=== PATIENT | female | born 1955 | race Caucasian/White ===

== ENCOUNTER 2016-09-26 12:03 | Inpatient (IN) | payer BC ==
[2016-09-26] MEDS ORDERED: NORMAL SALINE 1000 ML 1,000 ML IV PRN (12:21)
[2016-09-26] MEDS ORDERED: VANCOMYCIN HCL 1,000 MG in DEXTROSE 5%-WATER 250 ML IV PRN (12:45)
[2016-09-26 12:55] LABS: ABSOLUTE MONOCYTES (AUTO) 0.7 10^3/uL (0.1-1.4); ABSOLUTE NEUT (AUTO) 7.1 10^3/uL (1.7-8.2); BASOPHILS % (AUTO) 0.3 % (0-2); HEMATOCRIT 29.5 % (36.0-47.0); HEMOGLOBIN 9.7 g/dL (12.0-15.5); HGB HCT DIFFERENCE -0.4; LYMPHOCYTES % (AUTO) 11.7 % (13-45); MEAN CORPUSCULAR HEMOGLOBIN 27.6 pg (27.0-33.4); MEAN CORPUSCULAR HGB CONC 32.9 g/dL (32.0-36.0); MEAN CORPUSCULAR VOLUME 84 fl (80-97); MONOCYTES % (AUTO) 7.8 % (3-13); RED BLOOD COUNT 3.52 10^6/uL (3.72-5.28); RED CELL DISTRIBUTION WIDTH 14.8 % (11.5-14.0); SEGMENTED NEUTROPHILS % (AUTO) 80.2 % (42-78); WHITE BLOOD COUNT 8.9 10^3/uL (4.0-10.5)
[2016-09-26] MEDS ORDERED: BUPIVACAINE HCL 0.25 % INJ/PF (2.5 MG/1 ML) 30 ML VIAL ONE (12:57)
[2016-09-26] MEDS ORDERED: LIDOCAINE 0.5% INJ-PF (5 MG/ML) 50 ML SDV ONE (12:57)
[2016-09-26 13:11] LABS: ANION GAP 12 (5-19); BLOOD UREA NITROGEN 26 mg/dL (7-20); CALCIUM 8.7 mg/dL (8.4-10.2); CARBON DIOXIDE 24 mmol/L (22-30); CHLORIDE 109 mmol/L (98-107); CREATININE RESULT 1.55 mg/dL (0.52-1.25); GLUCOSE 118 mg/dL (75-110); POTASSIUM 4.5 mmol/L (3.6-5.0); SODIUM 145.2 mmol/L (137-145)
[2016-09-26] MEDS ORDERED: PROPOFOL INJ 200 MG/20 ML VIAL IV ONE (13:25)
[2016-09-26] MEDS ORDERED: FENTANYL CITRATE INJ/PF 100 MCG/2 ML AMPUL ONE (13:25)
[2016-09-26] MEDS ORDERED: MIDAZOLAM 2 MG/2 ML INJ ONE (13:25)
[2016-09-26] MEDS ORDERED: METOCLOPRAMIDE HCL INJ/PF 10 MG/2 ML SDV ONE (13:32)
[2016-09-26] MEDS ORDERED: FAMOTIDINE INJ/PF 20 MG/2 ML SDV IV ONE (13:33)
[2016-09-26] MEDS ORDERED: DEXTROSE 50%-WATER 25 GM/50 ML DISP.SYRIN IV PRN ×2 (14:13)
[2016-09-26] MEDS ORDERED: GLUCAGON,HUMAN RECOMB 1 MG INJ IM PRN (14:13)
[2016-09-26] MEDS ORDERED: DEXTROSE 40% GEL 15 GM TUBE PO PRN ×2 (14:13)
[2016-09-26] MEDS ORDERED: VANCOMYCIN HCL 0 MG in DEXTROSE 5%-WATER 250 ML IV NR (14:15)
[2016-09-26] MEDS ORDERED: ONDANSETRON HCL INJ/PF 4 MG/2 ML SDV IV PRN (14:18)
[2016-09-26] MEDS ORDERED: MORPHINE SULFATE 10 MG/ML INJ IV PRN (14:18)
--- NOTE | 2016-09-26 14:25 | Operative Report ---
Operative Report DATE OF SURGERY: 09/26/16 PREOPERATIVE DIAGNOSIS: Abdominal wall abscess with dense panniculitis and infection of subcutaneous space POSTOPERATIVE DIAGNOSIS: Same OPERATION: Excisional debridement of large left lower quadrant abdominal wall abscess, debridement of subcutaneous space over a large area, counter incisions left lower quadrant and right lower quadrant, placement of Miguel Ángel drains SURGEON: RAFAEL SIMON ANESTHESIA: LMAC TISSUE REMOVED OR ALTERED: Necrotic skin and subcutaneous tissue. COMPLICATIONS: None ESTIMATED BLOOD LOSS: minimal INTRAOPERATIVE FINDINGS: See below PROCEDURE: The patient was seen in the preop holding area, then taken to the operating room where LMAC anesthesia was induced. Surgical plan on surgical time out conducted. The abdominal wall was prepped in sterile fashion. The large left lower quadrant abdominal wall necrotic abscess was excised full-thickness using 10 blade. A hole was left in the skin approximately 6 cm diameter. I then debrided the underlying abdominal wall extending approximately 25 cm inferiorly left lower lateral region and right lower lateral region. It was no penetration of the fascia. The overlying skin remained reasonably viable. 2 counterincisions were made one the left lower quadrant and one in the right mid quadrant 2 large [place] drains were placed creating a loop and tied, each approximately 15 cm from the original debridement hole. Significant amount of subcutaneous fat was mechanically debrided ; all of this tissue was very loose and broken up readily with hands. The large subcutaneous cavity was then irrigated with saline, 2 L, then packed with 2 full Curlex rolls. She did well. She was taken to The recovery room in stable condition. The total volume of fat removed was approximately 1 pound.
--- NOTE | 2016-09-26 15:03 | HISTORY AND PHYSICAL E ---
History and Physical NAME: DALIA QUEVEDO : 1955 AGE: 60Y ADMITTED: 09/26/2016 ROOM: OR CHIEF COMPLAINT: Abdominal wall cellulitis, abscess. HISTORY OF PRESENT ILLNESS: This is a 60-year-old female with significant medical problems, including a history of type 2 diabetes mellitus, uncontrolled hypertension, hyperlipidemia, pretty much blindness from the proliferative diabetic retinopathy, peripheral vascular disease, chronic kidney disease, congestive heart failure, basically came to the office complaining of abdominal wall redness. Initially, the patient was started on Bactrim, which is not working. The patient came back again in a couple of days and the patient redness is getting bigger and referred to Dr. Schaeffer and decided to admit in the hospital for further surgical intervention and IV antibiotics. The patient otherwise denied any fever, chills. No abdominal pain. PAST MEDICAL HISTORY: 1. Diabetic macular degeneration. 2. Proliferative diabetic retinopathy and led to the blindness. 3. Hypertension. 4. Hyperlipidemia. 5. Type 2 diabetes mellitus. 6. Peripheral vascular disease. 7. Depression. 8. Chronic kidney disease. 9. Congestive heart failure. ALLERGIES: No known drug allergies. PAST SURGICAL HISTORY: 1. Tonsillectomy. 2. *------*. HOSPITALIZATIONS: For the diabetes, hypertension, and cellulitis in the past. FAMILY HISTORY: Noncontributory. SOCIAL HISTORY: The patient's social history: No smoking. No alcohol. The patient's son is taking care of the things. MEDICATIONS: 1. Hydralazine 50 mg p.o. twice daily. 2. Isosorbide 30 mg 1 tablet daily. 3. Humalog 8 units in the afternoon, 8 units in the morning, and 10 units in the p.m. 4. Effexor XR 75 mg daily. 5. Metoprolol 100 mg twice daily. 6. Clonidine 0.3 mg t.i.d. 7. Gabapentin 100 mg b.i.d. 8. Lisinopril 20 mg daily. 9. Lasix 20 mg daily. 10. Trazodone 50 mg daily. 11. Amlodipine 10 mg daily. 12. Lantus 68 units subcutaneously daily. REVIEW OF SYSTEMS: As above. All other pertinents negative. PHYSICAL EXAMINATION: VITAL SIGNS: Temperature is 99.3, pulse is 83, blood pressure is 130/74, respirations are 18, O2 sat is 93% on room air. GENERAL: The patient is *------*, alert, awake, oriented. No acute distress. HEENT AND NECK: Normocephalic. PERRLA. LUNGS: There is no wheezing, no rales, no rhonchi. HEART: S1, S2 are present. ABDOMEN: Soft. Bowel sounds present. There was a left lower abdominal area that had induration about 4 inches, tender to palpation, and significant redness is present. NEUROLOGIC: The patient moves all 4 extremities. No focal weakness is seen. ASSESSMENT: 1. Continuous abscess of the abdominal wall and cellulitis. 2. Type 2 diabetes mellitus. 3. Chronic kidney disease. 4. Hypertension. 5. Hyperlipidemia. 6. Diabetic-related complications, including retinopathy and nephropathy. 7. Peripheral vascular disease. 8. Depression. 9. Noncompliance. PLAN: 1. Admit the patient to the medical floor. 2. Start the patient on clindamycin 300 mg IV q. 8. 3. Get the blood culture, urine culture. 4. Follow with Dr. Schaeffer. As per a discussion with Dr. Schaeffer and the patient, Dr. Lomeli is covering for the next [address] Duvall, and we hope the patient continues to improve. 5. The patient is seen by Dr. Clark as an outpatient and the patient also sees Dr. Marcus as an outpatient too, and the patient also sees [facility] for depression too. TIME SPENT: More than 35 minutes were spent examining the patient and reviewing the records. DICTATING PHYSICIAN: ROXANA YANES M.D. [id number] PHY#: [id number] ID: [id number] JOB#: [id number] ACCT: [id number] cc:ROXANA YANES M.D. >
[2016-09-26] MEDS ORDERED: LIDOCAINE 2% INJ-PF (20 MG/ML) 10 ML AMPUL ONE (15:55)
[2016-09-26] MEDS: CEFEPIME 1 GM/D5W RTU 1 GM/50 ML RTUPB IV SCH (17:28)
[2016-09-26] MEDS ORDERED: ENOXAPARIN SODIUM INJ 30 MG/0.3 ML DISP.SYRIN SUBCUT ONE (18:00)
[2016-09-26] MEDS: ACETAMINOPHEN 325 MG TABLET PO PRN (20:25)
--- NOTE | 2016-09-26 22:30 | EKG REPORT ---
SEVERITY:- ABNORMAL ECG - SINUS RHYTHM RIGHT BUNDLE BRANCH BLOCK LEFT VENTRICULAR HYPERTROPHY : Confirmed by: Mellissa Marcus MD 26-Sep-2016 22:29:07
[2016-09-26] MEDS: VANCOMYCIN HCL 1,000 MG in DEXTROSE 5%-WATER 250 ML IV SCH (22:35)
[2016-09-26] MEDS: INSULIN LISPRO 100 UNIT/ML 3 ML VIAL SUBCUT PRN (22:35)
[2016-09-27] MEDS: ACETAMINOPHEN 325 MG TABLET PO PRN ×4 (01:19→23:37)
[2016-09-27] MEDS: CEFEPIME 1 GM/D5W RTU 1 GM/50 ML RTUPB IV SCH ×2 (05:53→17:17)
--- NOTE | 2016-09-27 06:15 | EKG REPORT ---
SEVERITY:- ABNORMAL ECG - SINUS RHYTHM RIGHT BUNDLE BRANCH BLOCK : Confirmed by: Aissatou Hess 27-Sep-2016 06:15:28
[2016-09-27 07:52] LABS: ABSOLUTE LYMPHOCYTES (AUTO) 1.1 10^3/uL (0.5-4.7); ABSOLUTE MONOCYTES (AUTO) 0.8 10^3/uL (0.1-1.4); ABSOLUTE NEUT (AUTO) 7.5 10^3/uL (1.7-8.2); BASOPHILS % (AUTO) 0.2 % (0-2); HEMATOCRIT 24.7 % (36.0-47.0); HEMOGLOBIN 8.2 g/dL (12.0-15.5); HGB HCT DIFFERENCE -0.1; LYMPHOCYTES % (AUTO) 11.9 % (13-45); MEAN CORPUSCULAR HEMOGLOBIN 27.3 pg (27.0-33.4); MEAN CORPUSCULAR VOLUME 83 fl (80-97); MONOCYTES % (AUTO) 8.2 % (3-13); RED CELL DISTRIBUTION WIDTH 14.9 % (11.5-14.0); SEGMENTED NEUTROPHILS % (AUTO) 79.7 % (42-78); WHITE BLOOD COUNT 9.4 10^3/uL (4.0-10.5)
[2016-09-27] MEDS: ENOXAPARIN SODIUM INJ 30 MG/0.3 ML DISP.SYRIN SUBCUT SCH (08:02)
[2016-09-27 08:13] LABS: ANION GAP 7 (5-19); BLOOD UREA NITROGEN 20 mg/dL (7-20); CALCIUM 7.8 mg/dL (8.4-10.2); CARBON DIOXIDE 24 mmol/L (22-30); CHLORIDE 111 mmol/L (98-107); CREATININE RESULT 1.38 mg/dL (0.52-1.25); GLUCOSE 98 mg/dL (75-110); SODIUM 141.7 mmol/L (137-145)
--- NOTE | 2016-09-27 09:04 | PDOC PROGRESS REPORT ---
Subjective Progress Note for:: 09/27/16 Physical Exam Vital Signs: Temp Pulse Resp BP Pulse Ox 98.3 F 88 18 156/57 H 98 09/27/16 07:51 09/27/16 07:51 09/27/16 07:51 09/27/16 07:51 09/27/16 07:51 Intake & Output 09/26/16 09/27/16 09/28/16 06:59 06:59 06:59 Intake Total 2565 Output Total 1720 Balance 845 Weight 128.2 kg GI/Abdominal exam: PRESENT: other - lARGE ABDOMINAL WOUND WITH NECROTIC TISSUE PLAN FURTHER DEBRIDEMENT TOMORROW Results Laboratory Results: 09/27/16 06:35 09/27/16 06:35 09/26/16 09/26/16 09/27/16 12:44 12:44 06:35 WBC 8.9 9.4 RBC 3.52 L 3.00 L Hgb 9.7 L 8.2 L Hct 29.5 L 24.7 L MCV 84 83 MCH 27.6 27.3 MCHC 32.9 33.0 RDW 14.8 H 14.9 H Plt Count 226 192 Seg Neutrophils % 80.2 H 79.7 H Lymphocytes % 11.7 L 11.9 L Monocytes % 7.8 8.2 Eosinophils % 0.0 0.0 Basophils % 0.3 0.2 Absolute Neutrophils 7.1 7.5 Absolute Lymphocytes 1.0 1.1 Absolute Monocytes 0.7 0.8 Absolute Eosinophils 0.0 0.0 Absolute Basophils 0.0 0.0 Sodium 145.2 H Potassium 4.5 Chloride 109 H Carbon Dioxide 24 Anion Gap 12 BUN 26 H Creatinine 1.55 H Est GFR ( Amer) 41 L Est GFR (Non-Af Amer) 34 L Glucose 118 H Calcium 8.7 09/27/16 06:35 WBC RBC Hgb Hct MCV MCH MCHC RDW Plt Count Seg Neutrophils % Lymphocytes % Monocytes % Eosinophils % Basophils % Absolute Neutrophils Absolute Lymphocytes Absolute Monocytes Absolute Eosinophils Absolute Basophils Sodium 141.7 Potassium 4.0 Chloride 111 H Carbon Dioxide 24 Anion Gap 7 BUN 20 Creatinine 1.38 H Est GFR ( Amer) 47 L Est GFR (Non-Af Amer) 39 L Glucose 98 Calcium 7.8 L
--- NOTE | 2016-09-27 10:34 | PDOC PROGRESS REPORT ---
Subjective Progress Note for:: 09/27/16 Subjective:: Patient reported fairly controlled pain on her curent pain management medication. She denied any fever or chills. No chest pain or difficulty with her breathing. Surgical input and plan for further debridement schedule for tomorrow noted and discussed with patient. Physical Exam Vital Signs: Temp Pulse Resp BP Pulse Ox 98.3 F 88 18 156/57 H 98 09/27/16 07:51 09/27/16 07:51 09/27/16 07:51 09/27/16 07:51 09/27/16 07:51 Intake & Output 09/26/16 09/27/16 09/28/16 06:59 06:59 06:59 Intake Total 2565 Output Total 1720 Balance 845 Weight 128.2 kg General appearance: PRESENT: no acute distress, cooperative, morbidly obese Head exam: PRESENT: atraumatic, normocephalic Eye exam: PRESENT: conjunctiva pink, EOMI, PERRLA. ABSENT: scleral icterus Respiratory exam: PRESENT: clear to auscultation ita Cardiovascular exam: PRESENT: RRR. ABSENT: diastolic murmur, rubs, systolic murmur GI/Abdominal exam: PRESENT: normal bowel sounds, soft. ABSENT: distended, guarding, mass, organolmegaly, rebound, tenderness Extremities exam: PRESENT: full ROM Musculoskeletal exam: PRESENT: deformity - related to joint arthritis Neurological exam: PRESENT: alert, awake, oriented to person, oriented to place , oriented to time, oriented to situation, CN II-XII grossly intact. ABSENT: motor sensory deficit Psychiatric exam: PRESENT: appropriate affect, normal mood. ABSENT: homicidal ideation, suicidal ideation Skin exam: PRESENT: dry, warm, other - large anterior abdomial wall cellulitis abscess s/p incision and drainage with persistent necrotic tissue and need for furtehr debridement Results Laboratory Results: 09/27/16 06:35 09/27/16 06:35 09/26/16 09/26/16 09/27/16 12:44 12:44 06:35 WBC 8.9 9.4 RBC 3.52 L 3.00 L Hgb 9.7 L 8.2 L Hct 29.5 L 24.7 L MCV 84 83 MCH 27.6 27.3 MCHC 32.9 33.0 RDW 14.8 H 14.9 H Plt Count 226 192 Seg Neutrophils % 80.2 H 79.7 H Lymphocytes % 11.7 L 11.9 L Monocytes % 7.8 8.2 Eosinophils % 0.0 0.0 Basophils % 0.3 0.2 Absolute Neutrophils 7.1 7.5 Absolute Lymphocytes 1.0 1.1 Absolute Monocytes 0.7 0.8 Absolute Eosinophils 0.0 0.0 Absolute Basophils 0.0 0.0 Sodium 145.2 H Potassium 4.5 Chloride 109 H Carbon Dioxide 24 Anion Gap 12 BUN 26 H Creatinine 1.55 H Est GFR ( Amer) 41 L Est GFR (Non-Af Amer) 34 L Glucose 118 H Calcium 8.7 09/27/16 06:35 WBC RBC Hgb Hct MCV MCH MCHC RDW Plt Count Seg Neutrophils % Lymphocytes % Monocytes % Eosinophils % Basophils % Absolute Neutrophils Absolute Lymphocytes Absolute Monocytes Absolute Eosinophils Absolute Basophils Sodium 141.7 Potassium 4.0 Chloride 111 H Carbon Dioxide 24 Anion Gap 7 BUN 20 Creatinine 1.38 H Est GFR ( Amer) 47 L Est GFR (Non-Af Amer) 39 L Glucose 98 Calcium 7.8 L Assessment & Plan - Diagnosis (1) Cellulitis Qualifiers: Site of cellulitis: trunk Site of cellulitis of trunk: abdominal wall Qualified Code(s): L03.311 - Cellulitis of abdominal wall Is this a current diagnosis for this admission?: YesPlan: See covering attending physician orders (2) Diabetes mellitus type 2 with retinopathy Is this a current diagnosis for this admission?: YesPlan: See covering attending physician orders (3) HLD (hyperlipidemia) Qualifiers: Hyperlipidemia type: pure hypercholesterolemia Qualified Code(s): E78.00 - Pure hypercholesterolemia, unspecified; E78.0 - Pure hypercholesterolemia Is this a current diagnosis for this admission?: YesPlan: See covering attending physician orders (4) HTN (hypertension) Qualifiers: Hypertension type: essential hypertension Qualified Code(s): I10 - Essential (primary) hypertension Is this a current diagnosis for this admission?: YesPlan: See covering attending physician orders - Time Time Spent with patient: 25-34 minutes Medications reviewed and adjusted accordingly: Yes Anticipated discharge: SNF Within: Other - Inpatient Certification Medical Necessity: Need Close Monitoring Due to Risk of Patient Decompensation, Need For IV Fluids, Need For Continuous Telemetry Monitoring, Need for IV Antibiotics, Need for Surgery, Risk of Complication if Not Cared For in Hospital Post Hospital Care: D/C or Transfer Summary - Plan Summary Plan Summary: See covering attending physician orders
[2016-09-27] MEDS: VANCOMYCIN HCL 1,000 MG in DEXTROSE 5%-WATER 250 ML IV SCH ×2 (11:16→22:32)
[2016-09-27] MEDS: INSULIN LISPRO 100 UNIT/ML 3 ML VIAL SUBCUT PRN ×2 (17:15→23:37)
[2016-09-28] MEDS: CEFEPIME 1 GM/D5W RTU 1 GM/50 ML RTUPB IV SCH ×2 (05:17→20:29)
[2016-09-28 07:30] LABS: ABSOLUTE MONOCYTES (AUTO) 0.6 10^3/uL (0.1-1.4); ABSOLUTE NEUT (AUTO) 6.1 10^3/uL (1.7-8.2); BASOPHILS % (AUTO) 0.3 % (0-2); HEMATOCRIT 24.2 % (36.0-47.0); HGB HCT DIFFERENCE -0.2; LYMPHOCYTES % (AUTO) 13.3 % (13-45); MEAN CORPUSCULAR HEMOGLOBIN 27.4 pg (27.0-33.4); MEAN CORPUSCULAR HGB CONC 33.1 g/dL (32.0-36.0); MEAN CORPUSCULAR VOLUME 83 fl (80-97); MONOCYTES % (AUTO) 7.6 % (3-13); RED BLOOD COUNT 2.92 10^6/uL (3.72-5.28); SEGMENTED NEUTROPHILS % (AUTO) 78.8 % (42-78); WHITE BLOOD COUNT 7.7 10^3/uL (4.0-10.5)
[2016-09-28 07:52] LABS: ANION GAP 9 (5-19); BLOOD UREA NITROGEN 18 mg/dL (7-20); CALCIUM 8.1 mg/dL (8.4-10.2); CARBON DIOXIDE 22 mmol/L (22-30); CHLORIDE 113 mmol/L (98-107); CREATININE RESULT 1.19 mg/dL (0.52-1.25); GLUCOSE 161 mg/dL (75-110); POTASSIUM 3.5 mmol/L (3.6-5.0); SODIUM 143.5 mmol/L (137-145)
[2016-09-28] MEDS: ENOXAPARIN SODIUM INJ 30 MG/0.3 ML DISP.SYRIN SUBCUT SCH (08:15)
--- NOTE | 2016-09-28 09:29 | PDOC PROGRESS REPORT ---
Subjective Progress Note for:: 09/28/16 Subjective:: Patient reported fairly controlled pain on her current pain management medication. She denied any fever or chills. No chest pain or difficulty with her breathing. Patient remain NPO for planned anterior abdominal wall wound debridement schedule for today. Physical Exam Vital Signs: Temp Pulse Resp BP Pulse Ox 97.8 F 101 H 20 169/75 H 98 09/28/16 08:00 09/28/16 08:00 09/28/16 08:00 09/28/16 08:00 09/28/16 08:00 Intake & Output 09/27/16 09/28/16 09/29/16 06:59 06:59 06:59 Intake Total 2565 800 Output Total 1720 Balance 845 800 Weight 128.2 kg 121.1 kg Physical Exam: General appearance: PRESENT: no acute distress, cooperative, morbidly obese Head exam: PRESENT: atraumatic, normocephalic Eye exam: PRESENT: conjunctiva pink, EOMI, PERRLA. ABSENT: scleral icterus Respiratory exam: PRESENT: clear to auscultation ita Cardiovascular exam: PRESENT: RRR. ABSENT: diastolic murmur, rubs, systolic murmur GI/Abdominal exam: PRESENT: normal bowel sounds, soft. ABSENT: distended, guarding, mass, organomegaly, rebound, tenderness Extremities exam: PRESENT: full ROM Musculoskeletal exam: PRESENT: deformity - related to joint arthritis Neurological exam: PRESENT: alert, awake, oriented to person, oriented to place , oriented to time, oriented to situation, CN II-XII grossly intact. ABSENT: motor sensory deficit Psychiatric exam: PRESENT: appropriate affect, normal mood. ABSENT: homicidal ideation, suicidal ideation Skin exam: PRESENT: dry, warm, other - large anterior abdominal wall cellulitis abscess s/p incision and drainage with persistent necrotic tissue and need for further debridement Results Laboratory Results: 09/28/16 07:02 09/28/16 07:02 09/28/16 09/28/16 07:02 07:02 WBC 7.7 RBC 2.92 L Hgb 8.0 L Hct 24.2 L MCV 83 MCH 27.4 MCHC 33.1 RDW 15.0 H Plt Count 175 Seg Neutrophils % 78.8 H Lymphocytes % 13.3 Monocytes % 7.6 Eosinophils % 0.0 Basophils % 0.3 Absolute Neutrophils 6.1 Absolute Lymphocytes 1.0 Absolute Monocytes 0.6 Absolute Eosinophils 0.0 Absolute Basophils 0.0 Sodium 143.5 Potassium 3.5 L Chloride 113 H Carbon Dioxide 22 Anion Gap 9 BUN 18 Creatinine 1.19 Est GFR ( Amer) 56 L Est GFR (Non-Af Amer) 46 L Glucose 161 H Calcium 8.1 L Assessment & Plan - Diagnosis (1) Cellulitis Qualifiers: Site of cellulitis: trunk Site of cellulitis of trunk: abdominal wall Qualified Code(s): L03.311 - Cellulitis of abdominal wall Is this a current diagnosis for this admission?: YesPlan: See covering attending physician orders (2) Diabetes mellitus type 2 with retinopathy Is this a current diagnosis for this admission?: YesPlan: See covering attending physician orders (3) HLD (hyperlipidemia) Qualifiers: Hyperlipidemia type: pure hypercholesterolemia Qualified Code(s): E78.00 - Pure hypercholesterolemia, unspecified; E78.0 - Pure hypercholesterolemia Is this a current diagnosis for this admission?: YesPlan: See covering attending physician orders (4) HTN (hypertension) Qualifiers: Hypertension type: essential hypertension Qualified Code(s): I10 - Essential (primary) hypertension Is this a current diagnosis for this admission?: YesPlan: See covering attending physician orders (5) Hypopotassemia Is this a current diagnosis for this admission?: NoPlan: Patient will receive IV potassium supplementation since she is currently NPO awaiting operating room time for anterior abdominal wall wound debridement. I will request for serum Magnesium level for possible need for replacement. - Time Time Spent with patient: 25-34 minutes Medications reviewed and adjusted accordingly: Yes Anticipated discharge: Home with Homehealth Within: Other - Inpatient Certification Based on my medical assessment, after consideration of the patient's comorbidities, presenting symptoms, or acuity I expect that the services needed warrant INPATIENT care.: Yes I certify that my determination is in accordance with my understanding of Medicare's requirements for reasonable and necessary INPATIENT services [42 CFR 412.3e].: Yes Medical Necessity: Need Close Monitoring Due to Risk of Patient Decompensation, Need For IV Fluids, Need For Continuous Telemetry Monitoring, Need for IV Antibiotics, Need for Surgery, Risk of Complication if Not Cared For in Hospital Post Hospital Care: D/C Household Appliance Repairer Documentation - Plan Summary Plan Summary: See covering attending physician orders.
[2016-09-28] MEDS: VANCOMYCIN HCL 1,000 MG in DEXTROSE 5%-WATER 250 ML IV SCH ×2 (10:09→22:57)
[2016-09-28] MEDS ORDERED: BUPIVACAINE HCL 0.25 % INJ/PF (2.5 MG/1 ML) 30 ML VIAL ONE (10:24)
[2016-09-28] MEDS ORDERED: POTASSI CL 20 MEQ/50 ML RIDER 20 MEQ/50 ML RTUPB IV SCH (10:30)
[2016-09-28] MEDS: NORMAL SALINE 1000 ML 1,000 ML IV PRN ×2 (10:37→15:54)
[2016-09-28] MEDS ORDERED: FENTANYL CITRATE INJ/PF 100 MCG/2 ML AMPUL ONE (11:19)
[2016-09-28] MEDS ORDERED: MIDAZOLAM 2 MG/2 ML INJ ONE (11:19)
[2016-09-28] MEDS ORDERED: PROPOFOL INJ 200 MG/20 ML VIAL IV ONE (11:20)
[2016-09-28] MEDS ORDERED: ONDANSETRON HCL INJ/PF 4 MG/2 ML SDV ONE (11:20)
[2016-09-28] MEDS ORDERED: DIPHENHYDRAMINE HCL 50 MG/ML VIAL IV PRN (11:52)
[2016-09-28] MEDS ORDERED: FENTANYL CITRATE INJ/PF 100 MCG/2 ML AMPUL IV PRN ×3 (11:52)
[2016-09-28] MEDS ORDERED: PROMETHAZINE HCL INJ 25 MG/1 ML VIAL IV PRN ×2 (11:52)
[2016-09-28] MEDS ORDERED: MORPHINE SULFATE 10 MG/ML INJ IV PRN (11:52)
[2016-09-28] MEDS ORDERED: MEPERIDINE HCL/PF INJ 25 MG/1 ML DISP.SYRIN IV PRN (11:52)
[2016-09-28] MEDS: FENTANYL CITRATE INJ/PF 100 MCG/2 ML AMPUL ONE ×2 (12:40→12:45)
[2016-09-28] MEDS ORDERED: HYDROMORPHONE HCL INJ/PF 2 MG/ML AMPULE IV PRN (13:10)
[2016-09-28] MEDS ORDERED: HYDROCODONE/ACETAMINOPHEN 5-325 MG TABLET PO PRN (13:11)
--- NOTE | 2016-09-28 13:28 | OPERATIVE REPORT E ---
Operative Report NAME: DALIA QUEVEDO : 1955 AGE: 60Y DATE OF SURGERY: ROOM: 533 PREOPERATIVE DIAGNOSIS: A 60-year-old female patient with preoperative diagnosis of abdominal wall necrotic soft tissue infection with recurrent abdominal wall soft tissue necrosis most likely a spider bite. OPERATION: Occasional sharp debridement of abdominal wall recurrent necrotic tissue up to the fascial level. SURGEON: DURAN SIMPSON M.D. ANESTHESIA: Monitored anesthesia care. BLOOD LOSS: Less than 10 mL. SPECIMEN: Necrotic tissue sent for tissue cultures. HISTORY AND INDICATION: The patient presented with abdominal wall cellulitis, a lot of necrotic abdominal wall tissue, and then it was debrided by Dr. Schaeffer to recurrence of a lot of necrotic tissue which was now re-resected. It needs to be re-resected all the way to the fascial defect because of a lot necrotic component in it. Patient consented and taken to the operating room. PROCEDURE: general anesthesia and monitored. The abdomen was cleaned and draped as a sterile field. Abdominal wall examined. There is a left-sided abdominal wound area, a lot of necrotic tissue component going on to the level of the fascial area. The necrotic component was about 2 to 3 mm in width all the way to the fascial level and was debrided completely with sharp excision, and then complete hemostasis secured. The wound was irrigated. The wounds were packed, and dressings were applied. The patient encountered no problems. He was taken to the recovery room in stable condition. DICTATING PHYSICIAN: DURAN SIMPSON M.D. [id number] [facility]#: [id number] ID: [id number] JOB#: [id number] ACCT: [id number] cc:DURAN SIMPSON M.D. > MTDD
[2016-09-28] MEDS ORDERED: DIPHENHYDRAMINE HCL 25 MG CAPSULE ONE (14:03)
[2016-09-28] MEDS ORDERED: (PENDING PHARMACY ID) (Lisinopril [Zestril] 20 MG) PO SCH (14:15)
[2016-09-28] MEDS: INSULIN LISPRO 100 UNIT/ML 3 ML VIAL SUBCUT PRN ×3 (14:18→22:57)
[2016-09-28] MEDS ORDERED: AMLODIPINE BESYLATE 10 MG TABLET PO ONE (15:00)
[2016-09-28] MEDS ORDERED: LISINOPRIL 10 MG TABLET PO ONE (15:00)
[2016-09-28] MEDS ORDERED: ISOSORBIDE MONONITRATE 30 MG TAB.ER.24H PO ONE ×2 (15:00→18:45)
[2016-09-28] MEDS ORDERED: DIPHENHYDRAMINE HCL 25 MG CAPSULE PO ONE (15:00)
[2016-09-28] MEDS ORDERED: HYDRALAZINE HCL 50 MG TABLET PO ONE (15:00)
[2016-09-28] MEDS: GABAPENTIN 100 MG CAPSULE PO SCH (22:55)
[2016-09-28] MEDS: METOPROLOL TARTRATE 50 MG TABLET PO SCH (22:56)
[2016-09-28] MEDS: HYDRALAZINE HCL 50 MG TABLET PO SCH (22:56)
[2016-09-28] MEDS: INSULIN GLARGINE,HUM.REC.ANLOG 300 UNIT/3 ML INSULN.PEN SUBCUT SCH (22:56)
[2016-09-28] MEDS: ACETAMINOPHEN 325 MG TABLET PO PRN (22:56)
[2016-09-28] MEDS: TRAZODONE HCL 50 MG TABLET PO SCH (22:56)
[2016-09-28] MEDS: VENLAFAXINE HCL 75 MG CAP.SR.24H PO SCH (23:03)
[2016-09-29] MEDS: CEFEPIME 1 GM/D5W RTU 1 GM/50 ML RTUPB IV SCH ×2 (05:42→20:36)
[2016-09-29] MEDS: HYDRALAZINE HCL 50 MG TABLET PO SCH ×3 (05:42→23:34)
[2016-09-29] MEDS: NORMAL SALINE 1000 ML 1,000 ML IV PRN (05:42)
[2016-09-29 07:41] LABS: ABSOLUTE MONOCYTES (AUTO) 0.7 10^3/uL (0.1-1.4); ABSOLUTE NEUT (AUTO) 6.3 10^3/uL (1.7-8.2); BASOPHILS % (AUTO) 0.3 % (0-2); HEMATOCRIT 22.1 % (36.0-47.0); HGB HCT DIFFERENCE -0.5; LYMPHOCYTES % (AUTO) 12.6 % (13-45); MEAN CORPUSCULAR HEMOGLOBIN 27.3 pg (27.0-33.4); MEAN CORPUSCULAR HGB CONC 32.6 g/dL (32.0-36.0); MEAN CORPUSCULAR VOLUME 84 fl (80-97); MONOCYTES % (AUTO) 8.2 % (3-13); RED BLOOD COUNT 2.64 10^6/uL (3.72-5.28); RED CELL DISTRIBUTION WIDTH 14.6 % (11.5-14.0); SEGMENTED NEUTROPHILS % (AUTO) 78.9 % (42-78)
[2016-09-29 07:45] LABS: HEMOGLOBIN 7.2 g/dL (12.0-15.5)
[2016-09-29 08:00] LABS: ANION GAP 6 (5-19); BLOOD UREA NITROGEN 20 mg/dL (7-20); CALCIUM 7.8 mg/dL (8.4-10.2); CARBON DIOXIDE 24 mmol/L (22-30); CHLORIDE 115 mmol/L (98-107); GLUCOSE 145 mg/dL (75-110); POTASSIUM 3.9 mmol/L (3.6-5.0); SODIUM 144.6 mmol/L (137-145)
--- NOTE | 2016-09-29 09:02 | PDOC PROGRESS REPORT ---
Subjective Progress Note for:: 09/29/16 Subjective:: No complaints Physical Exam Vital Signs: Temp Pulse Resp BP Pulse Ox 97.5 F 67 20 130/53 H 98 09/29/16 08:10 09/29/16 08:10 09/29/16 08:10 09/29/16 08:10 09/29/16 08:10 Intake & Output 09/28/16 09/29/16 09/30/16 06:59 06:59 06:59 Intake Total 800 1140 Output Total 15 Balance 800 1125 Weight 121.1 kg 121.9 kg General appearance: PRESENT: no acute distress GI/Abdominal exam: PRESENT: other - Abdominal wall inspected; packing removed; base of wound beginning granulate. Abdominal wall skin appears viable. Loop Miguel Ángel drains in position Results Laboratory Results: 09/29/16 06:48 09/29/16 06:48 09/28/16 09/29/16 09/29/16 09:56 06:48 06:48 WBC 8.0 RBC 2.64 L Hgb 7.2 L Hct 22.1 L MCV 84 MCH 27.3 MCHC 32.6 RDW 14.6 H Plt Count 183 Seg Neutrophils % 78.9 H Lymphocytes % 12.6 L Monocytes % 8.2 Eosinophils % 0.0 Basophils % 0.3 Absolute Neutrophils 6.3 Absolute Lymphocytes 1.0 Absolute Monocytes 0.7 Absolute Eosinophils 0.0 Absolute Basophils 0.0 Sodium 144.6 Potassium 3.9 Chloride 115 H Carbon Dioxide 24 Anion Gap 6 BUN 20 Creatinine 1.40 H Est GFR ( Amer) 46 L Est GFR (Non-Af Amer) 38 L Glucose 145 H Calcium 7.8 L Magnesium 1.9 Assessment & Plan - Diagnosis (1) Sepsis Qualifiers: Sepsis type: sepsis due to unspecified organism Qualified Code(s): A41.9 - Sepsis, unspecified organism Is this a current diagnosis for this admission?: YesPlan: 1. Patient is postoperative day 3, 1 status post debridement of abdominal wall. Sepsis appears controlled; no indication for further operative debridement today. 2. We'll get patient up and to shower, washing wound. Tomorrow anticipate removal of Loop Miguel Ángel drains and VAC therapy initiated. 3. As the abdominal wall septic focus appears under control, I think patient can be managed on an outpatient basis with oral antibiotics once the wound has stabilized from a surgical standpoint
[2016-09-29] MEDS: VENLAFAXINE HCL 75 MG CAP.SR.24H PO SCH ×2 (10:38→23:33)
[2016-09-29] MEDS: ISOSORBIDE MONONITRATE 30 MG TAB.ER.24H PO SCH (10:38)
[2016-09-29] MEDS: METOPROLOL TARTRATE 50 MG TABLET PO SCH ×2 (10:38→23:33)
[2016-09-29] MEDS: FUROSEMIDE 20 MG TABLET PO SCH (10:38)
[2016-09-29] MEDS: GABAPENTIN 100 MG CAPSULE PO SCH ×2 (10:38→23:34)
[2016-09-29] MEDS: LISINOPRIL 10 MG TABLET PO SCH (10:39)
[2016-09-29] MEDS: ENOXAPARIN SODIUM INJ 30 MG/0.3 ML DISP.SYRIN SUBCUT SCH (10:39)
[2016-09-29] MEDS: AMLODIPINE BESYLATE 10 MG TABLET PO SCH (10:39)
[2016-09-29] MEDS: VANCOMYCIN HCL 1,000 MG in DEXTROSE 5%-WATER 250 ML IV SCH ×2 (10:40→23:34)
--- NOTE | 2016-09-29 11:11 | PDOC PROGRESS REPORT ---
Subjective Progress Note for:: 09/29/16 Subjective:: Patient s/p anterior abdominal wall wound debridement. No reported fever or chills. Pain is fairly controlled on current medication management. No chest pain or difficulty with her breathing. Physical Exam Vital Signs: Temp Pulse Resp BP Pulse Ox 97.5 F 67 20 130/53 H 98 09/29/16 08:10 09/29/16 08:10 09/29/16 08:10 09/29/16 08:10 09/29/16 08:10 Intake & Output 09/28/16 09/29/16 09/30/16 06:59 06:59 06:59 Intake Total 800 1140 Output Total 15 Balance 800 1125 Weight 121.1 kg 121.9 kg Physical Exam: General appearance: PRESENT: no acute distress, cooperative, morbidly obese Head exam: PRESENT: atraumatic, normocephalic Eye exam: PRESENT: conjunctiva pink, EOMI, PERRLA. ABSENT: scleral icterus Respiratory exam: PRESENT: clear to auscultation ita Cardiovascular exam: PRESENT: RRR. ABSENT: diastolic murmur, rubs, systolic murmur GI/Abdominal exam: PRESENT: normal bowel sounds, soft. ABSENT: distended, guarding, mass, organomegaly, rebound, tenderness Extremities exam: PRESENT: full ROM Musculoskeletal exam: PRESENT: deformity - related to joint arthritis Neurological exam: PRESENT: alert, awake, oriented to person, oriented to place , oriented to time, oriented to situation, CN II-XII grossly intact. ABSENT: motor sensory deficit Psychiatric exam: PRESENT: appropriate affect, normal mood. ABSENT: homicidal ideation, suicidal ideation Skin exam: PRESENT: dry, warm, other - large anterior abdominal wall debrided wound open with katelynn drainage loops. No active bleeding. Results Laboratory Results: 09/29/16 06:48 09/29/16 06:48 09/29/16 09/29/16 06:48 06:48 WBC 8.0 RBC 2.64 L Hgb 7.2 L Hct 22.1 L MCV 84 MCH 27.3 MCHC 32.6 RDW 14.6 H Plt Count 183 Seg Neutrophils % 78.9 H Lymphocytes % 12.6 L Monocytes % 8.2 Eosinophils % 0.0 Basophils % 0.3 Absolute Neutrophils 6.3 Absolute Lymphocytes 1.0 Absolute Monocytes 0.7 Absolute Eosinophils 0.0 Absolute Basophils 0.0 Sodium 144.6 Potassium 3.9 Chloride 115 H Carbon Dioxide 24 Anion Gap 6 BUN 20 Creatinine 1.40 H Est GFR ( Amer) 46 L Est GFR (Non-Af Amer) 38 L Glucose 145 H Calcium 7.8 L Assessment & Plan - Diagnosis (1) Cellulitis Qualifiers: Site of cellulitis: trunk Site of cellulitis of trunk: abdominal wall Qualified Code(s): L03.311 - Cellulitis of abdominal wall Is this a current diagnosis for this admission?: YesPlan: Continue IV Cefepime and Vancomycin antibiotic coverage. Follow up on culture organism identification and sensitivity reports. See covering attending physician orders (2) Diabetes mellitus type 2 with retinopathy Is this a current diagnosis for this admission?: YesPlan: See covering attending physician orders (3) HLD (hyperlipidemia) Qualifiers: Hyperlipidemia type: pure hypercholesterolemia Qualified Code(s): E78.00 - Pure hypercholesterolemia, unspecified; E78.0 - Pure hypercholesterolemia Is this a current diagnosis for this admission?: YesPlan: See covering attending physician orders (4) HTN (hypertension) Qualifiers: Hypertension type: essential hypertension Qualified Code(s): I10 - Essential (primary) hypertension Is this a current diagnosis for this admission?: YesPlan: See covering attending physician orders (5) Hypopotassemia Is this a current diagnosis for this admission?: NoPlan: Resolved post replacement therapy. (6) Anemia due to blood loss, acute Is this a current diagnosis for this admission?: YesPlan: Patient will receive 2 units of PRBC transfusion today. - Time Time Spent with patient: 25-34 minutes Medications reviewed and adjusted accordingly: Yes Anticipated discharge: Home with Homehealth - Inpatient Certification Medical Necessity: Need Close Monitoring Due to Risk of Patient Decompensation, Need For IV Fluids, Need For Continuous Telemetry Monitoring, Need for Pain Control, Need for IV Antibiotics, Need for Surgery, Risk of Complication if Not Cared For in Hospital Post Hospital Care: D/C Automotive Sales Specialist Documentation - Plan Summary Plan Summary: See covering attending physician orders.
[2016-09-29] MEDS: INSULIN LISPRO 100 UNIT/ML 3 ML VIAL SUBCUT PRN (11:57)
[2016-09-29] MEDS: ACETAMINOPHEN 325 MG TABLET PO PRN (23:33)
[2016-09-29] MEDS: TRAZODONE HCL 50 MG TABLET PO SCH (23:34)
[2016-09-30] MEDS: INSULIN GLARGINE,HUM.REC.ANLOG 300 UNIT/3 ML INSULN.PEN SUBCUT SCH ×2 (00:22→22:40)
[2016-09-30] MEDS: INSULIN LISPRO 100 UNIT/ML 3 ML VIAL SUBCUT PRN (00:23)
[2016-09-30] MEDS: HYDRALAZINE HCL 50 MG TABLET PO SCH ×3 (06:24→22:40)
[2016-09-30] MEDS: CEFEPIME 1 GM/D5W RTU 1 GM/50 ML RTUPB IV SCH ×2 (06:24→17:27)
[2016-09-30 06:34] LABS: ABSOLUTE LYMPHOCYTES (AUTO) 1.3 10^3/uL (0.5-4.7); ABSOLUTE MONOCYTES (AUTO) 0.7 10^3/uL (0.1-1.4); ABSOLUTE NEUT (AUTO) 5.1 10^3/uL (1.7-8.2); BASOPHILS % (AUTO) 0.3 % (0-2); HEMATOCRIT 25.6 % (36.0-47.0); HEMOGLOBIN 8.6 g/dL (12.0-15.5); HGB HCT DIFFERENCE 0.2; LYMPHOCYTES % (AUTO) 18.5 % (13-45); MEAN CORPUSCULAR HEMOGLOBIN 27.6 pg (27.0-33.4); MEAN CORPUSCULAR HGB CONC 33.4 g/dL (32.0-36.0); MEAN CORPUSCULAR VOLUME 82 fl (80-97); MONOCYTES % (AUTO) 9.2 % (3-13); RED CELL DISTRIBUTION WIDTH 14.2 % (11.5-14.0); WHITE BLOOD COUNT 7.1 10^3/uL (4.0-10.5)
[2016-09-30 06:51] LABS: ALANINE AMINOTRANSFERASE 19 U/L (9-52); ALBUMIN 2.1 g/dL (3.5-5.0); ALKALINE PHOSPHATASE 73 U/L (38-126); ANION GAP 8 (5-19); ASPARTATE AMINO TRANSFERASE 12 U/L (14-36); BILIRUBIN,DIRECT 0.2 mg/dL (0.0-0.4); BILIRUBIN,TOTAL 0.4 mg/dL (0.2-1.3); BLOOD UREA NITROGEN 19 mg/dL (7-20); CARBON DIOXIDE 23 mmol/L (22-30); CHLORIDE 114 mmol/L (98-107); CREATININE RESULT 1.35 mg/dL (0.52-1.25); GLUCOSE 115 mg/dL (75-110); POTASSIUM 3.7 mmol/L (3.6-5.0); SODIUM 144.9 mmol/L (137-145)
[2016-09-30] MEDS: AMLODIPINE BESYLATE 10 MG TABLET PO SCH (09:48)
[2016-09-30] MEDS: LISINOPRIL 10 MG TABLET PO SCH (09:48)
[2016-09-30] MEDS: VANCOMYCIN HCL 1,000 MG in DEXTROSE 5%-WATER 250 ML IV SCH (09:48)
[2016-09-30] MEDS: ISOSORBIDE MONONITRATE 30 MG TAB.ER.24H PO SCH (09:48)
[2016-09-30] MEDS: FUROSEMIDE 20 MG TABLET PO SCH (09:48)
[2016-09-30] MEDS: VENLAFAXINE HCL 75 MG CAP.SR.24H PO SCH ×2 (09:48→22:39)
[2016-09-30] MEDS: GABAPENTIN 100 MG CAPSULE PO SCH ×2 (09:48→22:39)
[2016-09-30] MEDS: ENOXAPARIN SODIUM INJ 30 MG/0.3 ML DISP.SYRIN SUBCUT SCH (09:49)
[2016-09-30] MEDS: METOPROLOL TARTRATE 50 MG TABLET PO SCH ×2 (09:49→22:40)
--- NOTE | 2016-09-30 14:33 | PROGRESS NOTE E ---
Progress Note NAME: DALIA QUEVEDO : 1955 AGE: 60Y DATE: 09/30/2016 ROOM: 533 SUBJECTIVE: Patient is postop day 4 post debridement and excision of necrotic tissue of the abdominal wall. The exposed area underneath the skin on the abdominal wall appears to be pink. The drains were then removed. She has some mild tenderness on the lower part of what appears to be cellulitic area. Her white count though is normal at 7.1 and a blood sugar of 111. A wound VAC is ordered and we will reevaluate her blood work in the morning and also examine her abdomen again to make sure there is no development of further new abscess. DICTATING PHYSICIAN: AILYN MACARIO M.D. [id number] PHY#: [id number] ID: [id number] JOB#: [id number] ACCT: [id number] cc: >
--- NOTE | 2016-09-30 18:53 | PDOC PROGRESS REPORT ---
Subjective Progress Note for:: 09/30/16 Subjective:: Patient s/p anterior abdominal wall wound debridement with wound vac device in place. No fever or chills. Remain on IV Vancomycin and Cefepime coverage. No chest pain or difficulty with her breathing. Her accu-chek is fairly satisfactory. Physical Exam Vital Signs: Temp Pulse Resp BP Pulse Ox 97.8 F 69 20 165/59 H 100 09/30/16 16:40 09/30/16 16:40 09/30/16 16:40 09/30/16 16:40 09/30/16 16:40 Intake & Output 09/29/16 09/30/16 10/01/16 06:59 06:59 06:59 Intake Total 1140 1891 490 Output Total 15 Balance 1125 1891 490 Weight 121.9 kg 120.3 kg Physical Exam: General appearance: PRESENT: no acute distress, cooperative, morbidly obese Head exam: PRESENT: atraumatic, normocephalic Eye exam: PRESENT: conjunctiva pink, EOMI, PERRLA. ABSENT: scleral icterus Respiratory exam: PRESENT: clear to auscultation ita Cardiovascular exam: PRESENT: RRR. ABSENT: diastolic murmur, rubs, systolic murmur GI/Abdominal exam: PRESENT: normal bowel sounds, soft. ABSENT: distended, guarding, mass, organomegaly, rebound, tenderness Extremities exam: PRESENT: full ROM Musculoskeletal exam: PRESENT: deformity - related to joint arthritis Neurological exam: PRESENT: alert, awake, oriented to person, oriented to place , oriented to time, oriented to situation, CN II-XII grossly intact. ABSENT: motor sensory deficit Psychiatric exam: PRESENT: appropriate affect, normal mood. ABSENT: homicidal ideation, suicidal ideation Skin exam: PRESENT: dry, warm, other - large anterior abdominal wall debrided wound with wound vac device in use. Results Laboratory Results: 09/30/16 06:14 09/30/16 06:14 09/29/16 09/30/16 09/30/16 10:13 06:14 06:14 WBC 7.1 RBC 3.10 L Hgb 8.6 L Hct 25.6 L MCV 82 MCH 27.6 MCHC 33.4 RDW 14.2 H Plt Count 190 Seg Neutrophils % 72.0 Lymphocytes % 18.5 Monocytes % 9.2 Eosinophils % 0.0 Basophils % 0.3 Absolute Neutrophils 5.1 Absolute Lymphocytes 1.3 Absolute Monocytes 0.7 Absolute Eosinophils 0.0 Absolute Basophils 0.0 Sodium 144.9 Potassium 3.7 Chloride 114 H Carbon Dioxide 23 Anion Gap 8 BUN 19 Creatinine 1.35 H Est GFR ( Amer) 48 L Est GFR (Non-Af Amer) 40 L Glucose 115 H Calcium 8.0 L Total Bilirubin 0.4 AST 12 L ALT 19 Alkaline Phosphatase 73 Total Protein 5.0 L Albumin 2.1 L Blood Type O POSITIVE Antibody Screen NEGATIVE Assessment & Plan - Diagnosis (1) Cellulitis Qualifiers: Site of cellulitis: trunk Site of cellulitis of trunk: abdominal wall Qualified Code(s): L03.311 - Cellulitis of abdominal wall Is this a current diagnosis for this admission?: YesPlan: I will D/C IV Cefepime and Vancomycin coverage. Start on oral Augmentin 500/125 mg po tid based on wound culture findings. See covering attending physician orders (2) Diabetes mellitus type 2 with retinopathy Is this a current diagnosis for this admission?: YesPlan: See covering attending physician orders (3) HLD (hyperlipidemia) Qualifiers: Hyperlipidemia type: pure hypercholesterolemia Qualified Code(s): E78.00 - Pure hypercholesterolemia, unspecified; E78.0 - Pure hypercholesterolemia Is this a current diagnosis for this admission?: YesPlan: See covering attending physician orders (4) HTN (hypertension) Qualifiers: Hypertension type: essential hypertension Qualified Code(s): I10 - Essential (primary) hypertension Is this a current diagnosis for this admission?: YesPlan: See covering attending physician orders (5) Hypopotassemia Is this a current diagnosis for this admission?: NoPlan: Resolved post replacement therapy. (6) Anemia due to blood loss, acute Is this a current diagnosis for this admission?: YesPlan: Patient is s/p 2 units of PRBC transfusion. There is marginal improvement in her hgb level. 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
[2016-09-30] MEDS: TRAZODONE HCL 50 MG TABLET PO SCH (22:39)
[2016-09-30] MEDS: AMOXICILLIN TR/POT CLAVULANATE 500-125 MG TAB PO SCH (22:40)
[2016-10-01] MEDS: HYDRALAZINE HCL 50 MG TABLET PO SCH ×3 (05:37→21:20)
[2016-10-01] MEDS: AMOXICILLIN TR/POT CLAVULANATE 500-125 MG TAB PO SCH ×3 (05:37→21:20)
[2016-10-01 06:58] LABS: ABSOLUTE LYMPHOCYTES (AUTO) 1.1 10^3/uL (0.5-4.7); ABSOLUTE MONOCYTES (AUTO) 0.6 10^3/uL (0.1-1.4); ABSOLUTE NEUT (AUTO) 4.8 10^3/uL (1.7-8.2); BASOPHILS % (AUTO) 0.4 % (0-2); HEMATOCRIT 28.3 % (36.0-47.0); HEMOGLOBIN 9.4 g/dL (12.0-15.5); HGB HCT DIFFERENCE -0.1; LYMPHOCYTES % (AUTO) 17.2 % (13-45); MEAN CORPUSCULAR HEMOGLOBIN 27.3 pg (27.0-33.4); MEAN CORPUSCULAR HGB CONC 33.3 g/dL (32.0-36.0); MEAN CORPUSCULAR VOLUME 82 fl (80-97); MONOCYTES % (AUTO) 8.7 % (3-13); RED BLOOD COUNT 3.45 10^6/uL (3.72-5.28); RED CELL DISTRIBUTION WIDTH 14.6 % (11.5-14.0); SEGMENTED NEUTROPHILS % (AUTO) 73.7 % (42-78); WHITE BLOOD COUNT 6.5 10^3/uL (4.0-10.5)
[2016-10-01 07:03] LABS: ANION GAP 10 (5-19); BLOOD UREA NITROGEN 18 mg/dL (7-20); CALCIUM 8.8 mg/dL (8.4-10.2); CARBON DIOXIDE 22 mmol/L (22-30); CHLORIDE 113 mmol/L (98-107); CREATININE RESULT 1.27 mg/dL (0.52-1.25); GLUCOSE 84 mg/dL (75-110); POTASSIUM 3.6 mmol/L (3.6-5.0)
--- NOTE | 2016-10-01 09:38 | PROGRESS NOTE E ---
Progress Note NAME: DALIA QUEVEDO : 1955 AGE: 60Y DATE: 10/01/2016 ROOM: 533 SUBJECTIVE: A wound VAC was placed yesterday and appears to be functioning very well. She remains afebrile and her white count remains low at 6.5. Her hemoglobin is up to 9.4 this morning. OBJECTIVE: On examination, the wound VAC is in place. There is still erythema from the path of the left drain site, though patient denies any tenderness. PLAN: She will need likely IV antibiotics for the next 24-48 hours. We can plan on home care for her as far as management of the wound VAC. DICTATING PHYSICIAN: AILYN MACARIO M.D. [id number] PHY#: [id number] ID: [id number] JOB#: [id number] ACCT: [id number] cc: > MTDD
[2016-10-01] MEDS: LISINOPRIL 10 MG TABLET PO SCH (10:40)
[2016-10-01] MEDS: GABAPENTIN 100 MG CAPSULE PO SCH ×2 (10:40→21:20)
[2016-10-01] MEDS: METOPROLOL TARTRATE 50 MG TABLET PO SCH ×2 (10:40→21:20)
[2016-10-01] MEDS: ENOXAPARIN SODIUM INJ 30 MG/0.3 ML DISP.SYRIN SUBCUT SCH (10:41)
[2016-10-01] MEDS: FUROSEMIDE 20 MG TABLET PO SCH (10:41)
[2016-10-01] MEDS: AMLODIPINE BESYLATE 10 MG TABLET PO SCH (10:41)
[2016-10-01] MEDS: ISOSORBIDE MONONITRATE 30 MG TAB.ER.24H PO SCH (10:41)
[2016-10-01] MEDS: VENLAFAXINE HCL 75 MG CAP.SR.24H PO SCH ×2 (10:47→21:20)
--- NOTE | 2016-10-01 18:09 | PDOC PROGRESS REPORT ---
Subjective Progress Note for:: 10/01/16 Subjective:: Patient denied any fever or chills. Currently on oral Augmentin coverage. No nausea,, vomiting, or abdominal pain. No chest pain or difficulty with her breathing. Wound vac device functioning satisfactorily. Physical Exam Vital Signs: Temp Pulse Resp BP Pulse Ox 97.9 F 67 18 154/57 H 96 10/01/16 15:52 10/01/16 15:52 10/01/16 15:52 10/01/16 15:52 10/01/16 15:52 Intake & Output 09/30/16 10/01/16 10/02/16 06:59 06:59 06:59 Intake Total 9249 962 8580 Balance 8516 972 7987 Weight 120.3 kg 120.3 kg Physical Exam: General appearance: PRESENT: no acute distress, cooperative, morbidly obese Head exam: PRESENT: atraumatic, normocephalic Eye exam: PRESENT: conjunctiva pink, EOMI, PERRLA. ABSENT: scleral icterus Respiratory exam: PRESENT: clear to auscultation ita Cardiovascular exam: PRESENT: RRR. ABSENT: diastolic murmur, rubs, systolic murmur GI/Abdominal exam: PRESENT: normal bowel sounds, soft. ABSENT: distended, guarding, mass, organomegaly, rebound, tenderness Extremities exam: PRESENT: full ROM Musculoskeletal exam: PRESENT: deformity - related to joint arthritis Neurological exam: PRESENT: alert, awake, oriented to person, oriented to place , oriented to time, oriented to situation, CN II-XII grossly intact. ABSENT: motor sensory deficit Psychiatric exam: PRESENT: appropriate affect, normal mood. ABSENT: homicidal ideation, suicidal ideation Skin exam: PRESENT: dry, warm, other - large anterior abdominal wall debrided wound with wound vac device in use. Results Laboratory Results: 10/01/16 06:20 10/01/16 06:20 10/01/16 10/01/16 06:20 06:20 WBC 6.5 RBC 3.45 L Hgb 9.4 L Hct 28.3 L MCV 82 MCH 27.3 MCHC 33.3 RDW 14.6 H Plt Count 224 Seg Neutrophils % 73.7 Lymphocytes % 17.2 Monocytes % 8.7 Eosinophils % 0.0 Basophils % 0.4 Absolute Neutrophils 4.8 Absolute Lymphocytes 1.1 Absolute Monocytes 0.6 Absolute Eosinophils 0.0 Absolute Basophils 0.0 Sodium 145.0 Potassium 3.6 Chloride 113 H Carbon Dioxide 22 Anion Gap 10 BUN 18 Creatinine 1.27 H Est GFR ( Amer) 52 L Est GFR (Non-Af Amer) 43 L Glucose 84 Calcium 8.8 09/26/16 16:36 Blood Blood Culture - Final NO GROWTH IN 5 DAYS Assessment & Plan - Diagnosis (1) Cellulitis Qualifiers: Site of cellulitis: trunk Site of cellulitis of trunk: abdominal wall Qualified Code(s): L03.311 - Cellulitis of abdominal wall Is this a current diagnosis for this admission?: YesPlan: Continue oral Augmentin coverage. See covering attending physician orders (2) Diabetes mellitus type 2 with retinopathy Is this a current diagnosis for this admission?: YesPlan: See covering attending physician orders (3) HLD (hyperlipidemia) Qualifiers: Hyperlipidemia type: pure hypercholesterolemia Qualified Code(s): E78.00 - Pure hypercholesterolemia, unspecified; E78.0 - Pure hypercholesterolemia Is this a current diagnosis for this admission?: YesPlan: See covering attending physician orders (4) HTN (hypertension) Qualifiers: Hypertension type: essential hypertension Qualified Code(s): I10 - Essential (primary) hypertension Is this a current diagnosis for this admission?: YesPlan: See covering attending physician orders (5) Hypopotassemia Is this a current diagnosis for this admission?: NoPlan: Resolved post replacement therapy. (6) Anemia due to blood loss, acute Is this a current diagnosis for this admission?: YesPlan: Improved hemoglobin level. Continue other current medication management. Patient may chidi further outpatient workup for her recurrent anemia. - Time Time Spent with patient: 25-34 minutes Medications reviewed and adjusted accordingly: Yes Anticipated discharge: Home with Homehealth Within: within 24 hours - Inpatient Certification Medical Necessity: Need Close Monitoring Due to Risk of Patient Decompensation, Need For Continuous Telemetry Monitoring, Risk of Complication if Not Cared For in Hospital Post Hospital Care: D/C Coordinator Hotels Documentation - Plan Summary Plan Summary: See covering attending physician orders.
[2016-10-01] MEDS: TRAZODONE HCL 50 MG TABLET PO SCH (21:20)
[2016-10-01] MEDS: INSULIN GLARGINE,HUM.REC.ANLOG 300 UNIT/3 ML INSULN.PEN SUBCUT SCH (21:21)
[2016-10-02] MEDS: HYDRALAZINE HCL 50 MG TABLET PO SCH ×2 (06:47→14:50)
[2016-10-02] MEDS: AMOXICILLIN TR/POT CLAVULANATE 500-125 MG TAB PO SCH ×2 (06:47→14:50)
--- NOTE | 2016-10-02 07:50 | PDOC DISCHARGE SUMMARY ---
General - Admit/Disc Date/PCP Admission Date/Primary Care Provider: 09/26/16 12:03 MIKA CRAWFORD MD Discharge Date: 10/02/16 - Discharge Diagnosis (1) Cellulitis Is this a current diagnosis for this admission?: Yes (2) Diabetes mellitus type 2 with retinopathy Is this a current diagnosis for this admission?: Yes (3) HLD (hyperlipidemia) Is this a current diagnosis for this admission?: Yes (4) HTN (hypertension) Is this a current diagnosis for this admission?: Yes (5) Hypopotassemia Is this a current diagnosis for this admission?: No (6) Anemia due to blood loss, acute Is this a current diagnosis for this admission?: Yes - Additional Information Resuscitation Status: Full Code Discharge Diet: Cardiac, Diabetic Discharge Activity: Activity As Tolerated, Slowly Increase Activity, No tub bath Home Medications: Amlodipine Besylate [Norvasc 10 mg Tablet] 10 mg PO DAILY 09/27/16 Furosemide [Lasix] 20 mg PO DAILY 09/27/16 Gabapentin [Neurontin 100 mg Capsule] 100 mg PO Q12 09/27/16 Hydralazine HCl [Apresoline 50 mg Tablet] 50 mg PO Q8 09/27/16 Insulin Glargine,Hum.rec.anlog [Lantus Solostar] 68 units SQ QHS 09/27/16 Isosorbide Mononitrate [Imdur 30 mg Tablet.er] 30 mg PO DAILY 09/27/16 Lisinopril [Zestril] 20 mg PO DAILY 09/27/16 Metoprolol Tartrate [Lopressor 50 mg Tablet] 100 mg PO BID 09/27/16 Trazodone HCl [Desyrel 50 mg Tablet] 50 mg PO QHS 09/27/16 Venlafaxine HCl ER [Effexor Xr 75 mg Cap.sr] 75 mg PO BID 09/27/16 Amox Tr/Potassium Clavulanate [Augmentin "500" Tablet] 1 tab PO Q8 #21 tablet 10/02/16 History of Present Illness History of Present Illness: DALIA QUEVEDO is a 60 year old female admitted to Dr Mika Crawford service on 09/26/2016 following failure of oral antibiotic therapy for anterior abdominal wall cellulitis abscess. She was seen in consultation by Dr Schaeffer, general surgeon. Patient was treated with oral Bactrim without improvement in her cellulitis site. No associated fever or chills. Hospital Course Hospital Course: Patient was treated with IV Cefepime and Vancomycin and seen in consultation by Dr. Schaeffer, and eventually taken to surgery for I&D with subsequent need for wound debridement due to development of devitalized tissue. Her wound was left open and eventually started on wound vac therapy. Her stay was further complicated with development of anemia, probably of acute blood loss but patient reported similar event couple of months ago. She received 2 units of PRBC with improvement in her hemoglobin level. She was eventually changed to oral Augmentin based on wound culture organism sensitivity. She will remain on same antibiotic for 7 more days. She will be discharged home today with [facility] visiting nurse service for wound care. She will follow up with Dr Crawford and Maksim as instructed upon discharge. Physical Exam Vital Signs: Temp Pulse Resp BP Pulse Ox 97.8 F 60 18 139/50 H 94 10/01/16 23:35 10/02/16 02:00 10/01/16 23:35 10/01/16 23:35 10/01/16 23:35 Intake & Output 10/01/16 10/02/16 10/03/16 06:59 06:59 06:59 Intake Total 930 1330 Balance 930 1330 Weight 120.3 kg 121.3 kg Physical Exam: General appearance: PRESENT: no acute distress, cooperative, morbidly obese Head exam: PRESENT: atraumatic, normocephalic Eye exam: PRESENT: conjunctiva pink, EOMI, PERRLA. ABSENT: scleral icterus Respiratory exam: PRESENT: clear to auscultation ita Cardiovascular exam: PRESENT: RRR. ABSENT: diastolic murmur, rubs, systolic murmur GI/Abdominal exam: PRESENT: normal bowel sounds, soft. ABSENT: distended, guarding, mass, organomegaly, rebound, tenderness Extremities exam: PRESENT: full ROM Musculoskeletal exam: PRESENT: deformity - related to joint arthritis Neurological exam: PRESENT: alert, awake, oriented to person, oriented to place , oriented to time, oriented to situation, CN II-XII grossly intact. ABSENT: motor sensory deficit Psychiatric exam: PRESENT: appropriate affect, normal mood. ABSENT: homicidal ideation, suicidal ideation Skin exam: PRESENT: dry, warm, other - large anterior abdominal wall debrided wound with wound vac device in use. Results Laboratory Results: 10/01/16 06:20 10/01/16 06:20 09/26/16 18:06 Blood Blood Culture - Final NO GROWTH IN 5 DAYS 09/26/16 16:36 Blood Blood Culture - Final NO GROWTH IN 5 DAYS Qualifiers PATEINT BEING DISCHARGED WITH ANY OF THE FOLLOWING DIAGNOSIS?: No Plan Discharge Plan: D/C home today with [facility] visiting nurse service for wound vac and care management. Follow up with Dr Zelaya as instructed upon discharge. Time Spent: Less than 30 Minutes
[2016-10-02] MEDS: ISOSORBIDE MONONITRATE 30 MG TAB.ER.24H PO SCH (09:37)
[2016-10-02] MEDS: FUROSEMIDE 20 MG TABLET PO SCH (09:37)
[2016-10-02] MEDS: LISINOPRIL 10 MG TABLET PO SCH (09:37)
[2016-10-02] MEDS: VENLAFAXINE HCL 75 MG CAP.SR.24H PO SCH (09:37)
[2016-10-02] MEDS: GABAPENTIN 100 MG CAPSULE PO SCH (09:37)
[2016-10-02] MEDS: AMLODIPINE BESYLATE 10 MG TABLET PO SCH (09:37)
[2016-10-02] MEDS: METOPROLOL TARTRATE 50 MG TABLET PO SCH (09:38)
[2016-10-02] MEDS: ENOXAPARIN SODIUM INJ 30 MG/0.3 ML DISP.SYRIN SUBCUT SCH (09:38)
--- NOTE | 2016-10-02 11:54 | PROGRESS NOTE E ---
Progress Note NAME: DALIA QUEVEDO : 1955 AGE: 60Y DATE: 10/02/2016 ROOM: 533 SUBJECTIVE: The wound VAC on the abdominal wall appears to be functioning well. The cellulitis at the lower aspect of the wound VAC appears to have just slightly improved and no tenderness noted. PLAN: The plan is for her to be discharged home today to continue on the wound VAC. [facility] DICTATING PHYSICIAN: AILYN MACARIO M.D. [id number] PHY#: [id number] ID: [id number] JOB#: [id number] ACCT: [id number] cc: >
[2016-10-02] MEDS ORDERED: ACETAMINOPHEN 325 MG TABLET PO PRN (13:26)
[2016-10-02 13:32] VITALS: BP 155/67
[2016-10-02] MEDS ORDERED: METOPROLOL TARTRATE 100 MG TABLET PO SCH (22:00)
== END 2016-10-02 21:16 | disposition home health service (06) | DRG 571 ==
LOC: INOR 12:03 → 2S 16:12 → 5 20:55
PROVIDERS: ADMIT Family Medicine; ATTEND Family Medicine
PROC: 0W9F30Z Drainage of Abdominal Wall with Drainage Device, Percutaneous Approach (ICD-10-PCS; 2016-09-26)
PROC: 0JB80ZZ Excision of Abdomen Subcutaneous Tissue and Fascia, Open Approach (ICD-10-PCS; principal; 2016-09-26 13:30)
PROC: 0JB80ZZ Excision of Abdomen Subcutaneous Tissue and Fascia, Open Approach (ICD-10-PCS; 2016-09-28)
PROC: 30233N1 Transfusion of Nonautologous Red Blood Cells into Peripheral Vein, Percutaneous Approach (ICD-10-PCS; 2016-09-29)
DX: L02.211 Cutaneous abscess of abdominal wall (principal); I13.0 Hypertensive heart and chronic kidney disease with heart failure and stage 1 through stage 4 chronic kidney disease, or unspecified chronic kidney disease; D62 Acute posthemorrhagic anemia; L03.311 Cellulitis of abdominal wall; E11.51 Type 2 diabetes mellitus with diabetic peripheral angiopathy without gangrene; E11.3599 Type 2 diabetes mellitus with proliferative diabetic retinopathy without macular edema, unspecified eye; E11.22 Type 2 diabetes mellitus with diabetic chronic kidney disease; N18.9 Chronic kidney disease, unspecified; I50.9 Heart failure, unspecified; E78.5 Hyperlipidemia, unspecified; E87.6 Hypokalemia; F32.9 Major depressive disorder, single episode, unspecified; M79.3 Panniculitis, unspecified; Z79.899 Other long term (current) drug therapy; Z91.19 Patient's noncompliance with other medical treatment and regimen
CPT/HCPCS: 36415; 36430; 800; 80048; 80053; 80202; 82962; 83735; 85025; 86850; 86900; 86901; 86920; 87040; 87070; 87075; 87077; 87186; 87205; 93005; 93010; J0692; J1650; J1815; J2250; J2405; J2704; J2765; J3010; J3370; J3480; J3490; J7030; J7060; P9016; S0028

== ENCOUNTER 2016-10-10 17:19 | Emergency (ER) | payer BC ==
--- NOTE | 2016-10-10 17:58 | ER Document Report ---
ED Medical Screen (RME) - General Chief Complaint: High Blood Pressure Stated Complaint: BLOOD PRESSURE ISSUES Notes: This 60-year-old female patient comes emergency room for elevated blood pressure. 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 She was admitted to the hospital here this month from 09/26/2016 through 10/01/2016. Her blood pressure did remain in the 140-150 range most of that visit. She recalls that she did miss some of her evening medications last night. She is on quite a lot of blood pressure medicine. She does not have any symptoms with this. She arrived in the emergency room her blood pressure was 190/91. We will auditing control clerk her mid day dose of hydralazine and her evening dose of metoprolol at this time and observe. I have greeted and performed a rapid initial assessment of this patient. A comprehensive ED assessment and evaluation of the patient, analysis of test results and completion of the medical decision making process will be conducted by additional ED providers. TRAVEL OUTSIDE OF THE [place] IN LAST 30 DAYS: No - Related Data Allergies/Adverse Reactions: No Known Allergies Allergy (Verified 10/10/16 17:42) Past Medical History - Past Medical History Cardiac Medical History: Reports: Hx Hypertension Denies: Hx Congestive Heart Failure, Hx Coronary Artery Disease, Hx Heart Attack, Hx Hypercholesterolemia, Hx Heart Murmur Pulmonary Medical History: Denies: Hx Asthma, Hx Bronchitis, Hx COPD, Hx Pneumonia Neurological Medical History: Denies: Hx Cerebrovascular Accident, Hx Seizures Endocrine Medical History: Reports: Hx Diabetes Mellitus Type 2 Renal/ Medical History: Denies: Hx Peritoneal Dialysis GI Medical History: Denies: Hx Hepatitis, Hx Hiatal Hernia, Hx Ulcer Musculoskeltal Medical History: Denies Hx Arthritis, Denies Hx Multiple Sclerosis Psychiatric Medical History: Reports: Hx Depression Denies: Hx Dementia Infectious Medical History: Denies: Hx Hepatitis Past Surgical History: Reports: Hx Tonsillectomy. Denies: Hx Hysterectomy, Hx Mastectomy, Hx Open Heart Surgery, Hx Pacemaker - Immunizations Hx Diphtheria, Pertussis, Tetanus Vaccination: Yes Physical Exam - Vital signs Vitals: Temp Pulse Resp BP Pulse Ox 97.7 F 109 H 18 190/91 H 97 10/10/16 17:23 10/10/16 17:23 10/10/16 17:23 10/10/16 17:23 10/10/16 17:23 Course - Vital Signs Vital signs: Temp Pulse Resp BP Pulse Ox 97.7 F 109 H 18 190/91 H 97 10/10/16 17:23 10/10/16 17:23 10/10/16 17:23 10/10/16 17:23 10/10/16 17:23
[2016-10-10] MEDS ORDERED: METOPROLOL TARTRATE 100 MG TABLET PO ONE (18:00)
[2016-10-10] MEDS ORDERED: HYDRALAZINE HCL 50 MG TABLET PO ONE (18:01)
--- NOTE | 2016-10-10 20:40 | ER Document Report ---
ED Blood Pressure Problem - General Chief Complaint: High Blood Pressure Stated Complaint: BLOOD PRESSURE PROBLEMS Mode of Arrival: Wheelchair Information source: Patient Notes: This is a 60-year-old female with multiple medical problems who presents for evaluation of elevated blood pressure. She states that her home health provider was concerned about her elevated blood pressure today. She tried to contact her primary care physician but the office was closing on a Thursday afternoon and so she presented to the local pharmacy for blood pressure check. Her systolic was noted to be over 200 on both arms and so she decided to take a taxi to the emergency department. She's been asymptomatic with this high blood pressure. She specifically denies headache, chest pain or shortness of breath. She denies any vision changes as she is legally blind. She does admit to missing her nighttime antihypertensives last night. TRAVEL OUTSIDE OF THE [place] IN LAST 30 DAYS: No - Related Data Allergies/Adverse Reactions: No Known Allergies Allergy (Verified 10/10/16 17:42) Past Medical History - Social History Smoking Status: Unknown if Ever Smoked Family History: Reviewed & Not Pertinent Patient has suicidal ideation: No Patient has homicidal ideation: No - Past Medical History Cardiac Medical History: Reports: Hx Hypertension Denies: Hx Congestive Heart Failure, Hx Coronary Artery Disease, Hx Heart Attack, Hx Hypercholesterolemia, Hx Heart Murmur Pulmonary Medical History: Denies: Hx Asthma, Hx Bronchitis, Hx COPD, Hx Pneumonia Neurological Medical History: Denies: Hx Cerebrovascular Accident, Hx Seizures Endocrine Medical History: Reports: Hx Diabetes Mellitus Type 2 Renal/ Medical History: Denies: Hx Peritoneal Dialysis GI Medical History: Denies: Hx Hepatitis, Hx Hiatal Hernia, Hx Ulcer Musculoskeltal Medical History: Denies Hx Arthritis, Denies Hx Multiple Sclerosis Psychiatric Medical History: Reports: Hx Depression Denies: Hx Dementia Infectious Medical History: Denies: Hx Hepatitis Past Surgical History: Reports: Hx Tonsillectomy. Denies: Hx Hysterectomy, Hx Mastectomy, Hx Open Heart Surgery, Hx Pacemaker - Immunizations Hx Diphtheria, Pertussis, Tetanus Vaccination: Yes Hx Pneumococcal Vaccination: 04/21/14 Review of Systems - Review of Systems Constitutional: No symptoms reported. denies: Chills, Fever EENT: No symptoms reported Cardiovascular: No symptoms reported. denies: Chest pain, Palpitations, Orthopnea, Dyspnea Respiratory: No symptoms reported. denies: Cough, Hurts to breathe, Short of breath Gastrointestinal: No symptoms reported. denies: Abdominal pain, Diarrhea, Vomiting Genitourinary: No symptoms reported Musculoskeletal: No symptoms reported Skin: No symptoms reported Neurological/Psychological: No symptoms reported Physical Exam - Vital signs Vitals: Temp Pulse Resp BP Pulse Ox 97.7 F 109 H 18 190/91 H 97 10/10/16 17:23 10/10/16 17:23 10/10/16 17:23 10/10/16 17:23 10/10/16 17:23 - Notes Notes: PHYSICAL EXAMINATION: GENERAL: Alert well appearing obese adult female who is very pleasant and conversant in no acute distress. HEAD: Atraumatic, normocephalic. EYES: Pupils equal round and reactive to light, extraocular movements intact, sclera anicteric, conjunctiva are normal. ENT: nares patent, oropharynx clear without exudates. Moist mucous membranes. NECK: Normal range of motion, supple without lymphadenopathy LUNGS: Breath sounds clear to auscultation bilaterally and equal. No wheezes rales or rhonchi. HEART: Regular rate and rhythm without murmurs ABDOMEN: Soft, morbidly obese, nontender, normoactive bowel sounds. No guarding , no rebound. EXTREMITIES: Wheelchair bound, chronic bilateral LE swelling and venous stasis NEUROLOGICAL: No gross focal motor or sensory deficits appreciated PSYCH: Normal mood, normal affect. SKIN: Warm, Dry, no rashes noted. Course - Re-evaluation Re-evalutation: 10/10/16 21:28 Patient was given her evening doses of metoprolol and hydralazine. She has had a good response in her blood pressure now is 156/87. She remains completely asymptomatic. She is appropriate for discharge home. She will follow-up with her primary care physician Dr. Yanes on Thursday. She is instructed to return to the ER for chest pain, shortness of breath, severe headache, or further difficulty controlling her blood pressure home. She is very comfortable with this plan. - Vital Signs Vital signs: Temp Pulse Resp BP Pulse Ox 97.7 F 73 16 156/87 H 97 10/10/16 17:23 10/10/16 21:26 10/10/16 21:26 10/10/16 21:26 10/10/16 21:26 Discharge - Discharge Clinical Impression: Hypertension Qualifiers: Hypertension type: unspecified secondary hypertension Qualified Code(s): I15.9 - Secondary hypertension, unspecified; I15 - Secondary hypertension Condition: Stable Disposition: HOME, SELF-CARE Additional Instructions: HIGH BLOOD PRESSURE REQUIRING TREATMENT: Your blood pressure is high. This is called "hypertension." Your history and exam suggest that this is not a temporary problem. If left untreated, high blood pressure greatly increases your risk of heart attack and stroke. Please don't ignore this problem. If you have blood pressure medicine but aren't using it regularly, start taking it again. Some simple things you can do to help are: Eat a low-fat diet. Lose excess weight. Avoid salty foods and avoid adding salt to any of the foods you eat. Avoid diet pills, decongestants, "energizing" herbs, and other medicines that elevate blood pressure. There are many different medicines that treat blood pressure. If your medication causes unpleasant side effects, call your doctor. There are others you can try. Treating hypertension is a life-long investment in your health. FOLLOW-UP CARE: If you have been referred to a physician for follow-up care, call the physician s office for an appointment as you were instructed or within the next two days. If you experience worsening or a significant change in your symptoms, notify the physician immediately or return to the Emergency Department at any time for re-evaluation. Take all your medications as prescribed. Follow up with Dr. Yanes on Thursday as instructed. Return to the ER for chest pain, shortness of breath, severe headache, or any worsening symptoms or concerns. Referrals: ROXANA YANES MD [Primary Care Provider] - Follow up in 3-5 days
[2016-10-10] MEDS ORDERED: CLONIDINE HCL 0.1 MG TABLET PO ONE (20:42)
[2016-10-10 21:27] VITALS: BP 156/87
== END 2016-10-10 21:47 | disposition home or self-care (01) ==
LOC: ER 17:19
DX: I10 Essential (primary) hypertension (principal); E11.9 Type 2 diabetes mellitus without complications
CPT/HCPCS: 99283

== ENCOUNTER → 2016-10-29 | Outpatient (CLI) | payer BC | LOC: RAD 07:31 | PROVIDERS: ATTEND Surgery | DX: L02.211 Cutaneous abscess of abdominal wall (principal) | CPT/HCPCS: 74176 ==

== ENCOUNTER 2016-11-18 05:41 | Day surgery (SDC) | payer BC ==
--- NOTE | 2016-11-11 13:35 | EKG REPORT ---
SEVERITY:- ABNORMAL ECG - SINUS RHYTHM FIRST DEGREE AV BLOCK RIGHT BUNDLE BRANCH BLOCK PROBABLE LEFT VENTRICULAR HYPERTROPHY : Confirmed by: Sriram Amato MD 11-Nov-2016 13:33:53
[~2016-11-18 05:41] MED LIST: CEFAZOLIN 1 GM/D5W RTU 1 GM/50 ML RTUPB IV PRN; RINGERS SOLUTION,LACTATED 1,000 ML IV PRN
[2016-11-18 06:35] LABS: HEMATOCRIT 28.3 % (36.0-47.0); HEMOGLOBIN 9.4 g/dL (12.0-15.5); HGB HCT DIFFERENCE -0.1; MEAN CORPUSCULAR HEMOGLOBIN 27.3 pg (27.0-33.4); MEAN CORPUSCULAR HGB CONC 33.2 g/dL (32.0-36.0); MEAN CORPUSCULAR VOLUME 82 fl (80-97); RED BLOOD COUNT 3.43 10^6/uL (3.72-5.28); RED CELL DISTRIBUTION WIDTH 16.6 % (11.5-14.0); WHITE BLOOD COUNT 5.4 10^3/uL (4.0-10.5)
[2016-11-18] MEDS ORDERED: FENTANYL CITRATE INJ/PF 100 MCG/2 ML AMPUL ONE (06:37)
[2016-11-18] MEDS ORDERED: ACETAMINOPHEN 100 ML IV ONE (06:37)
[2016-11-18] MEDS ORDERED: PROPOFOL INJ 200 MG/20 ML VIAL IV ONE (06:37)
[2016-11-18] MEDS ORDERED: DEXMEDETOMIDINE INJ 80 MCG/20 ML VIAL IV ONE (06:37)
[2016-11-18] MEDS ORDERED: MIDAZOLAM 2 MG/2 ML INJ ONE (06:37)
[2016-11-18] MEDS ORDERED: LIDOCAINE 0.5% INJ-PF (5 MG/ML) 50 ML SDV ONE (06:41)
[2016-11-18] MEDS ORDERED: BACITRACIN INJ 50,000 UNIT VIAL ONE (06:41)
[2016-11-18] MEDS ORDERED: BUPIVACAINE HCL 0.25 % INJ/PF (2.5 MG/1 ML) 30 ML VIAL ONE (06:41)
[2016-11-18 06:44] LABS: ANION GAP 6 (5-19); BLOOD UREA NITROGEN 21 mg/dL (7-20); CALCIUM 8.2 mg/dL (8.4-10.2); CARBON DIOXIDE 25 mmol/L (22-30); CHLORIDE 111 mmol/L (98-107); CREATININE RESULT 1.31 mg/dL (0.52-1.25); GLUCOSE 208 mg/dL (75-110); POTASSIUM 3.3 mmol/L (3.6-5.0); SODIUM 142.3 mmol/L (137-145)
[2016-11-18] MEDS ORDERED: MEPERIDINE HCL/PF INJ 25 MG/1 ML DISP.SYRIN IV PRN (07:43)
[2016-11-18] MEDS ORDERED: DIPHENHYDRAMINE HCL 50 MG/ML VIAL IV PRN (07:43)
[2016-11-18] MEDS ORDERED: PROMETHAZINE HCL INJ 25 MG/1 ML VIAL IV PRN ×2 (07:43)
[2016-11-18] MEDS ORDERED: MORPHINE SULFATE 10 MG/ML INJ IV PRN (07:43)
[2016-11-18] MEDS ORDERED: ONDANSETRON HCL INJ/PF 4 MG/2 ML SDV IV PRN (07:43)
[2016-11-18] MEDS ORDERED: OXYCODONE-ACETAMINOPHEN 5-325 MG TABLET PO PRN ×2 (07:43)
[2016-11-18] MEDS ORDERED: FENTANYL CITRATE INJ/PF 100 MCG/2 ML AMPUL IV PRN ×3 (07:43)
[2016-11-18] MEDS ORDERED: COLLAGENASE CLOSTRIDIUM HIST. OINT 30 GM ONE (07:51)
[2016-11-18] MEDS ORDERED: SILVER SULFADIAZINE 1% CREAM 25 GM ONE (07:51)
--- NOTE | 2016-11-18 08:22 | PDOC DISCHARGE SUMMARY ---
Discharge Summary (SDC) - Discharge Final Diagnosis: 1 chronic, nonhealing abdominal wall wounds. 2. Legally blind. 3. Diabetes mellitus type 2. 4. Hypertension. Date of Surgery: 11/18/16 Discharge Date: 11/18/16 Condition: Fair Treatment or Instructions: 1. Discharge patient per ambulatory criteria. 2. Continue medications per medication reconciliation form. 3. Follow-up in clinic by appointment on or Thursday of this week. 4. Dressings left and placed in wound clinic. 5. Activities, diet, may remain as usual. Prescriptions: Oxycodone HCl/Acetaminophen [Percocet 5-325 mg Tablet] 1 tab PO ASDIR PRN #15 tab PRN Reason: Discharge Diet: Diabetic Respiratory Treatments at Home: Deep Breathing/Coughing Discharge Activity: Activity As Tolerated Report the Following to Your Physician Immediately: Fever over 101 Degrees, Unusual Bleeding
--- NOTE | 2016-11-18 08:26 | Operative Report ---
Operative Report DATE OF SURGERY: 11/18/16 PREOPERATIVE DIAGNOSIS: 1 chronic, nonhealing abdominal wall wounds. 2. Legally blind. 3. Diabetes mellitus type 2. 4. Hypertension. POSTOPERATIVE DIAGNOSIS: 1 chronic, nonhealing abdominal wall wounds. Post debridement. 2. Legally blind. 3. Diabetes mellitus type 2. 4. Hypertension. OPERATION: Surgical, sharp, excisional debridement of abdominal wall wound. SURGEON: LAZ MIRELES ANNEALING FURNACE TENDER: None ANESTHESIA: LMAC TISSUE REMOVED OR ALTERED: Necrotic wall of the subcutaneous wound with overlying skin and subcutaneous tissue. COMPLICATIONS: None ESTIMATED BLOOD LOSS: 10 mL INTRAOPERATIVE FINDINGS: Small opening connecting to a large subcutaneous opening in the left lower abdomen. Measuring approximately 10 by by 3 cm and disposed horizontally. Wall containing necrotic subcutaneous tissue. After debridement remaining tissues looked healthy. Final opening measuring approximately 10 x 3 x 3 cm. There is an additional superficial granulating wound superior to this, they do not appear to be connected. PROCEDURE: PROCEDURE: The abdominal was prepared with [Betadine] and draped out with sterile linen. After the"universal time-out", in which it was confirmed that the patient [did receive antibiotic], the procedure commenced. The patient was appropriately anesthetized. The wound was probed. The wound was debrided of non viable tissue using cautery and force with removal of loose debris, as well. The wound was irrigated with [Peroxide] .The wound was now irrigated with saline and [Surgicel ] placed within it, dressed with [Kerlix] and the procedure concluded.
[2016-11-18] MEDS ORDERED: INSULIN LISPRO 100 UNIT/ML 3 ML VIAL ONE (08:48)
[2016-11-18] MEDS ORDERED: LIDOCAINE 2% INJ-PF (20 MG/ML) 10 ML AMPUL ONE (10:28)
[2016-11-18] MEDS ORDERED: ONDANSETRON HCL INJ/PF 4 MG/2 ML SDV ONE (10:28)
[2016-11-18 10:47] VITALS: BP 146/67
== END 2016-11-18 10:30 | disposition home or self-care (01) ==
LOC: OROUT 05:41
PROVIDERS: ATTEND Surgery
PROC: 0JB80ZZ Excision of Abdomen Subcutaneous Tissue and Fascia, Open Approach (ICD-10-PCS; principal; 2016-11-18 07:30)
DX: T81.89XA Other complications of procedures, not elsewhere classified, initial encounter (principal); Y83.8 Other surgical procedures as the cause of abnormal reaction of the patient, or of later complication, without mention of misadventure at the time of the procedure; K65.4 Sclerosing mesenteritis; E11.9 Type 2 diabetes mellitus without complications; I10 Essential (primary) hypertension; E66.9 Obesity, unspecified; H54.8 Legal blindness, as defined in USA; Z68.41 Body mass index [BMI] 40.0-44.9, adult
CPT/HCPCS: 93005; 36415; 82962; 85027; 80048; 88304 ×2; 93010; 11042; 11045; J2250; J3490 ×3; J0690; J3010; J1815; J2405; J2704; J0131; 300

== ENCOUNTER 2016-11-24 19:41 | Emergency (ER) | payer SELFPAY ==
[2016-11-24] MEDS ORDERED: HYDRALAZINE HCL 50 MG TABLET PO ONE (21:49)
--- NOTE | 2016-11-24 21:56 | ER Document Report ---
ED General - General Chief Complaint: High Blood Pressure Stated Complaint: BLOOD PRESSURE ISSUES Time Seen by Provider: 11/24/16 21:21 Mode of Arrival: Ambulatory Information source: Patient Notes: 60-year-old female who is currently on 6 blood pressure medications resents with complaints of high blood pressure. Patient notes that it was elevated at home 210/ 90, denies any symptoms with it. TRAVEL OUTSIDE OF THE [place] IN LAST 30 DAYS: No - HPI Onset: Just prior to arrival Onset/Duration: Sudden Quality of pain: No pain Severity: Mild Pain Level: Denies Associated symptoms: Other Exacerbated by: Denies Relieved by: Denies Similar symptoms previously: Yes Recently seen / treated by doctor: Yes - Related Data Allergies/Adverse Reactions: No Known Allergies Allergy (Verified 11/11/16 09:06) Past Medical History - Social History Smoking Status: Unknown if Ever Smoked Cigarette use (# per day): No Chew tobacco use (# tins/day): No Smoking Education Provided: No Family History: Reviewed & Not Pertinent Patient has suicidal ideation: No Patient has homicidal ideation: No - Past Medical History Cardiac Medical History: Reports: Hx Hypertension Denies: Hx Congestive Heart Failure, Hx Coronary Artery Disease, Hx Heart Attack, Hx Hypercholesterolemia, Hx Heart Murmur Pulmonary Medical History: Denies: Hx Asthma, Hx Bronchitis, Hx COPD, Hx Pneumonia Neurological Medical History: Denies: Hx Cerebrovascular Accident, Hx Seizures Endocrine Medical History: Reports: Hx Diabetes Mellitus Type 2 Renal/ Medical History: Denies: Hx Peritoneal Dialysis GI Medical History: Denies: Hx Hepatitis, Hx Hiatal Hernia, Hx Ulcer Musculoskeltal Medical History: Denies Hx Arthritis, Denies Hx Multiple Sclerosis Psychiatric Medical History: Reports: Hx Depression Denies: Hx Dementia Infectious Medical History: Denies: Hx Hepatitis Past Surgical History: Reports: Hx Tonsillectomy. Denies: Hx Hysterectomy, Hx Mastectomy, Hx Open Heart Surgery, Hx Pacemaker - Immunizations Hx Diphtheria, Pertussis, Tetanus Vaccination: Yes Hx Pneumococcal Vaccination: 04/21/14 Review of Systems - Review of Systems Notes: REVIEW OF SYSTEMS: CONSTITUTIONAL : Denies fever, chills, or sweats. Denies recent illness. EENT: Denies eye, ear, throat, or mouth pain or symptoms. Denies nasal or sinus congestion or discharge. Denies throat, tongue, or mouth swelling or difficulty swallowing. CARDIOVASCULAR: Denies chest pain. Denies palpitations or racing or irregular heart beat. Denies ankle edema. RESPIRATORY: Denies cough, cold, or chest congestion. Denies shortness of breath, difficulty breathing, or wheezing. GASTROINTESTINAL: Denies abdominal pain or distention. Denies nausea, vomiting , or diarrhea. Denies blood in vomitus, stools, or per rectum. Denies black, tarry stools. Denies constipation. GENITOURINARY: Denies difficulty urinating, painful urination, burning, frequency, blood in urine, or discharge. FEMALE GENITOURINARY: Denies vaginal bleeding, heavy or abnormal periods, irregular periods. Denies vaginal discharge or odor. MUSCULOSKELETAL: Denies back or neck pain or stiffness. Denies joint pain or swelling. SKIN: Denies rash, lesions or sores. HEMATOLOGIC : Denies easy bruising or bleeding. LYMPHATIC: Denies swollen, enlarged glands. NEUROLOGICAL: Denies confusion or altered mental status. Denies passing out or loss of consciousness. Denies dizziness or lightheadedness. Denies headache. Denies weakness or paralysis or loss of use of either side. Denies problems with gait or speech. Denies sensory loss, numbness, or tingling. Denies seizures. PSYCHIATRIC: Denies anxiety or stress. Denies depression, suicidal ideation, or homicidal ideation. ALL OTHER SYSTEMS REVIEWED AND NEGATIVE. Dictation was performed using [employer] voice recognition software PHYSICAL EXAMINATION: GENERAL: Well-appearing, well-nourished and in no acute distress. HEAD: Atraumatic, normocephalic. EYES: Pupils equal round and reactive to light, extraocular movements intact, conjunctiva are normal. ENT: Nares patent, oropharynx clear without exudates. Moist mucous membranes. NECK: Normal range of motion, supple without lymphadenopathy LUNGS: Breath sounds clear to auscultation bilaterally and equal. No wheezes rales or rhonchi. HEART: Regular rate and rhythm without murmurs ABDOMEN: Soft, nontender, nondistended abdomen. No guarding, no rebound. No masses appreciated. Female : deferred Musculoskeletal: Normal range of motion, no pitting or edema. No cyanosis. NEUROLOGICAL: Cranial nerves grossly intact. Normal speech, normal gait. Normal sensory, motor exams PSYCH: Normal mood, normal affect. SKIN: Wound VAC in place Physical Exam - Vital signs Vitals: Temp Pulse Resp BP Pulse Ox 98.1 F 62 18 155/76 H 96 11/24/16 19:48 11/24/16 19:48 11/24/16 19:48 11/24/16 19:48 11/24/16 19:48 Course - Re-evaluation Re-evalutation: 11/24/16 21:55 Initial blood pressure was well within normal limits however repeat does note it is in the 180s, I will give the patient some hydralazine but given that she is asymptomatic I have no significant concern 11/24/16 22:56 pt recheck was still in the 180s, but given that patient is asymptomatic, and has no symptoms i beleive discharge is appropriate 11/24/16 23:14 After performing a Medical Screening Examination, I estimate there is LOW risk for INTRACRANIAL HEMORRHAGE, ISCHEMIC CVA, MALIGNANT DYSRHYTHMIA, ACUTE CORONARY SYNDROME, MENINGITIS, PULMONARY EMBOLISM, or SEPSIS thus I consider the discharge disposition reasonable. I have reevaluated this patient multiple times and no significant life threatening changes are noted. The patient and I have discussed the diagnosis and risks, and we agree with discharging home with close follow-up with the understanding that symptoms and presentations can change. We also discussed returning to the Emergency Department immediately if new or worsening symptoms occur. We have discussed the symptoms which are most concerning (e.g., changing or worsening pain, weakness, vomiting, fever) that necessitate immediate return. - Vital Signs Vital signs: Temp Pulse Resp BP Pulse Ox 98.4 F 60 16 182/68 H 96 11/24/16 21:40 11/24/16 22:47 11/24/16 22:47 11/24/16 22:47 11/24/16 22:47 Discharge - Discharge Clinical Impression: HTN (hypertension) Qualifiers: Hypertension type: essential hypertension Qualified Code(s): I10 - Essential ( primary) hypertension Condition: Stable Disposition: HOME, SELF-CARE Instructions: High Blood Pressure, Requiring Treatment ([facility]) Additional Instructions: please follow up with [facility] per your previous appt tomorrow Referrals: ROXANA YANES MD [Primary Care Provider] - Follow up as needed
[2016-11-24 22:48] VITALS: BP 182/68
== END 2016-11-24 23:03 | disposition home or self-care (01) ==
LOC: ER 19:41
DX: I10 Essential (primary) hypertension (principal); E11.9 Type 2 diabetes mellitus without complications; Z79.899 Other long term (current) drug therapy
CPT/HCPCS: 99283

== ENCOUNTER 2017-02-12 12:56 | Emergency (ER) | payer MEDICARE ==
[2017-02-12 13:43] LABS: ABSOLUTE LYMPHOCYTES (AUTO) 1.4 10^3/uL (0.5-4.7); ABSOLUTE MONOCYTES (AUTO) 0.5 10^3/uL (0.1-1.4); ABSOLUTE NEUT (AUTO) 4.2 10^3/uL (1.7-8.2); BASOPHILS % (AUTO) 0.5 % (0-2); EOSINOPHILS % (AUTO) 0.1 % (0-6); HEMATOCRIT 31.3 % (36.0-47.0); HEMOGLOBIN 10.5 g/dL (12.0-15.5); HGB HCT DIFFERENCE 0.2; LYMPHOCYTES % (AUTO) 22.9 % (13-45); MEAN CORPUSCULAR HEMOGLOBIN 29.1 pg (27.0-33.4); MEAN CORPUSCULAR HGB CONC 33.6 g/dL (32.0-36.0); MEAN CORPUSCULAR VOLUME 87 fl (80-97); MONOCYTES % (AUTO) 7.7 % (3-13); RED CELL DISTRIBUTION WIDTH 15.8 % (11.5-14.0); SEGMENTED NEUTROPHILS % (AUTO) 68.8 % (42-78); WHITE BLOOD COUNT 6.1 10^3/uL (4.0-10.5)
[2017-02-12 14:01] LABS: ALANINE AMINOTRANSFERASE 21 U/L (9-52); ALBUMIN 2.7 g/dL (3.5-5.0); ALKALINE PHOSPHATASE 73 U/L (38-126); ANION GAP 7 (5-19); ASPARTATE AMINO TRANSFERASE 25 U/L (14-36); BILIRUBIN,DIRECT 0.4 mg/dL (0.0-0.4); BILIRUBIN,TOTAL 0.4 mg/dL (0.2-1.3); BLOOD UREA NITROGEN 23 mg/dL (7-20); CALCIUM 8.5 mg/dL (8.4-10.2); CARBON DIOXIDE 27 mmol/L (22-30); CHLORIDE 106 mmol/L (98-107); CREATININE RESULT 1.84 mg/dL (0.52-1.25); GLUCOSE 98 mg/dL (75-110); POTASSIUM 3.1 mmol/L (3.6-5.0); SODIUM 139.5 mmol/L (137-145); TOTAL PROTEIN 5.5 g/dL (6.3-8.2)
[2017-02-12] MEDS ORDERED: POTASSIUM CHLORIDE 20 MEQ/15 ML UDCUP PO ONE ×2 (14:26→15:26)
--- NOTE | 2017-02-12 14:36 | ER Document Report ---
ED General - General Chief Complaint: Low Blood Pressure Stated Complaint: LOW BLOOD PRESSURE Time Seen by Provider: 02/12/17 13:19 Mode of Arrival: Medic Information source: Patient Notes: 61-year-old female with a history of hypertension, dyslipidemia, CHF, diabetes, chronic kidney disease, peripheral vascular disease. The patient lives at home with her son and she does outpatient physical therapy. The patient was brought into the emergency room by EMS for an altered mental status and low blood pressure at the outpatient physical therapy. The outpatient physical therapy reported that the patient's blood pressure was 80/60 and that she was "out of it ". EMS reports that on their arrival, the blood pressure was 120/80. Patient is alert and oriented in the emergency room and she denies any pain at this time. Of significance, the patient has peanut butter on the roof of her mouth and is unsure how it got there. Whether this was placed by someone at outpatient physical therapy because of the altered mental status (given that she has diabetes) is unclear at this time. TRAVEL OUTSIDE OF THE [place] IN LAST 30 DAYS: No - HPI Onset: Just prior to arrival Onset/Duration: Gradual Quality of pain: No pain Severity: None Pain Level: Denies Associated symptoms: denies: Chest pain, Fever, Shortness of breath Exacerbated by: Denies Relieved by: Denies Similar symptoms previously: Yes Recently seen / treated by doctor: No - Related Data Allergies/Adverse Reactions: No Known Allergies Allergy (Verified 11/11/16 09:06) Past Medical History - General Information source: Patient - Social History Smoking Status: Never Smoker Cigarette use (# per day): No Chew tobacco use (# tins/day): No Frequency of alcohol use: None Drug Abuse: None Lives with: Family Family History: Reviewed & Not Pertinent Patient has suicidal ideation: No Patient has homicidal ideation: No - Past Medical History Cardiac Medical History: Reports: Hx Congestive Heart Failure, Hx Hypertension Denies: Hx Coronary Artery Disease, Hx Heart Attack, Hx Hypercholesterolemia , Hx Heart Murmur Pulmonary Medical History: Denies: Hx Asthma, Hx Bronchitis, Hx COPD, Hx Pneumonia Neurological Medical History: Denies: Hx Cerebrovascular Accident, Hx Seizures Endocrine Medical History: Reports: Hx Diabetes Mellitus Type 2 Renal/ Medical History: Denies: Hx Peritoneal Dialysis GI Medical History: Denies: Hx Hepatitis, Hx Hiatal Hernia, Hx Ulcer Musculoskeltal Medical History: Denies Hx Arthritis, Denies Hx Multiple Sclerosis Psychiatric Medical History: Reports: Hx Depression Denies: Hx Dementia Infectious Medical History: Denies: Hx Hepatitis Past Surgical History: Reports: Hx Tonsillectomy. Denies: Hx Hysterectomy, Hx Mastectomy, Hx Open Heart Surgery, Hx Pacemaker - Immunizations Hx Diphtheria, Pertussis, Tetanus Vaccination: Yes Hx Pneumococcal Vaccination: 04/21/14 Review of Systems - Review of Systems Constitutional: denies: Chills, Fever EENT: No symptoms reported Cardiovascular: No symptoms reported. denies: Chest pain, Palpitations, Orthopnea, Dizziness Respiratory: No symptoms reported Gastrointestinal: No symptoms reported Genitourinary: No symptoms reported Female Genitourinary: No symptoms reported Musculoskeletal: No symptoms reported Skin: No symptoms reported Hematologic/Lymphatic: No symptoms reported Neurological/Psychological: See HPI Physical Exam - Vital signs Vitals: BP 126/70 H 02/12/17 13:02 Notes: Physical exam: GENERAL: Pleasant 61-year-old female, alert and oriented 3, no acute distress HEAD: Atraumatic, normocephalic. EYES: Pupils equal round and reactive to light, extraocular movements intact, sclera anicteric, conjunctiva are normal. ENT: TMs normal, nares patent, oropharynx clear without exudates. Moist mucous membranes. NECK: Normal range of motion, supple without lymphadenopathy or JVD. LUNGS: Breath sounds clear to auscultation bilaterally and equal. No wheezes rales or rhonchi. HEART: Regular rate and rhythm without murmurs, rubs or gallops. ABDOMEN: Soft, normoactive bowel sounds. No tenderness to palpation. No guarding, no rebound. No masses appreciated. the patient does have healing cellulitic wounds to the left lower quadrant of the abdomen: there is no drainage. EXTREMITIES: Patient has chronic lower extremity edema with chronic venous stasis changes. NEUROLOGICAL: Cranial nerves II through XII grossly intact. Normal speech, moving all extremities PSYCH: Normal mood, normal affect. SKIN: As noted above Course - Re-evaluation Re-evalutation: 02/12/17 16:17 The patient's potassium was 3.1 and she was given supplementation while in the emergency room. She was given IV fluids and observed in the ER and is remained stable. She is without complaints at this time. The patient's creatinine is noted to be 1.8. I discussed the case with Dr. Yanes who is her physician and he states that patient's potassium was 1.57 in the office a few weeks ago. He felt the patient was stable for discharge and he would like to see the patient tomorrow morning in the office and he also requested that the patient stop her lisinopril. I discussed the plan with the patient and her son was at the bedside and they are agreeable to the plan. Patient is without complaints at this time. - Vital Signs Vital signs: Temp Pulse Resp BP Pulse Ox 97.2 F 56 L 20 126/71 H 97 02/12/17 13:11 02/12/17 13:11 02/12/17 16:01 02/12/17 16:01 02/12/17 16:01 - Laboratory Result Diagrams: 02/12/17 13:25 02/12/17 13:25 Laboratory results interpreted by me: 02/12/17 02/12/17 13:25 13:25 RBC 3.60 L Hgb 10.5 L Hct 31.3 L RDW 15.8 H Potassium 3.1 L BUN 23 H Creatinine 1.84 H Est GFR ( Amer) 34 L Est GFR (Non-Af Amer) 28 L Total Protein 5.5 L Albumin 2.7 L Discharge - Discharge Clinical Impression: Generalized weakness, Vasovagal Condition: Stable Disposition: HOME, SELF-CARE Additional Instructions: As we discussed, your hemoglobin and hematocrit were good. You were given some potassium because your potassium was slightly low. Dr. Yanes would like you to stop taking the lisinopril. He would also like to see you in the office tomorrow morning. Return to the ER for any chest pain, shortness of breath, worsening weakness. Forms: Parent Work Note Referrals: ROAXNA YANES MD [Primary Care Provider] - Follow up as needed
[2017-02-12 16:10] VITALS: BP 126/71
== END 2017-02-12 16:55 | disposition home or self-care (01) ==
LOC: ER 12:56
DX: R55 Syncope and collapse (principal); R53.1 Weakness; I95.9 Hypotension, unspecified; E78.5 Hyperlipidemia, unspecified; I50.9 Heart failure, unspecified; E11.9 Type 2 diabetes mellitus without complications; N18.9 Chronic kidney disease, unspecified; I73.9 Peripheral vascular disease, unspecified
CPT/HCPCS: 99285; 36415; 85025; 80053; A9270

== ENCOUNTER 2017-04-14 15:25 | Emergency (ER) | payer MEDICARE ==
[2017-04-14] MEDS ORDERED: NORMAL SALINE 1000 ML 1,000 ML IV ONE (16:15)
--- NOTE | 2017-04-14 16:16 | ER Document Report ---
ED Medical Screen (RME) - General Chief Complaint: High Blood Sugar Stated Complaint: ABNORMAL LABS Time Seen by Provider: 04/14/17 16:14 Notes: Patient is brought in by son for high blood sugars and confusion. Patient's blood sugar has ranged from 100-600 to the last several days. There has been some nausea but no vomiting or diarrhea. Patient is also been more confused and asking repetitive questions. Patient went to see Dr. Crawford today who referred the patient to the emergency department. TRAVEL OUTSIDE OF THE [place] IN LAST 30 DAYS: No - Related Data Allergies/Adverse Reactions: morphine Allergy (Verified 04/14/17 15:34) Past Medical History - Past Medical History Cardiac Medical History: Reports: Hx Congestive Heart Failure, Hx Hypertension Denies: Hx Coronary Artery Disease, Hx Heart Attack, Hx Hypercholesterolemia , Hx Heart Murmur Pulmonary Medical History: Denies: Hx Asthma, Hx Bronchitis, Hx COPD, Hx Pneumonia Neurological Medical History: Denies: Hx Cerebrovascular Accident, Hx Seizures Endocrine Medical History: Reports: Hx Diabetes Mellitus Type 2 Renal/ Medical History: Denies: Hx Peritoneal Dialysis GI Medical History: Denies: Hx Hepatitis, Hx Hiatal Hernia, Hx Ulcer Musculoskeltal Medical History: Denies Hx Arthritis, Denies Hx Multiple Sclerosis Psychiatric Medical History: Reports: Hx Depression Denies: Hx Dementia Infectious Medical History: Denies: Hx Hepatitis Past Surgical History: Reports: Hx Tonsillectomy. Denies: Hx Hysterectomy, Hx Mastectomy, Hx Open Heart Surgery, Hx Pacemaker - Immunizations Hx Diphtheria, Pertussis, Tetanus Vaccination: Yes Physical Exam - Vital signs Vitals: Temp Pulse BP Pulse Ox 97.5 F 63 129/64 H 96 04/14/17 15:32 04/14/17 15:32 04/14/17 15:32 04/14/17 15:32 Course - Vital Signs Vital signs: Temp Pulse Resp BP Pulse Ox 97.5 F 63 129/64 H 96 04/14/17 15:32 04/14/17 15:32 04/14/17 15:32 04/14/17 15:32
[2017-04-14 17:34] LABS: ABSOLUTE BASOPHILS # (AUTO) 0.1 10^3/uL (0.0-0.2); ABSOLUTE LYMPHOCYTES (AUTO) 1.3 10^3/uL (0.5-4.7); ABSOLUTE MONOCYTES (AUTO) 0.5 10^3/uL (0.1-1.4); ABSOLUTE NEUT (AUTO) 6.7 10^3/uL (1.7-8.2); BASOPHILS % (AUTO) 0.6 % (0-2); HEMATOCRIT 27.2 % (36.0-47.0); HEMOGLOBIN 9.1 g/dL (12.0-15.5); HGB HCT DIFFERENCE 0.1; LYMPHOCYTES % (AUTO) 14.7 % (13-45); MEAN CORPUSCULAR HGB CONC 33.6 g/dL (32.0-36.0); MEAN CORPUSCULAR VOLUME 86 fl (80-97); MONOCYTES % (AUTO) 5.8 % (3-13); RED BLOOD COUNT 3.15 10^6/uL (3.72-5.28); RED CELL DISTRIBUTION WIDTH 15.1 % (11.5-14.0); SEGMENTED NEUTROPHILS % (AUTO) 78.9 % (42-78); WHITE BLOOD COUNT 8.5 10^3/uL (4.0-10.5)
[2017-04-14 17:48] LABS: ALANINE AMINOTRANSFERASE 24 U/L (9-52); ALBUMIN 2.8 g/dL (3.5-5.0); ALKALINE PHOSPHATASE 94 U/L (38-126); ANION GAP 10 (5-19); ASPARTATE AMINO TRANSFERASE 18 U/L (14-36); BILIRUBIN,DIRECT 0.2 mg/dL (0.0-0.4); BILIRUBIN,TOTAL 0.3 mg/dL (0.2-1.3); BLOOD UREA NITROGEN 18 mg/dL (7-20); CARBON DIOXIDE 23 mmol/L (22-30); CHLORIDE 107 mmol/L (98-107); CREATININE RESULT 1.92 mg/dL (0.52-1.25); GLUCOSE 126 mg/dL (75-110); POTASSIUM 3.5 mmol/L (3.6-5.0); SODIUM 139.5 mmol/L (137-145); TOTAL PROTEIN 5.8 g/dL (6.3-8.2)
--- NOTE | 2017-04-14 17:57 | ER Document Report ---
ED General - General Chief Complaint: High Blood Sugar Stated Complaint: ABNORMAL LABS Time Seen by Provider: 04/14/17 16:14 Mode of Arrival: Ambulatory Information source: Patient Notes: 61-year-old diabetic female presents with concerns of high blood sugar. Family notes that she may also be confused but at this time is alert and oriented. Patient was seen by Dr. Yanes who noted no concerns and states that she is very noncompliant with medications. Patient denies any fevers or chills denies any nausea vomiting or diarrhea. TRAVEL OUTSIDE OF THE [place] IN LAST 30 DAYS: No - HPI Onset: Just prior to arrival Onset/Duration: Sudden Quality of pain: No pain Severity: Mild Pain Level: Denies Associated symptoms: Weakness Exacerbated by: Denies Relieved by: Denies Similar symptoms previously: Yes Recently seen / treated by doctor: Yes - Related Data Allergies/Adverse Reactions: morphine Allergy (Verified 04/14/17 15:34) Past Medical History - Social History Smoking Status: Never Smoker Cigarette use (# per day): No Chew tobacco use (# tins/day): No Smoking Education Provided: No Family History: Reviewed & Not Pertinent - Past Medical History Cardiac Medical History: Reports: Hx Congestive Heart Failure, Hx Hypertension Denies: Hx Coronary Artery Disease, Hx Heart Attack, Hx Hypercholesterolemia , Hx Heart Murmur Pulmonary Medical History: Denies: Hx Asthma, Hx Bronchitis, Hx COPD, Hx Pneumonia Neurological Medical History: Denies: Hx Cerebrovascular Accident, Hx Seizures Endocrine Medical History: Reports: Hx Diabetes Mellitus Type 2 Renal/ Medical History: Denies: Hx Peritoneal Dialysis GI Medical History: Denies: Hx Hepatitis, Hx Hiatal Hernia, Hx Ulcer Musculoskeltal Medical History: Denies Hx Arthritis, Denies Hx Multiple Sclerosis Psychiatric Medical History: Reports: Hx Depression Denies: Hx Dementia Infectious Medical History: Denies: Hx Hepatitis Past Surgical History: Reports: Hx Tonsillectomy. Denies: Hx Hysterectomy, Hx Mastectomy, Hx Open Heart Surgery, Hx Pacemaker - Immunizations Hx Diphtheria, Pertussis, Tetanus Vaccination: Yes Hx Pneumococcal Vaccination: 04/21/14 Review of Systems - Review of Systems Notes: REVIEW OF SYSTEMS: CONSTITUTIONAL : Denies fever, chills, or sweats. Denies recent illness. EENT: Denies eye, ear, throat, or mouth pain or symptoms. Denies nasal or sinus congestion or discharge. Denies throat, tongue, or mouth swelling or difficulty swallowing. CARDIOVASCULAR: Denies chest pain. Denies palpitations or racing or irregular heart beat. Denies ankle edema. RESPIRATORY: Denies cough, cold, or chest congestion. Denies shortness of breath, difficulty breathing, or wheezing. GASTROINTESTINAL: Denies abdominal pain or distention. Denies nausea, vomiting , or diarrhea. Denies blood in vomitus, stools, or per rectum. Denies black, tarry stools. Denies constipation. GENITOURINARY: Denies difficulty urinating, painful urination, burning, frequency, blood in urine, or discharge. FEMALE GENITOURINARY: Denies vaginal bleeding, heavy or abnormal periods, irregular periods. Denies vaginal discharge or odor. MUSCULOSKELETAL: Denies back or neck pain or stiffness. Denies joint pain or swelling. SKIN: Denies rash, lesions or sores. HEMATOLOGIC : Denies easy bruising or bleeding. LYMPHATIC: Denies swollen, enlarged glands. NEUROLOGICAL: Admits confusion PSYCHIATRIC: Denies anxiety or stress. Denies depression, suicidal ideation, or homicidal ideation. ALL OTHER SYSTEMS REVIEWED AND NEGATIVE. PHYSICAL EXAMINATION: GENERAL: Well-appearing, well-nourished and in no acute distress. HEAD: Atraumatic, normocephalic. EYES: Pupils equal round and reactive to light, extraocular movements intact, conjunctiva are normal. ENT: Nares patent, oropharynx clear without exudates. Moist mucous membranes. NECK: Normal range of motion, supple without lymphadenopathy LUNGS: Breath sounds clear to auscultation bilaterally and equal. No wheezes rales or rhonchi. HEART: Regular rate and rhythm without murmurs ABDOMEN: Soft, nontender, nondistended abdomen. No guarding, no rebound. No masses appreciated. Female : deferred Musculoskeletal: Normal range of motion, no pitting or edema. No cyanosis. NEUROLOGICAL: Cranial nerves grossly intact. Normal speech, normal gait. Normal sensory, motor exams PSYCH: Normal mood, normal affect. SKIN: Warm, Dry, normal turgor, no rashes or lesions noted. Dictation was performed using [employer] recognition software Physical Exam - Vital signs Vitals: Temp Pulse BP Pulse Ox 97.5 F 63 129/64 H 96 04/14/17 15:32 04/14/17 15:32 04/14/17 15:32 04/14/17 15:32 Course - Re-evaluation Re-evalutation: 04/14/17 23:21 Lab work notes consistent renal insufficiency, her blood sugar is not elevated today, I have no signs of infectious process, she overall looks quite well is in no distress. She does have chronic anemia which I do not believe is causing her symptoms, I did speak with the patient's primary care physician we agreed that there are no life-threatening issues noted I will have her follow-up as needed After performing a Medical Screening Examination, I estimate there is LOW risk for INTRACRANIAL HEMORRHAGE, ISCHEMIC CVA, MALIGNANT DYSRHYTHMIA, ACUTE CORONARY SYNDROME, MENINGITIS, PULMONARY EMBOLISM, or SEPSIS thus I consider the discharge disposition reasonable. I have reevaluated this patient multiple times and no significant life threatening changes are noted. The patient and I have discussed the diagnosis and risks, and we agree with discharging home with close follow-up with the understanding that symptoms and presentations can change. We also discussed returning to the Emergency Department immediately if new or worsening symptoms occur. We have discussed the symptoms which are most concerning (e.g., changing or worsening pain, weakness, vomiting, fever) that necessitate immediate return. - Vital Signs Vital signs: Temp Pulse Resp BP Pulse Ox 97.3 F 59 L 18 161/68 H 97 04/14/17 18:16 04/14/17 18:16 04/14/17 18:16 04/14/17 18:16 04/14/17 18:16 - Laboratory Result Diagrams: 04/14/17 17:03 04/14/17 17:03 Laboratory results interpreted by me: 04/14/17 04/14/17 04/14/17 17:03 17:03 17:41 RBC 3.15 L Hgb 9.1 L Hct 27.2 L RDW 15.1 H Seg Neutrophils % 78.9 H Potassium 3.5 L Creatinine 1.92 H Est GFR ( Amer) 32 L Est GFR (Non-Af Amer) 26 L Glucose 126 H POC Glucose 115 H Calcium 8.0 L Total Protein 5.8 L Albumin 2.8 L - Diagnostic Test Radiology reviewed: Image reviewed, Reports reviewed Discharge - Discharge Clinical Impression: Hyperglycemia Chronic renal insufficiency Qualifiers: Chronic kidney disease stage: stage 1 Qualified Code(s): N18.1 - Chronic kidney disease, stage 1 Condition: Stable Disposition: HOME, SELF-CARE Instructions: Hyperglycemia ([facility]) Referrals: ROXANA YANES MD [ACTIVE STAFF] - Follow up tomorrow
[2017-04-14 18:27] VITALS: BP 161/68
== END 2017-04-14 18:27 | disposition home or self-care (01) ==
LOC: ER 15:25
DX: E11.65 Type 2 diabetes mellitus with hyperglycemia (principal); E11.22 Type 2 diabetes mellitus with diabetic chronic kidney disease; I12.9 Hypertensive chronic kidney disease with stage 1 through stage 4 chronic kidney disease, or unspecified chronic kidney disease; N18.1 Chronic kidney disease, stage 1; D64.9 Anemia, unspecified; R53.1 Weakness; R41.0 Disorientation, unspecified; Z88.5 Allergy status to narcotic agent
CPT/HCPCS: 99283; 96360; 36415; 82962; 85025; 80053; J7030

== ENCOUNTER 2017-04-22 19:39 | Inpatient (IN) | payer MEDICARE ==
[2017-04-22 20:11] LABS: ABSOLUTE MONOCYTES (AUTO) 0.5 10^3/uL (0.1-1.4); ABSOLUTE NEUT (AUTO) 5.1 10^3/uL (1.7-8.2); BASOPHILS % (AUTO) 0.6 % (0-2); HEMATOCRIT 27.9 % (36.0-47.0); HEMOGLOBIN 9.4 g/dL (12.0-15.5); HGB HCT DIFFERENCE 0.3; LYMPHOCYTES % (AUTO) 15.7 % (13-45); MEAN CORPUSCULAR HEMOGLOBIN 28.8 pg (27.0-33.4); MEAN CORPUSCULAR HGB CONC 33.6 g/dL (32.0-36.0); MEAN CORPUSCULAR VOLUME 86 fl (80-97); MONOCYTES % (AUTO) 7.2 % (3-13); RED BLOOD COUNT 3.25 10^6/uL (3.72-5.28); RED CELL DISTRIBUTION WIDTH 14.6 % (11.5-14.0); SEGMENTED NEUTROPHILS % (AUTO) 76.5 % (42-78); WHITE BLOOD COUNT 6.6 10^3/uL (4.0-10.5)
[2017-04-22 20:14] LABS: PROTHROMBIN TIME 13.2 SEC (11.4-15.4)
[2017-04-22 20:15] LABS: PARTIAL THROMBOPLASTIN TIME 28.1 SEC (23.5-35.8)
--- NOTE | 2017-04-22 20:17 | RADIOLOGY REPORT (SQ) ---
EXAM DESCRIPTION: CT HEAD WITHOUT COMPLETED DATE/TIME: 04/22/2017 7:51 pm REASON FOR STUDY: stroke alert COMPARISON: None. TECHNIQUE: Axial images acquired through the brain without intravenous contrast. Images reviewed wi th bone, brain and subdural windows. Images stored on PACS. All CT scanners at this facility use dose modulation, iterative reconstruction, and/or weight based d osing when appropriate to reduce radiation dose to as low as reasonably achievable (ALARA). [facility]: Dose Right [facility]: CareDose [facility]: Dose Right [facility]: Teradose 4D [facility]: [place] RADIATION DOSE: Up-to-date CT equipment and radiation dose reduction techniques were employed. CTDIv ol: 64.6 - 67.0 mGy. DLP: 2216 mGy-cm. mGy. LIMITATIONS: Mild patient motion. FINDINGS: VENTRICLES: Age-appropriate. CEREBRUM: No masses. No hemorrhage. No midline shift. Areas of low density in the white matter mos t likely due to chronic micro-vascular ischemic change. No evidence for acute infarction. CEREBELLUM: No masses. No hemorrhage. No alteration of density. No evidence for acute infarction. EXTRAAXIAL SPACES: Mild age-related involutional change. No fluid collections. No masses. ORBITS AND GLOBE: No intra- or extraconal masses. Normal contour of globe without masses. CALVARIUM: No fracture. PARANASAL SINUSES: No fluid or mucosal thickening. SOFT TISSUES: No mass or hematoma. OTHER: No other significant finding. IMPRESSION: MILD CHRONIC CHANGES OF ATROPHY AND MICROVASCULAR ISCHEMIA. NO ACUTE PROCESS. EVIDENCE OF ACUTE STROKE: NO. COMMENT: Results were called to Dr. Brush at 2010 hours. TECHNICAL DOCUMENTATION: JOB ID: [id number] Quality ID # [id number]: Final reports with documentation of one or more dose reduction techniques (e.g., Au tomated exposure control, adjustment of the mA and/or kV according to patient size, use of iterative reconstruction technique) 2010 [employer]- All Rights Reserved
--- NOTE | 2017-04-22 20:18 | RADIOLOGY REPORT (SQ) ---
EXAM DESCRIPTION: CHEST SINGLE VIEW COMPLETED DATE/TIME: 04/22/2017 7:54 pm REASON FOR STUDY: stroke alert COMPARISON: 04/24/2016 EXAM PARAMETERS: NUMBER OF VIEWS: One view. TECHNIQUE: Single frontal radiographic view of the chest acquired. RADIATION DOSE: NA LIMITATIONS: None. FINDINGS: LUNGS AND PLEURA: No acute opacities, masses or pneumothorax. Linear markings in the left lung base. No pleural effusion. MEDIASTINUM AND HILAR STRUCTURES: Stable. HEART AND VASCULAR STRUCTURES: Stable. BONES: No acute findings. HARDWARE: None in the chest. OTHER: No other significant finding. IMPRESSION: NO ACUTE RADIOGRAPHIC FINDING IN THE CHEST. TECHNICAL DOCUMENTATION: JOB ID: [id number]
[2017-04-22] MEDS ORDERED: ASPIRIN 81 MG TABLET, CHEWABLE PO ONE (20:27)
[2017-04-22] MEDS ORDERED: CLOPIDOGREL BISULFATE 300 MG TABLET PO ONE (20:27)
[2017-04-22 20:29] LABS: ALANINE AMINOTRANSFERASE 22 U/L (9-52); ALBUMIN 2.5 g/dL (3.5-5.0); ALKALINE PHOSPHATASE 79 U/L (38-126); ANION GAP 7 (5-19); ASPARTATE AMINO TRANSFERASE 16 U/L (14-36); BILIRUBIN,DIRECT 0.4 mg/dL (0.0-0.4); BILIRUBIN,TOTAL 0.4 mg/dL (0.2-1.3); BLOOD UREA NITROGEN 11 mg/dL (7-20); CALCIUM 8.1 mg/dL (8.4-10.2); CARBON DIOXIDE 29 mmol/L (22-30); CHLORIDE 105 mmol/L (98-107); CREATINE KINASE 63 U/L (30-135); CREATININE RESULT 1.64 mg/dL (0.52-1.25); GLUCOSE 284 mg/dL (75-110); SODIUM 141.4 mmol/L (137-145); TOTAL PROTEIN 5.4 g/dL (6.3-8.2)
--- NOTE | 2017-04-22 20:30 | ER Document Report ---
ED General - General Chief Complaint: S/S of Possible Stroke Stated Complaint: FACIAL DROPPING Time Seen by Provider: 04/22/17 20:23 Notes: Patient is a 61-year-old female with a past medical history of diabetes, hypertension, hyperlipidemia, who presents with an acute onset of right-sided facial droop and dysarthria that started approximately 30 minutes prior to arrival. The patient herself denies the symptoms stating that she is uncertain of what everybody else is talking about including her son who is at the bedside. The son however provides a much more clear history. He states that he went inside to pay for something at a store when he came back out he knows that his mother space appeared to have a right-sided facial droop. He face time his sister who is a nurse and she likewise agreed that the patient had a facial droop and told him to take her to the emergency department. On arrival, staff in triage note a right-sided facial droop that the patient appeared dysarthric. A code stroke was called and patient was taken immediately to CT scan. When I enter the room to assess the patient after she returns from CT, she denies any complaints and it appears that her facial droop has resolved. Patient denies any history of similar symptoms in the past. Nothing improves or worsens her symptoms. She denies any difficulty speaking, headache, chest pain or shortness of breath. She states she has been taking all medications as directed. TRAVEL OUTSIDE OF THE [place] IN LAST 30 DAYS: No - Related Data Allergies/Adverse Reactions: morphine Allergy (Verified 04/22/17 22:09) Home Medications: Current Home Medications Insulin Lispro [Humalog Insulin 100 Unit/1 ml 3 ml Vial] 0 unit SUBCUT .SLD SCALE 04/23/17 [History] Past Medical History - General Information source: Patient, Relative - Social History Smoking Status: Former Smoker Frequency of alcohol use: None Drug Abuse: None Lives with: Family Family History: Reviewed & Not Pertinent - Past Medical History Cardiac Medical History: Reports: Hx Congestive Heart Failure, Hx Hypertension Denies: Hx Coronary Artery Disease, Hx Heart Attack, Hx Hypercholesterolemia , Hx Heart Murmur Pulmonary Medical History: Denies: Hx Asthma, Hx Bronchitis, Hx COPD, Hx Pneumonia Neurological Medical History: Denies: Hx Cerebrovascular Accident, Hx Seizures Endocrine Medical History: Reports: Hx Diabetes Mellitus Type 2 Renal/ Medical History: Denies: Hx Peritoneal Dialysis GI Medical History: Denies: Hx Hepatitis, Hx Hiatal Hernia, Hx Ulcer Musculoskeltal Medical History: Denies Hx Arthritis, Denies Hx Multiple Sclerosis Psychiatric Medical History: Reports: Hx Depression Denies: Hx Dementia Infectious Medical History: Denies: Hx Hepatitis Past Surgical History: Reports: Hx Tonsillectomy. Denies: Hx Hysterectomy, Hx Mastectomy, Hx Open Heart Surgery, Hx Pacemaker - Immunizations Hx Diphtheria, Pertussis, Tetanus Vaccination: Yes Hx Pneumococcal Vaccination: 04/21/14 Review of Systems - Review of Systems Notes: Constitutional: Negative for fever. HENT: Negative for sore throat. Eyes: Negative for visual changes. Cardiovascular: Negative for chest pain. Respiratory: Negative for shortness of breath. Gastrointestinal: Negative for abdominal pain, vomiting or diarrhea. Genitourinary: Negative for dysuria. Musculoskeletal: Negative for back pain. Skin: Negative for rash. Neurological: Positive for facial droop and dysarthria now resolved 10 point ROS negative except as marked above and in HPI. Physical Exam - Vital signs Vitals: Resp Pulse Ox 21 H 97 04/22/17 19:56 04/22/17 19:56 Interpretation: Normal Notes: PHYSICAL EXAMINATION: GENERAL: Well-appearing, well-nourished and in no acute distress. HEAD: Atraumatic, normocephalic. EYES: Pupils equal round and reactive to light, extraocular movements intact, sclera anicteric, conjunctiva are normal. ENT: nares patent, oropharynx clear without exudates. Moist mucous membranes. NECK: Normal range of motion, supple without lymphadenopathy LUNGS: Breath sounds clear to auscultation bilaterally and equal. No wheezes rales or rhonchi. HEART: Regular rate and rhythm without murmurs ABDOMEN: Soft, nontender, normoactive bowel sounds. No guarding, no rebound. No masses appreciated. EXTREMITIES: Normal range of motion, trace edema in the right lower extremity, 1 + pitting edema in the left lower extremity. NEUROLOGICAL: Face symmetric. Tongue protrudes midline. Extraocular motions intact. Pupils are 2 mm and equally reactive. Normal speech, normal gait. 5 out of 5 strength in both the distal and proximal upper and lower extremities bilaterally. Sensation is grossly intact throughout. Finger to nose testing normal. Pronator drift normal. PSYCH: Normal mood, normal affect. SKIN: Warm, Dry, normal turgor, multiple sores the bilateral lower extremities worse on the left Course - Re-evaluation Re-evalutation: 04/22/17 20:29 Patient presents with symptoms most consistent with a transient ischemic attack. Patient had acute onset of right-sided facial droop with slurring of her speech as well as apparently right lower extremity weakness. Patient was called as a code stroke immediately taken to head CT which did not show any evidence of acute intracranial bleed. By the time she came back from head CT her symptoms had already normalized. At time of my assessment, patient has an NIH stroke scale of 0, has no focal neurologic deficits, speaking clearly. Patient does have multiple risk factors for stroke and TIA including diabetes, morbid obesity, hyperlipidemia. Given her normal neurologic exam at this time, I believe her exam is consistent with a TIA and not an acute ischemic stroke. A code stroke has been canceled. Patient has been loaded with clopidogrel 300 mg as well as aspirin 81 mg. I will also obtain a carotid Doppler study to evaluate for significant carotid stenosis. 04/22/17 21:02 Troponin is mildly elevated at 0.063 the patient denies any chest pain or shortness of breath. She denies any symptoms at this time. EKG without ischemic changes. There are however T-wave inversions in V4 5 that are new from a prior exam. Will speak to Dr. Crawford for admission given both this moderately elevated troponin as well as the TIA. Patient has received Plavix and aspirin. 04/22/17 21:08 I discussed this case with Dr. Crawford who agrees to admit the patient. He has requested the MRI will be ordered now which I will order but I am uncertain if it will be completed tonight. - Vital Signs Vital signs: Temp Pulse Resp BP Pulse Ox 98.3 F 58 L 16 122/39 L 94 04/23/17 00:28 04/23/17 02:00 04/23/17 00:28 04/23/17 00:28 04/23/17 00:28 - Laboratory Result Diagrams: 04/22/17 19:58 04/22/17 19:58 Laboratory results interpreted by me: 04/22/17 04/22/17 04/22/17 19:58 19:58 19:58 RBC 3.25 L Hgb 9.4 L Hct 27.9 L RDW 14.6 H Potassium 3.0 L* Creatinine 1.64 H Est GFR ( Amer) 38 L Est GFR (Non-Af Amer) 32 L Glucose 284 H POC Glucose Hemoglobin A1c % Calcium 8.1 L Total Protein 5.4 L Albumin 2.5 L Triglycerides 206 H Cholesterol 283.28 H LDL Cholesterol Direct 222 H VLDL Cholesterol 41.2 H 04/22/17 04/22/17 19:58 20:08 RBC Hgb Hct RDW Potassium Creatinine Est GFR ( Amer) Est GFR (Non-Af Amer) Glucose POC Glucose 297 H Hemoglobin A1c % 9.1 H Calcium Total Protein Albumin Triglycerides Cholesterol LDL Cholesterol Direct VLDL Cholesterol - Diagnostic Test Radiology reviewed: Image reviewed, Reports reviewed Radiology results interpreted by me: 04/22/17 20:28 CT head: No acute intracranial bleed Chest x-ray: No acute infiltrate or pneumothorax - EKG Interpretation by Me Additional EKG results interpreted by me: 04/23/17 04:00 Normal sinus rhythm. Rate 65. No ST elevations or depressions. There is a right bundle branch block. LVH. Discharge - Discharge Clinical Impression: Hypokalemia, Elevated troponin TIA (transient ischemic attack) Qualifiers: Transient cerebral ischemia type: unspecified Qualified Code(s): G45.9 - Transient cerebral ischemic attack, unspecified Condition: Fair Disposition: ADMITTED OBSERVATION Admitting Provider: Crawford Unit Admitted: [facility]
[2017-04-22 20:40] LABS: CREATINE KINASE MB 2.09 ng/mL (<4.55)
[2017-04-22 20:42] LABS: TROPONIN I 0.062 ng/mL
[2017-04-22 21:07] LABS: ADD ON TESTING BLD IN LAB ACKNOWLEDGE
[2017-04-22] MEDS ORDERED: MAGNESIUM OXIDE 400 MG TABLET PO ONE (21:08)
[2017-04-22] MEDS ORDERED: POTASSIUM CHLORIDE 20 MEQ/15 ML UDCUP PO ONE (21:08)
[2017-04-22 21:19] LABS: CHOLESTEROL 283.28 mg/dL (0-200); Direct HDL 47 mg/dL (>40); TRIGLYCERIDES 206 mg/dL (<150)
[2017-04-22 21:30] LABS: DIRECT LDL 222 mg/dL (<100)
[2017-04-22 21:32] LABS: VLDL CHOLESTEROL 41.2 mg/dL (10-31)
[2017-04-22] MEDS ORDERED: DEXTROSE 50%-WATER 25 GM/50 ML DISP.SYRIN IV PRN ×2 (21:41)
[2017-04-22] MEDS ORDERED: DEXTROSE 40% GEL 15 GM TUBE PO PRN ×2 (21:41)
[2017-04-22] MEDS ORDERED: GLUCAGON,HUMAN RECOMB 1 MG INJ IM PRN (21:41)
[2017-04-22] MEDS ORDERED: OXYCODONE-ACETAMINOPHEN 5-325 MG TABLET PO PRN ×2 (21:41→21:44)
[2017-04-22] MEDS: HYDRALAZINE HCL 50 MG TABLET PO SCH (22:25)
[2017-04-22] MEDS: GABAPENTIN 100 MG CAPSULE PO SCH (22:26)
[2017-04-22] MEDS: TRAZODONE HCL 50 MG TABLET PO SCH (22:26)
[2017-04-22] MEDS: HEPARIN SOD (PORCINE) 5,000 UNIT/ML 1 ML SYRINGE SUBCUT SCH (22:27)
[2017-04-22] MEDS: ATORVASTATIN CALCIUM 40 MG TABLET PO SCH (22:27)
[2017-04-22 22:36] LABS: CREATINE KINASE MB 1.95 ng/mL (<4.55); TROPONIN I 0.058 ng/mL
--- NOTE | 2017-04-22 22:43 | RADIOLOGY REPORT (SQ) ---
EXAM DESCRIPTION: CAROTID DOPPLER COMPLETED DATE/TIME: 04/22/2017 10:33 pm REASON FOR STUDY: tia COMPARISON: None. TECHNIQUE: Grayscale ultrasound, Doppler velocity and spectra, and color Doppler images acquired of the extra-cranial carotid and vertebral arteries. Images stored on PACS. LIMITATIONS: None. FINDINGS: RIGHT CAROTID CCA Velocities: Within normal limits. ICA Velocities Peak systolic 149 m/s. End diastolic 58 m/s. Proximal ICA/CCA peak systolic ratio 2.1. Spectra normal. Mild plaque. LEFT CAROTID CCA Velocities: Within normal limits. ICA Velocities Peak systolic 101 m/s. End diastolic 31 m/s. Proximal ICA/CCA peak systolic ratio 1.6. Spectra normal. Mild plaque. VERTEBRAL ARTERIES: Antegrade flow. Normal waveforms. SUBCLAVIAN ARTERIES: No finding. OTHER: No other significant finding. IMPRESSION: NO HEMODYNAMICALLY SIGNIFICANT STENOSIS. COMMENT: Quality ID #[id number]: Velocity criteria are extrapolated from the diameter data as defined by t he Society of Radiologists in Ultrasound Consensus Conference. Radiology 2003: 229; 340-346. TECHNICAL DOCUMENTATION: JOB ID: [id number]- All Rights Reserved
[2017-04-23] MEDS ORDERED: INFLUENZA ADLT QUAD (36MOS+) 2017-18 VAC 0.5 ML SYR IM PRN ×2 (00:37→08:30)
[2017-04-23] MEDS: INSULIN LISPRO 100 UNIT/ML 3 ML VIAL SUBCUT PRN ×2 (01:23→17:31)
[2017-04-23 04:37] LABS: ABSOLUTE LYMPHOCYTES (AUTO) 1.2 10^3/uL (0.5-4.7); ABSOLUTE MONOCYTES (AUTO) 0.4 10^3/uL (0.1-1.4); ABSOLUTE NEUT (AUTO) 3.6 10^3/uL (1.7-8.2); BASOPHILS % (AUTO) 0.8 % (0-2); EOSINOPHILS % (AUTO) 0.1 % (0-6); HEMATOCRIT 24.5 % (36.0-47.0); HEMOGLOBIN 8.3 g/dL (12.0-15.5); HGB HCT DIFFERENCE 0.4; LYMPHOCYTES % (AUTO) 22.4 % (13-45); MEAN CORPUSCULAR HEMOGLOBIN 28.6 pg (27.0-33.4); MEAN CORPUSCULAR HGB CONC 33.7 g/dL (32.0-36.0); MEAN CORPUSCULAR VOLUME 85 fl (80-97); MONOCYTES % (AUTO) 7.2 % (3-13); RED BLOOD COUNT 2.89 10^6/uL (3.72-5.28); RED CELL DISTRIBUTION WIDTH 14.7 % (11.5-14.0); SEGMENTED NEUTROPHILS % (AUTO) 69.5 % (42-78); WHITE BLOOD COUNT 5.2 10^3/uL (4.0-10.5)
[2017-04-23 05:02] LABS: ALANINE AMINOTRANSFERASE 22 U/L (9-52); ALBUMIN 2.2 g/dL (3.5-5.0); ALKALINE PHOSPHATASE 69 U/L (38-126); ANION GAP 6 (5-19); ASPARTATE AMINO TRANSFERASE 13 U/L (14-36); BILIRUBIN,DIRECT 0.3 mg/dL (0.0-0.4); BILIRUBIN,TOTAL 0.3 mg/dL (0.2-1.3); BLOOD UREA NITROGEN 14 mg/dL (7-20); CARBON DIOXIDE 27 mmol/L (22-30); CHLORIDE 109 mmol/L (98-107); CREATININE RESULT 1.94 mg/dL (0.52-1.25); GLUCOSE 183 mg/dL (75-110); POTASSIUM 3.1 mmol/L (3.6-5.0); SODIUM 141.9 mmol/L (137-145); TOTAL PROTEIN 4.9 g/dL (6.3-8.2)
[2017-04-23 05:10] LABS: CREATINE KINASE MB 1.77 ng/mL (<4.55); TROPONIN I 0.053 ng/mL
[2017-04-23] MEDS: HEPARIN SOD (PORCINE) 5,000 UNIT/ML 1 ML SYRINGE SUBCUT SCH ×3 (06:24→21:39)
[2017-04-23] MEDS: HYDRALAZINE HCL 50 MG TABLET PO SCH ×3 (06:24→21:38)
[2017-04-23] MEDS ORDERED: POTASSIUM CHLORIDE 10 MEQ TABLET.SA PO ONE ×2 (08:15→13:59)
[2017-04-23] MEDS ORDERED: OXYCODONE-ACETAMINOPHEN 5-325 MG TABLET PO PRN (08:30)
[2017-04-23] MEDS ORDERED: INSULIN GLARGINE,HUM.REC.ANLOG 1,000 UNIT/10 ML UNIT SUBCUT ONE ×2 (09:20→09:30)
[2017-04-23 09:36] LABS: FOLATE 6.41 ng/mL (>2.76)
[2017-04-23] MEDS ORDERED: AMLODIPINE BESYLATE 10 MG TABLET PO SCH (10:00)
[2017-04-23] MEDS ORDERED: VENLAFAXINE HCL 75 MG CAP.SR.24H PO SCH (10:00)
--- NOTE | 2017-04-23 10:55 | RADIOLOGY REPORT (SQ) ---
EXAM DESCRIPTION: MRI HEAD WITHOUT COMPLETED DATE/TIME: 04/23/2017 10:43 am REASON FOR STUDY: tia D50.8 OTHER IRON DEFICIENCY ANEMIAS COMPARISON: CT dated 04/22/2017. TECHNIQUE: Multiplanar imaging includes non-contrasted T1, T2, FLAIR, and diffusion with ADC map seq uences. Images stored on PACS. LIMITATIONS: None. FINDINGS: ANATOMY: No anomalies. Normal vascular flow voids. Pituitary fossa normal. CSF SPACES: Atrophy induced prominence of ventricles and CSF spaces. CEREBRUM: High signal intensity lesions scattered throughout the white matter on FLAIR imaging with d istribution suggesting micro-vascular ischemic changes. No evidence of hemorrhage, mass, or extraaxi al fluid collection. POSTERIOR FOSSA: No signal alteration. No hemorrhage. No edema, masses or mass effect. Internal jose tory canals, cerebello-pontine angles, mastoids normal. DIFFUSION IMAGING: Negative for acute or sub-acute infarction. ORBITS: No masses. Globes normal. PARANASAL SINUSES: No fluid levels. Mucosa normal. OTHER: No other significant finding. IMPRESSION: ATROPHY AND CHRONIC MICRO-VASCULAR ISCHEMIC CHANGES. OTHERWISE NORMAL MRI OF THE BRAIN W ITHOUT INTRAVENOUS GADOLINIUM CONTRAST. EVIDENCE OF ACUTE STROKE: NO. TECHNICAL DOCUMENTATION: JOB ID: [id number] [employer]- All Rights Reserved
--- NOTE | 2017-04-23 10:56 | RADIOLOGY REPORT (SQ) ---
EXAM DESCRIPTION: MRA HEAD WITHOUT COMPLETED DATE/TIME: 04/23/2017 10:43 am REASON FOR STUDY: tia D50.8 OTHER IRON DEFICIENCY ANEMIAS COMPARISON: None. TECHNIQUE: Axial 3-D [id number] acquisition imaging performed through the brain in the area of t he [place]. Images reformatted using 3-D MIPS. LIMITATIONS: None. FINDINGS: SOURCE IMAGES: No unexpected findings on source images. No large masses. 3-D MIP: No aneurysm. No occlusions. No significant stenosis. OTHER: No other significant finding. IMPRESSION: NORMAL MRA OF THE [place]. TECHNICAL DOCUMENTATION: JOB ID: [id number] [employer]- All Rights Reserved
[2017-04-23 11:27] LABS: CREATINE KINASE MB 2.99 ng/mL (<4.55); TROPONIN I 0.05 ng/mL
[2017-04-23] MEDS: GABAPENTIN 100 MG CAPSULE PO SCH ×2 (11:33→21:39)
[2017-04-23] MEDS: ASPIRIN 81 MG TABLET, ENT COATED PO SCH (11:33)
[2017-04-23] MEDS: CLOPIDOGREL BISULFATE 75 MG TABLET PO SCH (11:33)
[2017-04-23] MEDS: INSULIN GLARGINE,HUM.REC.ANLOG 300 UNIT/3 ML INSULN.PEN SUBCUT SCH (11:34)
[2017-04-23] MEDS: ISOSORBIDE MONONITRATE 30 MG TAB.ER.24H PO SCH (11:36)
--- NOTE | 2017-04-23 12:24 | PDOC CONSULTATION ---
Consultation Consult Date: 04/23/17 Attending physician:: NATALIYA AGARWAL Consult reason:: Anemia. history of colon polyps History of Present Illness Admission Date/PCP: 04/22/17 21:09 History of Present Illness: I have asked to see this patient when she was admitted have seen patient in the past had colonoscopy last year, multiple polyps EGD done as well, no ulcers patient present with stroke/ TIA no acute bleeding is noted patient states no recollection of events denies any bleeding patient has had multiple issues in the past and has visited the ED multiple times denies any dysphagia all of her polyps did not show any malignancy she is no due for a surveillance Past Medical History Cardiac Medical History: Reports: Congestive Heart Failure, Hypertension Denies: Coronary Artery Disease, Myocardial Infarction, Hyperlipidema, Heart Murmur Pulmonary Medical History: Denies: Asthma, Bronchitis, Chronic Obstructive Pulmonary Disease (COPD), Pneumonia Neurological Medical History: Denies: Seizures Endocrine Medical History: Reports: Diabetes Mellitus Type 2 GI Medical History: Denies: Hepatitis, Hiatal Hernia Musculoskeltal Medical History: Denies: Arthritis Psychiatric Medical History: Reports: Depression Denies: Dementia Hematology: Reports: Anemia Denies: Sickle Cell Disease Past Surgical History Past Surgical History: Reports: Tonsillectomy Denies: Amputation, Hysterectomy, Mastectomy, Pacemaker Social History Lives with: Family Smoking Status: Former Smoker Frequency of Alcohol Use: None Hx Recreational Drug Use: No Drugs: None Hx Prescription Drug Abuse: No - Advance Directive Resuscitation Status: Full Code Family History Family History: Reviewed & Not Pertinent Parental Family History Reviewed: Yes Children Family History Reviewed: Unknown Sibling(s) Family History Reviewed.: Unknown Medication/Allergy Home Medications: Amlodipine Besylate [Norvasc 10 mg Tablet] 10 mg PO DAILY 09/27/16 Furosemide [Lasix] 20 mg PO DAILY 09/27/16 Gabapentin [Neurontin 100 mg Capsule] 100 mg PO Q12 09/27/16 Hydralazine HCl [Apresoline 50 mg Tablet] 50 mg PO Q8 09/27/16 Isosorbide Mononitrate [Imdur 30 mg Tablet.er] 30 mg PO DAILY 09/27/16 Metoprolol Tartrate [Lopressor 50 mg Tablet] 100 mg PO BID 09/27/16 Trazodone HCl [Desyrel 50 mg Tablet] 50 mg PO QHS 04/08/17 Venlafaxine HCl ER [Effexor Xr 75 mg Cap.sr] 75 mg PO BID 09/27/16 Allergies/Adverse Reactions: morphine Allergy (Verified 04/22/17 22:09) Review of Systems Constitutional: ABSENT: fever(s), headache(s), night sweats Eyes: ABSENT: visual disturbances Ears: ABSENT: hearing changes Nose, Mouth, and Throat: ABSENT: mouth pain Cardiovascular: ABSENT: chest pain, edema, palpitations Respiratory: ABSENT: dyspnea, hemoptysis Gastrointestinal: ABSENT: diarrhea, dysphagia, melena, nausea, vomiting Musculoskeletal: ABSENT: deformity Integumentary: ABSENT: lesions Neurological: ABSENT: syncope, tingling, tremor(s), vertigo Psychiatric: ABSENT: hallucinations Endocrine: ABSENT: polydipsia, polyphagia, polyuria Hematologic/Lymphatic: ABSENT: easy bruising Physical Exam Vital Signs: Temp Pulse Resp BP Pulse Ox 97.6 F 66 18 108/45 L 96 04/23/17 07:29 04/23/17 08:00 04/23/17 08:00 04/23/17 08:00 04/23/17 08:00 Intake & Output 04/22/17 04/23/17 04/24/17 06:59 06:59 06:59 Intake Total 240 Balance 240 Weight 102.8 kg General appearance: PRESENT: no acute distress, well-developed, well-nourished Head exam: PRESENT: atraumatic, normocephalic Eye exam: PRESENT: EOMI, PERRLA. ABSENT: periorbital swelling, scleral icterus Mouth exam: PRESENT: moist Throat exam: ABSENT: tonsillar exudate, tonsillogmegaly Neck exam: ABSENT: meningismus, tenderness, thyromegaly Respiratory exam: ABSENT: symmetrical, tachypnea, unlabored Cardiovascular exam: PRESENT: RRR, +S1, +S2 GI/Abdominal exam: PRESENT: soft. ABSENT: ascites, Bingham's sign, rebound, rigid Gentrourinary exam: ABSENT: lesions Extremities exam: ABSENT: joint swelling Neurological exam: PRESENT: oriented to time, oriented to situation, CN II-XII grossly intact Psychiatric exam: PRESENT: appropriate affect Skin exam: PRESENT: normal color. ABSENT: mottled, urticaria, vesicles Results Laboratory Results: 04/23/17 04:15 04/23/17 04:15 11/08/0804/23/17 04/23/17 04:15 04:15 07:49 WBC 5.2 RBC 2.89 L Hgb 8.3 L Hct 24.5 L MCV 85 MCH 28.6 MCHC 33.7 RDW 14.7 H Plt Count 149 L Seg Neutrophils % 69.5 Lymphocytes % 22.4 Monocytes % 7.2 Eosinophils % 0.1 Basophils % 0.8 Absolute Neutrophils 3.6 Absolute Lymphocytes 1.2 Absolute Monocytes 0.4 Absolute Eosinophils 0.0 Absolute Basophils 0.0 Retic Count (auto) 1.96 Absolute Retic 0.064 Sodium 141.9 Potassium 3.1 L Chloride 109 H Carbon Dioxide 27 Anion Gap 6 BUN 14 Creatinine 1.94 H Est GFR ( Amer) 32 L Est GFR (Non-Af Amer) 26 L Glucose 183 H Calcium 8.0 L Iron TIBC % Saturation Ferritin Total Bilirubin 0.3 AST 13 L ALT 22 Alkaline Phosphatase 69 Total Protein 4.9 L Albumin 2.2 L Vitamin B12 Folate 04/23/17 07:49 WBC RBC Hgb Hct MCV MCH MCHC RDW Plt Count Seg Neutrophils % Lymphocytes % Monocytes % Eosinophils % Basophils % Absolute Neutrophils Absolute Lymphocytes Absolute Monocytes Absolute Eosinophils Absolute Basophils Retic Count (auto) Absolute Retic Sodium Potassium Chloride Carbon Dioxide Anion Gap BUN Creatinine Est GFR ( Amer) Est GFR (Non-Af Amer) Glucose Calcium Iron 24.6 L TIBC 209 L % Saturation 12 Ferritin 65.10 Total Bilirubin AST ALT Alkaline Phosphatase Total Protein Albumin Vitamin B12 653.0 Folate 6.41 04/22/17 04/22/17 04/23/17 21:58 21:58 04:15 Creatine Kinase 60 46 CK-MB (CK-2) 1.95 Troponin I 0.058 04/23/17 04/23/17 04/23/17 04:15 10:41 10:41 Creatine Kinase 136 H CK-MB (CK-2) 1.77 2.99 Troponin I 0.053 0.050 Impressions: Chest X-Ray 04/22/17 19:41 IMPRESSION: NO ACUTE RADIOGRAPHIC FINDING IN THE CHEST. Head CT 04/22/17 19:41 IMPRESSION: MILD CHRONIC CHANGES OF ATROPHY AND MICROVASCULAR ISCHEMIA. NO ACUTE PROCESS. EVIDENCE OF ACUTE STROKE: NO. Carotid Doppler Study 04/22/17 20:26 IMPRESSION: NO HEMODYNAMICALLY SIGNIFICANT STENOSIS. Brain MRI with MRA 04/22/17 21:07 IMPRESSION: NORMAL MRA OF THE [place]. Head MRI 04/22/17 21:07 IMPRESSION: ATROPHY AND CHRONIC MICRO-VASCULAR ISCHEMIC CHANGES. OTHERWISE NORMAL MRI OF THE BRAIN WITHOUT INTRAVENOUS GADOLINIUM CONTRAST. EVIDENCE OF ACUTE STROKE: NO. Assessment & Plan - Diagnosis (1) Anemia due to blood loss, acute Plan: I do not believe that she is having a gross GI bleed however she has been loaded up with Plavix and anticoagulation, so if she has anything that will bleed , it will manifest follow H/H, transfuse if necessary previous EGD and colonoscopy done last year multiple polyps removed, she would have needed a surveillance but given the current circumstances, is not a candidate for repeat evaluation just yet (2) Colon polyps Plan: combination of hyperplastic and adenomatous polyps if acute bleeding , then consider for repeat evaluation continue to follow stroke work up in progress - Time Time Spent: 50 to 70 Minutes
--- NOTE | 2017-04-23 12:58 | PDOC H&P ---
History of Present Illness Admission Date/PCP: 04/22/17 21:09 Patient complains of: Right-sided weakness History of Present Illness: Is a 61-year-old female with a history of the type 2 diabetes mellitus with diabetic retinopathy and nephropathy and the multiple other complications and top of that patient is super noncomplianceAnd a chronic peripheral vascular disease and chronic venous insufficiencyCame to the emergency department with the right-sided facial droops and a weaknessAnd patient underwent for the CT head in the ER was all negative and patient was put on stroke protocol Patient's symptoms pretty much resolved in the ER physicians call for admissions and patient was given aspirin and Plavix When I saw the patient's patient's denied any weakness denied any chest pain denied any shortness of the breath Patient's denied any blood in the stools no black stools Patient's hemoglobin was low and patient was seen by Dr. Grey hat cone inspector as outpatient and patient seen by Dr. Prieto last year and endoscopy and colonoscopy done within the last year and was all stable Patient also followed the wound care clinic for chronic wound on the legs Patient also see a vascular surgery in [place] and patient also see Dr. Clark for chronic kidney disease but patient usually not keep any appointment at schedule Patient's currently denied any chest pain denied any shortness of the breath Past Medical History Cardiac Medical History: Reports: Congestive Heart Failure, Hypertension Denies: Coronary Artery Disease, Myocardial Infarction, Hyperlipidema, Heart Murmur Pulmonary Medical History: Denies: Asthma, Bronchitis, Chronic Obstructive Pulmonary Disease (COPD), Pneumonia Neurological Medical History: Denies: Seizures Endocrine Medical History: Reports: Diabetes Mellitus Type 2 GI Medical History: Reports: Gastroesophageal Reflux Disease Denies: Hepatitis, Hiatal Hernia Musculoskeltal Medical History: Reports: Arthritis Psychiatric Medical History: Reports: Depression Denies: Dementia Hematology: Reports: Anemia Denies: Sickle Cell Disease Past Surgical History Past Surgical History: Reports: Tonsillectomy Denies: Amputation, Hysterectomy, Mastectomy, Pacemaker Social History Lives with: Family Smoking Status: Former Smoker Frequency of Alcohol Use: None Hx Recreational Drug Use: No Drugs: None Hx Prescription Drug Abuse: No - Advance Directive Resuscitation Status: Full Code Family History Family History: Reviewed & Not Pertinent Parental Family History Reviewed: Yes Children Family History Reviewed: Yes Sibling(s) Family History Reviewed.: Yes Medication/Allergy Home Medications: Amlodipine Besylate [Norvasc 10 mg Tablet] 10 mg PO DAILY 09/27/16 Furosemide [Lasix] 20 mg PO DAILY 09/27/16 Gabapentin [Neurontin 100 mg Capsule] 100 mg PO Q12 09/27/16 Hydralazine HCl [Apresoline 50 mg Tablet] 50 mg PO Q8 09/27/16 Isosorbide Mononitrate [Imdur 30 mg Tablet.er] 30 mg PO DAILY 09/27/16 Metoprolol Tartrate [Lopressor 50 mg Tablet] 100 mg PO BID 09/27/16 Trazodone HCl [Desyrel 50 mg Tablet] 50 mg PO QHS 09/27/16 Venlafaxine HCl ER [Effexor Xr 75 mg Cap.sr] 75 mg PO BID 09/27/16 Allergies/Adverse Reactions: morphine Allergy (Verified 04/22/17 22:09) Review of Systems Constitutional: PRESENT: fatigue, weakness. ABSENT: chills, fever(s), headache( s), weight gain, weight loss Eyes: ABSENT: visual disturbances Ears: ABSENT: hearing changes Cardiovascular: ABSENT: chest pain, dyspnea on exertion, edema, orthropnea, palpitations Respiratory: ABSENT: cough, hemoptysis Gastrointestinal: ABSENT: abdominal pain, constipation, diarrhea, hematemesis, hematochezia, nausea, vomiting Genitourinary: ABSENT: dysuria, hematuria Musculoskeletal: ABSENT: joint swelling Integumentary: ABSENT: rash, wounds Neurological: ABSENT: abnormal gait, abnormal speech, confusion, dizziness, focal weakness, syncope Psychiatric: ABSENT: anxiety, depression, homidical ideation, suicidal ideation Endocrine: ABSENT: cold intolerance, heat intolerance, menstrual abnormalities, polydipsia, polyuria Hematologic/Lymphatic: ABSENT: easy bleeding, easy bruising, lymphadenopathy Physical Exam Vital Signs: Temp Pulse Resp BP Pulse Ox 97.6 F 66 18 108/45 L 96 04/23/17 07:29 04/23/17 08:00 04/23/17 08:00 04/23/17 08:00 04/23/17 08:00 Intake & Output 04/22/17 04/23/17 04/24/17 06:59 06:59 06:59 Intake Total 240 Balance 240 Weight 102.8 kg General appearance: PRESENT: no acute distress, well-developed, well-nourished Head exam: PRESENT: atraumatic, normocephalic Eye exam: PRESENT: conjunctiva pink, EOMI, PERRLA. ABSENT: scleral icterus Ear exam: PRESENT: normal external ear exam Mouth exam: PRESENT: moist, tongue midline Neck exam: PRESENT: full ROM. ABSENT: carotid bruit, JVD, lymphadenopathy, thyromegaly Respiratory exam: PRESENT: clear to auscultation ita Cardiovascular exam: PRESENT: RRR. ABSENT: diastolic murmur, rubs, systolic murmur Pulses: PRESENT: normal dorsalis pedis pul, +2 pedal pulses bilateral Vascular exam: PRESENT: normal capillary refill GI/Abdominal exam: PRESENT: normal bowel sounds, soft. ABSENT: distended, guarding, mass, organolmegaly, rebound, tenderness Rectal exam: PRESENT: deferred Extremities exam: PRESENT: pedal edema Additional comments: Bilateral lower extremities chronic venous dermatitis and the chronic redness Neurological exam: PRESENT: alert, awake, oriented to person, oriented to place , oriented to time, oriented to situation, CN II-XII grossly intact. ABSENT: motor sensory deficit Psychiatric exam: PRESENT: appropriate affect, depressed, normal mood. ABSENT: homicidal ideation, suicidal ideation Skin exam: PRESENT: dry, intact, warm. ABSENT: cyanosis, rash Results Laboratory Results: 04/23/17 04:15 04/23/17 04:15 04/23/17 04/23/17 04/23/17 04:15 04:15 07:49 WBC 5.2 RBC 2.89 L Hgb 8.3 L Hct 24.5 L MCV 85 MCH 28.6 MCHC 33.7 RDW 14.7 H Plt Count 149 L Seg Neutrophils % 69.5 Lymphocytes % 22.4 Monocytes % 7.2 Eosinophils % 0.1 Basophils % 0.8 Absolute Neutrophils 3.6 Absolute Lymphocytes 1.2 Absolute Monocytes 0.4 Absolute Eosinophils 0.0 Absolute Basophils 0.0 Retic Count (auto) 1.96 Absolute Retic 0.064 Sodium 141.9 Potassium 3.1 L Chloride 109 H Carbon Dioxide 27 Anion Gap 6 BUN 14 Creatinine 1.94 H Est GFR ( Amer) 32 L Est GFR (Non-Af Amer) 26 L Glucose 183 H Calcium 8.0 L Iron TIBC % Saturation Ferritin Total Bilirubin 0.3 AST 13 L ALT 22 Alkaline Phosphatase 69 Total Protein 4.9 L Albumin 2.2 L Vitamin B12 Folate 04/23/17 07:49 WBC RBC Hgb Hct MCV MCH MCHC RDW Plt Count Seg Neutrophils % Lymphocytes % Monocytes % Eosinophils % Basophils % Absolute Neutrophils Absolute Lymphocytes Absolute Monocytes Absolute Eosinophils Absolute Basophils Retic Count (auto) Absolute Retic Sodium Potassium Chloride Carbon Dioxide Anion Gap BUN Creatinine Est GFR ( Amer) Est GFR (Non-Af Amer) Glucose Calcium Iron 24.6 L TIBC 209 L % Saturation 12 Ferritin 65.10 Total Bilirubin AST ALT Alkaline Phosphatase Total Protein Albumin Vitamin B12 653.0 Folate 6.41 04/22/17 04/22/17 04/23/17 21:58 21:58 04:15 Creatine Kinase 60 46 CK-MB (CK-2) 1.95 Troponin I 0.058 04/23/17 04/23/17 04/23/17 04:15 10:41 10:41 Creatine Kinase 136 H CK-MB (CK-2) 1.77 2.99 Troponin I 0.053 0.050 Impressions: Chest X-Ray 04/22/17 19:41 IMPRESSION: NO ACUTE RADIOGRAPHIC FINDING IN THE CHEST. Head CT 04/22/17 19:41 IMPRESSION: MILD CHRONIC CHANGES OF ATROPHY AND MICROVASCULAR ISCHEMIA. NO ACUTE PROCESS. EVIDENCE OF ACUTE STROKE: NO. Carotid Doppler Study 04/22/17 20:26 IMPRESSION: NO HEMODYNAMICALLY SIGNIFICANT STENOSIS. Brain MRI with MRA 04/22/17 21:07 IMPRESSION: NORMAL MRA OF THE [place]. Head MRI 04/22/17 21:07 IMPRESSION: ATROPHY AND CHRONIC MICRO-VASCULAR ISCHEMIC CHANGES. OTHERWISE NORMAL MRI OF THE BRAIN WITHOUT INTRAVENOUS GADOLINIUM CONTRAST. EVIDENCE OF ACUTE STROKE: NO. Assessment & Plan - Diagnosis (1) TIA (transient ischemic attack) Qualifiers: Transient cerebral ischemia type: unspecified Qualified Code(s): G45.9 - Transient cerebral ischemic attack, unspecified Is this a current diagnosis for this admission?: Yes Plan: Report the patient on aspirin Plavix and statin 40 mgPatient on MRI MRA is all negative carotid Doppler is also negative (2) Chronic kidney disease Qualifiers: Chronic kidney disease stage: stage 3 (moderate) Qualified Code(s): N18.3 - Chronic kidney disease, stage 3 (moderate) Is this a current diagnosis for this admission?: Yes Plan: Currently hold the LasixPatient's also follow-up outpatients Dr. Clark (3) Anemia in chronic kidney disease Qualifiers: Chronic kidney disease stage: stage 3 (moderate) Qualified Code(s): N18.3 - Chronic kidney disease, stage 3 (moderate); D63.1 - Anemia in chronic kidney disease; D63.1 - Anemia in chronic kidney disease Is this a current diagnosis for this admission?: Yes Plan: We consult the GI and consult the hat cone inspector for further evaluations while patient is very noncompliance to follow as outpatient (4) Elevated troponin Is this a current diagnosis for this admission?: Yes Plan: Most likely a troponin leak due to the chronic kidney disease patient's currently denied any symptoms will get the echocardiogram (5) Hypopotassemia Is this a current diagnosis for this admission?: Yes Plan: Replace the potassiums (6) Edema of lower extremity Is this a current diagnosis for this admission?: Yes Plan: Chronic lower extremity from the peripheral vascular disease and venous insufficiency patients currently see the wound care clinic (7) Diabetes mellitus type 2 with retinopathy Is this a current diagnosis for this admission?: Yes Plan: Patient is currently insulin and sliding scale (8) HLD (hyperlipidemia) Qualifiers: Hyperlipidemia type: pure hypercholesterolemia Qualified Code(s): E78.00 - Pure hypercholesterolemia, unspecified Is this a current diagnosis for this admission?: Yes Plan: Continues to current medications - Time Time Spent: 30 to 50 Minutes Medications reviewed and adjusted accordingly: Yes Anticipated discharge: Home Within: Other - Inpatient Certification Medical Necessity: Need Close Monitoring Due to Risk of Patient Decompensation Post Hospital Care: D/C Business Management Consultant Documentation - Plan Summary Plan Summary: Patient is currently doing much better will do the some further workup and discussed with the patient's and the son patients might be get a benefit for the rehab while very noncompliance unable to keep that appointment and unable to keep to take the medications as prescribed
--- NOTE | 2017-04-23 13:53 | PDOC CONSULTATION ---
Consultation Consult Date: 04/23/17 Attending physician:: ROXANA YANES Consult reason:: Anemia History of Present Illness Admission Date/PCP: 04/22/17 21:09 History of Present Illness: DALIA QUEVEDO is a 61 year old female who presented to the ED last evening with facial drooping and suspicion of stroke. She has a longstanding history of anemia of chronic renal failure and has been seen by our practice in the past. Although patient remembers having been given an injection of some type in the past, she is a poor historian and does not remember full details. She also does not remember why she came to the hospital yesterday. Today, however, she states that she is feeling fine. She denies any neurological abnormalities. Past Medical History Cardiac Medical History: Reports: Congestive Heart Failure, Hypertension Denies: Coronary Artery Disease, Myocardial Infarction, Hyperlipidema, Heart Murmur Pulmonary Medical History: Denies: Asthma, Bronchitis, Chronic Obstructive Pulmonary Disease (COPD), Pneumonia Neurological Medical History: Denies: Seizures Endocrine Medical History: Reports: Diabetes Mellitus Type 2 GI Medical History: Denies: Hepatitis, Hiatal Hernia Musculoskeltal Medical History: Denies: Arthritis Psychiatric Medical History: Reports: Depression Denies: Dementia Hematology: Reports: Anemia Denies: Sickle Cell Disease Hematology History Note: Anemia of chronic renal insufficiency Past Surgical History Past Surgical History: Reports: Tonsillectomy Denies: Amputation, Hysterectomy, Mastectomy, Pacemaker Social History Lives with: Family Smoking Status: Former Smoker Frequency of Alcohol Use: None Hx Recreational Drug Use: No Drugs: None Hx Prescription Drug Abuse: No - Advance Directive Resuscitation Status: Full Code Family History Family History: Reviewed & Not Pertinent Parental Family History Reviewed: No - Unknown Children Family History Reviewed: No Sibling(s) Family History Reviewed.: No Medication/Allergy Home Medications: Amlodipine Besylate [Norvasc 10 mg Tablet] 10 mg PO DAILY 09/27/16 Furosemide [Lasix] 20 mg PO DAILY 09/27/16 Gabapentin [Neurontin 100 mg Capsule] 100 mg PO Q12 09/27/16 Hydralazine HCl [Apresoline 50 mg Tablet] 50 mg PO Q8 09/27/16 Isosorbide Mononitrate [Imdur 30 mg Tablet.er] 30 mg PO DAILY 09/27/16 Metoprolol Tartrate [Lopressor 50 mg Tablet] 100 mg PO BID 09/27/16 Trazodone HCl [Desyrel 50 mg Tablet] 50 mg PO QHS 09/27/16 Venlafaxine HCl ER [Effexor Xr 75 mg Cap.sr] 75 mg PO BID 09/27/16 Allergies/Adverse Reactions: morphine Allergy (Verified 04/22/17 22:09) Review of Systems Eyes: PRESENT: visual disturbances - Patient states she is legally blind. Nose, Mouth, and Throat: ABSENT: sore throat Cardiovascular: ABSENT: chest pain, dyspnea on exertion Respiratory: ABSENT: cough, dyspnea Gastrointestinal: PRESENT: dysphagia. ABSENT: diarrhea, nausea, vomiting Genitourinary: ABSENT: difficulty urinating Integumentary: PRESENT: lesions Neurological: PRESENT: other - She sometimes walks with a cane.. ABSENT: focal weakness Hematologic/Lymphatic: PRESENT: other - No recent bleeding Physical Exam Vital Signs: Temp Pulse Resp BP Pulse Ox 98.0 F 66 18 108/45 L 96 04/23/17 04:28 04/23/17 08:00 04/23/17 08:00 04/23/17 08:00 04/23/17 08:00 Intake & Output 04/22/17 04/23/17 04/24/17 06:59 06:59 06:59 Intake Total 240 Balance 240 Weight 102.8 kg General appearance: PRESENT: no acute distress, obese Head exam: PRESENT: atraumatic Eye exam: PRESENT: conjunctiva pink Mouth exam: PRESENT: moist, tongue midline Neck exam: ABSENT: JVD, lymphadenopathy, tenderness Respiratory exam: PRESENT: clear to auscultation ita Cardiovascular exam: PRESENT: RRR. ABSENT: gallop, rubs GI/Abdominal exam: PRESENT: soft. ABSENT: tenderness Rectal exam: PRESENT: deferred Extremities exam: PRESENT: +1 edema Neurological exam: PRESENT: alert, other - Not fully oriented. Poor historian. Pleasantly conversive. Able to move all 4 extremities without difficulties. She was not visualized ambulating. Psychiatric exam: PRESENT: normal mood Skin exam: PRESENT: other - Erythema and ulcerative lesions over ankles. L>R. Results Laboratory Results: 04/23/17 04:15 04/23/17 04:15 04/23/17 04/23/17 04/23/17 04:15 04:15 07:49 WBC 5.2 RBC 2.89 L Hgb 8.3 L Hct 24.5 L MCV 85 MCH 28.6 MCHC 33.7 RDW 14.7 H Plt Count 149 L Seg Neutrophils % 69.5 Lymphocytes % 22.4 Monocytes % 7.2 Eosinophils % 0.1 Basophils % 0.8 Absolute Neutrophils 3.6 Absolute Lymphocytes 1.2 Absolute Monocytes 0.4 Absolute Eosinophils 0.0 Absolute Basophils 0.0 Retic Count (auto) 1.96 Absolute Retic 0.064 Sodium 141.9 Potassium 3.1 L Chloride 109 H Carbon Dioxide 27 Anion Gap 6 BUN 14 Creatinine 1.94 H Est GFR ( Amer) 32 L Est GFR (Non-Af Amer) 26 L Glucose 183 H Calcium 8.0 L Total Bilirubin 0.3 AST 13 L ALT 22 Alkaline Phosphatase 69 Total Protein 4.9 L Albumin 2.2 L 04/22/17 04/22/17 04/23/17 21:58 21:58 04:15 Creatine Kinase 60 46 CK-MB (CK-2) 1.95 Troponin I 0.058 04/23/17 04:15 Creatine Kinase CK-MB (CK-2) 1.77 Troponin I 0.053 Impressions: Chest X-Ray 04/22/17 19:41 IMPRESSION: NO ACUTE RADIOGRAPHIC FINDING IN THE CHEST. Head CT 04/22/17 19:41 IMPRESSION: MILD CHRONIC CHANGES OF ATROPHY AND MICROVASCULAR ISCHEMIA. NO ACUTE PROCESS. EVIDENCE OF ACUTE STROKE: NO. Carotid Doppler Study 04/22/17 20:26 IMPRESSION: NO HEMODYNAMICALLY SIGNIFICANT STENOSIS. Assessment & Plan - Diagnosis (1) Anemia in chronic kidney disease Is this a current diagnosis for this admission?: Yes Plan: Await B12, Ferritin, Folate levels. She has received B12 injections in the past. She is a good candidate for erythropoetin injections, since her HGB is < 10, if all above is normal. I will continue to follow. - Time Time Spent: 30 to 50 Minutes Medications reviewed and adjusted accordingly: Yes
[2017-04-23] MEDS ORDERED: METOPROLOL TARTRATE 50 MG TABLET PO SCH (18:00)
[2017-04-23] MEDS: ATORVASTATIN CALCIUM 40 MG TABLET PO SCH (21:38)
[2017-04-23] MEDS: TRAZODONE HCL 50 MG TABLET PO SCH (21:39)
--- NOTE | 2017-04-23 21:47 | EKG REPORT ---
SEVERITY:- ABNORMAL ECG - SINUS RHYTHM RIGHT BUNDLE BRANCH BLOCK LVH WITH IVCD AND SECONDARY REPOL ABNRM : Confirmed by: Aissatou Hess 23-Apr-2017 21:47:02
[2017-04-24] MEDS: HYDRALAZINE HCL 50 MG TABLET PO SCH ×3 (05:16→21:28)
[2017-04-24] MEDS: HEPARIN SOD (PORCINE) 5,000 UNIT/ML 1 ML SYRINGE SUBCUT SCH ×3 (05:17→21:28)
[2017-04-24 05:31] LABS: ABSOLUTE LYMPHOCYTES (AUTO) 1.5 10^3/uL (0.5-4.7); ABSOLUTE MONOCYTES (AUTO) 0.3 10^3/uL (0.1-1.4); ABSOLUTE NEUT (AUTO) 3.2 10^3/uL (1.7-8.2); BASOPHILS % (AUTO) 0.6 % (0-2); HEMATOCRIT 25.9 % (36.0-47.0); HEMOGLOBIN 8.7 g/dL (12.0-15.5); HGB HCT DIFFERENCE 0.2; LYMPHOCYTES % (AUTO) 29.3 % (13-45); MEAN CORPUSCULAR HEMOGLOBIN 28.7 pg (27.0-33.4); MEAN CORPUSCULAR HGB CONC 33.7 g/dL (32.0-36.0); MEAN CORPUSCULAR VOLUME 85 fl (80-97); MONOCYTES % (AUTO) 6.8 % (3-13); RED BLOOD COUNT 3.04 10^6/uL (3.72-5.28); RED CELL DISTRIBUTION WIDTH 15.1 % (11.5-14.0); SEGMENTED NEUTROPHILS % (AUTO) 63.3 % (42-78); WHITE BLOOD COUNT 5.1 10^3/uL (4.0-10.5)
[2017-04-24 05:56] LABS: ALANINE AMINOTRANSFERASE 19 U/L (9-52); ALBUMIN 2.5 g/dL (3.5-5.0); ALKALINE PHOSPHATASE 78 U/L (38-126); ANION GAP 8 (5-19); ASPARTATE AMINO TRANSFERASE 20 U/L (14-36); BILIRUBIN,DIRECT 0.2 mg/dL (0.0-0.4); BILIRUBIN,TOTAL 0.2 mg/dL (0.2-1.3); BLOOD UREA NITROGEN 21 mg/dL (7-20); CALCIUM 8.3 mg/dL (8.4-10.2); CARBON DIOXIDE 27 mmol/L (22-30); CHLORIDE 107 mmol/L (98-107); CREATININE RESULT 2.95 mg/dL (0.52-1.25); GLUCOSE 112 mg/dL (75-110); POTASSIUM 3.4 mmol/L (3.6-5.0); SODIUM 141.7 mmol/L (137-145); TOTAL PROTEIN 5.6 g/dL (6.3-8.2)
[2017-04-24] MEDS ORDERED: POTASSIUM CHLORIDE 10 MEQ TABLET.SA PO ONE (06:51)
[2017-04-24] MEDS: 1/2 NORMAL SALINE 1,000 ML IV PRN (08:01)
--- NOTE | 2017-04-24 08:17 | PDOC PROGRESS REPORT ---
Subjective Progress Note for:: 04/24/17 Subjective:: Patient is currently doing wellIs an MRI and MRA of the head is negativePatient seen by Dr. Prieto and suggest no sign of any acute GI blood loss Patient's creatinine is 2.95 Physical Exam Vital Signs: Temp Pulse Resp BP Pulse Ox 97.7 F 74 16 135/52 H 98 04/24/17 04:11 04/24/17 07:00 04/24/17 04:11 04/24/17 04:11 04/24/17 04:11 Intake & Output 04/23/17 04/24/17 04/25/17 06:59 06:59 06:59 Intake Total 240 1075 Balance 240 1075 Weight 102.8 kg General appearance: PRESENT: no acute distress, well-developed, well-nourished Head exam: PRESENT: atraumatic, normocephalic Eye exam: PRESENT: conjunctiva pink, EOMI, PERRLA. ABSENT: scleral icterus Ear exam: PRESENT: normal external ear exam Mouth exam: PRESENT: moist, tongue midline Neck exam: PRESENT: full ROM. ABSENT: carotid bruit, JVD, lymphadenopathy, thyromegaly Respiratory exam: PRESENT: clear to auscultation ita Cardiovascular exam: PRESENT: RRR. ABSENT: diastolic murmur, rubs, systolic murmur Pulses: PRESENT: normal dorsalis pedis pul, +2 pedal pulses bilateral Vascular exam: PRESENT: normal capillary refill GI/Abdominal exam: PRESENT: normal bowel sounds, soft. ABSENT: distended, guarding, mass, organolmegaly, rebound, tenderness Rectal exam: PRESENT: deferred Extremities exam: PRESENT: pedal edema Neurological exam: PRESENT: alert, awake, oriented to person, oriented to place , oriented to time, oriented to situation, CN II-XII grossly intact. ABSENT: motor sensory deficit Psychiatric exam: PRESENT: appropriate affect, normal mood. ABSENT: homicidal ideation, suicidal ideation Skin exam: PRESENT: dry, intact, warm. ABSENT: cyanosis, rash Results Laboratory Results: 04/24/17 04:41 04/24/17 04:41 04/23/17 04/23/17 04/23/17 07:49 07:49 07:49 WBC RBC Hgb Hct MCV MCH MCHC RDW Plt Count Seg Neutrophils % Lymphocytes % Monocytes % Eosinophils % Basophils % Absolute Neutrophils Absolute Lymphocytes Absolute Monocytes Absolute Eosinophils Absolute Basophils Retic Count (auto) 1.96 Absolute Retic 0.064 Sodium Potassium Chloride Carbon Dioxide Anion Gap BUN Creatinine Est GFR ( Amer) Est GFR (Non-Af Amer) Glucose Calcium Iron 24.6 L TIBC 209 L % Saturation 12 Transferrin 145 L Ferritin 65.10 Total Bilirubin AST ALT Alkaline Phosphatase Total Protein Albumin Vitamin B12 653.0 Folate 6.41 04/23/17 04/24/17 04/24/17 10:41 04:41 04:41 WBC 5.1 RBC 3.04 L Hgb 8.7 L Hct 25.9 L MCV 85 MCH 28.7 MCHC 33.7 RDW 15.1 H Plt Count 167 Seg Neutrophils % 63.3 Lymphocytes % 29.3 Monocytes % 6.8 Eosinophils % 0.0 Basophils % 0.6 Absolute Neutrophils 3.2 Absolute Lymphocytes 1.5 Absolute Monocytes 0.3 Absolute Eosinophils 0.0 Absolute Basophils 0.0 Retic Count (auto) Absolute Retic Sodium 141.7 Potassium 3.4 L 3.4 L Chloride 107 Carbon Dioxide 27 Anion Gap 8 BUN 21 H Creatinine 2.95 H Est GFR ( Amer) 19 L Est GFR (Non-Af Amer) 16 L Glucose 112 H Calcium 8.3 L Iron TIBC % Saturation Transferrin Ferritin Total Bilirubin 0.2 AST 20 ALT 19 Alkaline Phosphatase 78 Total Protein 5.6 L Albumin 2.5 L Vitamin B12 Folate 04/22/17 04/22/17 04/23/17 21:58 21:58 04:15 Creatine Kinase 60 46 CK-MB (CK-2) 1.95 Troponin I 0.058 04/23/17 04/23/17 04/23/17 04:15 10:41 10:41 Creatine Kinase 136 H CK-MB (CK-2) 1.77 2.99 Troponin I 0.053 0.050 Impressions: Chest X-Ray 04/22/17 19:41 IMPRESSION: NO ACUTE RADIOGRAPHIC FINDING IN THE CHEST. Head CT 04/22/17 19:41 IMPRESSION: MILD CHRONIC CHANGES OF ATROPHY AND MICROVASCULAR ISCHEMIA. NO ACUTE PROCESS. EVIDENCE OF ACUTE STROKE: NO. Carotid Doppler Study 04/22/17 20:26 IMPRESSION: NO HEMODYNAMICALLY SIGNIFICANT STENOSIS. Brain MRI with MRA 04/22/17 21:07 IMPRESSION: NORMAL MRA OF THE [place]. Head MRI 04/22/17 21:07 IMPRESSION: ATROPHY AND CHRONIC MICRO-VASCULAR ISCHEMIC CHANGES. OTHERWISE NORMAL MRI OF THE BRAIN WITHOUT INTRAVENOUS GADOLINIUM CONTRAST. EVIDENCE OF ACUTE STROKE: NO. Assessment & Plan - Diagnosis (1) TIA (transient ischemic attack) Qualifiers: Transient cerebral ischemia type: unspecified Qualified Code(s): G45.9 - Transient cerebral ischemic attack, unspecified Is this a current diagnosis for this admission?: Yes Plan: continue aspirin Plavix and a statin (2) Chronic kidney disease Qualifiers: Chronic kidney disease stage: stage 3 (moderate) Qualified Code(s): N18.3 - Chronic kidney disease, stage 3 (moderate) Is this a current diagnosis for this admission?: Yes Plan: Acute renal failure and chronic kidney disease will continues to hold the Lasix start some IV fluid for next 24 hours and get the culture urine and consult Dr. Clark (3) Anemia in chronic kidney disease Is this a current diagnosis for this admission?: Yes Plan: We consult the GI and consult the bight maker for further evaluations while patient is very noncompliance to follow as outpatient (4) Elevated troponin Is this a current diagnosis for this admission?: Yes Plan: Most likely a troponin leak due to the chronic kidney disease patient's currently denied any symptoms will get the echocardiogram (5) Hypopotassemia Is this a current diagnosis for this admission?: Yes Plan: Replace the potassiums (6) Edema of lower extremity Is this a current diagnosis for this admission?: Yes Plan: Chronic lower extremity from the peripheral vascular disease and venous insufficiency patients currently see the wound care clinic (7) Diabetes mellitus type 2 with retinopathy Is this a current diagnosis for this admission?: Yes Plan: Patient is currently insulin and sliding scale (8) HLD (hyperlipidemia) Qualifiers: Hyperlipidemia type: pure hypercholesterolemia Qualified Code(s): E78.00 - Pure hypercholesterolemia, unspecified Is this a current diagnosis for this admission?: Yes Plan: Continues to current medications - Time Time Spent with patient: 15-24 minutes Medications reviewed and adjusted accordingly: Yes Anticipated discharge: SNF Within: Other - Inpatient Certification Medical Necessity: Need Close Monitoring Due to Risk of Patient Decompensation 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
[2017-04-24] MEDS: AMLODIPINE BESYLATE 5 MG TABLET PO SCH (09:00)
[2017-04-24] MEDS: GABAPENTIN 100 MG CAPSULE PO SCH ×2 (09:00→21:29)
[2017-04-24] MEDS: CLOPIDOGREL BISULFATE 75 MG TABLET PO SCH (09:00)
[2017-04-24] MEDS: ASPIRIN 81 MG TABLET, ENT COATED PO SCH (09:00)
[2017-04-24] MEDS: ISOSORBIDE MONONITRATE 30 MG TAB.ER.24H PO SCH (09:00)
--- NOTE | 2017-04-24 09:50 | PDOC PROGRESS REPORT ---
Subjective Progress Note for:: 04/24/17 Subjective:: Saw patient this am, she seems to have forgotten my name and why I am there when prompted, she then recalls the events these have been fairly recent events, I am wondering if she could have early Alzheimer's no bleeding does have chronic anemia had colonoscopy and EGD done she did have multiple polyps and is not due for colonoscopy for now would hold off on inpatient evaluation if there is no active bleeding denies any abdominal pain there is no nausa or vomiting Physical Exam Vital Signs: Temp Pulse Resp BP Pulse Ox 97.6 F 78 18 166/66 H 99 04/24/17 08:02 04/24/17 08:02 04/24/17 08:02 04/24/17 08:02 04/24/17 08:02 Intake & Output 04/23/17 04/24/17 04/25/17 06:59 06:59 06:59 Intake Total 240 1075 Balance 240 1075 Weight 102.8 kg General appearance: PRESENT: no acute distress, well-developed, well-nourished Head exam: PRESENT: atraumatic, normocephalic Eye exam: PRESENT: EOMI, PERRLA. ABSENT: nystagmus, periorbital swelling, scleral icterus Mouth exam: PRESENT: moist, neck supple Throat exam: ABSENT: tonsillar exudate, tonsillogmegaly Neck exam: PRESENT: full ROM. ABSENT: meningismus, tenderness, thyromegaly Respiratory exam: PRESENT: symmetrical, unlabored. ABSENT: tachypnea, wheezes Cardiovascular exam: PRESENT: RRR, +S1, +S2 Pulses: PRESENT: normal carotid pulses Vascular exam: PRESENT: normal capillary refill GI/Abdominal exam: PRESENT: soft. ABSENT: rebound, rigid, tenderness Neurological exam: PRESENT: oriented to time, oriented to situation, CN II-XII grossly intact Psychiatric exam: PRESENT: flat affect Skin exam: PRESENT: normal color. ABSENT: mottled, urticaria, vesicles Results Laboratory Results: 04/24/17 04:41 04/24/17 04:41 04/23/17 04/23/17 04/23/17 07:49 07:49 10:41 WBC RBC Hgb Hct MCV MCH MCHC RDW Plt Count Seg Neutrophils % Lymphocytes % Monocytes % Eosinophils % Basophils % Absolute Neutrophils Absolute Lymphocytes Absolute Monocytes Absolute Eosinophils Absolute Basophils Sodium Potassium 3.4 L Chloride Carbon Dioxide Anion Gap BUN Creatinine Est GFR ( Amer) Est GFR (Non-Af Amer) Glucose Calcium Iron 24.6 L TIBC 209 L % Saturation 12 Transferrin 145 L Ferritin 65.10 Total Bilirubin AST ALT Alkaline Phosphatase Total Protein Albumin Vitamin B12 653.0 Folate 6.41 04/24/17 04/24/17 04:41 04:41 WBC 5.1 RBC 3.04 L Hgb 8.7 L Hct 25.9 L MCV 85 MCH 28.7 MCHC 33.7 RDW 15.1 H Plt Count 167 Seg Neutrophils % 63.3 Lymphocytes % 29.3 Monocytes % 6.8 Eosinophils % 0.0 Basophils % 0.6 Absolute Neutrophils 3.2 Absolute Lymphocytes 1.5 Absolute Monocytes 0.3 Absolute Eosinophils 0.0 Absolute Basophils 0.0 Sodium 141.7 Potassium 3.4 L Chloride 107 Carbon Dioxide 27 Anion Gap 8 BUN 21 H Creatinine 2.95 H Est GFR ( Amer) 19 L Est GFR (Non-Af Amer) 16 L Glucose 112 H Calcium 8.3 L Iron TIBC % Saturation Transferrin Ferritin Total Bilirubin 0.2 AST 20 ALT 19 Alkaline Phosphatase 78 Total Protein 5.6 L Albumin 2.5 L Vitamin B12 Folate 04/22/17 04/22/17 04/23/17 21:58 21:58 04:15 Creatine Kinase 60 46 CK-MB (CK-2) 1.95 Troponin I 0.058 04/23/17 04/23/17 04/23/17 04:15 10:41 10:41 Creatine Kinase 136 H CK-MB (CK-2) 1.77 2.99 Troponin I 0.053 0.050 Impressions: Chest X-Ray 04/22/17 19:41 IMPRESSION: NO ACUTE RADIOGRAPHIC FINDING IN THE CHEST. Head CT 04/22/17 19:41 IMPRESSION: MILD CHRONIC CHANGES OF ATROPHY AND MICROVASCULAR ISCHEMIA. NO ACUTE PROCESS. EVIDENCE OF ACUTE STROKE: NO. Carotid Doppler Study 04/22/17 20:26 IMPRESSION: NO HEMODYNAMICALLY SIGNIFICANT STENOSIS. Brain MRI with MRA 04/22/17 21:07 IMPRESSION: NORMAL MRA OF THE [place]. Head MRI 04/22/17 21:07 IMPRESSION: ATROPHY AND CHRONIC MICRO-VASCULAR ISCHEMIC CHANGES. OTHERWISE NORMAL MRI OF THE BRAIN WITHOUT INTRAVENOUS GADOLINIUM CONTRAST. EVIDENCE OF ACUTE STROKE: NO. Assessment & Plan - Diagnosis (2) Colon polyps Plan: all of her polyps 12, did not show any malignancy My concern is that of her mental status and that may explain her apparent non compliance as documented by Dr Crawford patient likely had TIA symptoms this could also be a factor in her declining mental status continue to follow her H/H there does not appear to be any acute blood loss contributing to her anemia multifactorial at this point will continue to follow - Time Time Spent with patient: 15-24 minutes
--- NOTE | 2017-04-24 10:18 | PDOC PROGRESS REPORT ---
Subjective Progress Note for:: 04/24/17 Subjective:: Ms. Fisher does not remember me from yesterday. She states that Dr. Crawford saw her today and told her that her kidneys are not working well. She denies any new complaints and is eating well. She states that she slept well last night. Physical Exam Vital Signs: Temp Pulse Resp BP Pulse Ox 97.6 F 78 18 166/66 H 99 04/24/17 08:02 04/24/17 08:02 04/24/17 08:02 04/24/17 08:02 04/24/17 08:02 Intake & Output 04/23/17 04/24/17 04/25/17 06:59 06:59 06:59 Intake Total 240 1075 Balance 240 1075 Weight 102.8 kg General appearance: PRESENT: no acute distress, obese, other - 61 year old female. Head exam: PRESENT: atraumatic Eye exam: PRESENT: conjunctiva pink Neurological exam: PRESENT: alert, oriented to situation - Still with very poor memory.. ABSENT: oriented to person, oriented to time Results Laboratory Results: 04/24/17 04:41 04/24/17 04:41 04/23/17 04/23/17 04/24/17 07:49 10:41 04:41 WBC 5.1 RBC 3.04 L Hgb 8.7 L Hct 25.9 L MCV 85 MCH 28.7 MCHC 33.7 RDW 15.1 H Plt Count 167 Seg Neutrophils % 63.3 Lymphocytes % 29.3 Monocytes % 6.8 Eosinophils % 0.0 Basophils % 0.6 Absolute Neutrophils 3.2 Absolute Lymphocytes 1.5 Absolute Monocytes 0.3 Absolute Eosinophils 0.0 Absolute Basophils 0.0 Sodium Potassium 3.4 L Chloride Carbon Dioxide Anion Gap BUN Creatinine Est GFR ( Amer) Est GFR (Non-Af Amer) Glucose Calcium Transferrin 145 L Total Bilirubin AST ALT Alkaline Phosphatase Total Protein Albumin 04/24/17 04:41 WBC RBC Hgb Hct MCV MCH MCHC RDW Plt Count Seg Neutrophils % Lymphocytes % Monocytes % Eosinophils % Basophils % Absolute Neutrophils Absolute Lymphocytes Absolute Monocytes Absolute Eosinophils Absolute Basophils Sodium 141.7 Potassium 3.4 L Chloride 107 Carbon Dioxide 27 Anion Gap 8 BUN 21 H Creatinine 2.95 H Est GFR ( Amer) 19 L Est GFR (Non-Af Amer) 16 L Glucose 112 H Calcium 8.3 L Transferrin Total Bilirubin 0.2 AST 20 ALT 19 Alkaline Phosphatase 78 Total Protein 5.6 L Albumin 2.5 L 04/22/17 04/22/17 04/23/17 21:58 21:58 04:15 Creatine Kinase 60 46 CK-MB (CK-2) 1.95 Troponin I 0.058 04/23/17 04/23/17 04/23/17 04:15 10:41 10:41 Creatine Kinase 136 H CK-MB (CK-2) 1.77 2.99 Troponin I 0.053 0.050 Impressions: Chest X-Ray 04/22/17 19:41 IMPRESSION: NO ACUTE RADIOGRAPHIC FINDING IN THE CHEST. Head CT 04/22/17 19:41 IMPRESSION: MILD CHRONIC CHANGES OF ATROPHY AND MICROVASCULAR ISCHEMIA. NO ACUTE PROCESS. EVIDENCE OF ACUTE STROKE: NO. Carotid Doppler Study 04/22/17 20:26 IMPRESSION: NO HEMODYNAMICALLY SIGNIFICANT STENOSIS. Brain MRI with MRA 04/22/17 21:07 IMPRESSION: NORMAL MRA OF THE [place] OF [place]. Head MRI 04/22/17 21:07 IMPRESSION: ATROPHY AND CHRONIC MICRO-VASCULAR ISCHEMIC CHANGES. OTHERWISE NORMAL MRI OF THE BRAIN WITHOUT INTRAVENOUS GADOLINIUM CONTRAST. EVIDENCE OF ACUTE STROKE: NO. Assessment & Plan - Diagnosis (1) Anemia in chronic kidney disease Is this a current diagnosis for this admission?: Yes Plan: Her B12 and Folic Acid levels are normal. Her iron studies are all depressed, which is consistent with anemia of chronic disease. Her Ferritin is normal. She is an excellent candidate to begin procrit. I have discussed with Dr. Crawford. He agrees. Although I have explained to the patient that she will need to continue these injections once discharged, I am not sure she fully understands this. I will continue to follow.
[2017-04-24] MEDS: INSULIN GLARGINE,HUM.REC.ANLOG 300 UNIT/3 ML INSULN.PEN SUBCUT SCH (10:40)
[2017-04-24] MEDS: INSULIN LISPRO 100 UNIT/ML 3 ML VIAL SUBCUT PRN (12:05)
--- NOTE | 2017-04-24 13:22 | XCELERA REPORT ---
[address] [address] Transthoracic Echocardiogram Report Name: DALIA QUEVEDO Age: 61 yrs Gender: Female : 1955 Patient Status: Inpatient Patient Location: [address] [place] [address] Study Date: 04/23/2017 08:46 AM Height: 67 in Weight: 232 lb BSA: 2.2 m2 Procedure: A complete two-dimensional transthoracic echocardiogram was performed (2D, M-mode, spectral and color flow Doppler). The study was technically adequate with some images being suboptimal in quality. Reason For Study: nishi Ordering Physician: ROXANA YANES Performed By: Atiya Bullock Interpretation Summary The left ventricular ejection fraction is normal. There is mild concentric left ventricular hypertrophy. The left ventricle is grossly normal size. Doppler measurements suggest pseudonormalized left ventricular relaxation, which is associated with grade II/IV or mild to moderate diastolic dysfunction Wall motion cannot be accurately commented on, but no definite regional wall motion abnormalities noted. The right ventricular systolic function is normal. The right atrium is normal. The left atrial size is normal. There is a trace to mild amount of mitral regurgitation There is no mitral valve stenosis. No aortic regurgitation is present. There is no aortic valve stenosis No tricuspid regurgitation. There is no tricuspid stenosis. The pulmonic valve is not well visualized. The aortic root is not well visualized. The inferior vena cava was not well visualized There is no pericardial effusion. MMode/2D Measurements & Calculations RVDd: 2.5 cm LVIDd: 3.9 cm FS: 50.9 % Ao root diam: 2.8 cm IVSd: 1.8 cm LVIDs: 1.9 cm EDV(Teich): 65.0 ml LVPWd: 1.5 cm ESV(Teich): 11.2 ml Ao root area: 6.0 cm2 EF(Teich): 82.7 % LA dimension: 2.4 cm Doppler Measurements & Calculations MV E max eulogio: MV P1/2t max eulogio: Ao V2 max: LV V1 max P.8 cm/sec 88.8 cm/sec 179.0 cm/sec 5.0 mmHg MV A max eulogio: MV P1/2t: 103.5 msec Ao max PG: LV V1 max: 111.7 cm/sec 12.8 mmHg 112.3 cm/sec MV E/A: 0.80 MVA(P1/2t): 2.1 cm2 MV dec slope: 251.3 cm/sec2 PA V2 max: 136.4 cm/sec PA max P.4 mmHg Left Ventricle The left ventricle is grossly normal size. There is mild concentric left ventricular hypertrophy. The left ventricular ejection fraction is normal. Doppler measurements suggest pseudonormalized left ventricular relaxation, which is associated with grade II/IV or mild to moderate diastolic dysfunction. Wall motion cannot be accurately commented on, but no definite regional wall motion abnormalities noted. Right Ventricle The right ventricle is grossly normal size. There is normal right ventricular wall thickness. The right ventricular systolic function is normal. Atria The right atrium is normal. The left atrial size is normal. Interarterial septum not well visualized and not well dopplered. Cannot comment on ASD/PFO presence. Mitral Valve The mitral valve leaflets are sclerotic, but show no functional abnormalities. There is no mitral valve stenosis. There is a trace to mild amount of mitral regurgitation. Aortic Valve The aortic valve is grossly normal. There is no aortic valve stenosis. No aortic regurgitation is present. Tricuspid Valve The tricuspid valve is not well visualized secondary to technical limitations. There is no tricuspid stenosis. No tricuspid regurgitation. Pulmonic Valve The pulmonic valve is not well visualized. Great Vessels The aortic root is not well visualized. The inferior vena cava was not well visualized. Effusions There is no pericardial effusion. Incidental Findings No definite cardiac source of CVA/TIA noted on this particular trans- thoracic study. Consider KELLEY if clinically indicated. May consider mobile cardiac telemetry monitoring (MCT) for ruling out transient AFIB. : ROAXNA YANES > Aissatou Hess
[2017-04-24] MEDS ORDERED: EPOETIN ALFA INJ 20000 UNIT/1 ML VIAL (RENAL) SUBCUT ONE (13:30)
--- NOTE | 2017-04-24 14:48 | PDOC CONSULTATION ---
Consultation Consult Date: 04/24/17 Consult reason:: Acute kidney injury on top of CKD stage III/IV. History of Present Illness Admission Date/PCP: 04/22/17 21:09 History of Present Illness: DALIA QUEVEDO is a 61 year old female With a past medical history significant for long-standing poorly controlled diabetes mellitus with CKD stage III with a base creatinine of around 1.5, hypertension, hyperlipidemia, degenerative arthritis who presented to the ER with facial drooping suggestive of TIA. She has got very poor memory deficits and is unable to recall the temporal profile of events. She does not remember why she came to the ER. Currently she feels good and has no specific complaints.She does not recall the events preceding her admission. I have seen her in the office early of 2015 and then she was lost to follow- up.At that time her creatinine was 0.9. However I note that she has been admitted here since then with a creatinine hovering between 1.5 and 1.8. I have been asked to see her because of worsening renal functions with a creatinine over 2.She denies any history of abdominal pains no history of dysuria hematuria. She does not get any symptoms of urinary obstruction. Does not remember whether she has suffered any deficit in intake both solids and liquids. Does not recall any history of diarrhea. Does not recall any history of being on any NSAIDs even though she has had a remote history of being on those medications. Past Medical History Cardiac Medical History: Reports: Hypertension-primary Denies: Coronary Artery Disease, Heart Murmur, Hyperlipidemia, Myocardial Infarction Pulmonary Medical History: Denies: Asthma, Bronchitis, Chronic Obstructive Pulmonary Disease (COPD), Pneumonia Neurological Medical History: Denies: Seizures Endocrine Medical History: Reports: Diabetes Mellitus Type 2 Renal/ Medical History: Reports: Chronic Kidney Disease Stage III, Proteinuria GI Medical History: Reports: Gastroesophageal Reflux Disease Denies: Hepatitis, Hiatal Hernia Musculoskeltal Medical History: Reports: Arthritis Psychiatric Medical History: Reports: Depression Denies: Dementia Hematology Medical History: Reports Anemia Past Surgical History Past Surgical History: Reports: Tonsillectomy Denies: Hysterectomy, Mastectomy, Pacemaker Social History Lives with: Family Smoking Status: Former Smoker Frequency of Alcohol Use: None Hx Recreational Drug Use: No Drugs: None Hx Prescription Drug Abuse: No - Advance Directive Resuscitation Status: Full Code Family History Parental Family History Reviewed: No Children Family History Reviewed: No Sibling(s) Family History Reviewed.: No Medication/Allergy Home Medications: Amlodipine Besylate [Norvasc 10 mg Tablet] 10 mg PO DAILY 09/27/16 Furosemide [Lasix] 20 mg PO DAILY 09/27/16 Gabapentin [Neurontin 100 mg Capsule] 100 mg PO Q12 09/27/16 Hydralazine HCl [Apresoline 50 mg Tablet] 50 mg PO Q8 09/27/16 Isosorbide Mononitrate [Imdur 30 mg Tablet.er] 30 mg PO DAILY 09/27/16 Metoprolol Tartrate [Lopressor 50 mg Tablet] 100 mg PO BID 09/27/16 Trazodone HCl [Desyrel 50 mg Tablet] 50 mg PO QHS 09/27/16 Venlafaxine HCl ER [Effexor Xr 75 mg Cap.sr] 75 mg PO BID 09/27/16 Allergies/Adverse Reactions: morphine Allergy (Verified 04/22/17 22:09) Review of Systems Constitutional: PRESENT: weakness. ABSENT: fever(s), headache(s), night sweats Nose, Mouth, and Throat: ABSENT: mouth pain, sore throat Cardiovascular: PRESENT: dyspnea on exertion. ABSENT: chest pain, edema, orthropnea, palpitations Gastrointestinal: ABSENT: abdominal pain, bloating, coffee ground emesis, constipation, diarrhea, nausea, vomiting Genitourinary: ABSENT: dysuria, hematuria Neurological: PRESENT: memory loss, weakness. ABSENT: convulsions, focal weakness, vertigo Endocrine: ABSENT: cold intolerance Hematologic/Lymphatic: ABSENT: easy bruising, lymphadenopathy Physical Exam Vital Signs: Temp Pulse Resp BP Pulse Ox 97.7 F 81 18 132/41 H 99 04/24/17 11:36 04/24/17 12:00 04/24/17 12:00 04/24/17 12:00 04/24/17 12:00 Intake & Output 04/23/17 04/24/17 04/25/17 06:59 06:59 06:59 Intake Total 240 1075 300 Balance 240 1075 300 Weight 102.8 kg General appearance: PRESENT: no acute distress Eye exam: PRESENT: conjunctiva pink, EOMI, nystagmus, PERRLA. ABSENT: scleral icterus Mouth exam: PRESENT: dry mucosa, neck supple. ABSENT: moist Neck exam: ABSENT: lymphadenopathy, meningismus, tenderness, thyromegaly, tracheal deviation Respiratory exam: PRESENT: clear to auscultation ita. ABSENT: crackles, rhonchi Cardiovascular exam: PRESENT: +S1, +S2 GI/Abdominal exam: PRESENT: normal bowel sounds, soft. ABSENT: organomegaly, tenderness Extremities exam: ABSENT: pedal edema Neurological exam: PRESENT: awake, oriented to person, oriented to place. ABSENT: oriented to time Psychiatric exam: PRESENT: anxious Skin exam: PRESENT: dry, erythema - Over left lower extremity.Is not warm or tender.. ABSENT: mottled Results Laboratory Results: 04/24/17 04:41 04/24/17 04:41 04/23/17 04/24/17 04/24/17 07:49 04:41 04:41 WBC 5.1 RBC 3.04 L Hgb 8.7 L Hct 25.9 L MCV 85 MCH 28.7 MCHC 33.7 RDW 15.1 H Plt Count 167 Seg Neutrophils % 63.3 Lymphocytes % 29.3 Monocytes % 6.8 Eosinophils % 0.0 Basophils % 0.6 Absolute Neutrophils 3.2 Absolute Lymphocytes 1.5 Absolute Monocytes 0.3 Absolute Eosinophils 0.0 Absolute Basophils 0.0 Sodium 141.7 Potassium 3.4 L Chloride 107 Carbon Dioxide 27 Anion Gap 8 BUN 21 H Creatinine 2.95 H Est GFR ( Amer) 19 L Est GFR (Non-Af Amer) 16 L Glucose 112 H Calcium 8.3 L Transferrin 145 L Total Bilirubin 0.2 AST 20 ALT 19 Alkaline Phosphatase 78 Total Protein 5.6 L Albumin 2.5 L 04/22/17 04/22/17 04/23/17 21:58 21:58 04:15 Creatine Kinase 60 46 CK-MB (CK-2) 1.95 Troponin I 0.058 04/23/17 04/23/17 04/23/17 04:15 10:41 10:41 Creatine Kinase 136 H CK-MB (CK-2) 1.77 2.99 Troponin I 0.053 0.050 Impressions: Chest X-Ray 04/22/17 19:41 IMPRESSION: NO ACUTE RADIOGRAPHIC FINDING IN THE CHEST. Head CT 04/22/17 19:41 IMPRESSION: MILD CHRONIC CHANGES OF ATROPHY AND MICROVASCULAR ISCHEMIA. NO ACUTE PROCESS. EVIDENCE OF ACUTE STROKE: NO. Carotid Doppler Study 04/22/17 20:26 IMPRESSION: NO HEMODYNAMICALLY SIGNIFICANT STENOSIS. Brain MRI with MRA 04/22/17 21:07 IMPRESSION: NORMAL MRA OF THE [place] OF [place]. Head MRI 04/22/17 21:07 IMPRESSION: ATROPHY AND CHRONIC MICRO-VASCULAR ISCHEMIC CHANGES. OTHERWISE NORMAL MRI OF THE BRAIN WITHOUT INTRAVENOUS GADOLINIUM CONTRAST. EVIDENCE OF ACUTE STROKE: NO. Assessment & Plan - Diagnosis (1) CKD (chronic kidney disease) stage 3, GFR 30-59 ml/min Plan: Patient has got underlying CKD stage III/IV. She is a very poorly controlled diabetic with poor psychosocial situations. She is proteinuric. Discussions about tight diabetic control is obviously falling on deaf years given her worsening memory. (2) AVIVA (acute kidney injury) Plan: Acute kidney injury likely from dehydration. She says she lives with her son. She is not able to elaborate more about her eating and other activities. Clinically she is dehydrated. Will adjust fluids and see how she responds.Meanwhile I am ordering a renal ultrasound to exclude the possibility of any urinary tract obstruction given her age. (3) Anemia in chronic kidney disease Is this a current diagnosis for this admission?: Yes Plan: Iron indicis are suggestive of borderline iron deficiency. Does not give any symptoms to indicate GI bleed.She also had upper and lower GI endoscopy last year with no potential evidence as to indicate peptic ulcer disease or CA of the colon. I would recommend IV iron replacements given her psychosocial and poor compliance,followed later by erythropoietin. I note that she has been consulted with the coremaking machine operator and will therefore leave it to them. (4) Chronic kidney disease Qualifiers: Chronic kidney disease stage: stage 3 (moderate) Qualified Code(s): N18.3 - Chronic kidney disease, stage 3 (moderate) Is this a current diagnosis for this admission?: Yes Plan: She has got complicated diabetes mellitus and and on the same line she has got diabetic kidney disease. Unfortunately she is not a very compliant patient and present psychosocial situations in combination with memory issues which could be either related to maybe early Alzheimer's in the face of a negative vascular ischemic diagnostics could manifest in slowly worsening CKD. We spoke about seeing again in the office as an outpatient once she gets over this present crisis and she has agreed to that. However unsure whether she would remember all of these things when she is released. (5) Hypopotassemia Is this a current diagnosis for this admission?: Yes Plan: Continue with replacements. (6) TIA (transient ischemic attack) Qualifiers: Transient cerebral ischemia type: unspecified Qualified Code(s): G45.9 - Transient cerebral ischemic attack, unspecified Is this a current diagnosis for this admission?: Yes Plan: As is being managed by Dr. Crawford. (7) Diabetes mellitus type 2 with retinopathy Is this a current diagnosis for this admission?: Yes Plan: Poorly controlled.
[2017-04-24] MEDS: TRAZODONE HCL 50 MG TABLET PO SCH (21:28)
[2017-04-24] MEDS: ATORVASTATIN CALCIUM 40 MG TABLET PO SCH (21:29)
[2017-04-25] MEDS: 1/2 NORMAL SALINE 1,000 ML IV PRN (00:48)
[2017-04-25] MEDS: HYDRALAZINE HCL 50 MG TABLET PO SCH ×3 (05:13→21:41)
[2017-04-25] MEDS: HEPARIN SOD (PORCINE) 5,000 UNIT/ML 1 ML SYRINGE SUBCUT SCH ×3 (05:13→21:42)
[2017-04-25 06:10] LABS: ABSOLUTE LYMPHOCYTES (AUTO) 1.1 10^3/uL (0.5-4.7); ABSOLUTE MONOCYTES (AUTO) 0.3 10^3/uL (0.1-1.4); ABSOLUTE NEUT (AUTO) 2.7 10^3/uL (1.7-8.2); BASOPHILS % (AUTO) 0.6 % (0-2); HEMATOCRIT 23.5 % (36.0-47.0); HGB HCT DIFFERENCE 0.2; LYMPHOCYTES % (AUTO) 26.2 % (13-45); MEAN CORPUSCULAR HEMOGLOBIN 28.9 pg (27.0-33.4); MEAN CORPUSCULAR HGB CONC 33.9 g/dL (32.0-36.0); MEAN CORPUSCULAR VOLUME 85 fl (80-97); MONOCYTES % (AUTO) 6.9 % (3-13); RED BLOOD COUNT 2.75 10^6/uL (3.72-5.28); RED CELL DISTRIBUTION WIDTH 14.7 % (11.5-14.0); SEGMENTED NEUTROPHILS % (AUTO) 66.3 % (42-78); WHITE BLOOD COUNT 4.1 10^3/uL (4.0-10.5)
[2017-04-25 06:12] LABS: HEMOGLOBIN 7.9 g/dL (12.0-15.5)
[2017-04-25 06:25] LABS: ALANINE AMINOTRANSFERASE 22 U/L (9-52); ALBUMIN 2.2 g/dL (3.5-5.0); ALKALINE PHOSPHATASE 80 U/L (38-126); ANION GAP 5 (5-19); ASPARTATE AMINO TRANSFERASE 19 U/L (14-36); BILIRUBIN,DIRECT 0.2 mg/dL (0.0-0.4); BILIRUBIN,TOTAL 0.2 mg/dL (0.2-1.3); BLOOD UREA NITROGEN 18 mg/dL (7-20); CARBON DIOXIDE 27 mmol/L (22-30); CHLORIDE 112 mmol/L (98-107); GLUCOSE 102 mg/dL (75-110); MAGNESIUM 2.1 mg/dL (1.6-2.3); POTASSIUM 3.6 mmol/L (3.6-5.0); SODIUM 144.1 mmol/L (137-145); TOTAL PROTEIN 4.8 g/dL (6.3-8.2)
[2017-04-25 06:33] LABS: CALCIUM 8.1 mg/dL (8.4-10.2)
[2017-04-25] MEDS: ISOSORBIDE MONONITRATE 30 MG TAB.ER.24H PO SCH (09:25)
[2017-04-25] MEDS: AMLODIPINE BESYLATE 5 MG TABLET PO SCH (09:26)
[2017-04-25] MEDS: ASPIRIN 81 MG TABLET, ENT COATED PO SCH (09:26)
[2017-04-25] MEDS: GABAPENTIN 100 MG CAPSULE PO SCH ×2 (09:26→21:41)
[2017-04-25] MEDS: CLOPIDOGREL BISULFATE 75 MG TABLET PO SCH (09:26)
[2017-04-25] MEDS: INSULIN GLARGINE,HUM.REC.ANLOG 300 UNIT/3 ML INSULN.PEN SUBCUT SCH (09:27)
[2017-04-25] MEDS ORDERED: NORMAL SALINE 250 ML IV PRN ×2 (14:56)
--- NOTE | 2017-04-25 14:56 | PDOC PROGRESS REPORT ---
Subjective Progress Note for:: 04/25/17 Subjective:: Patient appeared confused with some degree of memory impairment. Her hemoglobin remain in downward trend. She denied any chest pain or difficulty with breathing. She reported prior PRBC transfusion and attempt at Procrit injection therapy on outpatient bases in the past. Physical Exam Vital Signs: Temp Pulse Resp BP Pulse Ox 98.4 F 90 18 154/64 H 95 04/25/17 11:42 04/25/17 12:00 04/25/17 12:00 04/25/17 12:00 04/25/17 12:00 Intake & Output 04/24/17 04/25/17 04/26/17 06:59 06:59 05:59 Intake Total 1075 2263 Output Total 250 Balance 1075 2012 Weight 106.2 kg General appearance: PRESENT: no acute distress, cooperative Head exam: PRESENT: atraumatic, normocephalic, other Eye exam: PRESENT: conjunctiva pink. ABSENT: scleral icterus Mouth exam: PRESENT: moist Respiratory exam: PRESENT: clear to auscultation ita Cardiovascular exam: PRESENT: RRR. ABSENT: diastolic murmur, rubs, systolic murmur GI/Abdominal exam: PRESENT: normal bowel sounds, soft. ABSENT: distended, guarding, mass, organolmegaly, rebound, tenderness Musculoskeletal exam: PRESENT: normal inspection Neurological exam: PRESENT: alert, awake, other - frequently asking same question and seek explanation about her condition. Psychiatric exam: PRESENT: appropriate affect, normal mood. ABSENT: homicidal ideation, suicidal ideation Skin exam: PRESENT: dry, warm, other - multiple excuriation and superficial lesions on extremities. Results Laboratory Results: 04/25/17 05:24 04/25/17 05:24 04/25/17 04/25/17 05:24 05:24 WBC 4.1 RBC 2.75 L Hgb 7.9 L Hct 23.5 L MCV 85 MCH 28.9 MCHC 33.9 RDW 14.7 H Plt Count 155 Seg Neutrophils % 66.3 Lymphocytes % 26.2 Monocytes % 6.9 Eosinophils % 0.0 Basophils % 0.6 Absolute Neutrophils 2.7 Absolute Lymphocytes 1.1 Absolute Monocytes 0.3 Absolute Eosinophils 0.0 Absolute Basophils 0.0 Sodium 144.1 Potassium 3.6 Chloride 112 H Carbon Dioxide 27 Anion Gap 5 BUN 18 Creatinine 2.30 H Est GFR ( Amer) 26 L Est GFR (Non-Af Amer) 21 L Glucose 102 Calcium 8.1 L Magnesium 2.1 Total Bilirubin 0.2 AST 19 ALT 22 Alkaline Phosphatase 80 Total Protein 4.8 L Albumin 2.2 L 04/24/17 12:15 Clean Catch Midstream Urine Culture - Final Mixed Urogenital Flory 04/22/17 04/22/17 04/23/17 21:58 21:58 04:15 Creatine Kinase 60 46 CK-MB (CK-2) 1.95 Troponin I 0.058 04/23/17 04/23/17 04/23/17 04:15 10:41 10:41 Creatine Kinase 136 H CK-MB (CK-2) 1.77 2.99 Troponin I 0.053 0.050 Impressions: Chest X-Ray 04/22/17 19:41 IMPRESSION: NO ACUTE RADIOGRAPHIC FINDING IN THE CHEST. Head CT 04/22/17 19:41 IMPRESSION: MILD CHRONIC CHANGES OF ATROPHY AND MICROVASCULAR ISCHEMIA. NO ACUTE PROCESS. EVIDENCE OF ACUTE STROKE: NO. Carotid Doppler Study 04/22/17 20:26 IMPRESSION: NO HEMODYNAMICALLY SIGNIFICANT STENOSIS. Brain MRI with MRA 04/22/17 21:07 IMPRESSION: NORMAL MRA OF THE [place]. Head MRI 04/22/17 21:07 IMPRESSION: ATROPHY AND CHRONIC MICRO-VASCULAR ISCHEMIC CHANGES. OTHERWISE NORMAL MRI OF THE BRAIN WITHOUT INTRAVENOUS GADOLINIUM CONTRAST. EVIDENCE OF ACUTE STROKE: NO. Assessment & Plan - Diagnosis (1) TIA (transient ischemic attack) Qualifiers: Transient cerebral ischemia type: unspecified Qualified Code(s): G45.9 - Transient cerebral ischemic attack, unspecified Is this a current diagnosis for this admission?: Yes (2) Anemia in chronic kidney disease Qualifiers: Chronic kidney disease stage: stage 3 (moderate) Qualified Code(s): N18.3 - Chronic kidney disease, stage 3 (moderate); D63.1 - Anemia in chronic kidney disease; D63.1 - Anemia in chronic kidney disease Is this a current diagnosis for this admission?: Yes Plan: Obtain serum erythropoietin level. Transfuse 2 units of PRBC today. (5) Diabetes mellitus type 2 with retinopathy Is this a current diagnosis for this admission?: Yes - Time Time Spent with patient: 25-34 minutes Medications reviewed and adjusted accordingly: Yes Anticipated discharge: Home with Homehealth Within: Other - Inpatient Certification Based on my medical assessment, after consideration of the patient's comorbidities, presenting symptoms, or acuity I expect that the services needed warrant INPATIENT care.: Yes I certify that my determination is in accordance with my understanding of Medicare's requirements for reasonable and necessary INPATIENT services [42 CFR 412.3e].: Yes Medical Necessity: Need Close Monitoring Due to Risk of Patient Decompensation, Need For IV Fluids, Need For Continuous Telemetry Monitoring, Risk of Complication if Not Cared For in Hospital Post Hospital Care: D/C Donkey Engine Firer/Fireman Documentation - Plan Summary Plan Summary: See covering physician orders.
[2017-04-25] MEDS: INSULIN LISPRO 100 UNIT/ML 3 ML VIAL SUBCUT PRN (18:25)
[2017-04-25] MEDS ORDERED: HYDRALAZINE HCL INJ/PF 20 MG/1 ML SDV ONE (19:29)
[2017-04-25] MEDS: ATORVASTATIN CALCIUM 40 MG TABLET PO SCH (21:41)
[2017-04-25] MEDS: TRAZODONE HCL 50 MG TABLET PO SCH (21:42)
[2017-04-26] MEDS: INSULIN LISPRO 100 UNIT/ML 3 ML VIAL SUBCUT PRN ×3 (00:17→18:48)
[2017-04-26] MEDS: HYDRALAZINE HCL INJ/PF 20 MG/1 ML SDV IV PRN ×2 (00:20→04:30)
[2017-04-26] MEDS: HEPARIN SOD (PORCINE) 5,000 UNIT/ML 1 ML SYRINGE SUBCUT SCH ×3 (06:27→21:20)
[2017-04-26] MEDS: HYDRALAZINE HCL 50 MG TABLET PO SCH ×3 (06:27→21:21)
[2017-04-26] MEDS: ISOSORBIDE MONONITRATE 30 MG TAB.ER.24H PO SCH (09:24)
[2017-04-26] MEDS: AMLODIPINE BESYLATE 5 MG TABLET PO SCH ×2 (09:24→21:20)
[2017-04-26] MEDS: CLOPIDOGREL BISULFATE 75 MG TABLET PO SCH (09:25)
[2017-04-26] MEDS: GABAPENTIN 100 MG CAPSULE PO SCH ×2 (09:25→21:21)
[2017-04-26] MEDS: ASPIRIN 81 MG TABLET, ENT COATED PO SCH (09:25)
[2017-04-26] MEDS: INSULIN GLARGINE,HUM.REC.ANLOG 300 UNIT/3 ML INSULN.PEN SUBCUT SCH (09:27)
[2017-04-26 09:40] LABS: ABSOLUTE LYMPHOCYTES (AUTO) 1.1 10^3/uL (0.5-4.7); ABSOLUTE MONOCYTES (AUTO) 0.3 10^3/uL (0.1-1.4); ABSOLUTE NEUT (AUTO) 4.2 10^3/uL (1.7-8.2); BASOPHILS % (AUTO) 0.5 % (0-2); HEMATOCRIT 33.4 % (36.0-47.0); HGB HCT DIFFERENCE 0.5; LYMPHOCYTES % (AUTO) 18.6 % (13-45); MEAN CORPUSCULAR HEMOGLOBIN 28.9 pg (27.0-33.4); MEAN CORPUSCULAR HGB CONC 33.9 g/dL (32.0-36.0); MEAN CORPUSCULAR VOLUME 85 fl (80-97); MONOCYTES % (AUTO) 6.1 % (3-13); RED BLOOD COUNT 3.92 10^6/uL (3.72-5.28); SEGMENTED NEUTROPHILS % (AUTO) 74.8 % (42-78); WHITE BLOOD COUNT 5.7 10^3/uL (4.0-10.5)
[2017-04-26 09:42] LABS: HEMOGLOBIN 11.3 g/dL (12.0-15.5)
--- NOTE | 2017-04-26 09:54 | PDOC PROGRESS REPORT ---
Subjective Progress Note for:: 04/26/17 Subjective:: Patient is tearful and states that her memory is not very good. She denies any new complaints. She states that she had a blood transfusion yesterday. Physical Exam Vital Signs: Temp Pulse Resp BP Pulse Ox 98.2 F 89 18 160/66 H 96 04/26/17 07:45 04/26/17 08:00 04/26/17 08:00 04/26/17 08:00 04/26/17 08:00 Intake & Output 04/25/17 04/26/17 04/27/17 07:59 06:59 06:59 Intake Total Output Total Balance Weight General appearance: PRESENT: no acute distress Neurological exam: PRESENT: awake. ABSENT: oriented to person, oriented to situation Psychiatric exam: PRESENT: depressed Results Laboratory Results: 04/26/17 09:13 04/25/17 05:24 04/25/17 04/26/17 15:45 09:13 WBC 5.7 RBC 3.92 Hgb 11.3 L D Hct 33.4 L MCV 85 MCH 28.9 MCHC 33.9 RDW 15.0 H Plt Count 188 Seg Neutrophils % 74.8 Lymphocytes % 18.6 Monocytes % 6.1 Eosinophils % 0.0 Basophils % 0.5 Absolute Neutrophils 4.2 Absolute Lymphocytes 1.1 Absolute Monocytes 0.3 Absolute Eosinophils 0.0 Absolute Basophils 0.0 Blood Type O POSITIVE Antibody Screen NEGATIVE 04/24/17 12:15 Clean Catch Midstream Urine Culture - Final Mixed Urogenital Flory 04/22/17 04/22/17 04/23/17 21:58 21:58 04:15 Creatine Kinase 60 46 CK-MB (CK-2) 1.95 Troponin I 0.058 04/23/17 04/23/17 04/23/17 04:15 10:41 10:41 Creatine Kinase 136 H CK-MB (CK-2) 1.77 2.99 Troponin I 0.053 0.050 Impressions: Chest X-Ray 04/22/17 19:41 IMPRESSION: NO ACUTE RADIOGRAPHIC FINDING IN THE CHEST. Head CT 04/22/17 19:41 IMPRESSION: MILD CHRONIC CHANGES OF ATROPHY AND MICROVASCULAR ISCHEMIA. NO ACUTE PROCESS. EVIDENCE OF ACUTE STROKE: NO. Carotid Doppler Study 04/22/17 20:26 IMPRESSION: NO HEMODYNAMICALLY SIGNIFICANT STENOSIS. Brain MRI with MRA 04/22/17 21:07 IMPRESSION: NORMAL MRA OF THE [place]. Head MRI 04/22/17 21:07 IMPRESSION: ATROPHY AND CHRONIC MICRO-VASCULAR ISCHEMIC CHANGES. OTHERWISE NORMAL MRI OF THE BRAIN WITHOUT INTRAVENOUS GADOLINIUM CONTRAST. EVIDENCE OF ACUTE STROKE: NO. Assessment & Plan - Diagnosis (1) Anemia in chronic kidney disease Qualifiers: Chronic kidney disease stage: stage 3 (moderate) Qualified Code(s): N18.3 - Chronic kidney disease, stage 3 (moderate); D63.1 - Anemia in chronic kidney disease; D63.1 - Anemia in chronic kidney disease Is this a current diagnosis for this admission?: Yes Plan: We had the same conversation that we had twice during this admission. She again asked what was wrong with her. I again explained that her anemia is due to her chronic renal failure. I also stated I was unsure if she would need dialysis. We again discussed erythropoetin injections and that she may need these regularly as an outpatient. All questions were answered to the best of my ability. I agree with plan for blood transfusion and erythropoetin. I do not believe she need IV iron at this time and with the recent blood transfusion, I would expect her Ferritin to be even higher.
--- NOTE | 2017-04-26 10:56 | PDOC PROGRESS REPORT ---
Subjective Progress Note for:: 04/26/17 Subjective:: Patient had 2 units of PRBC transfused since last clinical evaluation due to low hemoglobin related to her chronic kidney disease. She continue to demonstrate some degree of memory impairment with need for repeated explanation about her medical conditions. She denied any chest pain or difficulty with breathing. No nausea or vomiting. No reported fever of chills. her blood pressure remain an issue with concern for elevation. Physical Exam Vital Signs: Temp Pulse Resp BP Pulse Ox 98.2 F 89 18 160/66 H 96 04/26/17 07:45 04/26/17 08:00 04/26/17 08:00 04/26/17 08:00 04/26/17 08:00 Intake & Output 04/25/17 04/26/17 04/27/17 07:59 06:59 06:59 Intake Total Output Total Balance Weight Physical Exam: General appearance: PRESENT: no acute distress, cooperative Head exam: PRESENT: atraumatic, normocephalic, other Eye exam: PRESENT: conjunctiva pink. ABSENT: scleral icterus Mouth exam: PRESENT: moist Respiratory exam: PRESENT: clear to auscultation ita Cardiovascular exam: PRESENT: RRR. ABSENT: diastolic murmur, rubs, systolic murmur GI/Abdominal exam: PRESENT: normal bowel sounds, soft. ABSENT: distended, guarding, mass, organomegaly, rebound, tenderness Musculoskeletal exam: PRESENT: normal inspection Neurological exam: PRESENT: alert, awake, other - frequently asking same question and seek explanation about her condition. Psychiatric exam: PRESENT: appropriate affect, normal mood. ABSENT: homicidal ideation, suicidal ideation Skin exam: PRESENT: dry, warm, other - superficial lesion on right leg. Results Laboratory Results: 04/26/17 09:13 04/25/17 05:24 04/25/17 04/26/17 15:45 09:13 WBC 5.7 RBC 3.92 Hgb 11.3 L D Hct 33.4 L MCV 85 MCH 28.9 MCHC 33.9 RDW 15.0 H Plt Count 188 Seg Neutrophils % 74.8 Lymphocytes % 18.6 Monocytes % 6.1 Eosinophils % 0.0 Basophils % 0.5 Absolute Neutrophils 4.2 Absolute Lymphocytes 1.1 Absolute Monocytes 0.3 Absolute Eosinophils 0.0 Absolute Basophils 0.0 Blood Type O POSITIVE Antibody Screen NEGATIVE 04/24/17 12:15 Clean Catch Midstream Urine Culture - Final Mixed Urogenital Flory 04/22/17 04/22/17 04/23/17 21:58 21:58 04:15 Creatine Kinase 60 46 CK-MB (CK-2) 1.95 Troponin I 0.058 04/23/17 04/23/17 04/23/17 04:15 10:41 10:41 Creatine Kinase 136 H CK-MB (CK-2) 1.77 2.99 Troponin I 0.053 0.050 Impressions: Chest X-Ray 04/22/17 19:41 IMPRESSION: NO ACUTE RADIOGRAPHIC FINDING IN THE CHEST. Head CT 04/22/17 19:41 IMPRESSION: MILD CHRONIC CHANGES OF ATROPHY AND MICROVASCULAR ISCHEMIA. NO ACUTE PROCESS. EVIDENCE OF ACUTE STROKE: NO. Carotid Doppler Study 04/22/17 20:26 IMPRESSION: NO HEMODYNAMICALLY SIGNIFICANT STENOSIS. Brain MRI with MRA 04/22/17 21:07 IMPRESSION: NORMAL MRA OF THE [place]. Head MRI 04/22/17 21:07 IMPRESSION: ATROPHY AND CHRONIC MICRO-VASCULAR ISCHEMIC CHANGES. OTHERWISE NORMAL MRI OF THE BRAIN WITHOUT INTRAVENOUS GADOLINIUM CONTRAST. EVIDENCE OF ACUTE STROKE: NO. Assessment & Plan - Diagnosis (1) TIA (transient ischemic attack) Qualifiers: Transient cerebral ischemia type: unspecified Qualified Code(s): G45.9 - Transient cerebral ischemic attack, unspecified Is this a current diagnosis for this admission?: Yes (2) Anemia in chronic kidney disease Qualifiers: Chronic kidney disease stage: stage 3 (moderate) Qualified Code(s): N18.3 - Chronic kidney disease, stage 3 (moderate); D63.1 - Anemia in chronic kidney disease; D63.1 - Anemia in chronic kidney disease Is this a current diagnosis for this admission?: Yes Plan: Improved indices post transfusion. She will benefit from Procrit therapy on outpatient if her serum level is low. Awaiting result of requested erythropoietin serum level. (4) HTN (hypertension) Qualifiers: Hypertension type: essential hypertension Qualified Code(s): I10 - Essential (primary) hypertension Is this a current diagnosis for this admission?: Yes Plan: I will increase her Hydralazine dosage to 100 mg po [id number] and Amlodipine to 5 mg po [id number] for better blood pressure control. (5) Diabetes mellitus type 2 with retinopathy Is this a current diagnosis for this admission?: Yes - Time Time Spent with patient: 35 or more minutes Medications reviewed and adjusted accordingly: Yes Anticipated discharge: Home with Homehealth Within: Other - Inpatient Certification Based on my medical assessment, after consideration of the patient's comorbidities, presenting symptoms, or acuity I expect that the services needed warrant INPATIENT care.: Yes I certify that my determination is in accordance with my understanding of Medicare's requirements for reasonable and necessary INPATIENT services [42 CFR 412.3e].: Yes Medical Necessity: Need Close Monitoring Due to Risk of Patient Decompensation, Need For Continuous Telemetry Monitoring, Need for IV Antibiotics, Risk of Complication if Not Cared For in Hospital Post Hospital Care: D/C Ethylbenzene Oxidizer Documentation - Plan Summary Plan Summary: See covering attending physician orders.
[2017-04-26] MEDS: TRAZODONE HCL 50 MG TABLET PO SCH (21:20)
[2017-04-26] MEDS: ATORVASTATIN CALCIUM 40 MG TABLET PO SCH (21:20)
[2017-04-27] MEDS: HYDRALAZINE HCL 50 MG TABLET PO SCH ×3 (05:42→22:58)
[2017-04-27] MEDS: HEPARIN SOD (PORCINE) 5,000 UNIT/ML 1 ML SYRINGE SUBCUT SCH ×3 (05:42→22:58)
[2017-04-27 06:11] LABS: ABSOLUTE LYMPHOCYTES (AUTO) 1.3 10^3/uL (0.5-4.7); ABSOLUTE MONOCYTES (AUTO) 0.4 10^3/uL (0.1-1.4); ABSOLUTE NEUT (AUTO) 3.6 10^3/uL (1.7-8.2); BASOPHILS % (AUTO) 0.6 % (0-2); HEMATOCRIT 29.9 % (36.0-47.0); HGB HCT DIFFERENCE 0.1; LYMPHOCYTES % (AUTO) 23.7 % (13-45); MEAN CORPUSCULAR HEMOGLOBIN 28.9 pg (27.0-33.4); MEAN CORPUSCULAR HGB CONC 33.6 g/dL (32.0-36.0); MEAN CORPUSCULAR VOLUME 86 fl (80-97); MONOCYTES % (AUTO) 7.8 % (3-13); RED BLOOD COUNT 3.47 10^6/uL (3.72-5.28); RED CELL DISTRIBUTION WIDTH 15.1 % (11.5-14.0); SEGMENTED NEUTROPHILS % (AUTO) 67.9 % (42-78); WHITE BLOOD COUNT 5.4 10^3/uL (4.0-10.5)
[2017-04-27 06:28] LABS: ANION GAP 8 (5-19); BLOOD UREA NITROGEN 22 mg/dL (7-20); CARBON DIOXIDE 25 mmol/L (22-30); CHLORIDE 111 mmol/L (98-107); CREATININE RESULT 2.09 mg/dL (0.52-1.25); GLUCOSE 190 mg/dL (75-110); SODIUM 144.2 mmol/L (137-145)
[2017-04-27] MEDS: CLOPIDOGREL BISULFATE 75 MG TABLET PO SCH (10:01)
[2017-04-27] MEDS: AMLODIPINE BESYLATE 5 MG TABLET PO SCH ×2 (10:01→22:58)
[2017-04-27] MEDS: ISOSORBIDE MONONITRATE 30 MG TAB.ER.24H PO SCH (10:04)
[2017-04-27] MEDS: GABAPENTIN 100 MG CAPSULE PO SCH ×2 (10:04→22:58)
[2017-04-27] MEDS: ASPIRIN 81 MG TABLET, ENT COATED PO SCH (10:05)
[2017-04-27] MEDS: VENLAFAXINE HCL 75 MG CAP.SR.24H PO SCH ×2 (10:06→22:57)
[2017-04-27] MEDS: INSULIN GLARGINE,HUM.REC.ANLOG 300 UNIT/3 ML INSULN.PEN SUBCUT SCH (10:15)
--- NOTE | 2017-04-27 11:49 | PDOC PROGRESS REPORT ---
Subjective Progress Note for:: 04/27/17 Subjective:: Patient is currently doing fair The weekend patient received the 2 units of the blood Patient's otherwise no active bleeding is seen She has denied any chest pain denied any shortness of the breath Discussed with the patient and the patient's family including the son and the daughter regarding the patient's might get a very good benefit to go to the rehab but patients refused to go to the rehab Physical Exam Vital Signs: Temp Pulse Resp BP Pulse Ox 98.5 F 108 H 16 149/75 H 98 04/27/17 07:09 04/27/17 08:00 04/27/17 08:00 04/27/17 08:00 04/27/17 08:00 Intake & Output 04/26/17 04/27/17 04/28/17 06:59 06:59 06:59 Intake Total 1173 Output Total 700 Balance 473 Weight 109 kg General appearance: PRESENT: no acute distress, well-developed, well-nourished Head exam: PRESENT: atraumatic, normocephalic Eye exam: PRESENT: conjunctiva pink, EOMI, PERRLA. ABSENT: scleral icterus Ear exam: PRESENT: normal external ear exam Mouth exam: PRESENT: moist, tongue midline Neck exam: PRESENT: full ROM. ABSENT: carotid bruit, JVD, lymphadenopathy, thyromegaly Respiratory exam: PRESENT: clear to auscultation ita Cardiovascular exam: PRESENT: RRR. ABSENT: diastolic murmur, rubs, systolic murmur Pulses: PRESENT: normal dorsalis pedis pul, +2 pedal pulses bilateral Vascular exam: PRESENT: normal capillary refill GI/Abdominal exam: PRESENT: normal bowel sounds, soft. ABSENT: distended, guarding, mass, organolmegaly, rebound, tenderness Rectal exam: PRESENT: deferred Extremities exam: PRESENT: pedal edema Neurological exam: PRESENT: alert, awake, oriented to person, oriented to place , oriented to time, oriented to situation, CN II-XII grossly intact. ABSENT: motor sensory deficit Psychiatric exam: PRESENT: appropriate affect, normal mood. ABSENT: homicidal ideation, suicidal ideation Skin exam: PRESENT: dry, intact, warm. ABSENT: cyanosis, rash Results Laboratory Results: 04/27/17 05:12 04/27/17 05:12 04/25/17 04/26/17 04/27/17 15:45 16:05 05:12 WBC 5.4 RBC 3.47 L Hgb 10.0 L Hct 29.9 L MCV 86 MCH 28.9 MCHC 33.6 RDW 15.1 H Plt Count 184 Seg Neutrophils % 67.9 Lymphocytes % 23.7 Monocytes % 7.8 Eosinophils % 0.0 Basophils % 0.6 Absolute Neutrophils 3.6 Absolute Lymphocytes 1.3 Absolute Monocytes 0.4 Absolute Eosinophils 0.0 Absolute Basophils 0.0 Sodium Potassium Chloride Carbon Dioxide Anion Gap BUN Creatinine Est GFR ( Amer) Est GFR (Non-Af Amer) Glucose Calcium Stool Occult Blood NEGATIVE Blood Type O POSITIVE Antibody Screen NEGATIVE 04/27/17 05:12 WBC RBC Hgb Hct MCV MCH MCHC RDW Plt Count Seg Neutrophils % Lymphocytes % Monocytes % Eosinophils % Basophils % Absolute Neutrophils Absolute Lymphocytes Absolute Monocytes Absolute Eosinophils Absolute Basophils Sodium 144.2 Potassium 4.0 Chloride 111 H Carbon Dioxide 25 Anion Gap 8 BUN 22 H Creatinine 2.09 H Est GFR ( Amer) 29 L Est GFR (Non-Af Amer) 24 L Glucose 190 H Calcium 8.0 L Stool Occult Blood Blood Type Antibody Screen 04/22/17 04/22/17 04/23/17 21:58 21:58 04:15 Creatine Kinase 60 46 CK-MB (CK-2) 1.95 Troponin I 0.058 04/23/17 04/23/17 04/23/17 04:15 10:41 10:41 Creatine Kinase 136 H CK-MB (CK-2) 1.77 2.99 Troponin I 0.053 0.050 Impressions: Chest X-Ray 04/22/17 19:41 IMPRESSION: NO ACUTE RADIOGRAPHIC FINDING IN THE CHEST. Head CT 04/22/17 19:41 IMPRESSION: MILD CHRONIC CHANGES OF ATROPHY AND MICROVASCULAR ISCHEMIA. NO ACUTE PROCESS. EVIDENCE OF ACUTE STROKE: NO. Carotid Doppler Study 04/22/17 20:26 IMPRESSION: NO HEMODYNAMICALLY SIGNIFICANT STENOSIS. Brain MRI with MRA 04/22/17 21:07 IMPRESSION: NORMAL MRA OF THE [place]. Head MRI 04/22/17 21:07 IMPRESSION: ATROPHY AND CHRONIC MICRO-VASCULAR ISCHEMIC CHANGES. OTHERWISE NORMAL MRI OF THE BRAIN WITHOUT INTRAVENOUS GADOLINIUM CONTRAST. EVIDENCE OF ACUTE STROKE: NO. Assessment & Plan - Diagnosis (1) TIA (transient ischemic attack) Qualifiers: Transient cerebral ischemia type: unspecified Qualified Code(s): G45.9 - Transient cerebral ischemic attack, unspecified Is this a current diagnosis for this admission?: Yes Plan: continue aspirin Plavix and a statin (2) Chronic kidney disease Qualifiers: Chronic kidney disease stage: stage 3 (moderate) Qualified Code(s): N18.3 - Chronic kidney disease, stage 3 (moderate) Is this a current diagnosis for this admission?: Yes Plan: Acute renal failure and chronic kidney disease will continues to hold the Lasix start some IV fluid for next 24 hours and get the culture urine and consult Dr. Clark (3) Anemia in chronic kidney disease Qualifiers: Chronic kidney disease stage: stage 3 (moderate) Qualified Code(s): N18.3 - Chronic kidney disease, stage 3 (moderate); D63.1 - Anemia in chronic kidney disease; D63.1 - Anemia in chronic kidney disease Is this a current diagnosis for this admission?: Yes Plan: Status post 2 units of the blood and Procrit injections (4) Elevated troponin Is this a current diagnosis for this admission?: Yes Plan: Most likely a troponin leak due to the chronic kidney disease patient's currently denied any symptoms will get the echocardiogram (5) Hypopotassemia Is this a current diagnosis for this admission?: Yes Plan: Replace the potassiums (6) Edema of lower extremity Is this a current diagnosis for this admission?: Yes Plan: Chronic lower extremity from the peripheral vascular disease and venous insufficiency patients currently see the wound care clinic (7) Diabetes mellitus type 2 with retinopathy Is this a current diagnosis for this admission?: Yes Plan: Patient is currently insulin and sliding scale (8) HLD (hyperlipidemia) Qualifiers: Hyperlipidemia type: pure hypercholesterolemia Qualified Code(s): E78.00 - Pure hypercholesterolemia, unspecified Is this a current diagnosis for this admission?: Yes Plan: Continues to current medications - Time Time Spent with patient: 15-24 minutes Medications reviewed and adjusted accordingly: Yes Anticipated discharge: SNF Within: Other - Inpatient Certification Medical Necessity: Need Close Monitoring Due to Risk of Patient Decompensation Post Hospital Care: D/C [facility] Documentation - Plan Summary Plan Summary: Patient's son is going to talk to the patient to whether patients willing to go to the rehab are not willing to do this consult the planner scheduler
[2017-04-27] MEDS: INSULIN LISPRO 100 UNIT/ML 3 ML VIAL SUBCUT PRN ×2 (14:33→17:45)
[2017-04-27] MEDS: TRAZODONE HCL 50 MG TABLET PO SCH (22:58)
[2017-04-27] MEDS: ATORVASTATIN CALCIUM 40 MG TABLET PO SCH (22:58)
[2017-04-28] MEDS: HYDRALAZINE HCL 50 MG TABLET PO SCH ×2 (06:30→15:37)
[2017-04-28] MEDS: HEPARIN SOD (PORCINE) 5,000 UNIT/ML 1 ML SYRINGE SUBCUT SCH ×2 (06:31→15:37)
--- NOTE | 2017-04-28 08:56 | PDOC DISCHARGE SUMMARY ---
General - Admit/Disc Date/PCP Admission Date/Primary Care Provider: 04/22/17 21:09 Discharge Date: 04/28/17 - Discharge Diagnosis (1) TIA (transient ischemic attack) Is this a current diagnosis for this admission?: Yes Summary: Continues to aspirin and Plavix (2) Chronic kidney disease Is this a current diagnosis for this admission?: Yes Summary: Patient's creatinine is 2.[address] Clark (3) Anemia in chronic kidney disease Is this a current diagnosis for this admission?: Yes Summary: Patients require a Procrit injections and is to follow with the stem frazer (4) Elevated troponin Is this a current diagnosis for this admission?: Yes Summary: No sign of any acute coronary syndromes due to the underlying chronic kidney disease (5) Hypopotassemia Is this a current diagnosis for this admission?: Yes Summary: Currently all resolved (6) Edema of lower extremity Is this a current diagnosis for this admission?: Yes Summary: Patient have a chronic venous insufficiency and significant peripheral vascular disease and patients currently see as outpatient vascular surgery (7) Diabetes mellitus type 2 with retinopathy Is this a current diagnosis for this admission?: Yes Summary: Continues to current medications and a sliding scales (8) HLD (hyperlipidemia) Is this a current diagnosis for this admission?: Yes Summary: Continues to statin 40 mg p.o. daily (9) Peripheral vascular disease Is this a current diagnosis for this admission?: Yes Summary: Patient also seen by the vascular surgeon but due to the noncompliance of the follow-up patients probably need to see the wound care clinic which patient already seen in the past with ongoing problems (10) Dementia Is this a current diagnosis for this admission?: Yes Summary: Patient have some underlying vascular dementia with very noncompliance and poor control all medical problems - Additional Information Resuscitation Status: Full Code Home Medications: Amlodipine Besylate [Norvasc 10 mg Tablet] 10 mg PO DAILY 09/27/16 Furosemide [Lasix] 20 mg PO DAILY 09/27/16 Gabapentin [Neurontin 100 mg Capsule] 100 mg PO Q12 09/27/16 Hydralazine HCl [Apresoline 50 mg Tablet] 50 mg PO Q8 09/27/16 Isosorbide Mononitrate [Imdur 30 mg Tablet.er] 30 mg PO DAILY 09/27/16 Trazodone HCl [Desyrel 50 mg Tablet] 50 mg PO QHS 09/27/16 Venlafaxine HCl ER [Effexor Xr 75 mg Cap.sr] 75 mg PO BID 09/27/16 Atorvastatin Calcium [Lipitor 40 mg Tablet] 40 mg PO QHS #30 tablet 04/27/17 Clopidogrel Bisulfate [Plavix 75 mg Tablet] 75 mg PO DAILY #30 tablet 04/27/17 Metoprolol Tartrate [Lopressor 50 mg Tablet] 50 mg PO BID #60 04/27/17 History of Present Illness History of Present Illness: Is a 61-year-old female with a history of the type 2 diabetes mellitus with diabetic retinopathy and nephropathy and the multiple other complications and top of that patient is super noncomplianceAnd a chronic peripheral vascular disease and chronic venous insufficiencyCame to the emergency department with the right-sided facial droops and a weaknessAnd patient underwent for the CT head in the ER was all negative and patient was put on stroke protocol Patient's symptoms pretty much resolved in the ER physicians call for admissions and patient was given aspirin and Plavix When I saw the patient's patient's denied any weakness denied any chest pain denied any shortness of the breath Patient's denied any blood in the stools no black stools Patient's hemoglobin was low and patient was seen by Dr. Grey stem frazer as outpatient and patient seen by Dr. Prieto last year and endoscopy and colonoscopy done within the last year and was all stable Patient also followed the wound care clinic for chronic wound on the legs Patient also see a vascular surgery in [place] and patient also see Dr. Clark for chronic kidney disease but patient usually not keep any appointment at schedule Patient's currently denied any chest pain denied any shortness of the breath Hospital Course Hospital Course: This 61-year-old female with a significant medical problems as able came to the emergency department with a complaint of right-sided facial droop and weaknessAnd the patient initial CT head was all negative and patient's symptoms pretty much was resolved and patient underwent for the stroke protocol and the patient have an MRI of the head was done which is negative for any acute finding Patient's otherwise have a renal failure seen by nephrology and given IV fluid Patient also seen by the GI and stem frazer for the ongoing anemia which is no sign of any acute GI bleed and patient received the 2 units of the blood and related to the from chronic kidney disease and patient also received the Procrit injectionsAnd suggest a follow outpatient Patient also seen by data recovery planner because of the patient's have ongoing issue with the weakness and unable to get the full support at [facility] at least need to rehab for further evaluations Patient have ongoing problem with the lower extremity with significant peripheral vascular disease and venous insufficiency patient's already seen by the vascular surgeon and also seen by the wound care and foot clinic but patient is to go and follow againAs outpatient Patient's otherwise remained stable hemoglobin remained stable At this point very extensive discussion the patient's family including the daughter and the son regarding the patient's current conditions with underlying possible dementia and the patient's probable need of further evaluation as outpatients neurology At this point patient is best options to go to the rehab for at least couple of weeks and see how the patient's progress Patient is to follow with the wound care clinic and to follow with the vascular surgeon and follow outpatient stem frazer Physical Exam Vital Signs: Temp Pulse Resp BP Pulse Ox 97.8 F 88 18 176/72 H 100 04/28/17 08:03 04/28/17 08:03 04/28/17 08:03 04/28/17 08:03 04/28/17 08:03 Intake & Output 04/27/17 04/28/17 04/29/17 06:59 06:59 06:59 Intake Total 1173 1306 Output Total 700 1500 Balance 473 -194 Weight 109 kg General appearance: PRESENT: no acute distress, well-developed, well-nourished Head exam: PRESENT: atraumatic, normocephalic Eye exam: PRESENT: conjunctiva pink, EOMI, PERRLA. ABSENT: scleral icterus Ear exam: PRESENT: normal external ear exam Mouth exam: PRESENT: moist, tongue midline Neck exam: PRESENT: full ROM. ABSENT: carotid bruit, JVD, lymphadenopathy, thyromegaly Respiratory exam: PRESENT: clear to auscultation ita Cardiovascular exam: PRESENT: RRR. ABSENT: diastolic murmur, rubs, systolic murmur Pulses: PRESENT: normal dorsalis pedis pul, +2 pedal pulses bilateral Vascular exam: PRESENT: normal capillary refill GI/Abdominal exam: PRESENT: normal bowel sounds, soft. ABSENT: distended, guarding, mass, organolmegaly, rebound, tenderness Rectal exam: PRESENT: deferred Extremities exam: PRESENT: pedal edema Additional comments: Chronic swelling in the legs some mild redness but which is a chronic no sign of any infections Neurological exam: PRESENT: alert, awake, oriented to person, oriented to place , oriented to time, oriented to situation, CN II-XII grossly intact. ABSENT: motor sensory deficit Psychiatric exam: PRESENT: appropriate affect, normal mood. ABSENT: homicidal ideation, suicidal ideation Skin exam: PRESENT: dry, intact, warm. ABSENT: cyanosis, rash Results Laboratory Results: 04/27/17 05:12 04/27/17 05:12 04/22/17 04/22/17 04/23/17 21:58 21:58 04:15 Creatine Kinase 60 46 CK-MB (CK-2) 1.95 Troponin I 0.058 04/23/17 04/23/17 04/23/17 04:15 10:41 10:41 Creatine Kinase 136 H CK-MB (CK-2) 1.77 2.99 Troponin I 0.053 0.050 Impressions: Chest X-Ray 04/22/17 19:41 IMPRESSION: NO ACUTE RADIOGRAPHIC FINDING IN THE CHEST. Head CT 04/22/17 19:41 IMPRESSION: MILD CHRONIC CHANGES OF ATROPHY AND MICROVASCULAR ISCHEMIA. NO ACUTE PROCESS. EVIDENCE OF ACUTE STROKE: NO. Carotid Doppler Study 04/22/17 20:26 IMPRESSION: NO HEMODYNAMICALLY SIGNIFICANT STENOSIS. Brain MRI with MRA 04/22/17 21:07 IMPRESSION: NORMAL MRA OF THE [place]. Head MRI 04/22/17 21:07 IMPRESSION: ATROPHY AND CHRONIC MICRO-VASCULAR ISCHEMIC CHANGES. OTHERWISE NORMAL MRI OF THE BRAIN WITHOUT INTRAVENOUS GADOLINIUM CONTRAST. EVIDENCE OF ACUTE STROKE: NO. Plan Time Spent: Greater than 30 Minutes - Patient's discharge to the SNF if is bed available and the patient's needs to follow with the stem frazer in 2 weeks and follow with the wound care clinic Follow with the nephrology Patient need to check a CBC and Chem-7 in 1 week Patient is a physical therapy daily Fall precautions
[2017-04-28] MEDS: VENLAFAXINE HCL 75 MG CAP.SR.24H PO SCH (10:44)
[2017-04-28] MEDS: INSULIN GLARGINE,HUM.REC.ANLOG 300 UNIT/3 ML INSULN.PEN SUBCUT SCH (10:44)
[2017-04-28] MEDS: ISOSORBIDE MONONITRATE 30 MG TAB.ER.24H PO SCH (10:44)
[2017-04-28] MEDS: GABAPENTIN 100 MG CAPSULE PO SCH (10:44)
[2017-04-28] MEDS: ASPIRIN 81 MG TABLET, ENT COATED PO SCH (10:44)
[2017-04-28] MEDS: CLOPIDOGREL BISULFATE 75 MG TABLET PO SCH (10:45)
[2017-04-28] MEDS: AMLODIPINE BESYLATE 5 MG TABLET PO SCH (10:45)
[2017-04-28 16:11] VITALS: BP 162/75
[2017-04-29] MEDS ORDERED: INSULIN GLARGINE,HUM.REC.ANLOG 1,000 UNIT/10 ML UNIT SUBCUT SCH (10:00)
== END 2017-04-28 18:04 | DRG 69 ==
LOC: ER 19:39 → OBSVTOIN 21:09 → EH 21:09 → UNDOADMOB 21:13 → 3W 04-23 00:24
PROVIDERS: ADMIT Family Medicine; ATTEND Family Medicine
PROC: 30233N1 Transfusion of Nonautologous Red Blood Cells into Peripheral Vein, Percutaneous Approach (ICD-10-PCS; principal; 2017-04-26)
DX: G45.9 Transient cerebral ischemic attack, unspecified (principal); N17.9 Acute kidney failure, unspecified; L97.329 Non-pressure chronic ulcer of left ankle with unspecified severity; L97.319 Non-pressure chronic ulcer of right ankle with unspecified severity; D63.1 Anemia in chronic kidney disease; R74.8 Abnormal levels of other serum enzymes; I12.9 Hypertensive chronic kidney disease with stage 1 through stage 4 chronic kidney disease, or unspecified chronic kidney disease; E87.6 Hypokalemia; I87.2 Venous insufficiency (chronic) (peripheral); E11.21 Type 2 diabetes mellitus with diabetic nephropathy; E11.51 Type 2 diabetes mellitus with diabetic peripheral angiopathy without gangrene; I13.10 Hypertensive heart and chronic kidney disease without heart failure, with stage 1 through stage 4 chronic kidney disease, or unspecified chronic kidney disease; E11.319 Type 2 diabetes mellitus with unspecified diabetic retinopathy without macular edema; E78.5 Hyperlipidemia, unspecified; F01.50 Vascular dementia, unspecified severity, without behavioral disturbance, psychotic disturbance, mood disturbance, and anxiety; R29.810 Facial weakness; N18.3 Chronic kidney disease, stage 3 (moderate); K21.9 Gastro-esophageal reflux disease without esophagitis; M19.90 Unspecified osteoarthritis, unspecified site; F32.9 Major depressive disorder, single episode, unspecified; E86.0 Dehydration; E11.65 Type 2 diabetes mellitus with hyperglycemia; I50.9 Heart failure, unspecified; R47.81 Slurred speech; E11.622 Type 2 diabetes mellitus with other skin ulcer; Z91.19 Patient's noncompliance with other medical treatment and regimen; Z79.4 Long term (current) use of insulin; Z79.899 Other long term (current) drug therapy; Z87.891 Personal history of nicotine dependence; Z88.6 Allergy status to analgesic agent; Z86.010 Personal history of colon polyps
CPT/HCPCS: 36415; 36430; 70450; 70544; 70551; 71010; 80048; 80053; 80061; 82272; 82550; 82553; 82607; 82668; 82728; 82746; 82962; 83036; 83540; 83550; 83735; 84132; 84466; 84484; 85025; 85045; 85610; 85730; 86850; 86900; 86901; 86920; 87086; 93005; 93010; 93306; 93880; 99285; G8978-GP; G8979-GP; G8987-GO; G8988-GO; G9168-GN; G9169-GN; J0360; J1644; J1815; J3490; P9016; Q4081

== ENCOUNTER 2017-07-03 14:37 | Inpatient (IN) | payer MEDICARE ==
--- NOTE | 2017-07-03 15:41 | ER Document Report ---
ED Medical Screen (RME) - General Chief Complaint: Altered Mental Status Stated Complaint: ELEVATED BLOOD PRESSURE/CONFUSION Time Seen by Provider: 07/03/17 15:34 Notes: 61-year-old female here with son who states that she has had progressively worsening confusion over the past 1 month and over the past 1 week worsening lethargy to the point where they are having to have 2-3 people help her get to the bathroom. She can normally get to the bathroom herself with minimal assistance. She denies any chest pain shortness of breath abdominal pain fevers chills. EXAM No abdominal tenderness TRAVEL OUTSIDE OF THE [place] IN LAST 30 DAYS: No - Related Data Allergies/Adverse Reactions: morphine Allergy (Verified 07/03/17 14:39) Home Medications: Current Home Medications Clonidine HCl 0.3 mg PO TID 07/03/17 [History] Past Medical History - Social History Chew tobacco use (# tins/day): No Frequency of alcohol use: None Drug Abuse: None - Past Medical History Cardiac Medical History: Reports: Hx Congestive Heart Failure, Hx Hypertension Denies: Hx Coronary Artery Disease, Hx Heart Attack, Hx Hypercholesterolemia , Hx Heart Murmur Pulmonary Medical History: Denies: Hx Asthma, Hx Bronchitis, Hx COPD, Hx Pneumonia Neurological Medical History: Denies: Hx Cerebrovascular Accident, Hx Seizures Endocrine Medical History: Reports: Hx Diabetes Mellitus Type 2 Renal/ Medical History: Denies: Hx Peritoneal Dialysis GI Medical History: Reports: Hx Gastroesophageal Reflux Disease. Denies: Hx Hepatitis, Hx Hiatal Hernia, Hx Ulcer Musculoskeltal Medical History: Reports Hx Arthritis, Denies Hx Multiple Sclerosis Psychiatric Medical History: Reports: Hx Depression Denies: Hx Dementia Infectious Medical History: Denies: Hx Hepatitis Past Surgical History: Reports: Hx Tonsillectomy. Denies: Hx Hysterectomy, Hx Mastectomy, Hx Open Heart Surgery, Hx Pacemaker - Immunizations Hx Diphtheria, Pertussis, Tetanus Vaccination: Yes History of Influenza Vaccine for 03/2017 - 08/2017 Season: Yes Physical Exam - Vital signs Vitals: Temp Pulse Resp BP Pulse Ox 97.5 F 66 20 114/63 98 07/03/17 14:49 07/03/17 14:49 07/03/17 14:49 07/03/17 14:49 07/03/17 14:49 Course - Vital Signs Vital signs: Temp Pulse Resp BP Pulse Ox 97.5 F 66 20 114/63 98 07/03/17 14:49 07/03/17 14:49 07/03/17 14:49 07/03/17 14:49 07/03/17 14:49
[2017-07-03 16:12] LABS: APPEARANCE,URINE CLOUDY; BILIRUBIN,URINE NEGATIVE (NEGATIVE); COLOR,URINE YELLOW; GLUCOSE, URINE >=500 mg/dL (NEGATIVE); KETONES,URINE NEGATIVE (NEGATIVE); LEUKOCYTE ESTERASE,URINE NEGATIVE (NEGATIVE); NITRITE,URINE NEGATIVE (NEGATIVE); PROTEIN,URINE >=500 mg/dL (NEGATIVE); URINE SPECIFIC GRAVITY 1.017; UROBILINOGEN,URINE NEGATIVE mg/dL (<2.0)
[2017-07-03 16:15] LABS: ABSOLUTE BASOPHILS # (AUTO) 0.1 10^3/uL (0.0-0.2); ABSOLUTE LYMPHOCYTES (AUTO) 1.6 10^3/uL (0.5-4.7); ABSOLUTE MONOCYTES (AUTO) 0.4 10^3/uL (0.1-1.4); ABSOLUTE NEUT (AUTO) 7.9 10^3/uL (1.7-8.2); BASOPHILS % (AUTO) 0.6 % (0-2); HEMATOCRIT 33.9 % (36.0-47.0); HEMOGLOBIN 11.2 g/dL (12.0-15.5); LYMPHOCYTES % (AUTO) 15.6 % (13-45); MEAN CORPUSCULAR HEMOGLOBIN 27.7 pg (27.0-33.4); MEAN CORPUSCULAR HGB CONC 33.1 g/dL (32.0-36.0); MEAN CORPUSCULAR VOLUME 84 fl (80-97); MONOCYTES % (AUTO) 3.9 % (3-13); PLATELET COUNT 241 10^3/uL (150-450); RED BLOOD COUNT 4.04 10^6/uL (3.72-5.28); RED CELL DISTRIBUTION WIDTH 16.4 % (11.5-14.0); SEGMENTED NEUTROPHILS % (AUTO) 79.9 % (42-78); TOTAL CELLS COUNTED % (AUTO) 100 %; WHITE BLOOD COUNT 9.9 10^3/uL (4.0-10.5)
--- NOTE | 2017-07-03 16:25 | RADIOLOGY REPORT (SQ) ---
EXAM DESCRIPTION: CT HEAD WITHOUT COMPLETED DATE/TIME: 07/03/2017 4:04 pm REASON FOR STUDY: confusion COMPARISON: 04/22/2017 TECHNIQUE: Axial images acquired through the brain without intravenous contrast. Images reviewed wi th bone, brain and subdural windows. Images stored on PACS. All CT scanners at this facility use dose modulation, iterative reconstruction, and/or weight based d osing when appropriate to reduce radiation dose to as low as reasonably achievable (ALARA). [facility]: Dose Right [facility]: CareDose [facility]: Dose Right [facility]: Teradose 4D [facility]: Smart [employer] RADIATION DOSE: CT Rad equipment meets quality standard of care and radiation dose reduction techniq ues were employed. CTDIvol: 64.6 mGy. DLP: 1292 mGy-cm. mGy. LIMITATIONS: None. FINDINGS: VENTRICLES: Prominent. CEREBRUM: No masses. No hemorrhage. No midline shift. Areas of low density in the white matter mos t likely due to chronic micro-vascular ischemic change. No evidence for acute infarction. CEREBELLUM: No masses. No hemorrhage. No alteration of density. No evidence for acute infarction. EXTRAAXIAL SPACES: Mild age-related involutional change. No fluid collections. No masses. ORBITS AND GLOBE: No intra- or extraconal masses. Normal contour of globe without masses. CALVARIUM: No fracture. PARANASAL SINUSES: No fluid or mucosal thickening. SOFT TISSUES: No mass or hematoma. OTHER: No other significant finding. IMPRESSION: No acute findings. EVIDENCE OF ACUTE STROKE: NO. TECHNICAL DOCUMENTATION: JOB ID: [id number] Quality ID # [id number]: Final reports with documentation of one or more dose reduction techniques (e.g., Au tomated exposure control, adjustment of the mA and/or kV according to patient size, use of iterative reconstruction technique) 2010 [employer]- All Rights Reserved
--- NOTE | 2017-07-03 16:31 | RADIOLOGY REPORT (SQ) ---
EXAM DESCRIPTION: CHEST PA/LAT COMPLETED DATE/TIME: 07/03/2017 4:19 pm REASON FOR STUDY: eval pneumonia COMPARISON: 04/24/2016. EXAM PARAMETERS: NUMBER OF VIEWS: two views TECHNIQUE: Digital Frontal and Lateral radiographic views of the chest acquired. RADIATION DOSE: NA LIMITATIONS: none FINDINGS: LUNGS AND PLEURA: No opacities, masses or pneumothorax. No pleural effusion. MEDIASTINUM AND HILAR STRUCTURES: No masses or contour abnormalities. HEART AND VASCULAR STRUCTURES: Heart normal size. No evidence for failure. BONES: No acute findings. HARDWARE: None in the chest. OTHER: No other significant finding. IMPRESSION: NO SIGNIFICANT RADIOGRAPHIC FINDING IN THE CHEST. TECHNICAL DOCUMENTATION: JOB ID: [id number] [email or web address]- All Rights Reserved
[2017-07-03 16:35] LABS: ALANINE AMINOTRANSFERASE 21 U/L (9-52); ALBUMIN 3.4 g/dL (3.5-5.0); ALKALINE PHOSPHATASE 116 U/L (38-126); ANION GAP 11 (5-19); ASPARTATE AMINO TRANSFERASE 19 U/L (14-36); BILIRUBIN,DIRECT 0.2 mg/dL (0.0-0.4); BILIRUBIN,TOTAL 0.4 mg/dL (0.2-1.3); BLOOD UREA NITROGEN 42 mg/dL (7-20); CALCIUM 9.1 mg/dL (8.4-10.2); CARBON DIOXIDE 25 mmol/L (22-30); CHLORIDE 105 mmol/L (98-107); GLUCOSE 118 mg/dL (75-110); POTASSIUM 4.2 mmol/L (3.6-5.0); SODIUM 140.5 mmol/L (137-145); TOTAL PROTEIN 6.5 g/dL (6.3-8.2)
--- NOTE | 2017-07-03 17:34 | ER Document Report ---
ED General - General Chief Complaint: Altered Mental Status Stated Complaint: ELEVATED BLOOD PRESSURE/CONFUSION Time Seen by Provider: 07/03/17 15:34 Notes: Brings mother to emergency department for evaluation of increased confusion. Worsening confusion over the last several weeks. Cannot remember anything. Decreased appetite. Not eating or drinking. Picking at her feet. Has sores on her feet. TRAVEL OUTSIDE OF THE [place] IN LAST 30 DAYS: No - HPI Onset/Duration: Gradual, Worse Severity: Moderate Associated symptoms: Slow to respond, Weakness - Related Data Allergies/Adverse Reactions: morphine Allergy (Verified 07/03/17 14:39) Home Medications: Current Home Medications Clonidine HCl 0.3 mg PO TID 07/03/17 [History] Past Medical History - General Information source: Patient, Relative, [facility] [place] Records - Social History Smoking Status: Never Smoker Chew tobacco use (# tins/day): No Frequency of alcohol use: None Drug Abuse: None Lives with: Family Family History: Reviewed & Not Pertinent Patient has suicidal ideation: No Patient has homicidal ideation: No - Past Medical History Cardiac Medical History: Reports: Hx Congestive Heart Failure, Hx Hypertension Denies: Hx Coronary Artery Disease, Hx Heart Attack, Hx Hypercholesterolemia , Hx Heart Murmur Pulmonary Medical History: Denies: Hx Asthma, Hx Bronchitis, Hx COPD, Hx Pneumonia Neurological Medical History: Denies: Hx Cerebrovascular Accident, Hx Seizures Endocrine Medical History: Reports: Hx Diabetes Mellitus Type 2 Renal/ Medical History: Denies: Hx Peritoneal Dialysis GI Medical History: Reports: Hx Gastroesophageal Reflux Disease. Denies: Hx Hepatitis, Hx Hiatal Hernia, Hx Ulcer Musculoskeltal Medical History: Reports Hx Arthritis, Denies Hx Multiple Sclerosis Psychiatric Medical History: Reports: Hx Depression Denies: Hx Dementia Infectious Medical History: Denies: Hx Hepatitis Past Surgical History: Reports: Hx Tonsillectomy. Denies: Hx Hysterectomy, Hx Mastectomy, Hx Open Heart Surgery, Hx Pacemaker - Immunizations Hx Diphtheria, Pertussis, Tetanus Vaccination: Yes Hx Pneumococcal Vaccination: 04/21/14 Review of Systems - Review of Systems Constitutional: Malaise, Weakness EENT: No symptoms reported Cardiovascular: No symptoms reported Gastrointestinal: No symptoms reported Genitourinary: No symptoms reported Female Genitourinary: No symptoms reported Musculoskeletal: Other - Bilateral foot pain Skin: See HPI, Other - Lesions on bilateral feet Neurological/Psychological: Confusion, Dementia, Depression Physical Exam - Vital signs Vitals: Temp Pulse Resp BP Pulse Ox 97.5 F 66 20 114/63 98 07/03/17 14:49 07/03/17 14:49 07/03/17 14:49 07/03/17 14:49 07/03/17 14:49 Interpretation: Normal - General General appearance: Lethargic In distress: None - HEENT Head: Normocephalic Eyes: Normal Mucous membranes: Dry - Respiratory Respiratory status: No respiratory distress Chest status: Nontender Breath sounds: Normal Chest palpation: Normal - Cardiovascular Rhythm: Regular Heart sounds: Normal auscultation Murmur: No - Abdominal Inspection: Normal Distension: No distension Bowel sounds: Normal Tenderness: Nontender Organomegaly: No organomegaly - Back Back: Normal, Nontender - Extremities General upper extremity: Normal inspection, Nontender, Normal color, Normal ROM , Normal temperature General lower extremity: Normal inspection, Nontender, Edema, Normal color, Normal ROM, Normal temperature, Normal weight bearing, Other - Edema noted to the bilateral lower extremities. There are sores noted on the great toe on the right foot.. No: Ibis's sign - Neurological Neuro grossly intact: Yes Cognition: Short term memory loss Orientation: Disoriented to time, Disoriented to events. No: Disoriented to person, Disoriented to place [place] Coma Scale Eye Opening: Spontaneous [place] Coma Scale Verbal: Confused [place] Coma Scale Motor: Obeys Commands [place] Coma Scale Total: 14 Speech: Normal Motor strength normal: LUE, RUE, LLE, RLE Sensory: Normal - Psychological Associated symptoms: Normal affect, Normal mood - Skin Skin Temperature: Warm - There are breakdown skin noted to the great toe on the right foot Skin Moisture: Dry Skin Color: Normal Course - Re-evaluation Re-evalutation: 07/03/17 19:15 Patient with some dehydration seen on BUN and creatinine. Dry mucous membranes. Questionable osteomyelitis of the right fifth digit. Confused. Patient will need further workup done including possible MRI of the foot and brain. Will hydrate. Will admit to the hospitalist at this time. - Vital Signs Vital signs: Temp Pulse Resp BP Pulse Ox 97.5 F 66 21 H 149/69 H 94 07/03/17 14:49 07/03/17 16:30 07/03/17 18:02 07/03/17 18:02 07/03/17 18:02 - Laboratory Result Diagrams: 07/03/17 15:55 07/03/17 15:55 Laboratory results interpreted by me: 07/03/17 07/03/17 07/03/17 15:50 15:55 15:55 Hgb 11.2 L Hct 33.9 L RDW 16.4 H Seg Neutrophils % 79.9 H BUN 42 H Creatinine 2.75 H Est GFR ( Amer) 21 L Est GFR (Non-Af Amer) 17 L Glucose 118 H Ammonia Albumin 3.4 L Urine Protein >=500 H Urine Glucose (UA) >=500 H Urine Blood SMALL H 07/03/17 15:55 Hgb Hct RDW Seg Neutrophils % BUN Creatinine Est GFR ( Amer) Est GFR (Non-Af Amer) Glucose Ammonia < 8.7 L Albumin Urine Protein Urine Glucose (UA) Urine Blood Discharge - Discharge Clinical Impression: Confused, Dehydration Osteomyelitis Qualifiers: Osteomyelitis type: subacute Osteomyelitis location: foot Laterality: right Qualified Code(s): M86.271 - Subacute osteomyelitis, right ankle and foot Disposition: ADMITTED INPATIENT Admitting Provider: Hospitalist Unit Admitted: Telemetry - [place] Referrals: KEE SILVERMAN MD [Primary Care Provider] - Follow up as needed
--- NOTE | 2017-07-03 18:27 | RADIOLOGY REPORT (SQ) ---
EXAM DESCRIPTION: FOOT BILATERAL 2 VIEWS COMPLETED DATE/TIME: 07/03/2017 6:17 pm REASON FOR STUDY: Open sores concern for osteomyelitis COMPARISON: None. NUMBER OF VIEWS: Two views. TECHNIQUE: AP and lateral without weight bearing radiographic images acquired of the right and left foot. LIMITATIONS: None. FINDINGS: MINERALIZATION: Normal. BONES: No acute fracture or dislocation. Prominent heel spurs in both feet. There is focal radioluce ncy at the base of the proximal phalanx of the right 5th toe. Difficult to evaluate on one view only . JOINTS: No erosions. No em-articular osteopenia. No chondrocalcinosis. SOFT TISSUES: Diffuse soft tissue swelling. OTHER: No other significant finding. IMPRESSION: DIFFUSE SOFT TISSUE SWELLING. FOCAL RADIOLUCENCY AT THE BASE OF THE PROXIMAL PHALANX OF THE RIGHT 5TH TOE, DIFFICULT TO FULLY EVALUATE. THIS COULD REPRESENT AN AREA OF OSTEOMYELITIS. IF THERE IS CLINICAL CONCERN, MRI OF THE FEET MAY BE NECESSARY. TECHNICAL DOCUMENTATION: JOB ID: [id number]- All Rights Reserved
[2017-07-03] MEDS ORDERED: NORMAL SALINE 1000 ML 1,000 ML IV ONE (18:28)
[2017-07-03] MEDS ORDERED: ACETAMINOPHEN 325 MG TABLET PO PRN (19:39)
[2017-07-03] MEDS ORDERED: NORMAL SALINE 1000 ML 1,000 ML IV PRN (19:39)
--- NOTE | 2017-07-03 21:41 | RADIOLOGY REPORT (SQ) ---
EXAM DESCRIPTION: KUB/ABDOMEN (SINGLE VIEW) COMPLETED DATE/TIME: 07/03/2017 9:26 pm REASON FOR STUDY: constipation COMPARISON: None. NUMBER OF VIEWS: One view. TECHNIQUE: Supine radiographic image of the abdomen acquired. LIMITATIONS: None. FINDINGS: BOWEL GAS PATTERN: Normal bowel gas pattern. No dilated loops. CALCIFICATIONS: Possible right nephrolithiasis. SOFT TISSUES: No gross mass or suggestion of organomegaly. HARDWARE: None in the abdomen. BONES: No acute fracture. No worrisome bone lesions. OTHER: No other significant finding. IMPRESSION: Possible right nephrolithiasis. No evidence for constipation. TECHNICAL DOCUMENTATION: JOB ID: [id number] [employer]- All Rights Reserved
[2017-07-04] MEDS: GABAPENTIN 100 MG CAPSULE PO SCH ×3 (01:09→22:40)
[2017-07-04] MEDS: TRAZODONE HCL 50 MG TABLET PO SCH ×2 (01:09→22:39)
[2017-07-04] MEDS: CLONIDINE HCL 0.1 MG TABLET PO SCH ×4 (01:09→22:42)
[2017-07-04] MEDS: HYDRALAZINE HCL 50 MG TABLET PO SCH ×4 (01:10→22:39)
[2017-07-04] MEDS: HEPARIN SOD (PORCINE) 5,000 UNIT/ML 1 ML SYRINGE SUBCUT SCH ×4 (01:10→22:42)
--- NOTE | 2017-07-04 03:35 | PDOC H&P ---
History of Present Illness Admission Date/PCP: 07/03/17 19:46 KEE SILVERMAN MD History of Present Illness: DALIA FISHER is a 61 year old female with a past medical history of diabetes mellitus type 2 with retinopathy, GERD, neuropathy, PVD, CHF, hypertension, vascular dementia, hyperlipidemia, CVA who presents with increased confusion over the last several days. When I see patient in the emergency department, she is awake alert and oriented 3 and unaccompanied. She is unsure however why she is there. Apparently according to ER notes family brought patient in and reported that she had decreased appetite and was not eating or drinking. They report that she has been picking up the sores on her feet. She has apparently been fired by her normal primary care physician. Patient was found to be mildly dehydrated with acute on chronic renal failure and to have possible osteomyelitis of the right fifth phalanx. She is referred to hospital service for admission for these problems. Past Medical History Cardiac Medical History: Reports: Congestive Heart Failure, Hyperlipidema, Hypertension Denies: Coronary Artery Disease, Myocardial Infarction, Heart Murmur Pulmonary Medical History: Denies: Asthma, Bronchitis, Chronic Obstructive Pulmonary Disease (COPD), Pneumonia Neurological Medical History: Reports: Ischemic CVA Denies: Seizures Endocrine Medical History: Reports: Diabetes Mellitus Type 2 GI Medical History: Reports: Gastroesophageal Reflux Disease Denies: Hepatitis, Hiatal Hernia Musculoskeltal Medical History: Reports: Arthritis Psychiatric Medical History: Reports: Dementia, Depression Hematology: Reports: Anemia Denies: Sickle Cell Disease Past Surgical History Past Surgical History: Reports: Tonsillectomy, Other - Abdominal wall surgery for infection Denies: Amputation, Hysterectomy, Mastectomy, Pacemaker Social History Lives with: Family Smoking Status: Never Smoker Frequency of Alcohol Use: None Hx Recreational Drug Use: No Drugs: None Hx Prescription Drug Abuse: No - Advance Directive Resuscitation Status: Full Code Surrogate healthcare decision maker:: Doug Fisher, son Family History Family History: Other - Alzheimer's Parental Family History Reviewed: Yes Children Family History Reviewed: Yes Sibling(s) Family History Reviewed.: Yes Medication/Allergy Home Medications: Furosemide [Lasix] 20 mg PO DAILY 09/27/16 Gabapentin [Neurontin 100 mg Capsule] 100 mg PO Q12 09/27/16 Hydralazine HCl [Apresoline 50 mg Tablet] 50 mg PO Q8 09/27/16 Isosorbide Mononitrate [Imdur 30 mg Tablet.er] 30 mg PO DAILY 09/27/16 Trazodone HCl [Desyrel 50 mg Tablet] 50 mg PO QHS 09/27/16 Venlafaxine HCl ER [Effexor Xr 75 mg Cap.sr] 75 mg PO BID 09/27/16 Metoprolol Tartrate [Lopressor 50 mg Tablet] 50 mg PO BID #60 04/27/17 Clonidine HCl 0.3 mg PO TID 07/03/17 Allergies/Adverse Reactions: morphine Allergy (Verified 07/03/17 14:39) Review of Systems ROS unobtainable: Due to mental status Physical Exam Vital Signs: Temp Pulse Resp BP Pulse Ox 97.5 F 66 21 H 149/69 H 94 07/03/17 14:49 07/03/17 16:30 07/03/17 18:02 07/03/17 18:02 07/03/17 18:02 General appearance: PRESENT: no acute distress, obese, well-developed, well- nourished Head exam: PRESENT: atraumatic, normocephalic Eye exam: PRESENT: conjunctiva pink, EOMI, PERRLA. ABSENT: scleral icterus Ear exam: PRESENT: normal external ear exam Mouth exam: PRESENT: dry mucosa, tongue midline Neck exam: ABSENT: JVD, lymphadenopathy, thyromegaly, tracheal deviation Respiratory exam: PRESENT: clear to auscultation ita. ABSENT: rales, rhonchi, wheezes Cardiovascular exam: PRESENT: RRR, +S1, +S2, systolic murmur. ABSENT: diastolic murmur, rubs Pulses: PRESENT: normal radial pulses Vascular exam: PRESENT: normal capillary refill GI/Abdominal exam: PRESENT: normal bowel sounds, soft. ABSENT: distended, firm , guarding, mass, organolmegaly, rebound, rigid, tenderness Rectal exam: PRESENT: deferred Extremities exam: ABSENT: calf tenderness, clubbing Musculoskeletal exam: PRESENT: deformity - Charcot foot Neurological exam: PRESENT: alert, awake, oriented to person, oriented to place , oriented to time, CN II-XII grossly intact. ABSENT: oriented to situation, motor sensory deficit Psychiatric exam: PRESENT: flat affect, unusual affect. ABSENT: homicidal ideation, suicidal ideation Skin exam: PRESENT: dry, warm. ABSENT: cyanosis, intact - Large dry area of skin breakdown on the right first great toe and right second toe, initial ulcer forming on left great toe,, rash Results Laboratory Results: 07/03/17 07/03/17 07/03/17 15:50 15:55 15:55 WBC 9.9 Hgb 11.2 L Hct 33.9 L Plt Count 241 Sodium 140.5 Potassium 4.2 Chloride 105 Carbon Dioxide 25 Anion Gap 11 BUN 42 H Creatinine 2.75 H Glucose 118 H Calcium 9.1 Phosphorus 4.0 Magnesium 2.0 Total Bilirubin 0.4 Direct Bilirubin 0.2 AST 19 ALT 21 Alkaline Phosphatase 116 Ammonia Troponin I Total Protein 6.5 Albumin 3.4 L Vitamin B12 TSH Urine Protein >=500 H Urine Glucose (UA) >=500 H Urine Blood SMALL H RPR 07/03/17 07/03/17 07/03/17 15:55 20:00 20:00 WBC Hgb Hct Plt Count Sodium Potassium Chloride Carbon Dioxide Anion Gap BUN Creatinine Glucose Calcium Phosphorus Magnesium Total Bilirubin Direct Bilirubin AST ALT Alkaline Phosphatase Ammonia < 8.7 L Troponin I 0.048 Total Protein Albumin Vitamin B12 TSH 1.36 Urine Protein Urine Glucose (UA) Urine Blood RPR 07/03/17 07/03/17 20:00 20:00 WBC Hgb Hct Plt Count Sodium Potassium Chloride Carbon Dioxide Anion Gap BUN Creatinine Glucose Calcium Phosphorus Magnesium Total Bilirubin Direct Bilirubin AST ALT Alkaline Phosphatase Ammonia Troponin I Total Protein Albumin Vitamin B12 344.0 TSH Urine Protein Urine Glucose (UA) Urine Blood RPR Pending Impressions: Chest X-Ray 07/03/17 15:39 IMPRESSION: NO SIGNIFICANT RADIOGRAPHIC FINDING IN THE CHEST. Head CT 07/03/17 15:39 IMPRESSION: No acute findings. EVIDENCE OF ACUTE STROKE: NO. Foot X-Ray 07/03/17 17:33 IMPRESSION: DIFFUSE SOFT TISSUE SWELLING. FOCAL RADIOLUCENCY AT THE BASE OF THE PROXIMAL PHALANX OF THE RIGHT 5TH TOE, DIFFICULT TO FULLY EVALUATE. THIS COULD REPRESENT AN AREA OF OSTEOMYELITIS. IF THERE IS CLINICAL CONCERN, MRI OF THE FEET MAY BE NECESSARY. Assessment & Plan - Diagnosis (1) Confused Is this a current diagnosis for this admission?: Yes Plan: This is likely secondary to her underlying vascular dementia and infection complicated by her mild dehydration (2) Dehydration Is this a current diagnosis for this admission?: Yes Plan: Place patient on gentle rehydration (3) Osteomyelitis Qualifiers: Osteomyelitis type: subacute Osteomyelitis location: foot Laterality: right Qualified Code(s): M86.271 - Subacute osteomyelitis, right ankle and foot Is this a current diagnosis for this admission?: Yes Plan: Obtain MRI and surgical consult. At this time due to patient's stable nature will defer IV antibiotics until cultures are collected. (4) AVIVA (acute kidney injury) Is this a current diagnosis for this admission?: Yes Plan: Gentle rehydration 09/29/16 09/30/16 10/01/16 06:48 06:14 06:20 Creatinine 1.40 H 1.35 H 1.27 H 11/18/16 02/12/17 04/14/17 06:27 13:25 17:03 Creatinine 1.31 H 1.84 H 1.92 H 04/22/17 04/23/17 04/24/17 19:58 04:15 04:41 Creatinine 1.64 H 1.94 H 2.95 H 04/25/17 04/27/17 05/01/17 05:24 05:12 10:41 Creatinine 2.30 H 2.09 H 1.82 H 05/11/17 04:30 Creatinine 1.56 H (5) Anemia in chronic kidney disease Qualifiers: Chronic kidney disease stage: stage 3 (moderate) Qualified Code(s): N18.3 - Chronic kidney disease, stage 3 (moderate); D63.1 - Anemia in chronic kidney disease; D63.1 - Anemia in chronic kidney disease Is this a current diagnosis for this admission?: Yes (6) CKD (chronic kidney disease) stage 3, GFR 30-59 ml/min Is this a current diagnosis for this admission?: Yes (7) Dementia Qualifiers: Dementia type: vascular dementia Dementia behavioral disturbance: without behavioral disturbance Qualified Code(s): F01.50 - Vascular dementia without behavioral disturbance Is this a current diagnosis for this admission?: Yes Plan: Consider Risperdal if needed. Supportive care. Consider SNIF or assisted living and will consult this charge planning (8) HTN (hypertension) Qualifiers: Hypertension type: essential hypertension Qualified Code(s): I10 - Essential (primary) hypertension Is this a current diagnosis for this admission?: Yes (9) Peripheral vascular disease Is this a current diagnosis for this admission?: Yes (10) Diabetes mellitus type 2 with retinopathy Qualifiers: Diabetic retinopathy severity: with unspecified retinopathy severity Is this a current diagnosis for this admission?: Yes Plan: Continue patient on Lantus and sliding scale insulin (11) HLD (hyperlipidemia) Qualifiers: Hyperlipidemia type: pure hypercholesterolemia Qualified Code(s): E78.00 - Pure hypercholesterolemia, unspecified Is this a current diagnosis for this admission?: Yes - Time Time Spent: 30 to 50 Minutes Medications reviewed and adjusted accordingly: Yes Anticipated discharge: SNF
[2017-07-04 07:19] LABS: ABSOLUTE LYMPHOCYTES (AUTO) 1.6 10^3/uL (0.5-4.7); ABSOLUTE MONOCYTES (AUTO) 0.3 10^3/uL (0.1-1.4); ABSOLUTE NEUT (AUTO) 3.4 10^3/uL (1.7-8.2); BASOPHILS % (AUTO) 0.7 % (0-2); HEMATOCRIT 30.4 % (36.0-47.0); HEMOGLOBIN 10.1 g/dL (12.0-15.5); LYMPHOCYTES % (AUTO) 30.2 % (13-45); MEAN CORPUSCULAR HEMOGLOBIN 27.7 pg (27.0-33.4); MEAN CORPUSCULAR HGB CONC 33.1 g/dL (32.0-36.0); MEAN CORPUSCULAR VOLUME 84 fl (80-97); MONOCYTES % (AUTO) 5.9 % (3-13); PLATELET COUNT 157 10^3/uL (150-450); RED BLOOD COUNT 3.64 10^6/uL (3.72-5.28); RED CELL DISTRIBUTION WIDTH 16.6 % (11.5-14.0); SEGMENTED NEUTROPHILS % (AUTO) 63.2 % (42-78); TOTAL CELLS COUNTED % (AUTO) 100 %; WHITE BLOOD COUNT 5.4 10^3/uL (4.0-10.5)
[2017-07-04 07:36] LABS: ANION GAP 9 (5-19); BLOOD UREA NITROGEN 37 mg/dL (7-20); CALCIUM 8.7 mg/dL (8.4-10.2); CARBON DIOXIDE 22 mmol/L (22-30); CHLORIDE 109 mmol/L (98-107); GLUCOSE 182 mg/dL (75-110); MAGNESIUM 1.9 mg/dL (1.6-2.3); POTASSIUM 3.7 mmol/L (3.6-5.0); SODIUM 139.8 mmol/L (137-145)
[2017-07-04] MEDS ORDERED: (PENDING PHARMACY ID) (Clonidine Hcl [Clonidine Hcl] 0.3 MG) PO SCH (10:00)
[2017-07-04] MEDS ORDERED: DEXTROSE 50%-WATER 25 GM/50 ML DISP.SYRIN IV PRN ×2 (10:55)
[2017-07-04] MEDS ORDERED: GLUCAGON,HUMAN RECOMB 1 MG INJ IM PRN (10:55)
[2017-07-04] MEDS ORDERED: DEXTROSE 40% GEL 15 GM TUBE PO PRN ×2 (10:55)
[2017-07-04] MEDS: CYANOCOBALAMIN (VITAMIN B-12) 1,000 MCG TABLET PO SCH (11:21)
[2017-07-04] MEDS: VENLAFAXINE HCL 75 MG CAP.SR.24H PO SCH ×2 (11:22→22:42)
[2017-07-04] MEDS: DOCUSATE SODIUM 100 MG CAPSULE PO SCH ×2 (11:23→17:13)
[2017-07-04] MEDS: METOPROLOL TARTRATE 50 MG TABLET PO SCH ×2 (11:23→22:42)
--- NOTE | 2017-07-04 11:53 | PROGRESS NOTE E ---
Progress Note NAME: DALIA QUEVEDO : 1955 AGE: 61Y DATE: 07/04/2017 ROOM: 408 SUBJECTIVE: The patient is currently lying in bed. She states she feels better than when she came in. There has been no reported episodes of vomiting nor diarrhea. The patient participated in therapy but was only able to sit on the side of the bed. The patient has been afebrile. Her blood pressures have been in a decent range, and the patient does not voice any other concerns at this time. REVIEW OF SYSTEMS: Rest of the review of systems negative. MEDICATIONS: Have been reviewed. OBJECTIVE: GENERAL: The patient is a 61-year-old female who is awake, alert, and oriented to person, place, time, and situation. She is verbal, conversational, and does not appear to be in any acute distress. DIAGNOSTICS: Hematology obtained on 07/04/2017: WBCs are 5.4, hemoglobin is 10.1, hematocrit is 30.4, platelet count is 157,000. Chemistry obtained on 07/04/2017: Sodium is 139, potassium 3.7, chloride is 109, carbon dioxide 22, BUN 37, creatinine is 2.24, glucose 182, A1c is 9.7, calcium is 8.7, magnesium is 1.9, troponin is 0.044. IMPRESSION AND PLAN: 1. HIGH SUSPICION FOR OSTEOMYELITIS. Currently awaiting MRI as well as surgical consult. Will defer IV antibiotics for now until cultures are collected. 2. ACUTE KIDNEY INJURY. Will continue to hold the patient's home medications. The patient's creatinine improved overnight. Will discontinue fluids after this bag is completed. 3. ACUTE ENCEPHALOPATHY MOST LIKELY SECONDARY TO POSSIBLE UNDERLYING INFECTIOUS PROCESS. Will follow. 4. VASCULAR DEMENTIA. The patient is a little more confused than baseline. 5. ANEMIA OF CHRONIC DISEASE. Hemoglobin is at baseline. 6. CHRONIC KIDNEY DISEASE STAGE III. It appears the patient's baseline creatinine is in the 1.9 range. 7. HYPERTENSION. Blood pressure is in acceptable range. Continue home medications. 8. PERIPHERAL VASCULAR DISEASE. 9. DIABETES MELLITUS TYPE 2 WITH RETINOPATHY. Will continue the patient's home medications as well as sliding scale coverage. 10. HYPERLIPIDEMIA. Will continue statin. DISPOSITION: The patient is a FULL CODE. Pending patient's symptomatology and diagnostic findings, will reevaluate in the a.m. Time spent on this followup including assessment, plan, physical examination, patient education, review of records, and specialty collaboration is 25 minutes. DICTATING PHYSICIAN: АННА GUTIERREZ NP [id number] PHY#: [id number] ID: [id number] JOB#: [id number] ACCT: [id number] cc: >
[2017-07-04] MEDS ORDERED: NYSTATIN TOPICAL POWDER 15 GM TP ONE (13:00)
--- NOTE | 2017-07-04 15:11 | PDOC CONSULTATION ---
Consultation Consult Date: 07/04/17 Attending physician:: MARY MEJIA Consult reason:: Right great toe problem History of Present Illness Admission Date/PCP: 07/03/17 19:46 KEE SILVERMAN MD History of Present Illness: DALIA QUEVEDO is a 61 year old female with a past medical history of diabetes mellitus type 2 with retinopathy, GERD, neuropathy, PVD, CHF, hypertension, vascular dementia, hyperlipidemia, CVA who presents with increased confusion over the last several days. When I see patient in the emergency department, she is awake alert and oriented 3 and unaccompanied. She is unsure however why she is there. Apparently according to ER notes family brought patient in and reported that she had decreased appetite and was not eating or drinking. They report that she has been picking up the sores on her feet. She has apparently been fired by her normal primary care physician. Patient was found to be mildly dehydrated with acute on chronic renal failure and to have possible osteomyelitis of the right fifth phalanx. She is referred to hospital service for admission for these problems. She also has a proclivity for toe she states. The toes had some bleeding problems. She denies history of trauma. Her history provision today is poor. He does have history of abdominal wall infections managed by the wound clinic. Past Medical History Cardiac Medical History: Reports: Congestive Heart Failure, Hyperlipidema, Hypertension Denies: Coronary Artery Disease, Myocardial Infarction, Heart Murmur Pulmonary Medical History: Denies: Asthma, Bronchitis, Chronic Obstructive Pulmonary Disease (COPD), Pneumonia Neurological Medical History: Reports: Ischemic CVA Denies: Seizures Endocrine Medical History: Reports: Diabetes Mellitus Type 2 GI Medical History: Reports: Gastroesophageal Reflux Disease Denies: Hepatitis, Hiatal Hernia Musculoskeltal Medical History: Reports: Arthritis Psychiatric Medical History: Reports: Dementia, Depression Hematology: Reports: Anemia Denies: Sickle Cell Disease Past Surgical History Past Surgical History: Reports: Tonsillectomy, Other - Abdominal wall surgery for infection Denies: Amputation, Hysterectomy, Mastectomy, Pacemaker Social History Lives with: Family Smoking Status: Never Smoker Frequency of Alcohol Use: None Hx Recreational Drug Use: No Drugs: None Hx Prescription Drug Abuse: No - Advance Directive Resuscitation Status: Full Code Family History Family History: Other - Alzheimer's Parental Family History Reviewed: Yes Children Family History Reviewed: Yes Sibling(s) Family History Reviewed.: Yes Medication/Allergy Home Medications: Furosemide [Lasix] 20 mg PO DAILY 09/27/16 Gabapentin [Neurontin 100 mg Capsule] 100 mg PO Q12 09/27/16 Hydralazine HCl [Apresoline 50 mg Tablet] 50 mg PO Q8 09/27/16 Isosorbide Mononitrate [Imdur 30 mg Tablet.er] 30 mg PO DAILY 09/27/16 Trazodone HCl [Desyrel 50 mg Tablet] 50 mg PO QHS 09/27/16 Venlafaxine HCl ER [Effexor Xr 75 mg Cap.sr] 75 mg PO BID 09/27/16 Metoprolol Tartrate [Lopressor 50 mg Tablet] 50 mg PO BID #60 04/27/17 Clonidine HCl 0.3 mg PO TID 07/03/17 Allergies/Adverse Reactions: morphine Allergy (Verified 07/03/17 14:39) Review of Systems Constitutional: ABSENT: chills, fever(s), headache(s), weight gain, weight loss Ears: ABSENT: hearing changes Cardiovascular: ABSENT: chest pain, dyspnea on exertion, edema, orthropnea, palpitations Respiratory: ABSENT: cough, hemoptysis Physical Exam Vital Signs: Temp Pulse Resp BP Pulse Ox 97.3 F 63 18 101/51 L 100 07/04/17 07:00 07/04/17 07:00 07/04/17 07:00 07/04/17 07:00 07/04/17 07:00 Intake & Output 07/03/17 07/04/17 07/05/17 06:59 06:59 06:59 Intake Total 150 0 Output Total 0 Balance 150 0 Weight 101 kg General appearance: PRESENT: no acute distress GI/Abdominal exam: PRESENT: other - Soft nontender scars consistent with previous surgery, all healed Musculoskeletal exam: PRESENT: other - Lower extremity edema bilaterally. Mild lichenified skin in areas. Feet are warm; due to edema unable to palpate pulses. There are no active open ulcers, or foul smell. Toe is swollen, but not cyanotic and no evidence of cellulitis. There may have been some bleeding from peeling skin clinical onychia Results Laboratory Results: 07/04/17 06:40 07/04/17 06:40 07/03/17 07/03/17 07/04/17 20:00 20:00 06:40 WBC 5.4 RBC 3.64 L Hgb 10.1 L Hct 30.4 L MCV 84 MCH 27.7 MCHC 33.1 RDW 16.6 H Plt Count 157 Seg Neutrophils % 63.2 Lymphocytes % 30.2 Monocytes % 5.9 Eosinophils % 0.0 Basophils % 0.7 Absolute Neutrophils 3.4 Absolute Lymphocytes 1.6 Absolute Monocytes 0.3 Absolute Eosinophils 0.0 Absolute Basophils 0.0 Sodium Potassium Chloride Carbon Dioxide Anion Gap BUN Creatinine Est GFR ( Amer) Est GFR (Non-Af Amer) Glucose Calcium Magnesium Vitamin B12 344.0 TSH 1.36 07/04/17 06:40 WBC RBC Hgb Hct MCV MCH MCHC RDW Plt Count Seg Neutrophils % Lymphocytes % Monocytes % Eosinophils % Basophils % Absolute Neutrophils Absolute Lymphocytes Absolute Monocytes Absolute Eosinophils Absolute Basophils Sodium 139.8 Potassium 3.7 Chloride 109 H Carbon Dioxide 22 Anion Gap 9 BUN 37 H Creatinine 2.24 H Est GFR ( Amer) 27 L Est GFR (Non-Af Amer) 22 L Glucose 182 H Calcium 8.7 Magnesium 1.9 Vitamin B12 TSH 07/03/17 07/04/17 07/04/17 20:00 01:43 06:40 Troponin I 0.048 0.043 0.044 Impressions: KUB X-Ray 07/03/17 00:00 IMPRESSION: Possible right nephrolithiasis. No evidence for constipation. Chest X-Ray 07/03/17 15:39 IMPRESSION: NO SIGNIFICANT RADIOGRAPHIC FINDING IN THE CHEST. Head CT 07/03/17 15:39 IMPRESSION: No acute findings. EVIDENCE OF ACUTE STROKE: NO. Foot X-Ray 07/03/17 17:33 IMPRESSION: DIFFUSE SOFT TISSUE SWELLING. FOCAL RADIOLUCENCY AT THE BASE OF THE PROXIMAL PHALANX OF THE RIGHT 5TH TOE, DIFFICULT TO FULLY EVALUATE. THIS COULD REPRESENT AN AREA OF OSTEOMYELITIS. IF THERE IS CLINICAL CONCERN, MRI OF THE FEET MAY BE NECESSARY. Assessment & Plan - Diagnosis (1) Peripheral vascular disease Is this a current diagnosis for this admission?: Yes (2) Diabetes mellitus type 2 with retinopathy Qualifiers: Diabetic retinopathy severity: with unspecified retinopathy severity Is this a current diagnosis for this admission?: Yes (3) Abrasion of great toe, right, infected Qualifiers: Encounter type: initial encounter Qualified Code(s): S90.411A - Abrasion, right great toe, initial encounter; L08.9 - Local infection of the skin and subcutaneous tissue, unspecified; L08.9 - Local infection of the skin and subcutaneous tissue, unspecified Is this a current diagnosis for this admission?: Yes Plan: Unclear as to the history, and management of this right great toe problem. On examination the toe is not threatened, there is no evidence of cellulitis of the foot or forefoot. Recommendations: 1. Await results of MRI scan of the right foot subsequent opinion upon reviewing results. 2. Pressure offloading, specialty shoe wear recommended - Time Time Spent: 30 to 50 Minutes Smoking Cessation Education: 3 to 10 minutes
[2017-07-04 15:20] LABS: APPEARANCE,URINE CLEAR; BILIRUBIN,URINE NEGATIVE (NEGATIVE); COLOR,URINE YELLOW; GLUCOSE, URINE >=500 mg/dL (NEGATIVE); KETONES,URINE NEGATIVE (NEGATIVE); LEUKOCYTE ESTERASE,URINE NEGATIVE (NEGATIVE); NITRITE,URINE NEGATIVE (NEGATIVE); PROTEIN,URINE >=500 mg/dL (NEGATIVE); URINE SPECIFIC GRAVITY 1.008; UROBILINOGEN,URINE NEGATIVE mg/dL (<2.0)
[2017-07-04 15:37] LABS: URINE AMPHETAMINES SCREEN NEGATIVE; URINE BARBITURATES SCREEN NEGATIVE; URINE BENZODIAZEPINES SCREEN NEGATIVE; URINE COCAINE SCREEN NEGATIVE; URINE MARIJUANA (THC) SCREEN NEGATIVE; URINE METHADONE SCREEN NEGATIVE; URINE PHENCYCLIDINE SCREEN NEGATIVE
[2017-07-04] MEDS: INSULIN LISPRO 100 UNIT/ML 3 ML VIAL SUBCUT PRN ×2 (17:00→22:44)
[2017-07-04] MEDS: NYSTATIN TOPICAL POWDER 15 GM TP SCH (17:13)
--- NOTE | 2017-07-04 18:34 | RADIOLOGY REPORT (SQ) ---
EXAM DESCRIPTION: MRI BILAT LOWER EXTREMITY W/O COMPLETED DATE/TIME: 07/04/2017 2:41 pm REASON FOR STUDY: osteo, diabetic neuropathy, x-ray findings COMPARISON: X-ray dated 07/03/2017. TECHNIQUE: Multiplanar imaging of the right and left to include fat and fluid sensitive sequences. LIMITATIONS: None. FINDINGS: BONE MARROW: No marrow signal alteration. Specifically no marrow replacement or marrow ed mamta. No evidence for osteomyelitis. No cortical break through. SOFT TISSUES: General soft tissue swelling in both right and left foot. No focal fluid collection. OTHER: No other significant finding. IMPRESSION: GENERAL SOFT TISSUE SWELLING IN BOTH RIGHT AND LEFT FOOT. NO EVIDENCE OF FOCAL ABSCESS. NO EVIDENCE FOR OSTEOMYELITIS. TECHNICAL DOCUMENTATION: JOB ID: [id number] [employer]- All Rights Reserved
[2017-07-05 05:27] LABS: HEMATOCRIT 29.1 % (36.0-47.0); HEMOGLOBIN 9.8 g/dL (12.0-15.5); MEAN CORPUSCULAR HGB CONC 33.6 g/dL (32.0-36.0); MEAN CORPUSCULAR VOLUME 83 fl (80-97); PLATELET COUNT 130 10^3/uL (150-450); RED BLOOD COUNT 3.49 10^6/uL (3.72-5.28); RED CELL DISTRIBUTION WIDTH 16.2 % (11.5-14.0); WHITE BLOOD COUNT 4.6 10^3/uL (4.0-10.5)
[2017-07-05 06:16] LABS: ANION GAP 8 (5-19); BLOOD UREA NITROGEN 34 mg/dL (7-20); CALCIUM 8.7 mg/dL (8.4-10.2); CARBON DIOXIDE 23 mmol/L (22-30); CHLORIDE 110 mmol/L (98-107); GLUCOSE 231 mg/dL (75-110); MAGNESIUM 1.9 mg/dL (1.6-2.3); POTASSIUM 3.9 mmol/L (3.6-5.0)
[2017-07-05] MEDS: HYDRALAZINE HCL 50 MG TABLET PO SCH ×2 (06:54→14:32)
[2017-07-05] MEDS: CLONIDINE HCL 0.1 MG TABLET PO SCH ×2 (06:54→14:32)
[2017-07-05] MEDS: HEPARIN SOD (PORCINE) 5,000 UNIT/ML 1 ML SYRINGE SUBCUT SCH ×3 (06:57→21:27)
[2017-07-05] MEDS: INSULIN LISPRO 100 UNIT/ML 3 ML VIAL SUBCUT PRN ×2 (09:24→13:51)
[2017-07-05] MEDS: METOPROLOL TARTRATE 50 MG TABLET PO SCH ×2 (09:24→21:33)
[2017-07-05] MEDS: DOCUSATE SODIUM 100 MG CAPSULE PO SCH ×2 (09:24→17:54)
[2017-07-05] MEDS: ASPIRIN 81 MG TABLET, CHEWABLE PO SCH (09:25)
[2017-07-05] MEDS: CYANOCOBALAMIN (VITAMIN B-12) 1,000 MCG TABLET PO SCH (09:25)
[2017-07-05] MEDS: VENLAFAXINE HCL 75 MG CAP.SR.24H PO SCH (09:25)
[2017-07-05] MEDS: GABAPENTIN 100 MG CAPSULE PO SCH (09:25)
[2017-07-05] MEDS: NYSTATIN TOPICAL POWDER 15 GM TP SCH ×2 (09:25→17:54)
[2017-07-05] MEDS ORDERED: INSULIN GLARGINE,HUM.REC.ANLOG 1,000 UNIT/10 ML UNIT SUBCUT ONE (10:03)
--- NOTE | 2017-07-05 12:33 | RADIOLOGY REPORT (SQ) ---
EXAM DESCRIPTION: MRI HEAD WITHOUT COMPLETED DATE/TIME: 07/05/2017 12:05 pm REASON FOR STUDY: AMS COMPARISON: 04/23/2017 TECHNIQUE: Multiplanar imaging includes non-contrasted T1, T2, FLAIR, and diffusion with ADC map seq uences. Images stored on PACS. LIMITATIONS: None. FINDINGS: ANATOMY: No anomalies. Normal vascular flow voids. Pituitary fossa normal. CSF SPACES: Atrophy induced prominence of ventricles and CSF spaces. CEREBRUM: High signal intensity lesions scattered throughout the white matter on FLAIR imaging with d istribution suggesting micro-vascular ischemic changes. No evidence of hemorrhage, mass, or extraaxi al fluid collection. POSTERIOR FOSSA: Marked abnormal signal on FLAIR imaging in the central [place]. No hemorrhage. No cinthya a, masses or mass effect. Internal auditory canals, cerebello-pontine angles, mastoids normal. DIFFUSION IMAGING: Bilateral small punctate areas of restricted diffusion both hemispheres multiple d istributions ORBITS: No masses. Globes normal. PARANASAL SINUSES: No fluid levels. Mucosa normal. OTHER: No other significant finding. IMPRESSION: Atrophy and microvascular ischemia supra and infratentorial including significant change in the [place]. Multiple bilateral punctate areas of restricted diffusion indicating embolic disease. EVIDENCE OF ACUTE STROKE: Yes embolic. Multiple vascular distributions. TECHNICAL DOCUMENTATION: JOB ID: [id number] [employer]- All Rights Reserved
--- NOTE | 2017-07-05 15:17 | EKG REPORT ---
SEVERITY:- ABNORMAL ECG - SINUS RHYTHM FIRST DEGREE AV BLOCK RIGHT BUNDLE BRANCH BLOCK LEFT VENTRICULAR HYPERTROPHY : Confirmed by: Sriram Amato MD 05-Jul-2017 15:16:24
--- NOTE | 2017-07-05 16:08 | PSYCHOLOGICAL NOTE ---
Psych Note - Psych Note Psych Note: Reason for Consult: Depression Consents given: None Patient is a 61 year old female admitted to the hospital for increased confusion and not eating or drinking. She was referred for consult due to depressive symptoms. Patient initially stated she had "no complaints." She stated she was not having any problems. Patient then expressed sadness regarding the passing of her . She stated he dies in 2014 after being since 1979. She reported they had been for 20 years. Patient recanted and then said she didn't know how long they had been but they had two grown children (aged 25 and 35). Patient reported her from a genetic liver disease and it was unexpected. She stated she expected to grow old with him and not lose him so early. She reported her whole life was centered around him. she stated she loved her children but her had been her "world." She reported having "good and bad days, probably half and half." Patient was unable to expound on what those days looked like and how she grieved on the bad days. She reported getting along well with her son, who she lives with, and stated he takes care of all of her medications. She expressed concern that she was holding him back from his social life and felt like "he needs a life." Patient denied arguing with her son about medications or insulin checks. Per the nurse, the son reported the patient was argumentative about having her blood checked and getting her insulin shots. Per nurse report, the patient did become verbally aggressive with her son when he visited today but has been very pleasant and nice to hospital staff. Patient was able to identify positive aspects of her life, to include her two cats (one is a Ragdoll breed) and enjoyment of 60's and 70's music. Patient was alert and oriented to person, place, time and circumstance. Mood was depressed with congruent affect. Patient denied suicidal/homicidal ideation , intent or plan. She did not appear to be responding to internal stimuli as evidenced by appropriate eye contact, maintaining conversation and staying on topic. Thought processes were organized but somewhat tangential as she would return to speaking about her with any conversation shifts attempted. Conversational speech was within normal limits for rate, tone and prosody. Intellectual abilities were estimated in the average range. Insight, judgment and impulse control were poor as evidenced by perseveration around her 's passing and inability to identify or utilize other outlets for her continued grief. 1. 290.40 (F01.50) Major Vascular Neurocognitive Disorder, Vascular Dementia 2. 309.0 (F43.21) Adjustment Disorder, with depressed mood Impression/Plan: Patient is psychiatrically clear. Patient denied suicidal/ homicidal ideation, intent or plan. Patient is not considered a danger to herself or others. Patient has a support system in place, her son who resides with her. Medication recommendations were made. Effexor 75mg qhs for 5 days, followed by Effexor 37.5mg qhs for 5 days then discontinue Effexor, Depakote 250mg qhs for 5 days then increase to Depakote 250mg BID. Discontinue Trazadone. Consulted with Dr. Damon regarding the care and management of this patient.
--- NOTE | 2017-07-05 19:44 | PROGRESS NOTE E ---
Progress Note NAME: DALIA QUEVEDO : 1955 AGE: 61Y DATE: 07/05/2017 ROOM: 408 SUBJECTIVE: I have seen the patient twice on rounds today. The patient has denied any nausea, vomiting, diarrhea. No shortness of breath, dizziness, chest pain. No fevers, chills. The patient does describe sleepiness. The patient has been afebrile. Her blood pressure has been in a good range and the patient does not voice any specific concerns at this time. I discussed the patient's case with her son who the patient lives with. He describes the patient as being quite noncompliant in spite of all of his efforts. The patient's son is single and is the only caregiver, as the patient's daughter is stationed in [facility]. Apparently, the patient refuses insulin on a regular basis and the patient herself has told me that she does not like taking insulin. The patient admits to significant depression. According to the son, his mother has been declining for about 5 years in her mental state, has been noncompliant with her diabetes since then. He states that the symptoms completely exacerbated about 2 years ago after the of her . However, the patient's son states for the past 2 weeks, the patient has been even more confused than her norm. At no time has the patient complained of any heart palpitations, chest pain or unilateral symptomatology. I did discuss advanced care planning with the patient's son who stated that the patient would want a natural as the patient had voiced this in my conversation with her. However, I did want to confirm this with the son. The patient does wish for a natural and would like to be a DO NOT RESUSCITATE. BRIEF HISTORY: The patient is a 61-year-old female with a past medical history noncompliance with diabetes, hypertension and the patient presented to the Emergency Department due to increasing confusion over the past 2 weeks. The patient has no overt evidence of infection but does have some chronic wounds of her lower extremities and osteo has been ruled out. Given the patient's increasing confusion, did obtain MRI imaging which was suggestive of embolic CVA. The patient, who is in sinus rhythm, is unable to articulate any onset of symptoms. Therefore, given the uncertain timeline of this, have elected to defer anticoagulation for now and have continued aspirin therapy. I have discussed in detail with the patient's son who is in agreement with the plan and is able to verbalize the plan of care. REVIEW OF SYSTEMS: The rest of review of systems was unremarkable. MEDICATIONS: Reviewed. OBJECTIVE: GENERAL: The patient is a 61-year-old female who is awake, alert. She is oriented, to place, is not fully oriented to situation. She does not appear to be distressed. VITAL SIGNS: As follows: Her temperature is 97.2, pulse 54, respirations 18, blood pressure is 162/66, oxygen saturation 99% on room air. SKIN: Warm and dry. No rashes. She is not diaphoretic. HEENT: Pupils equal, round, reactive to light and accommodation. Conjunctiva pink. There is no evidence of JVP. CARDIOVASCULAR SYSTEM: Heart is regular. There is no rub. CHEST: Clear, symmetrical, unlabored. ABDOMEN: Soft, nontender, nondistended. BACK: No CVA tenderness, sacral edema. EXTREMITIES: The patient does have cool lower extremities with significant evidence of peripheral vascular and peripheral artery disease. PSYCHIATRIC: Depressed affect. DIAGNOSTICS: Lab values are as follows: Hematology obtained on 07/05/2017; WBCs are 4.6; hemoglobin is 9.8; hematocrit is 29.1; platelet count is 130,000. Chemistry obtained on 07/05/2017: Sodium is 141, potassium 3.9, chloride is 110, carbon dioxide is 23, BUN 34, creatinine is 1.98, glucose 231, calcium is 8.7, magnesium is 1.9. IMPRESSION AND PLAN: 1. EMBOLIC CEREBROVASCULAR ACCIDENT, UNCERTAIN OF THE EXACT ONSET OF THIS. I will continue aspirin and statin therapy. The patient had clean carotids back in April but we will repeat echo given the nature of this. We will place the patient on a personnel monitor and obtain a STAT EKG. The patient will need outpatient event monitor and follow. 2. VASCULAR DEMENTIA. 3. ACUTE ENCEPHALOPATHY, MOST LIKELY SECONDARY TO THE ABOVE. THE PATIENT DOES NOT APPEAR TO HAVE ANOTHER ETIOLOGY AT THIS TIME. 4. ACUTE KIDNEY INJURY. Did hold the patient's home medication. The patient's creatinine is at baseline. 5. CHRONIC KIDNEY DISEASE, STAGE 3. The patient's creatinine is about baseline. 6. ANEMIA OF CHRONIC DISEASE. The patient's hemoglobin overall is at baseline. 7. HYPERTENSION. The patient's blood pressures have been a little on the low side. Due to her noncompliance, she has been over prescribed. We will discontinue hydralazine and monitor for rebounding. 8. PERIPHERAL VASCULAR DISEASE. The patient has had an extensive workup at the wound care center who has followed the patient's lower wounds. The patient does not appear to have any evidence of osteo or active infection, as she has had no white count, no fevers, no significant drainage, but do appreciate Surgical input. 9. DIABETES MELLITUS TYPE 2 WITH RETINOPATHY. We will continue the patient's home medications. However, the patient was not actually taking her insulin, therefore we will start the patient on basal dose of Lantus and add sliding scale coverage. 10. HYPERLIPIDEMIA. Continue statin. 11. DEPRESSION. We will have the patient evaluated by Psych and also re-evaluate medication. The patient is completely transparent with her depression, especially since the loss of her 2 years ago. CODE STATUS: The patient is a FULL CODE. DISPOSITION: Pending patient's symptomatology and diagnostic findings, will re-evaluate in the a.m. The son does want the patient to go to rehab. We will consult social work. TIME SPENT: Time spent on this followup including assessment, plan, physical examination, patient education, review of records, specialty collaboration, and extensive family discussion is 60 minutes. DICTATING PHYSICIAN: АННА GUTIERREZ [id number] PHY#: [id number] ID: [id number] JOB#: [id number] ACCT: [id number] cc: >
[2017-07-05] MEDS: INSULIN GLARGINE,HUM.REC.ANLOG 1,000 UNIT/10 ML UNIT SUBCUT SCH (21:32)
[2017-07-05] MEDS: ATORVASTATIN CALCIUM 40 MG TABLET PO SCH (21:33)
[2017-07-05] MEDS: BUSPIRONE HCL 10 MG TABLET PO SCH (21:33)
[2017-07-05] MEDS: VENLAFAXINE HCL 75 MG TABLET PO SCH (21:33)
[2017-07-05] MEDS: CLONIDINE HCL 0.2 MG TABLET PO SCH (21:33)
[2017-07-05] MEDS ORDERED: INSULIN GLARGINE,HUM.REC.ANLOG 1,000 UNIT/10 ML UNIT SUBCUT SCH (22:00)
[2017-07-05] MEDS: DIVALPROEX SODIUM 250 MG TAB.SR.24H PO SCH (22:42)
[2017-07-06] MEDS: HEPARIN SOD (PORCINE) 5,000 UNIT/ML 1 ML SYRINGE SUBCUT SCH ×3 (06:25→21:42)
[2017-07-06] MEDS: CLONIDINE HCL 0.2 MG TABLET PO SCH ×3 (06:28→21:43)
[2017-07-06 07:04] LABS: HEMATOCRIT 32.3 % (36.0-47.0); HEMOGLOBIN 10.7 g/dL (12.0-15.5); MEAN CORPUSCULAR HEMOGLOBIN 27.6 pg (27.0-33.4); MEAN CORPUSCULAR HGB CONC 33.2 g/dL (32.0-36.0); MEAN CORPUSCULAR VOLUME 83 fl (80-97); PLATELET COUNT 160 10^3/uL (150-450); RED BLOOD COUNT 3.88 10^6/uL (3.72-5.28); RED CELL DISTRIBUTION WIDTH 16.7 % (11.5-14.0); WHITE BLOOD COUNT 5.3 10^3/uL (4.0-10.5)
[2017-07-06 07:30] LABS: ALANINE AMINOTRANSFERASE 22 U/L (9-52); ALKALINE PHOSPHATASE 127 U/L (38-126); ANION GAP 7 (5-19); ASPARTATE AMINO TRANSFERASE 16 U/L (14-36); BILIRUBIN,DIRECT 0.2 mg/dL (0.0-0.4); BILIRUBIN,TOTAL 0.3 mg/dL (0.2-1.3); BLOOD UREA NITROGEN 35 mg/dL (7-20); CALCIUM 8.9 mg/dL (8.4-10.2); CARBON DIOXIDE 21 mmol/L (22-30); CHLORIDE 111 mmol/L (98-107); GLUCOSE 248 mg/dL (75-110); MAGNESIUM 1.9 mg/dL (1.6-2.3); POTASSIUM 4.2 mmol/L (3.6-5.0); SODIUM 139.2 mmol/L (137-145); TOTAL PROTEIN 5.9 g/dL (6.3-8.2)
[2017-07-06] MEDS: INSULIN LISPRO 100 UNIT/ML 3 ML VIAL SUBCUT PRN ×4 (08:18→21:41)
[2017-07-06] MEDS: FUROSEMIDE 20 MG TABLET PO SCH (09:08)
[2017-07-06] MEDS: DOCUSATE SODIUM 100 MG CAPSULE PO SCH ×2 (09:08→16:39)
[2017-07-06] MEDS: BUSPIRONE HCL 10 MG TABLET PO SCH ×2 (09:09→21:42)
[2017-07-06] MEDS: CYANOCOBALAMIN (VITAMIN B-12) 1,000 MCG TABLET PO SCH (09:09)
[2017-07-06] MEDS: METOPROLOL TARTRATE 50 MG TABLET PO SCH ×2 (09:09→21:42)
[2017-07-06] MEDS: NYSTATIN TOPICAL POWDER 15 GM TP SCH ×2 (09:09→16:40)
[2017-07-06] MEDS: ASPIRIN 81 MG TABLET, CHEWABLE PO SCH (09:09)
--- NOTE | 2017-07-06 14:01 | PDOC PROGRESS REPORT ---
Subjective Progress Note for:: 07/06/17 Subjective:: Patient is doing well. Needs to have a PT evaluation done. Also needs to have an echo done due to multiple areas of embolic infarct on MRI. Currently she is resting comfortably. She has some baseline dementia and will repeat herself and ask the same questions multiple times. She currently lives at home with her son. she denies any nasuea, vomiting, diraahea, chest pain, shortness of breath or headache. She has not been out of the bed much to ambulate Reason For Visit: OSTEOMYELITIS,DEMENTIA, ARF Physical Exam Vital Signs: Temp Pulse Resp BP Pulse Ox 97.9 F 58 L 18 184/67 H 98 07/06/17 07:44 07/06/17 07:44 07/06/17 07:44 07/06/17 07:44 07/06/17 07:44 Intake & Output 07/05/17 07/06/17 07/07/17 06:59 06:59 06:59 Intake Total 630 1181 0 Output Total 900 300 Balance -270 881 0 Weight 103.9 kg 103.2 kg General appearance: PRESENT: no acute distress, cooperative Head exam: PRESENT: normocephalic Eye exam: ABSENT: nystagmus Teeth exam: ABSENT: dental caries Throat exam: ABSENT: tonsillogmegaly Neck exam: PRESENT: full ROM. ABSENT: carotid bruit, JVD, lymphadenopathy, tenderness, thyromegaly Respiratory exam: PRESENT: clear to auscultation ita. ABSENT: accessory muscle use, chest wall tenderness Cardiovascular exam: PRESENT: RRR. ABSENT: gallop, rubs Pulses: PRESENT: normal carotid pulses Extremities exam: ABSENT: calf tenderness Neurological exam: PRESENT: alert, oriented to person, oriented to place, CN II- XII grossly intact, aphasic. ABSENT: oriented to time Psychiatric exam: ABSENT: agitated, anxious Results Laboratory Results: 07/06/17 06:18 07/06/17 06:18 07/06/17 07/06/17 06:18 06:18 WBC 5.3 RBC 3.88 Hgb 10.7 L Hct 32.3 L MCV 83 MCH 27.6 MCHC 33.2 RDW 16.7 H Plt Count 160 Sodium 139.2 Potassium 4.2 Chloride 111 H Carbon Dioxide 21 L Anion Gap 7 BUN 35 H Creatinine 1.93 H Est GFR ( Amer) 32 L Est GFR (Non-Af Amer) 26 L Glucose 248 H Calcium 8.9 Magnesium 1.9 Total Bilirubin 0.3 AST 16 ALT 22 Alkaline Phosphatase 127 H Total Protein 5.9 L Albumin 3.0 L 07/04/17 14:55 Clean Catch Midstream Urine Culture - Final Mixed Urogenital Flory 07/03/17 07/04/17 07/04/17 20:00 01:43 06:40 Troponin I 0.048 0.043 0.044 Impressions: KUB X-Ray 07/03/17 00:00 IMPRESSION: Possible right nephrolithiasis. No evidence for constipation. Chest X-Ray 07/03/17 15:39 IMPRESSION: NO SIGNIFICANT RADIOGRAPHIC FINDING IN THE CHEST. Head CT 07/03/17 15:39 IMPRESSION: No acute findings. EVIDENCE OF ACUTE STROKE: NO. Foot X-Ray 07/03/17 17:33 IMPRESSION: DIFFUSE SOFT TISSUE SWELLING. FOCAL RADIOLUCENCY AT THE BASE OF THE PROXIMAL PHALANX OF THE RIGHT 5TH TOE, DIFFICULT TO FULLY EVALUATE. THIS COULD REPRESENT AN AREA OF OSTEOMYELITIS. IF THERE IS CLINICAL CONCERN, MRI OF THE FEET MAY BE NECESSARY. Lower Extremity MRI 07/04/17 00:00 IMPRESSION: GENERAL SOFT TISSUE SWELLING IN BOTH RIGHT AND LEFT FOOT. NO EVIDENCE OF FOCAL ABSCESS. NO EVIDENCE FOR OSTEOMYELITIS. Head MRI 07/05/17 00:00 IMPRESSION: Atrophy and microvascular ischemia supra and infratentorial including significant change in the [place]. Multiple bilateral punctate areas of restricted diffusion indicating embolic disease. EVIDENCE OF ACUTE STROKE: Yes embolic. Multiple vascular distributions. Assessment & Plan - Diagnosis (1) Cerebrovascular accident (CVA) Qualifiers: CVA mechanism: embolism Laterality of affected vessel: bilateral Is this a current diagnosis for this admission?: Yes Plan: on aspirin and statin, needs an echocardiogram (2) CKD (chronic kidney disease) stage 3, GFR 30-59 ml/min Is this a current diagnosis for this admission?: Yes Plan: just monitor, she is at baseline (3) Dementia Qualifiers: Dementia type: vascular dementia Dementia behavioral disturbance: without behavioral disturbance Qualified Code(s): F01.50 - Vascular dementia without behavioral disturbance Is this a current diagnosis for this admission?: Yes Plan: appears to be at her baseline functioning (4) HTN (hypertension) Qualifiers: Hypertension type: essential hypertension Qualified Code(s): I10 - Essential (primary) hypertension Is this a current diagnosis for this admission?: Yes Plan: stable, will need close follow-up after discharge (5) Diabetes mellitus type 2 with retinopathy Qualifiers: Diabetic retinopathy severity: with unspecified retinopathy severity Is this a current diagnosis for this admission?: Yes Plan: continue to monitor glucose and current medications, lantus and SSI (6) HLD (hyperlipidemia) Qualifiers: Hyperlipidemia type: pure hypercholesterolemia Qualified Code(s): E78.00 - Pure hypercholesterolemia, unspecified Is this a current diagnosis for this admission?: Yes Plan: on statin therapy - Time Time Spent with patient: 25-34 minutes Medications reviewed and adjusted accordingly: Yes Anticipated discharge: Acute Rehab Within: within 24 hours
[2017-07-06] MEDS: INSULIN GLARGINE,HUM.REC.ANLOG 1,000 UNIT/10 ML UNIT SUBCUT SCH (21:41)
[2017-07-06] MEDS: VENLAFAXINE HCL 75 MG TABLET PO SCH (21:42)
[2017-07-06] MEDS: ATORVASTATIN CALCIUM 40 MG TABLET PO SCH (21:42)
[2017-07-06] MEDS: DIVALPROEX SODIUM 250 MG TAB.SR.24H PO SCH (21:43)
[2017-07-07] MEDS: HEPARIN SOD (PORCINE) 5,000 UNIT/ML 1 ML SYRINGE SUBCUT SCH ×3 (05:14→22:31)
[2017-07-07] MEDS: CLONIDINE HCL 0.2 MG TABLET PO SCH ×3 (05:14→22:31)
[2017-07-07] MEDS: INSULIN LISPRO 100 UNIT/ML 3 ML VIAL SUBCUT PRN ×3 (08:25→18:58)
[2017-07-07] MEDS: BUSPIRONE HCL 10 MG TABLET PO SCH ×2 (10:47→22:31)
[2017-07-07] MEDS: DOCUSATE SODIUM 100 MG CAPSULE PO SCH ×2 (10:47→18:57)
[2017-07-07] MEDS: FUROSEMIDE 20 MG TABLET PO SCH (10:48)
[2017-07-07] MEDS: CYANOCOBALAMIN (VITAMIN B-12) 1,000 MCG TABLET PO SCH (10:49)
[2017-07-07] MEDS: NYSTATIN TOPICAL POWDER 15 GM TP SCH ×2 (10:49→18:58)
[2017-07-07] MEDS: METOPROLOL TARTRATE 50 MG TABLET PO SCH ×2 (10:49→22:25)
[2017-07-07] MEDS: ASPIRIN 81 MG TABLET, CHEWABLE PO SCH (10:49)
--- NOTE | 2017-07-07 16:35 | PDOC PROGRESS REPORT ---
<MELISSA RAMEY - Last Filed: 07/07/17 16:10> Subjective Progress Note for:: 07/07/17 Subjective:: The patient is seen on morning rounds. She is found sitting upright in the recliner on room air. She is alert and oriented to self, location, time but not situation. She is forgetful and repeatedly asks who I am and why I have come to see her. She states that she originally was admitted for DKA and then spends much time discussing how her medications have been mismanaged by her outpatient healthcare team; she is unable to provide specific examples or clarify her concerns. She states that she is feeling well today and asks about being discharged to home. She is agreeable to short-term rehab if her insurance and finances will allow but does state that she would prefer to return home where she lives with her son. She is very interested in receiving home health services if that would be an option. She has no other questions or concerns today. Reason For Visit: OSTEOMYELITIS,DEMENTIA, ARF Physical Exam Vital Signs: Temp Pulse Resp BP Pulse Ox 97.9 F 63 16 181/62 H 99 07/07/17 04:00 07/07/17 14:00 07/07/17 04:00 07/07/17 04:00 07/07/17 04:00 Intake & Output 07/06/17 07/07/17 07/08/17 06:59 06:59 06:59 Intake Total 1181 1210 Output Total 300 600 Balance 881 610 Weight 103.2 kg 102 kg General appearance: PRESENT: no acute distress, well-developed, well-nourished Head exam: PRESENT: atraumatic, normocephalic Eye exam: PRESENT: conjunctiva pink, EOMI, PERRLA. ABSENT: scleral icterus Ear exam: PRESENT: normal external ear exam Mouth exam: PRESENT: moist, tongue midline Neck exam: ABSENT: carotid bruit, JVD, lymphadenopathy, thyromegaly Respiratory exam: PRESENT: clear to auscultation ita, symmetrical, unlabored. ABSENT: rales, rhonchi, wheezes Cardiovascular exam: PRESENT: RRR, +S1, +S2, systolic murmur. ABSENT: diastolic murmur, rubs Pulses: PRESENT: normal dorsalis pedis pul Vascular exam: PRESENT: normal capillary refill GI/Abdominal exam: PRESENT: normal bowel sounds, soft. ABSENT: distended, guarding, mass, organolmegaly, rebound, tenderness Rectal exam: PRESENT: deferred Extremities exam: PRESENT: full ROM. ABSENT: calf tenderness, clubbing, pedal edema Neurological exam: PRESENT: alert, awake, oriented to person, oriented to place , oriented to time, CN II-XII grossly intact, other - Forgetful and repetative. ABSENT: oriented to situation, motor sensory deficit Psychiatric exam: PRESENT: appropriate affect, normal mood. ABSENT: homicidal ideation, suicidal ideation Skin exam: PRESENT: dry, intact, warm. ABSENT: cyanosis, rash Results Laboratory Results: 07/06/17 06:18 07/06/17 06:18 07/03/17 07/04/17 07/04/17 20:00 01:43 06:40 Troponin I 0.048 0.043 0.044 Impressions: KUB X-Ray 07/03/17 00:00 IMPRESSION: Possible right nephrolithiasis. No evidence for constipation. Chest X-Ray 07/03/17 15:39 IMPRESSION: NO SIGNIFICANT RADIOGRAPHIC FINDING IN THE CHEST. Head CT 07/03/17 15:39 IMPRESSION: No acute findings. EVIDENCE OF ACUTE STROKE: NO. Foot X-Ray 07/03/17 17:33 IMPRESSION: DIFFUSE SOFT TISSUE SWELLING. FOCAL RADIOLUCENCY AT THE BASE OF THE PROXIMAL PHALANX OF THE RIGHT 5TH TOE, DIFFICULT TO FULLY EVALUATE. THIS COULD REPRESENT AN AREA OF OSTEOMYELITIS. IF THERE IS CLINICAL CONCERN, MRI OF THE FEET MAY BE NECESSARY. Lower Extremity MRI 07/04/17 00:00 IMPRESSION: GENERAL SOFT TISSUE SWELLING IN BOTH RIGHT AND LEFT FOOT. NO EVIDENCE OF FOCAL ABSCESS. NO EVIDENCE FOR OSTEOMYELITIS. Head MRI 07/05/17 00:00 IMPRESSION: Atrophy and microvascular ischemia supra and infratentorial including significant change in the st[place]ford. Multiple bilateral punctate areas of restricted diffusion indicating embolic disease. EVIDENCE OF ACUTE STROKE: Yes embolic. Multiple vascular distributions. Assessment & Plan - Diagnosis (1) Cerebrovascular accident (CVA) QualifierTitle: CVA mechanism: embolism Laterality of affected vessel: bilateral Is this a current diagnosis for this admission?: Yes Plan: The patient is continued on full dose aspirin and statin therapy. She had carotid Doppler study done in April that did not show any hemodynamically significant stenosis. A repeat echo is pending to assess for the source of the thrombus. I have asked physical therapy to meet with the patient to evaluate habilitation needs. I anticipate that she is too functional for acute rehab that would followed by for SNF for short-term rehab dilatation. Patient would prefer to be discharged to home with home health services. Likely the patient will be ready for discharge in the morning. (2) Vascular dementia Is this a current diagnosis for this admission?: Yes Plan: The patient appears to be functioning at her baseline level; will continue to monitor and provide for safety. Psychiatry notes and recommendations are reviewed. Have begin weaning Effexor to transition to Depakote. (3) Acute encephalopathy Is this a current diagnosis for this admission?: Yes Plan: Improved; the patient is now back to her baseline per family. Likely was secondary to #1. (4) Hypertension Is this a current diagnosis for this admission?: Yes Plan: Improved; the patient's hydralazine was actually discontinued. She continues on clonidine 0.2 mg every 8 hours, metoprolol 50 mg every 12, and furosemide 20 mg daily. The patient has been placed on a cardiac diet with daily weights. (5) Hyperlipidemia Plan: Cardiac diet. Atorvastatin 40 mg nightly. (6) Depression Is this a current diagnosis for this admission?: Yes Plan: Depression with adjustment disorder related to the patient's unexpected approximately 2 years ago. She has met with our psychiatry services. Their notes and recommendations have been reviewed. We are in the process of weaning off her Effexor and transitioning over to Depakote and BuSpar per psychiatry's recommendations. (7) AVIVA (acute kidney injury) Is this a current diagnosis for this admission?: Yes Plan: Resolved; Acute on chronic kidney injury. The patient's creatinine has returned to its baseline. We will continue to hold nephrotoxic medications and encourage p.o. fluids. (8) CKD (chronic kidney disease) stage 3, GFR 30-59 ml/min Is this a current diagnosis for this admission?: Yes Plan: As above. (9) Anemia in chronic kidney disease QualifierTitle: Chronic kidney disease stage: stage 3 (moderate) Qualified Code(s): N18.3 - Chronic kidney disease, stage 3 (moderate); D63.1 - Anemia in chronic kidney disease; D63.1 - Anemia in chronic kidney disease Is this a current diagnosis for this admission?: Yes Plan: Hemoglobin is stable. (10) Peripheral vascular disease Is this a current diagnosis for this admission?: Yes Plan: No evidence of osteomyelitis or active infection at this time. Recommend that the patient follow-up with the wound care center as previously scheduled. (11) Diabetes mellitus type 2 with retinopathy QualifierTitle: Diabetic retinopathy severity: with unspecified retinopathy severity Is this a current diagnosis for this admission?: Yes Plan: Continue Lantus 20 units subcutaneous nightly with Humalog for sliding scale coverage. Consistent carb diet. - Time Time Spent with patient: 25-34 minutes Anticipated discharge: Home - w/ Home Health nursing, aide, PT/OT Within: within 24 hours <WENDIEOCTOBER Esvin - Last Filed: 07/07/17 17:47> Subjective Reason For Visit: OSTEOMYELITIS,DEMENTIA, ARF Physical Exam Vital Signs: Temp Pulse Resp BP Pulse Ox 97.4 F 62 16 161/80 H 99 07/07/17 15:07 07/07/17 15:07 07/07/17 15:07 07/07/17 15:07 07/07/17 15:07 Intake & Output 07/06/17 07/07/17 07/08/17 06:59 06:59 06:59 Intake Total 1181 1210 661 Output Total 300 600 Balance 881 610 661 Weight 103.2 kg 102 kg Results Laboratory Results: 07/06/17 06:18 07/06/17 06:18 07/03/17 07/04/17 07/04/17 20:00 01:43 06:40 Troponin I 0.048 0.043 0.044 Impressions: KUB X-Ray 07/03/17 00:00 IMPRESSION: Possible right nephrolithiasis. No evidence for constipation. Chest X-Ray 07/03/17 15:39 IMPRESSION: NO SIGNIFICANT RADIOGRAPHIC FINDING IN THE CHEST. Head CT 07/03/17 15:39 IMPRESSION: No acute findings. EVIDENCE OF ACUTE STROKE: NO. Foot X-Ray 07/03/17 17:33 IMPRESSION: DIFFUSE SOFT TISSUE SWELLING. FOCAL RADIOLUCENCY AT THE BASE OF THE PROXIMAL PHALANX OF THE RIGHT 5TH TOE, DIFFICULT TO FULLY EVALUATE. THIS COULD REPRESENT AN AREA OF OSTEOMYELITIS. IF THERE IS CLINICAL CONCERN, MRI OF THE FEET MAY BE NECESSARY. Lower Extremity MRI 07/04/17 00:00 IMPRESSION: GENERAL SOFT TISSUE SWELLING IN BOTH RIGHT AND LEFT FOOT. NO EVIDENCE OF FOCAL ABSCESS. NO EVIDENCE FOR OSTEOMYELITIS. Head MRI 07/05/17 00:00 IMPRESSION: Atrophy and microvascular ischemia supra and infratentorial including significant change in the [place]ford. Multiple bilateral punctate areas of restricted diffusion indicating embolic disease. EVIDENCE OF ACUTE STROKE: Yes embolic. Multiple vascular distributions. Provider Note Provider Note: Needs neurology consultation and Echocardiogram
--- NOTE | 2017-07-07 18:42 | XCELERA REPORT ---
[address] [address] Transthoracic Echocardiogram Report Name: DALIA QUEVEDO Age: 61 yrs Gender: Female : 1955 Patient Status: Inpatient Patient Location: [address] [place], [place] [id number] Study Date: 07/07/2017 02:43 PM Height: 66 in Weight: 229 lb BSA: 2.1 m2 Procedure: A two-dimensional transthoracic echocardiogram with color flow Doppler was performed. Study Quality: Fair. Reason For Study: Embolic CVA History: Embolic CVA. Ordering Physician: АННА GUTIERREZ Performed By: Sana Sidhu Interpretation Summary There is no obvious cardiac source of embolus noted on this transthoracic echocardiogram. Follow-up with a KELLEY is suggested if cardiac source is still suspected. The left ventricle is normal in size. There is normal left ventricular wall thickness. LV EF is 65% Left ventricular systolic function is normal. Doppler measurements suggest impaired left ventricular relaxation, which is associated with grade I/IV or mild diastolic dysfunction The left ventricular wall motion is normal. There is no thrombus. There is no ventricular septal defect visualized. The right ventricle is grossly normal size. The right ventricle is not well visualized secondary to technical limitations The right atrium is normal. The left atrial size is normal. The interatrial septum is intact with no evidence for an atrial septal defect. There is no evidence of mitral valve prolapse. There is no vegetation seen on the mitral valve. There is no mitral valve stenosis. There is a mild amount of mitral regurgitation (Posteriorly directed eccentric jet ). The aortic valve is mildly calcified There is no aortic valve stenosis There is no LVOT obstruction. No aortic regurgitation is present. There is no tricuspid stenosis. No tricuspid regurgitation. Unable to Calculate RVSP due to lack of TR jet. There is no pericardial effusion. There is no obvious cardiac source of embolus noted on this transthoracic echocardiogram. Follow-up with a KELLEY is suggested if cardiac source is still suspected MMode/2D Measurements & Calculations RVDd: 3.7 cm LVIDd: 4.8 cm FS: 38.2 % Ao root diam: 3.1 cm IVSd: 0.97 cm LVIDs: 3.0 cm EDV(Teich): 106.2 ml LVPWd: 1.0 cm ESV(Teich): 33.6 ml Ao root area: 7.6 cm2 EF(Teich): 68.3 % LA dimension: 3.0 cm Doppler Measurements & Calculations MV E max eulogio: MV P1/2t max eulogio: Ao V2 max: LV V1 max P.3 cm/sec 56.8 cm/sec 162.1 cm/sec 5.4 mmHg MV A max eulogio: MV P1/2t: 126.8 msec Ao max PG: LV V1 max: 94.3 cm/sec 10.5 mmHg 116.5 cm/sec MV E/A: 0.60 MVA(P1/2t): 1.7 cm2 MV dec slope: 131.1 cm/sec2 MV dec time: 0.44 sec PA V2 max: 108.6 cm/sec PA max P.7 mmHg Left Ventricle The left ventricle is normal in size. There is normal left ventricular wall thickness. LV EF is 65%. Left ventricular systolic function is normal. Doppler measurements suggest impaired left ventricular relaxation, which is associated with grade I/IV or mild diastolic dysfunction. The left ventricular wall motion is normal. There is no thrombus. There is no ventricular septal defect visualized. Right Ventricle The right ventricle is grossly normal size. The right ventricle is not well visualized secondary to technical limitations. Atria The right atrium is normal. The left atrial size is normal. The interatrial septum is intact with no evidence for an atrial septal defect. Mitral Valve There is no evidence of mitral valve prolapse. There is no vegetation seen on the mitral valve. There is no mitral valve stenosis. There is a mild amount of mitral regurgitation. (Posteriorly directed eccentric jet ). Aortic Valve The aortic valve is mildly calcified. There is no aortic valvular vegetation. There is no aortic valve stenosis. There is no LVOT obstruction. No aortic regurgitation is present. Tricuspid Valve There is no tricuspid stenosis. No tricuspid regurgitation. Unable to Calculate RVSP due to lack of TR jet. Pulmonic Valve There is no pulmonic valvular stenosis. There is no pulmonic valvular regurgitation. Great Vessels The aortic root is normal size. Effusions There is no pericardial effusion. : АННА GUTIERREZ > Mellissa Marcus
[2017-07-07] MEDS: ATORVASTATIN CALCIUM 40 MG TABLET PO SCH (22:31)
[2017-07-07] MEDS: DIVALPROEX SODIUM 250 MG TAB.SR.24H PO SCH (22:31)
[2017-07-07] MEDS: INSULIN GLARGINE,HUM.REC.ANLOG 1,000 UNIT/10 ML UNIT SUBCUT SCH (22:31)
[2017-07-07] MEDS: VENLAFAXINE HCL 75 MG TABLET PO SCH (22:32)
[2017-07-08] MEDS: CLONIDINE HCL 0.2 MG TABLET PO SCH ×3 (05:06→21:42)
[2017-07-08] MEDS: HEPARIN SOD (PORCINE) 5,000 UNIT/ML 1 ML SYRINGE SUBCUT SCH ×3 (05:08→21:44)
[2017-07-08] MEDS: ISOSORBIDE MONONITRATE 30 MG TAB.ER.24H PO SCH (10:13)
[2017-07-08] MEDS: BUSPIRONE HCL 10 MG TABLET PO SCH ×2 (10:13→21:39)
[2017-07-08] MEDS: DOCUSATE SODIUM 100 MG CAPSULE PO SCH ×2 (10:13→17:39)
[2017-07-08] MEDS: ASPIRIN 81 MG TABLET, CHEWABLE PO SCH (10:14)
[2017-07-08] MEDS: FUROSEMIDE 20 MG TABLET PO SCH (10:14)
[2017-07-08] MEDS: CYANOCOBALAMIN (VITAMIN B-12) 1,000 MCG TABLET PO SCH (10:15)
[2017-07-08] MEDS: NYSTATIN TOPICAL POWDER 15 GM TP SCH ×2 (10:15→17:39)
[2017-07-08] MEDS: METOPROLOL TARTRATE 50 MG TABLET PO SCH ×2 (10:15→21:43)
[2017-07-08] MEDS: INSULIN LISPRO 100 UNIT/ML 3 ML VIAL SUBCUT PRN ×4 (10:16→21:46)
[2017-07-08] MEDS ORDERED: ATORVASTATIN CALCIUM 40 MG TABLET PO SCH (13:20)
--- NOTE | 2017-07-08 13:25 | PDOC PROGRESS REPORT ---
Subjective Progress Note for:: 07/08/17 Subjective:: The patient is a 61-year-old female with past medical history of diabetes mellitus type 2 with retinopathy, GERD, neuropathy, peripheral vascular disease , CHF, hypertension, vascular dementia, hyperlipidemia, CVA who was admitted on 07/03/17 for encephalopathy. A head MRI revealed multiple bilateral punctate areas of restricted diffusion indicating embolic stroke. The patient is seen on morning rounds. She is found sitting upright in bed on room air. She has no questions or concerns at this time. Due to concerns of poor follow-up, the patient will require a KELLEY prior to discharge. I have contacted [facility] to arrange transportation to/from their facility for the procedure. Reason For Visit: OSTEOMYELITIS,DEMENTIA, ARF Physical Exam Vital Signs: Temp Pulse Resp BP Pulse Ox 97.4 F 58 L 17 146/68 H 99 07/08/17 07:37 07/08/17 07:37 07/08/17 07:37 07/08/17 07:37 07/08/17 07:37 Intake & Output 07/07/17 07/08/17 07/09/17 06:59 06:59 06:59 Intake Total 1210 1609 Output Total 600 100 Balance 610 1509 Weight 102 kg 102.6 kg General appearance: PRESENT: no acute distress, disheveled, well-developed, well -nourished Head exam: PRESENT: atraumatic, normocephalic Eye exam: PRESENT: conjunctiva pink, EOMI, PERRLA. ABSENT: scleral icterus Ear exam: PRESENT: normal external ear exam Mouth exam: PRESENT: moist, tongue midline Neck exam: ABSENT: carotid bruit, JVD, lymphadenopathy, thyromegaly Respiratory exam: PRESENT: clear to auscultation ita, symmetrical, unlabored. ABSENT: rales, rhonchi, wheezes Cardiovascular exam: PRESENT: RRR, +S1, +S2, systolic murmur. ABSENT: diastolic murmur, rubs Pulses: PRESENT: normal dorsalis pedis pul Vascular exam: PRESENT: normal capillary refill GI/Abdominal exam: PRESENT: normal bowel sounds, soft. ABSENT: distended, guarding, mass, organolmegaly, rebound, tenderness Rectal exam: PRESENT: deferred Extremities exam: PRESENT: full ROM. ABSENT: calf tenderness, clubbing, pedal edema Neurological exam: PRESENT: alert, awake, oriented to person, oriented to place , oriented to time, CN II-XII grossly intact, other - Forgetful and repetitive of questions and statements. ABSENT: motor sensory deficit Psychiatric exam: PRESENT: appropriate affect, normal mood. ABSENT: homicidal ideation, suicidal ideation Skin exam: PRESENT: dry, intact, warm. ABSENT: cyanosis, rash Results Laboratory Results: 07/06/17 06:18 07/06/17 06:18 07/03/17 07/04/17 07/04/17 20:00 01:43 06:40 Troponin I 0.048 0.043 0.044 Impressions: KUB X-Ray 07/03/17 00:00 IMPRESSION: Possible right nephrolithiasis. No evidence for constipation. Chest X-Ray 07/03/17 15:39 IMPRESSION: NO SIGNIFICANT RADIOGRAPHIC FINDING IN THE CHEST. Head CT 07/03/17 15:39 IMPRESSION: No acute findings. EVIDENCE OF ACUTE STROKE: NO. Foot X-Ray 07/03/17 17:33 IMPRESSION: DIFFUSE SOFT TISSUE SWELLING. FOCAL RADIOLUCENCY AT THE BASE OF THE PROXIMAL PHALANX OF THE RIGHT 5TH TOE, DIFFICULT TO FULLY EVALUATE. THIS COULD REPRESENT AN AREA OF OSTEOMYELITIS. IF THERE IS CLINICAL CONCERN, MRI OF THE FEET MAY BE NECESSARY. Lower Extremity MRI 07/04/17 00:00 IMPRESSION: GENERAL SOFT TISSUE SWELLING IN BOTH RIGHT AND LEFT FOOT. NO EVIDENCE OF FOCAL ABSCESS. NO EVIDENCE FOR OSTEOMYELITIS. Head MRI 07/05/17 00:00 IMPRESSION: Atrophy and microvascular ischemia supra and infratentorial including significant change in the [place]. Multiple bilateral punctate areas of restricted diffusion indicating embolic disease. EVIDENCE OF ACUTE STROKE: Yes embolic. Multiple vascular distributions. Assessment & Plan - Diagnosis (1) Cerebrovascular accident (CVA) Qualifiers: CVA mechanism: embolism Laterality of affected vessel: bilateral Is this a current diagnosis for this admission?: Yes Plan: The patient was admitted the first week of April for a TIA; at that time, had a normal carotid Doppler and echocardiogram. She was discharged on full dose aspirin and Plavix with recommendations to follow up with her primary care and neurologist as an outpatient. Unfortunately, she was not able to his appointments and there is some question as to her compliance with these medications. She presented on 07/03/17 with a complaint of several days of confusion. MRI reveals atrophy and microvascular ischemia with multiple bilateral punctate areas of restricted diffusion indicating embolic CVA. I spoke with Dr. Nails at [facility] today. She recommends that the patient be treated with aspirin, Plavix, statin therapy. She also recommends that the patient undergo a KELLEY and follow-up with cardiology as an outpatient for event monitoring. Continue full dose ASA. Will increase to full dose atorvastatin. Resume Plavix therapy. I have asked physical therapy to meet with the patient to evaluate habilitation needs. I anticipate that she is too functional for acute rehab, but my bennefit from SNF for short-term rehab dilatation. Patient would prefer to be discharged to home with home health services. Awaiting to hear back from [facility] to make arrangements for KELLEY. (2) Vascular dementia Is this a current diagnosis for this admission?: Yes Plan: The patient appears to be functioning at her baseline level; will continue to monitor and provide for safety. Psychiatry notes and recommendations are reviewed. Have begin weaning Effexor to transition to Depakote. (3) Acute encephalopathy Is this a current diagnosis for this admission?: Yes Plan: Improved; the patient is now back to her baseline per family. Likely was secondary to #1. (4) Hypertension Is this a current diagnosis for this admission?: Yes Plan: Improved; the patient's hydralazine was actually discontinued. She continues on clonidine 0.2 mg every 8 hours, metoprolol 50 mg every 12, and furosemide 20 mg daily. The patient has been placed on a cardiac diet with daily weights. (5) Hyperlipidemia Plan: Cardiac diet. Atorvastatin 80 mg nightly. (6) Depression Is this a current diagnosis for this admission?: Yes Plan: Depression with adjustment disorder related to the patient's unexpected approximately 2 years ago. She has met with our psychiatry services. Their notes and recommendations have been reviewed. We are in the process of weaning off her Effexor and transitioning over to Depakote and BuSpar per psychiatry's recommendations. (7) AVIVA (acute kidney injury) Is this a current diagnosis for this admission?: Yes Plan: Resolved; Acute on chronic kidney injury. The patient's creatinine has returned to its baseline. We will continue to hold nephrotoxic medications and encourage p.o. fluids. (8) CKD (chronic kidney disease) stage 3, GFR 30-59 ml/min Is this a current diagnosis for this admission?: Yes Plan: As above. (9) Anemia in chronic kidney disease Qualifiers: Chronic kidney disease stage: stage 3 (moderate) Qualified Code(s): N18.3 - Chronic kidney disease, stage 3 (moderate); D63.1 - Anemia in chronic kidney disease; D63.1 - Anemia in chronic kidney disease Is this a current diagnosis for this admission?: Yes Plan: Hemoglobin is stable. (10) Peripheral vascular disease Is this a current diagnosis for this admission?: Yes Plan: No evidence of osteomyelitis or active infection at this time. Recommend that the patient follow-up with the wound care center as previously scheduled. (11) Diabetes mellitus type 2 with retinopathy Qualifiers: Diabetic retinopathy severity: with unspecified retinopathy severity Is this a current diagnosis for this admission?: Yes Plan: Continue Lantus 20 units subcutaneous nightly with Humalog for sliding scale coverage. Consistent carb diet. - Time Time Spent with patient: 25-34 minutes Medications reviewed and adjusted accordingly: Yes
[2017-07-08] MEDS: ATORVASTATIN CALCIUM 80 MG TABLET PO SCH (21:41)
[2017-07-08] MEDS: VENLAFAXINE HCL 75 MG TABLET PO SCH (21:42)
[2017-07-08] MEDS: DIVALPROEX SODIUM 250 MG TAB.SR.24H PO SCH (21:43)
[2017-07-08] MEDS: INSULIN GLARGINE,HUM.REC.ANLOG 1,000 UNIT/10 ML UNIT SUBCUT SCH (21:45)
[2017-07-09] MEDS: CLONIDINE HCL 0.2 MG TABLET PO SCH ×3 (06:05→22:23)
[2017-07-09] MEDS: HEPARIN SOD (PORCINE) 5,000 UNIT/ML 1 ML SYRINGE SUBCUT SCH ×3 (06:06→22:26)
[2017-07-09] MEDS ORDERED: INSULIN GLARGINE,HUM.REC.ANLOG 1,000 UNIT/10 ML UNIT SUBCUT SCH (07:47)
[2017-07-09] MEDS: INSULIN LISPRO 100 UNIT/ML 3 ML VIAL SUBCUT PRN ×3 (08:24→17:22)
[2017-07-09] MEDS ORDERED: ACETAMINOPHEN 325 MG TABLET PO PRN (09:30)
[2017-07-09] MEDS: CLOPIDOGREL BISULFATE 75 MG TABLET PO SCH (09:57)
[2017-07-09] MEDS: CYANOCOBALAMIN (VITAMIN B-12) 1,000 MCG TABLET PO SCH (09:57)
[2017-07-09] MEDS: FUROSEMIDE 20 MG TABLET PO SCH (09:57)
[2017-07-09] MEDS: ASPIRIN 325 MG TABLET PO SCH (09:57)
[2017-07-09] MEDS: DOCUSATE SODIUM 100 MG CAPSULE PO SCH ×2 (09:57→17:22)
[2017-07-09] MEDS: METOPROLOL TARTRATE 50 MG TABLET PO SCH ×2 (09:58→22:24)
[2017-07-09] MEDS: BUSPIRONE HCL 10 MG TABLET PO SCH ×2 (09:58→22:24)
[2017-07-09] MEDS: NYSTATIN TOPICAL POWDER 15 GM TP SCH ×2 (09:59→17:22)
[2017-07-09] MEDS: ISOSORBIDE MONONITRATE 30 MG TAB.ER.24H PO SCH (09:59)
--- NOTE | 2017-07-09 11:17 | PDOC PROGRESS REPORT ---
Subjective Progress Note for:: 07/09/17 Subjective:: The patient is a 61-year-old female with past medical history of diabetes mellitus type 2 with retinopathy, GERD, neuropathy, peripheral vascular disease , CHF, hypertension, vascular dementia, hyperlipidemia, CVA who was admitted on 07/03/17 for encephalopathy. A head MRI revealed multiple bilateral punctate areas of restricted diffusion indicating embolic stroke. The patient is seen on morning rounds. She is found sitting upright in recliner. She states that she is feeling fine. She appears to be more orientated today and can recall that she has had a stroke; though remains repetitive with her statements and questions. She has no questions or concerns at this time. Due to concerns of poor follow-up, the patient will require a KELLEY prior to discharge. Will have KELLEY at [facility] tomorrow. Reason For Visit: OSTEOMYELITIS,DEMENTIA, ARF Physical Exam Vital Signs: Temp Pulse Resp BP Pulse Ox 97.6 F 59 L 18 169/67 H 97 07/09/17 07:44 07/09/17 07:44 07/09/17 07:44 07/09/17 07:44 07/09/17 07:44 Intake & Output 07/08/17 07/09/17 07/10/17 06:59 06:59 06:59 Intake Total 1609 1249 Output Total 100 Balance 1509 1249 Weight 102.6 kg 102 kg General appearance: PRESENT: no acute distress, well-developed, well-nourished Head exam: PRESENT: atraumatic, normocephalic Eye exam: PRESENT: conjunctiva pink, EOMI, PERRLA. ABSENT: scleral icterus Ear exam: PRESENT: normal external ear exam Mouth exam: PRESENT: moist, tongue midline Neck exam: ABSENT: carotid bruit, JVD, lymphadenopathy, thyromegaly Respiratory exam: PRESENT: clear to auscultation ita, symmetrical, unlabored. ABSENT: rales, rhonchi, wheezes Cardiovascular exam: PRESENT: RRR, +S1, +S2, systolic murmur. ABSENT: diastolic murmur, rubs Pulses: PRESENT: normal dorsalis pedis pul Vascular exam: PRESENT: normal capillary refill GI/Abdominal exam: PRESENT: normal bowel sounds, soft. ABSENT: distended, guarding, mass, organolmegaly, rebound, tenderness Rectal exam: PRESENT: deferred Extremities exam: PRESENT: full ROM. ABSENT: calf tenderness, clubbing, pedal edema Neurological exam: PRESENT: alert, awake, oriented to person, oriented to place , oriented to situation, CN II-XII grossly intact, other - forgetful and repetative. ABSENT: oriented to time, motor sensory deficit Psychiatric exam: PRESENT: appropriate affect, normal mood. ABSENT: homicidal ideation, suicidal ideation Skin exam: PRESENT: dry, intact, warm. ABSENT: cyanosis, rash Results Laboratory Results: 07/06/17 06:18 07/06/17 06:18 07/03/17 20:40 Blood Blood Culture - Final NO GROWTH IN 5 DAYS 07/03/17 20:00 Blood Blood Culture - Final NO GROWTH IN 5 DAYS 07/03/17 07/04/17 07/04/17 20:00 01:43 06:40 Troponin I 0.048 0.043 0.044 Impressions: KUB X-Ray 07/03/17 00:00 IMPRESSION: Possible right nephrolithiasis. No evidence for constipation. Chest X-Ray 07/03/17 15:39 IMPRESSION: NO SIGNIFICANT RADIOGRAPHIC FINDING IN THE CHEST. Head CT 07/03/17 15:39 IMPRESSION: No acute findings. EVIDENCE OF ACUTE STROKE: NO. Foot X-Ray 07/03/17 17:33 IMPRESSION: DIFFUSE SOFT TISSUE SWELLING. FOCAL RADIOLUCENCY AT THE BASE OF THE PROXIMAL PHALANX OF THE RIGHT 5TH TOE, DIFFICULT TO FULLY EVALUATE. THIS COULD REPRESENT AN AREA OF OSTEOMYELITIS. IF THERE IS CLINICAL CONCERN, MRI OF THE FEET MAY BE NECESSARY. Lower Extremity MRI 07/04/17 00:00 IMPRESSION: GENERAL SOFT TISSUE SWELLING IN BOTH RIGHT AND LEFT FOOT. NO EVIDENCE OF FOCAL ABSCESS. NO EVIDENCE FOR OSTEOMYELITIS. Head MRI 07/05/17 00:00 IMPRESSION: Atrophy and microvascular ischemia supra and infratentorial including significant change in the st[place]ford. Multiple bilateral punctate areas of restricted diffusion indicating embolic disease. EVIDENCE OF ACUTE STROKE: Yes embolic. Multiple vascular distributions. Assessment & Plan - Diagnosis (1) Cerebrovascular accident (CVA) Qualifiers: CVA mechanism: embolism Laterality of affected vessel: bilateral Is this a current diagnosis for this admission?: Yes Plan: The patient was admitted the first week of April for a TIA; at that time, had a normal carotid Doppler and echocardiogram. She was discharged on full dose aspirin and Plavix with recommendations to follow up with her primary care and neurologist as an outpatient. Unfortunately, she was not able to keep these appointments and there is some question as to her compliance with the medications. She presented on 07/03/17 with a complaint of several days of confusion. MRI reveals atrophy and microvascular ischemia with multiple bilateral punctate areas of restricted diffusion indicating embolic CVA. I spoke with Dr. Nails (Neurology) at [facility]. She recommends that the patient be treated with aspirin, Plavix, and statin therapy. She also recommends that the patient undergo a KELLEY and follow-up with cardiology as an outpatient for event monitoring. KELLEY planned at [facility] tomorrow morning. Continue full dose ASA and atorvastatin. Continue Plavix therapy. I have asked physical therapy to meet with the patient to evaluate rehabilitation needs. I anticipate that she is too functional for acute rehab, but would benefit from SNF for short-term rehab. Patient would prefer to be discharged to home with home health services. (2) Vascular dementia Is this a current diagnosis for this admission?: Yes Plan: The patient appears to be functioning at her baseline level; will continue to monitor and provide for safety. Psychiatry notes and recommendations are reviewed. Have begin weaning Effexor to transition to Depakote. (3) Acute encephalopathy Is this a current diagnosis for this admission?: Yes Plan: Improved; the patient is now back to her baseline per family. Likely was secondary to #1. (4) Hypertension Is this a current diagnosis for this admission?: Yes Plan: Improved; but remains elevated. Will restart patient's home dose of Isosorbide. She continues on clonidine 0.2 mg every 8 hours, metoprolol 50 mg every 12, and furosemide 20 mg daily. The patient has been placed on a cardiac diet with daily weights. (5) Hyperlipidemia Plan: Cardiac diet. Atorvastatin 80 mg nightly. (6) Depression Is this a current diagnosis for this admission?: Yes Plan: Depression with adjustment disorder related to the patient's unexpected approximately 2 years ago. She has met with our psychiatry services. Their notes and recommendations have been reviewed. We are in the process of weaning her off Effexor and transitioning over to Depakote and BuSpar per psychiatry's recommendations. (7) AVIVA (acute kidney injury) Is this a current diagnosis for this admission?: Yes Plan: Resolved; Acute on chronic kidney injury. The patient's creatinine has returned to its baseline. We will continue to hold nephrotoxic medications and encourage p.o. fluids. (8) CKD (chronic kidney disease) stage 3, GFR 30-59 ml/min Is this a current diagnosis for this admission?: Yes Plan: As above. (9) Anemia in chronic kidney disease Qualifiers: Chronic kidney disease stage: stage 3 (moderate) Qualified Code(s): N18.3 - Chronic kidney disease, stage 3 (moderate); D63.1 - Anemia in chronic kidney disease; D63.1 - Anemia in chronic kidney disease Is this a current diagnosis for this admission?: Yes Plan: Hemoglobin is stable. (10) Peripheral vascular disease Is this a current diagnosis for this admission?: Yes Plan: No evidence of osteomyelitis or active infection at this time. Recommend that the patient follow-up with the wound care center as previously scheduled. (11) Diabetes mellitus type 2 with retinopathy Qualifiers: Diabetic retinopathy severity: with unspecified retinopathy severity Is this a current diagnosis for this admission?: Yes Plan: Remains elevated; will adjust long acting insulin today. Lantus 22 units subcutaneous nightly with Humalog for sliding scale coverage. Consistent carb diet. - Time Time Spent with patient: 15-24 minutes Medications reviewed and adjusted accordingly: Yes
[2017-07-09] MEDS ORDERED: INSULIN GLARGINE,HUM.REC.ANLOG 300 UNIT/3 ML INSULN.PEN SUBCUT SCH (22:00)
[2017-07-09] MEDS: VENLAFAXINE HCL 75 MG TABLET PO SCH (22:24)
[2017-07-09] MEDS: ATORVASTATIN CALCIUM 80 MG TABLET PO SCH (22:24)
[2017-07-09] MEDS: DIVALPROEX SODIUM 250 MG TAB.SR.24H PO SCH (22:24)
[2017-07-10] MEDS ORDERED: HYDRALAZINE HCL INJ/PF 20 MG/1 ML SDV IV PRN (05:05)
[2017-07-10] MEDS: HEPARIN SOD (PORCINE) 5,000 UNIT/ML 1 ML SYRINGE SUBCUT SCH ×2 (05:16→14:13)
[2017-07-10] MEDS: CLONIDINE HCL 0.2 MG TABLET PO SCH ×2 (05:22→14:13)
[2017-07-10 06:28] LABS: HEMOGLOBIN 10.1 g/dL (12.0-15.5); MEAN CORPUSCULAR HEMOGLOBIN 27.9 pg (27.0-33.4); MEAN CORPUSCULAR HGB CONC 33.6 g/dL (32.0-36.0); MEAN CORPUSCULAR VOLUME 83 fl (80-97); PLATELET COUNT 153 10^3/uL (150-450); RED BLOOD COUNT 3.62 10^6/uL (3.72-5.28); WHITE BLOOD COUNT 4.9 10^3/uL (4.0-10.5)
[2017-07-10 06:43] LABS: ANION GAP 8 (5-19); BLOOD UREA NITROGEN 42 mg/dL (7-20); CALCIUM 9.1 mg/dL (8.4-10.2); CARBON DIOXIDE 24 mmol/L (22-30); CHLORIDE 108 mmol/L (98-107); GLUCOSE 239 mg/dL (75-110); POTASSIUM 3.6 mmol/L (3.6-5.0); SODIUM 139.9 mmol/L (137-145)
[2017-07-10] MEDS ORDERED: DIVALPROEX SODIUM 250 MG TAB.SR.24H PO SCH (10:00)
[2017-07-10] MEDS ORDERED: MINERAL OIL/PETROLATUM,WHITE CREAM 114 GM TP SCH (10:00)
[2017-07-10] MEDS: METOPROLOL TARTRATE 50 MG TABLET PO SCH (10:10)
[2017-07-10] MEDS: CYANOCOBALAMIN (VITAMIN B-12) 1,000 MCG TABLET PO SCH (10:10)
[2017-07-10] MEDS: ASPIRIN 325 MG TABLET PO SCH (10:10)
[2017-07-10] MEDS: NYSTATIN TOPICAL POWDER 15 GM TP SCH (10:10)
[2017-07-10] MEDS: DOCUSATE SODIUM 100 MG CAPSULE PO SCH (10:10)
[2017-07-10] MEDS: BUSPIRONE HCL 10 MG TABLET PO SCH (10:10)
[2017-07-10] MEDS: FUROSEMIDE 20 MG TABLET PO SCH (10:10)
[2017-07-10] MEDS: CLOPIDOGREL BISULFATE 75 MG TABLET PO SCH (10:10)
[2017-07-10] MEDS: ISOSORBIDE MONONITRATE 30 MG TAB.ER.24H PO SCH (10:10)
--- NOTE | 2017-07-10 15:48 | PDOC DISCHARGE SUMMARY ---
General - Admit/Disc Date/PCP Admission Date/Primary Care Provider: 07/03/17 19:46 KEE SILVERMAN MD Discharge Date: 07/10/17 - Discharge Diagnosis (1) Cerebrovascular accident (CVA) Is this a current diagnosis for this admission?: Yes (2) Vascular dementia Is this a current diagnosis for this admission?: Yes (3) Acute encephalopathy Is this a current diagnosis for this admission?: Yes (4) Hypertension Is this a current diagnosis for this admission?: Yes (6) Depression Is this a current diagnosis for this admission?: Yes (7) AVIVA (acute kidney injury) Is this a current diagnosis for this admission?: Yes (8) CKD (chronic kidney disease) stage 3, GFR 30-59 ml/min Is this a current diagnosis for this admission?: Yes (9) Anemia in chronic kidney disease Is this a current diagnosis for this admission?: Yes (10) Peripheral vascular disease Is this a current diagnosis for this admission?: Yes (11) Diabetes mellitus type 2 with retinopathy Is this a current diagnosis for this admission?: Yes - Additional Information Resuscitation Status: Full Code Discharge Diet: Cardiac, Diabetic Discharge Activity: Activity As Tolerated, Balance Activity w/Rest, Slowly Increase Activity Prescriptions: Aspirin [Children's Aspirin] 81 mg PO DAILY #90 tab.chew Atorvastatin Calcium [Lipitor 80 mg Tablet] 80 mg PO QHS #30 tablet Buspirone HCl [Buspar 10 mg Tablet] 5 mg PO Q12 #60 tablet Clonidine HCl [Catapres 0.2 mg Tablet] 0.2 mg PO Q8 #90 tablet Clopidogrel Bisulfate [Plavix 75 mg Tablet] 75 mg PO DAILY #30 tablet Cyanocobalamin (Vitamin B-12) [Vitamin B-12 1000 mcg Tablet] 1,000 mcg PO DAILY #30 tablet Divalproex Sodium [Depakote ER 250 mg Tablet] 250 mg PO Q12 #60 tab.sr.24h Insulin Glargine,Hum.rec.anlog [Lantus Insulin 100 Unit/mL] 22 unit SUBCUT QHS # 3 insuln.pen Insulin Lispro [Humalog Insulin (Lispro) 100 unit/mL] 0 - 12 unit SUBCUT ACHSP PRN #100 unit PRN Reason: Mineral Oil/Petrolatum,White [Eucerin Cream 114 gm] 1 applic TP DAILY #1 jar Home Medications: Furosemide [Lasix] 20 mg PO DAILY 09/27/16 Gabapentin [Neurontin 100 mg Capsule] 100 mg PO Q12 09/27/16 Isosorbide Mononitrate [Imdur 30 mg Tablet.er] 30 mg PO DAILY 09/27/16 Metoprolol Tartrate [Lopressor 50 mg Tablet] 50 mg PO BID #60 04/27/17 Aspirin [Children's Aspirin] 81 mg PO DAILY #90 tab.chew 07/10/17 Atorvastatin Calcium [Lipitor 80 mg Tablet] 80 mg PO QHS #30 tablet 07/10/17 Buspirone HCl [Buspar 10 mg Tablet] 5 mg PO Q12 #60 tablet 07/10/17 Clonidine HCl [Catapres 0.2 mg Tablet] 0.2 mg PO Q8 #90 tablet 07/10/17 Clopidogrel Bisulfate [Plavix 75 mg Tablet] 75 mg PO DAILY #30 tablet 07/10/17 Cyanocobalamin (Vitamin B-12) [Vitamin B-12 1000 mcg Tablet] 1,000 mcg PO DAILY #30 tablet 07/10/17 Divalproex Sodium [Depakote ER 250 mg Tablet] 250 mg PO Q12 #60 tab.sr.24h 07/10 Insulin Glargine,Hum.rec.anlog [Lantus Insulin 100 Unit/mL] 22 unit SUBCUT QHS # 3 insuln.pen 07/10/17 Insulin Lispro [Humalog Insulin (Lispro) 100 unit/mL] 0 - 12 unit SUBCUT ACHSP PRN #100 unit 07/10/17 Mineral Oil/Petrolatum,White [Eucerin Cream 114 gm] 1 applic TP DAILY #1 jar History of Present Illness History of Present Illness: Per H&P by Dr. Mansfield: DALIA QUEVEDO is a 61 year old female with a past medical history of diabetes mellitus type 2 with retinopathy, GERD, neuropathy, PVD, CHF , hypertension, vascular dementia, hyperlipidemia, CVA who presents with increased confusion over the last several days. I see the patient in the emergency department, she is awake alert and oriented 3 in unaccompanied. Unsure however why she is there. Apparently according to ER notes family brought patient in and reported that she had decreased appetite and was not eating or drinking. They reports that she has been picking at the sores on her feet. She has apparently been fired by her normal primary care physician. Patient was found to be mildly dehydrated with acute on chronic renal failure and to have possible osteomyelitis of the right fifth phalanx. She is referred to hospitalist service for admission for these problems. Hospital Course Hospital Course: The patient was admitted for her confusion secondary to underlying vascular dementia worsened by infection and mild dehydration. The primary concern was possible osteomyelitis noted to the right fifth phalanx which was subsequently ruled out with a lower extremity MRI. Surgery was consulted and determined that she did not require any surgical interventions. Antibiotics were withheld given the patient's care, a WBC count and negative cultures. The patient was provided gentle IV fluid rehydration for her dehydration and acute on chronic kidney failure. Creatinine appropriately trended upwards, however, the patient's mental status did not improve and so a follow-up MRI was obtained. Unfortunately, the MRI revealed atrophy and microvascular ischemia supra and infratentorial including significant changes in the [place]. Multiple bilateral punctate areas of restricted diffusion indicating embolic disease were also observed. Of note, the patient had been in our facility in early April with a TIA. There was no evidence of hemodynamically significant stenosis on carotid Dopplers at that time. A repeat echocardiogram was obtained this admission demonstrating an LVEF of 65% with mild diastolic dysfunction. There was no evidence of thrombus. [facility] neurology was consulted via telephone with recommendation for follow up KELLEY which the patient underwent on 07/10/17, again without evidence of the source of CVA. The patient was medically managed with aspirin, Plavix, and atorvastatin. The patient's acute on chronic kidney failure resolved with rehydration; her creatinine has returned to her baseline of 1.7. Her insulin regiment was adjusted with better control of blood glucose. She did meet with psychiatry services discuss her depression and adjustment disorder related to her recent passing. Recommendations were made to wean from her Effexor and to begin Depakote with BuSpar for anxiety. This transition was made without difficulty. On day of discharge, the patient is in stable condition. She will be discharged to home with home health nursing and physical therapy/occupational therapy services. She is recommended to follow-up with her primary care provider within 1-2 weeks, neurology within 2-3 weeks, and with cardiology on Thursday to for an event monitor. Physical Exam Vital Signs: Temp Pulse Resp BP Pulse Ox 98.0 F 64 18 179/68 H 97 07/10/17 14:06 07/10/17 14:06 07/10/17 14:06 07/10/17 14:06 07/10/17 14:06 Intake & Output 07/09/17 07/10/17 07/11/17 06:59 06:59 06:59 Intake Total 1249 1112 0 Balance 1249 1112 0 Weight 102 kg General appearance: PRESENT: no acute distress, well-developed, well-nourished, other - overweight Head exam: PRESENT: atraumatic, normocephalic Eye exam: PRESENT: conjunctiva pink, EOMI, nystagmus, PERRLA. ABSENT: scleral icterus Ear exam: PRESENT: normal external ear exam Mouth exam: PRESENT: moist, tongue midline Neck exam: ABSENT: carotid bruit, JVD, lymphadenopathy, thyromegaly Respiratory exam: PRESENT: clear to auscultation ita, symmetrical, unlabored. ABSENT: rales, rhonchi, wheezes Cardiovascular exam: PRESENT: RRR, +S1, +S2, systolic murmur. ABSENT: diastolic murmur, rubs Pulses: PRESENT: normal dorsalis pedis pul Vascular exam: PRESENT: normal capillary refill GI/Abdominal exam: PRESENT: normal bowel sounds, soft. ABSENT: distended, guarding, mass, organolmegaly, rebound, tenderness Rectal exam: PRESENT: deferred Extremities exam: PRESENT: full ROM. ABSENT: calf tenderness, clubbing, pedal edema Neurological exam: PRESENT: alert, awake, oriented to person, oriented to place , oriented to situation, CN II-XII grossly intact, other - Forgetful and repetitive. ABSENT: oriented to time, motor sensory deficit Psychiatric exam: PRESENT: appropriate affect, normal mood. ABSENT: homicidal ideation, suicidal ideation Skin exam: PRESENT: dry, warm. ABSENT: cyanosis, intact - Venous stasis ulcerations to bilateral lower extremities, rash Results Laboratory Results: 07/10/17 05:14 07/10/17 05:14 07/10/17 07/10/17 05:14 05:14 WBC 4.9 RBC 3.62 L Hgb 10.1 L Hct 30.0 L MCV 83 MCH 27.9 MCHC 33.6 RDW 17.0 H Plt Count 153 Sodium 139.9 Potassium 3.6 Chloride 108 H Carbon Dioxide 24 Anion Gap 8 BUN 42 H Creatinine 1.71 H Est GFR ( Amer) 36 L Est GFR (Non-Af Amer) 30 L Glucose 239 H Calcium 9.1 07/03/17 07/04/17 07/04/17 20:00 01:43 06:40 Troponin I 0.048 0.043 0.044 Impressions: KUB X-Ray 07/03/17 00:00 IMPRESSION: Possible right nephrolithiasis. No evidence for constipation. Chest X-Ray 07/03/17 15:39 IMPRESSION: NO SIGNIFICANT RADIOGRAPHIC FINDING IN THE CHEST. Head CT 07/03/17 15:39 IMPRESSION: No acute findings. EVIDENCE OF ACUTE STROKE: NO. Foot X-Ray 07/03/17 17:33 IMPRESSION: DIFFUSE SOFT TISSUE SWELLING. FOCAL RADIOLUCENCY AT THE BASE OF THE PROXIMAL PHALANX OF THE RIGHT 5TH TOE, DIFFICULT TO FULLY EVALUATE. THIS COULD REPRESENT AN AREA OF OSTEOMYELITIS. IF THERE IS CLINICAL CONCERN, MRI OF THE FEET MAY BE NECESSARY. Lower Extremity MRI 07/04/17 00:00 IMPRESSION: GENERAL SOFT TISSUE SWELLING IN BOTH RIGHT AND LEFT FOOT. NO EVIDENCE OF FOCAL ABSCESS. NO EVIDENCE FOR OSTEOMYELITIS. Head MRI 07/05/17 00:00 IMPRESSION: Atrophy and microvascular ischemia supra and infratentorial including significant change in the [place]. Multiple bilateral punctate areas of restricted diffusion indicating embolic disease. EVIDENCE OF ACUTE STROKE: Yes embolic. Multiple vascular distributions. Qualifiers PATEINT BEING DISCHARGED WITH ANY OF THE FOLLOWING DIAGNOSIS?: Stroke Stroke Pt being discharged on Anti-thrombolytic therapy?: Yes Stroke Pt being discharged on Anti-coagulation therapy?: No Reason(s) for not prescribing Anti-coagulation therapy:: Not indicated - Ebolic stroke with unknown source Stroke Pt being discharged on Statins?: Yes Plan Discharge Plan: Discharge to home with home health nursing, home health PT/OT services. Follow-up with her primary care provider, neurology, and cardiology for event monitoring. Time Spent: Greater than 30 Minutes
[2017-07-10 16:14] VITALS: BP 190/93
[2017-07-10] MEDS ORDERED: VENLAFAXINE HCL 75 MG TABLET PO SCH (22:00)
== END 2017-07-10 18:18 | disposition home health service (06) | DRG 64 ==
LOC: ER 14:37 → EH 19:46 → 4N 22:30
PROVIDERS: ADMIT Family Medicine; ATTEND Family Medicine
DX: I63.10 Cerebral infarction due to embolism of unspecified precerebral artery (principal); G93.40 Encephalopathy, unspecified; N17.9 Acute kidney failure, unspecified; Z66 Do not resuscitate; E86.0 Dehydration; N18.3 Chronic kidney disease, stage 3 (moderate); D63.1 Anemia in chronic kidney disease; K21.9 Gastro-esophageal reflux disease without esophagitis; I50.9 Heart failure, unspecified; E11.319 Type 2 diabetes mellitus with unspecified diabetic retinopathy without macular edema; E11.22 Type 2 diabetes mellitus with diabetic chronic kidney disease; I12.9 Hypertensive chronic kidney disease with stage 1 through stage 4 chronic kidney disease, or unspecified chronic kidney disease; E78.5 Hyperlipidemia, unspecified; F01.50 Vascular dementia, unspecified severity, without behavioral disturbance, psychotic disturbance, mood disturbance, and anxiety; I73.9 Peripheral vascular disease, unspecified; S90.411A Abrasion, right great toe, initial encounter; F43.21 Adjustment disorder with depressed mood; Z91.14 Patient's other noncompliance with medication regimen; Z79.01 Long term (current) use of anticoagulants; Z79.82 Long term (current) use of aspirin; Z79.4 Long term (current) use of insulin; Z79.899 Other long term (current) drug therapy
CPT/HCPCS: 36415; 70450; 70551; 71046; 74018; 80048; 80053; 80307; 81001; 82140; 82607; 82962; 83036; 83735; 84100; 84443; 84484; 85025; 85027; 86592; 87040; 87086; 93005; 93010; 93306; 96360; 99285; G8978-GP; G8979-GP; J0360; J1644; J1815; J3490; J7030

== ENCOUNTER 2017-08-19 13:23 | Inpatient (IN) | payer MEDICARE ==
[2017-08-19] MEDS ORDERED: INSULIN GLARGINE,HUM.REC.ANLOG 1,000 UNIT/10 ML UNIT SUBCUT ONE (14:00)
--- NOTE | 2017-08-19 14:04 | ER Document Report ---
ED General - General Chief Complaint: Altered Mental Status Stated Complaint: POSSIBLE HIGH GLUCOSE Time Seen by Provider: 08/19/17 13:59 Mode of Arrival: Wheelchair Information source: Patient, Relative Notes: 61 years old female with a history of diabetes hypertension was visited by the visiting nurses this morning they found her blood sugar being high and blood pressure being high and also noted an abscess in the right lower chest wall therefore referred her to the ED. Patient denies any discomfort. Denies any headache dizziness or blurring of vision. Denies any chest pain shortness of breath denies any fever chills or other constitutional symptoms. TRAVEL OUTSIDE OF THE [place] IN LAST 30 DAYS: No - HPI Onset: This morning Onset/Duration: Gradual, Constant, Persistent Quality of pain: denies: No pain, Achy, Burning, Cramping, Dull, Fullness, Pressure, Sharp, Stabbing, Throbbing, Other Associated symptoms: denies: None, Allergy/hay fever, Body/muscle aches, Chest pain, Chills, Nonproductive cough, Productive cough, Diarrhea, Drooling, Earache , Fever, Headache, Hoarseness, Hurts to breath, Leg swelling, Nausea, Vomiting, Rhinnorhea, Sinus pain/drainage, Shortness of breath, Slow to respond, Sore throat, Sweating, Weakness, Other - Related Data Allergies/Adverse Reactions: morphine Allergy (Verified 07/03/17 14:39) Past Medical History - General Information source: Patient, Relative - Social History Smoking Status: Never Smoker Cigarette use (# per day): No Chew tobacco use (# tins/day): No Smoking Education Provided: No Frequency of alcohol use: Rare Drug Abuse: None Lives with: Family Family History: Reviewed & Not Pertinent, Other - Alzheimer's - Past Medical History Cardiac Medical History: Reports: Hx Congestive Heart Failure, Hx Hypercholesterolemia, Hx Hypertension Denies: Hx Coronary Artery Disease, Hx Heart Attack, Hx Heart Murmur Pulmonary Medical History: Denies: Hx Asthma, Hx Bronchitis, Hx COPD, Hx Pneumonia Neurological Medical History: Denies: Hx Cerebrovascular Accident, Hx Seizures Endocrine Medical History: Reports: Hx Diabetes Mellitus Type 2 Renal/ Medical History: Denies: Hx Peritoneal Dialysis GI Medical History: Reports: Hx Gastroesophageal Reflux Disease. Denies: Hx Hepatitis, Hx Hiatal Hernia, Hx Ulcer Musculoskeltal Medical History: Reports Hx Arthritis, Denies Hx Multiple Sclerosis Psychiatric Medical History: Reports: Hx Dementia, Hx Depression Infectious Medical History: Denies: Hx Hepatitis Past Surgical History: Reports: Hx Tonsillectomy, Other - Abdominal wall surgery for infection. Denies: Hx Hysterectomy, Hx Mastectomy, Hx Open Heart Surgery, Hx Pacemaker - Immunizations Hx Diphtheria, Pertussis, Tetanus Vaccination: Yes Hx Pneumococcal Vaccination: 04/21/14 Review of Systems - Review of Systems Constitutional: denies: No symptoms reported, See HPI, Chills, Diaphoresis, Fever, Malaise, Weakness, Other, Weight gain, Weight loss, Recent illness EENT: denies: No symptoms reported, See HPI, Eye pain, Eye discharge, Blurred vision, Tearing, Double vision, Ear pain, Ear discharge, Nose pain, Nose congestion, Nose discharge, Sinus pressure, Sinus discharge, Throat pain, Difficulty swallowing, Throat swelling, Mouth pain, Mouth swelling, Dental problem, Vertigo, Other Cardiovascular: denies: No symptoms reported, See HPI, Chest pain, Palpitations , Heart racing, Orthopnea, Dyspnea, Syncope, Dizziness, Lightheaded, Edema, Other, Paroxysmal Nocturnal Dysp Respiratory: denies: No symptoms reported, See HPI, Cough, Hurts to breathe, Hemoptysis, Short of breath, Sputum, Stridor, Wheezing, Other Gastrointestinal: denies: No symptoms reported, See HPI, Abdomen distended, Abdominal pain, Diarrhea, Nausea, Vomiting, Constipation, Blood streaked bowels , Poor appetite, Poor fluid intake, Blood in vomit, Black stools, Rectal bleeding, Last bowel movement, Fecal incontinence, Other Genitourinary: denies: No symptoms reported, See HPI, Burning, Dysuria, Discharge, Frequency, Flank pain, Hematuria, Incontinence, Pain, Urgency, Retention, Other Female Genitourinary: denies: No symptoms reported, See HPI, Last menstrual period, , Post menopausal, Heavy/abnormal periods, Irregular period, Vaginal bleeding, Vaginal discharge, Vaginal odor, Painful intercourse, Other Skin: See HPI Neurological/Psychological: denies: No symptoms reported, See HPI, Confusion, Dementia, Depression, Hallucinations, Anxiety, Homicidal ideation, Sensory change, Weakness, Gait changes, Loss of power, Paralysis, Seizure, Lost consciousness, Headaches, Speech impairment, Numbness, Suicidal ideation, Tingling, Tremor, Other Physical Exam - Vital signs Vitals: Temp 98.1 F 08/19/17 13:38 - Notes Notes: PHYSICAL EXAMINATION: GENERAL: Well-appearing, well-nourished and in no acute distress. Morbidly obese HEAD: Atraumatic, normocephalic. EYES: Pupils equal round and reactive to light, extraocular movements intact, conjunctiva are normal. ENT: Nares patent, oropharynx clear without exudates. Moist mucous membranes. NECK: Normal range of motion, supple without lymphadenopathy LUNGS: Breath sounds clear to auscultation bilaterally and equal. No wheezes rales or rhonchi. HEART: Regular rate and rhythm without murmurs ABDOMEN: Soft, nontender, nondistended abdomen. No guarding, no rebound. No masses appreciated. Female : deferred Musculoskeletal: Normal range of motion, no pitting or edema. No cyanosis. She has self-induced wounds over the both toes. Apparently she picks on her skin. NEUROLOGICAL: Cranial nerves grossly intact. Normal speech, normal gait. Normal sensory, motor exams PSYCH: Normal mood, normal affect. SKIN: Skin over the right lower anterior chest wall has a 3 x 4 cm swelling which is fluctuant and is warm foul-smelling. Course - Vital Signs Vital signs: Temp Pulse Resp BP Pulse Ox 98.1 F 17 96 08/19/17 13:38 08/19/17 13:39 08/19/17 13:39 - Laboratory Result Diagrams: 08/19/17 13:30 08/19/17 13:30 Laboratory results interpreted by me: 08/19/17 08/19/17 08/19/17 13:30 13:30 13:31 RBC 3.55 L Hgb 10.1 L Hct 30.4 L RDW 16.2 H Seg Neutrophils % 80.1 H Lymphocytes % 12.2 L Potassium 3.1 L Creatinine 1.75 H Est GFR ( Amer) 36 L Est GFR (Non-Af Amer) 29 L Glucose 378 H POC Glucose 354 H Total Protein 5.6 L Albumin 2.8 L Procedures - Incision and Drainage Right Lateral Chest Time completed: 15:08 Type: Simple, Single Anesthetic type: 1% Lidocaine w/epi Blade size: 11 I&D procedure: Betadine prep applied, Iodoform packing placed Incision Method: Incision made by scalpel Amount/type of drainage: 10 cc of purulent fluid Adult Front & Back picture: 1 - 4 x 3 cm swelling with fluctuant mass Discharge - Discharge Clinical Impression: Hypokalemia, Abscess, Morbid obesity, Cellulitis and abscess of foot Hyperglycemia due to type 2 diabetes mellitus Qualifiers: Diabetes mellitus rat exterminator insulin use: with rat exterminator use Qualified Code(s): E11.65 - Type 2 diabetes mellitus with hyperglycemia; Z79.4 - residential (current ) use of insulin; Z79.4 - emt intermediate (current) use of insulin; Z79.4 - emt intermediate (current) use of insulin; Z79.4 - emt intermediate (current) use of insulin Hypertension Qualifiers: Hypertension type: essential hypertension Qualified Code(s): I10 - Essential ( primary) hypertension Condition: Poor
[2017-08-19 14:11] LABS: ABSOLUTE LYMPHOCYTES (AUTO) 0.9 10^3/uL (0.5-4.7); ABSOLUTE MONOCYTES (AUTO) 0.5 10^3/uL (0.1-1.4); ABSOLUTE NEUT (AUTO) 5.8 10^3/uL (1.7-8.2); BASOPHILS % (AUTO) 0.5 % (0-2); HEMATOCRIT 30.4 % (36.0-47.0); HEMOGLOBIN 10.1 g/dL (12.0-15.5); LYMPHOCYTES % (AUTO) 12.2 % (13-45); MEAN CORPUSCULAR HEMOGLOBIN 28.4 pg (27.0-33.4); MEAN CORPUSCULAR HGB CONC 33.1 g/dL (32.0-36.0); MEAN CORPUSCULAR VOLUME 86 fl (80-97); MONOCYTES % (AUTO) 7.2 % (3-13); PLATELET COUNT 190 10^3/uL (150-450); RED BLOOD COUNT 3.55 10^6/uL (3.72-5.28); RED CELL DISTRIBUTION WIDTH 16.2 % (11.5-14.0); SEGMENTED NEUTROPHILS % (AUTO) 80.1 % (42-78); TOTAL CELLS COUNTED % (AUTO) 100 %; WHITE BLOOD COUNT 7.2 10^3/uL (4.0-10.5)
[2017-08-19 14:17] LABS: ALANINE AMINOTRANSFERASE 12 U/L (9-52); ALBUMIN 2.8 g/dL (3.5-5.0); ALKALINE PHOSPHATASE 92 U/L (38-126); ANION GAP 9 (5-19); ASPARTATE AMINO TRANSFERASE 17 U/L (14-36); BILIRUBIN,DIRECT 0.1 mg/dL (0.0-0.4); BILIRUBIN,TOTAL 0.3 mg/dL (0.2-1.3); BLOOD UREA NITROGEN 18 mg/dL (7-20); CALCIUM 8.8 mg/dL (8.4-10.2); CARBON DIOXIDE 27 mmol/L (22-30); CHLORIDE 104 mmol/L (98-107); GLUCOSE 378 mg/dL (75-110); POTASSIUM 3.1 mmol/L (3.6-5.0); SODIUM 140.2 mmol/L (137-145); TOTAL PROTEIN 5.6 g/dL (6.3-8.2)
[2017-08-19] MEDS ORDERED: NORMAL SALINE 1000 ML 1,000 ML IV ONE (14:29)
[2017-08-19] MEDS ORDERED: LIDOCAINE 1%/EPINEPHRINE INJ 20 ML VIAL INJ ONE (14:35)
--- NOTE | 2017-08-19 14:44 | RADIOLOGY REPORT (SQ) ---
EXAM DESCRIPTION: CHEST SINGLE VIEW COMPLETED DATE/TIME: 08/19/2017 2:28 pm REASON FOR STUDY: cough COMPARISON: Two-view chest 07/03/2017 EXAM PARAMETERS: NUMBER OF VIEWS: One view. TECHNIQUE: Single frontal radiographic view of the chest acquired. RADIATION DOSE: NA LIMITATIONS: None. FINDINGS: LUNGS AND PLEURA: Minimal bandlike atelectasis or scarring in the left lateral costophreni c sulcus unchanged from 07/03/2017. No fluffy alveolar infiltrates worrisome for pulmonary edema or pneumonia. No pleural effusion. No pneumothorax. MEDIASTINUM AND HILAR STRUCTURES: No masses. Contour normal. HEART AND VASCULAR STRUCTURES: Heart normal in size. Normal vasculature. BONES: Old healed left clavicle fracture HARDWARE: None in the chest. OTHER: No other significant finding. IMPRESSION: No acute findings TECHNICAL DOCUMENTATION: JOB ID: [id number] [employer]- All Rights Reserved Reading location - IP/workstation name: [email or web address]
[2017-08-19] MEDS ORDERED: OXYCODONE-ACETAMINOPHEN 5-325 MG TABLET PO ONE (15:14)
[2017-08-19] MEDS ORDERED: CEFAZOLIN 2 GM/D5W RTU 2 GM/50 ML RTUPB IV ONE (15:21)
[2017-08-19] MEDS ORDERED: ONDANSETRON HCL INJ/PF 4 MG/2 ML SDV IV PRN (16:11)
[2017-08-19] MEDS ORDERED: ACETAMINOPHEN 325 MG TABLET PO PRN (16:11)
[2017-08-19] MEDS ORDERED: NORMAL SALINE 1000 ML 1,000 ML IV PRN (16:11)
[2017-08-19] MEDS ORDERED: GLUCAGON,HUMAN RECOMB 1 MG INJ IM PRN (16:11)
[2017-08-19] MEDS ORDERED: DEXTROSE 40% GEL 15 GM TUBE PO PRN ×2 (16:11)
[2017-08-19] MEDS ORDERED: DEXTROSE 50%-WATER 25 GM/50 ML DISP.SYRIN IV PRN ×2 (16:11)
[2017-08-19] MEDS: POTASSI CL 20 MEQ/50 ML RIDER 20 MEQ/50 ML RTUPB IV SCH ×2 (16:37→19:59)
--- NOTE | 2017-08-19 16:57 | PDOC H&P ---
History of Present Illness Admission Date/PCP: Dr. Johnston Patient complains of: Shortness of breath and pain and several wounds with drainage History of Present Illness: DALIA QUEVEDO is a 61 year old female Patient presents to emergency room with complaints of multiple draining wounds as well as elevated blood sugar. She was seen by the visiting nurse and when her blood sugar was checked and was apparently had an 500 so she was sent to the emergency room for further evaluation. She was found to have multiple wounds and abscesses and the one located under the right breast was drained with about 10 cc of purulent fluid apparently expressed. Patient was also found to be hypokalemic and received potassium supplementation and she received insulin for hyperglycemia. Past Medical History Cardiac Medical History: Reports: Congestive Heart Failure, Hyperlipidema, Hypertension Denies: Coronary Artery Disease, Myocardial Infarction, Heart Murmur Pulmonary Medical History: Denies: Asthma, Bronchitis, Chronic Obstructive Pulmonary Disease (COPD), Pneumonia Neurological Medical History: Denies: Seizures Endocrine Medical History: Reports: Diabetes Mellitus Type 2 GI Medical History: Reports: Gastroesophageal Reflux Disease Denies: Hepatitis, Hiatal Hernia Musculoskeltal Medical History: Reports: Arthritis Psychiatric Medical History: Reports: Dementia, Depression Hematology: Reports: Anemia Denies: Sickle Cell Disease Past Surgical History Past Surgical History: Reports: Tonsillectomy, Other - Abdominal wall surgery for infection Denies: Amputation, Hysterectomy, Mastectomy, Pacemaker Social History Information Source: Patient - Son the primary caregiver Lives with: Family Smoking Status: Never Smoker Frequency of Alcohol Use: None Hx Recreational Drug Use: No Drugs: None Hx Prescription Drug Abuse: No - Advance Directive Resuscitation Status: Full Code Family History Family History: Reviewed & Not Pertinent, Other - Alzheimer's Parental Family History Reviewed: No - None available Children Family History Reviewed: Yes - No significant findings Sibling(s) Family History Reviewed.: Unknown Medication/Allergy Home Medications: Amlodipine Besylate [Norvasc 10 mg Tablet] 10 mg PO DAILY 08/19/17 Clonidine HCl [Catapres 0.3 mg Tablet] 0.3 mg PO BID 08/19/17 Gabapentin [Neurontin 100 mg Capsule] 100 mg PO BID 08/19/17 Hydralazine HCl [Apresoline 50 mg Tablet] 50 mg PO TID 08/19/17 Insulin Glargine,Hum.rec.anlog [Lantus Solostar] 50 units SQ QHS 08/19/17 Insulin Lispro [Humalog Kwikpen U-100] See Protocol SQ MEALS 08/19/17 Isosorbide Mononitrate [Imdur 30 mg Tablet.er] 30 mg PO DAILY 08/19/17 Metoprolol Tartrate [Lopressor 100 mg Tablet] 100 mg PO Q12 08/19/17 Trazodone HCl [Desyrel 50 mg Tablet] 50 mg PO QHS 08/19/17 Venlafaxine HCl ER [Effexor Xr 75 mg Cap.sr] 75 mg PO BID 08/19/17 Allergies/Adverse Reactions: morphine Allergy (Verified 07/03/17 14:39) Review of Systems Constitutional: ABSENT: chills, fever(s) Eyes: PRESENT: visual disturbances Breasts: PRESENT: as per HPI Cardiovascular: PRESENT: orthropnea. ABSENT: chest pain, dyspnea on exertion, edema, palpitations Respiratory: PRESENT: as per HPI Gastrointestinal: PRESENT: as per HPI. ABSENT: heartburn, melena, vomiting Genitourinary: ABSENT: dysuria, hematuria Musculoskeletal: PRESENT: as per HPI Integumentary: PRESENT: lesions, rash, wounds Neurological: PRESENT: confusion, frequent falls, lack of coordination, memory loss, weakness Psychiatric: PRESENT: depression Endocrine: PRESENT: polydipsia Hematologic/Lymphatic: PRESENT: as per HPI Physical Exam Vital Signs: Temp Pulse Resp BP Pulse Ox 98.1 F 84 16 128/74 H 96 08/19/17 13:38 08/19/17 15:00 08/19/17 15:00 08/19/17 15:00 08/19/17 15:00 Intake & Output 08/18/17 08/19/17 08/20/17 06:59 06:59 06:59 Weight 90.9 kg General appearance: PRESENT: no acute distress, obese, well-developed, well- nourished, other - Looks older than stated age debilitated Head exam: PRESENT: atraumatic Eye exam: PRESENT: other - Blind partially Ear exam: PRESENT: normal external ear exam Mouth exam: PRESENT: dry mucosa Teeth exam: PRESENT: poor dentation Neck exam: ABSENT: carotid bruit, JVD, lymphadenopathy, thyromegaly Respiratory exam: PRESENT: clear to auscultation ita. ABSENT: rales, rhonchi, wheezes Pulses: PRESENT: normal dorsalis pedis pul GI/Abdominal exam: PRESENT: normal bowel sounds, soft. ABSENT: tenderness Rectal exam: PRESENT: deferred Extremities exam: PRESENT: +2 edema Neurological exam: PRESENT: alert, oriented to person, oriented to place, oriented to time Psychiatric exam: PRESENT: unusual affect Skin exam: PRESENT: abrasion, dry, rash, other - I&D of a right anterior chest wall under the breast Multiple skin lesions and scabs especially lower extremity Small wound closed right heel Results Laboratory Results: 08/19/17 13:30 08/19/17 13:30 08/19/17 08/19/17 13:30 13:30 WBC 7.2 RBC 3.55 L Hgb 10.1 L Hct 30.4 L MCV 86 MCH 28.4 MCHC 33.1 RDW 16.2 H Plt Count 190 Seg Neutrophils % 80.1 H Lymphocytes % 12.2 L Monocytes % 7.2 Eosinophils % 0.0 Basophils % 0.5 Absolute Neutrophils 5.8 Absolute Lymphocytes 0.9 Absolute Monocytes 0.5 Absolute Eosinophils 0.0 Absolute Basophils 0.0 Sodium 140.2 Potassium 3.1 L Chloride 104 Carbon Dioxide 27 Anion Gap 9 BUN 18 Creatinine 1.75 H Est GFR ( Amer) 36 L Est GFR (Non-Af Amer) 29 L Glucose 378 H Calcium 8.8 Total Bilirubin 0.3 AST 17 ALT 12 Alkaline Phosphatase 92 Total Protein 5.6 L Albumin 2.8 L Impressions: Chest X-Ray 08/19/17 14:04 IMPRESSION: No acute findings Assessment & Plan - Diagnosis (1) Abscess Is this a current diagnosis for this admission?: Yes Plan: She received Ancef in the emergency room with her present clindamycin going forward so as to cover potential possible organisms including MRSA. Antibiotics will be adjusted depending on culture results (2) Hyperglycemia due to type 2 diabetes mellitus Qualifiers: Diabetes mellitus residential insulin use: with residential use Qualified Code( s): E11.65 - Type 2 diabetes mellitus with hyperglycemia; Z79.4 - rodent exterminator ( current) use of insulin; Z79.4 - rodent exterminator (current) use of insulin; Z79.4 - long-term (current) use of insulin; Z79.4 - long-term (current) use of insulin Is this a current diagnosis for this admission?: Yes Plan: Her blood sugar was elevated even prior to discharge although was 378 when he was checked in the hospital. 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 This appears to be relatively stable (4) Dementia Qualifiers: Dementia type: vascular dementia Dementia behavioral disturbance: without behavioral disturbance Qualified Code(s): F01.50 - Vascular dementia without behavioral disturbance Is this a current diagnosis for this admission?: Yes Plan: Underlying dementia possibly vascular from multiple infarcts. This is stable and there is no evidence of an acute infarct at this time (5) HTN (hypertension) Qualifiers: Hypertension type: essential hypertension Qualified Code(s): I10 - Essential (primary) hypertension (6) Diabetes mellitus type 2 with retinopathy Qualifiers: Diabetic retinopathy severity: with unspecified retinopathy severity Laterality: unspecified laterality Is this a current diagnosis for this admission?: Yes Plan: Chronic (7) Hypopotassemia Is this a current diagnosis for this admission?: Yes Plan: We will replace potassium and monitor BMP - Time Time Spent: 30 to 50 Minutes Medications reviewed and adjusted accordingly: Yes Anticipated discharge: Home with Homehealth Within: within 72 hours - Plan Summary Plan Summary: I have consulted discharge planning as it appears this patient will benefit from some home help especially she wants to go back to live with her son who apparently is the primary acoustical engineer. Physical therapy evaluation will also be obtained.
[2017-08-19 17:33] LABS: APPEARANCE,URINE CLOUDY; BILIRUBIN,URINE NEGATIVE (NEGATIVE); COLOR,URINE YELLOW; GLUCOSE, URINE >=500 mg/dL (NEGATIVE); KETONES,URINE TRACE mg/dL (NEGATIVE); LEUKOCYTE ESTERASE,URINE NEGATIVE (NEGATIVE); NITRITE,URINE NEGATIVE (NEGATIVE); PROTEIN,URINE >=500 mg/dL (NEGATIVE); URINE SPECIFIC GRAVITY 1.028; UROBILINOGEN,URINE NEGATIVE mg/dL (<2.0)
[2017-08-19] MEDS ORDERED: ENOXAPARIN SODIUM INJ 40 MG/0.4 ML DISP.SYRIN SUBCUT ONE (18:00)
[2017-08-19 18:26] LABS: HEMATOCRIT 27.1 % (36.0-47.0); HEMOGLOBIN 9.1 g/dL (12.0-15.5); MEAN CORPUSCULAR HEMOGLOBIN 28.9 pg (27.0-33.4); MEAN CORPUSCULAR HGB CONC 33.5 g/dL (32.0-36.0); MEAN CORPUSCULAR VOLUME 86 fl (80-97); PLATELET COUNT 169 10^3/uL (150-450); RED BLOOD COUNT 3.14 10^6/uL (3.72-5.28); RED CELL DISTRIBUTION WIDTH 16.2 % (11.5-14.0); WHITE BLOOD COUNT 6.3 10^3/uL (4.0-10.5)
[2017-08-19] MEDS: GABAPENTIN 100 MG CAPSULE PO SCH (19:24)
[2017-08-19] MEDS: VENLAFAXINE HCL 75 MG CAP.SR.24H PO SCH (19:25)
[2017-08-19] MEDS ORDERED: INSULIN GLARGINE,HUM.REC.ANLOG 1,000 UNIT/10 ML UNIT SUBCUT SCH (22:00)
[2017-08-19] MEDS ORDERED: INSULIN GLARGINE,HUM.REC.ANLOG 300 UNIT/3 ML INSULN.PEN SUBCUT SCH (22:00)
[2017-08-19] MEDS ORDERED: HYDRALAZINE HCL 50 MG TABLET PO SCH (22:00)
[2017-08-19] MEDS: HYDRALAZINE HCL 25 MG TABLET PO SCH (23:12)
[2017-08-19] MEDS: CLONIDINE HCL 0.2 MG TABLET PO SCH (23:14)
[2017-08-19] MEDS: TRAZODONE HCL 50 MG TABLET PO SCH (23:14)
[2017-08-19] MEDS: FAMOTIDINE 20 MG TABLET PO SCH (23:15)
[2017-08-19] MEDS: CLINDAMYCIN 600 MG/D5W RTU 600 MG/50 ML RTUPB IV SCH (23:17)
[2017-08-19] MEDS: INSULIN REG, HUMAN 100 UNIT/ML 3 ML VIAL (PYX) SUBCUT PRN (23:55)
[2017-08-20] MEDS: VENLAFAXINE HCL 75 MG CAP.SR.24H PO SCH (05:14)
[2017-08-20 05:21] LABS: ANION GAP 9 (5-19); BLOOD UREA NITROGEN 21 mg/dL (7-20); CALCIUM 7.8 mg/dL (8.4-10.2); CARBON DIOXIDE 24 mmol/L (22-30); CHLORIDE 105 mmol/L (98-107); PHOSPHORUS 2.9 mg/dL (2.5-4.5); POTASSIUM 3.3 mmol/L (3.6-5.0); SODIUM 137.6 mmol/L (137-145)
[2017-08-20] MEDS: GABAPENTIN 100 MG CAPSULE PO SCH ×2 (05:22→18:11)
[2017-08-20] MEDS: HYDRALAZINE HCL 25 MG TABLET PO SCH ×3 (05:22→22:10)
[2017-08-20] MEDS: CLINDAMYCIN 600 MG/D5W RTU 600 MG/50 ML RTUPB IV SCH ×3 (05:22→22:58)
[2017-08-20 05:44] LABS: GLUCOSE 405 mg/dL (75-110)
[2017-08-20] MEDS ORDERED: POTASSIUM CHLORIDE 10 MEQ TABLET.SA PO ONE (08:00)
[2017-08-20] MEDS ORDERED: CLONIDINE HCL 0.2 MG PO SCH (10:00)
[2017-08-20] MEDS ORDERED: ISOSORBIDE MONONITRATE 30 MG TAB.ER.24H PO SCH (10:00)
[2017-08-20] MEDS ORDERED: INSULIN GLARGINE,HUM.REC.ANLOG 300 UNIT/3 ML INSULN.PEN SUBCUT ONE (10:00)
[2017-08-20] MEDS: INSULIN REG, HUMAN 100 UNIT/ML 3 ML VIAL (PYX) SUBCUT PRN ×4 (10:18→22:12)
[2017-08-20] MEDS: ENOXAPARIN SODIUM INJ 40 MG/0.4 ML DISP.SYRIN SUBCUT SCH (10:20)
[2017-08-20] MEDS: FAMOTIDINE 20 MG TABLET PO SCH ×2 (10:21→22:10)
[2017-08-20] MEDS: METOPROLOL TARTRATE 100 MG TABLET PO SCH ×2 (10:22→22:11)
[2017-08-20] MEDS: AMLODIPINE BESYLATE 10 MG TABLET PO SCH (10:22)
[2017-08-20] MEDS: CLONIDINE HCL 0.2 MG TABLET PO SCH ×2 (10:23→22:11)
[2017-08-20] MEDS: DOCUSATE SODIUM 100 MG CAPSULE PO SCH (10:23)
[2017-08-20] MEDS ORDERED: ONDANSETRON HCL INJ/PF 4 MG/2 ML SDV IV PRN (10:30)
[2017-08-20] MEDS ORDERED: VENLAFAXINE HCL 25 MG TABLET PO ONE (11:30)
--- NOTE | 2017-08-20 16:31 | PDOC PROGRESS REPORT ---
Subjective Progress Note for:: 08/20/17 Subjective:: Patient appears to be more alert and awake today. 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 She was able to ambulate with PT Reason For Visit: UNCONTROLLED DM,WOUND INFECTION,HYPOKALEMIA Physical Exam Vital Signs: Temp Pulse Resp BP Pulse Ox 97.4 F 73 16 181/75 H 96 08/20/17 07:34 08/20/17 07:34 08/20/17 07:34 08/20/17 07:34 08/20/17 07:34 Intake & Output 08/19/17 08/20/17 08/21/17 06:59 06:59 06:59 Intake Total 420 Output Total 400 Balance 20 Weight 101.3 kg General appearance: PRESENT: no acute distress, other - Older than stated age Head exam: PRESENT: atraumatic Eye exam: PRESENT: other - Legally blind Mouth exam: PRESENT: dry mucosa Respiratory exam: PRESENT: clear to auscultation ita. ABSENT: rales, rhonchi, wheezes Cardiovascular exam: PRESENT: RRR. ABSENT: diastolic murmur, rubs, systolic murmur GI/Abdominal exam: PRESENT: normal bowel sounds, soft. ABSENT: distended, guarding, mass, organolmegaly, rebound, tenderness Rectal exam: PRESENT: deferred Musculoskeletal exam: PRESENT: ambulatory - With assistance Neurological exam: PRESENT: alert, oriented to place, oriented to situation Psychiatric exam: PRESENT: other - Poor memory Skin exam: PRESENT: other - Status post I&D right anterior chest wall Multiple skin lesions and abrasions on lower extremity as well as abdomen Results Laboratory Results: 08/19/17 18:05 08/20/17 04:35 08/19/17 08/20/17 18:05 04:35 WBC 6.3 RBC 3.14 L Hgb 9.1 L Hct 27.1 L MCV 86 MCH 28.9 MCHC 33.5 RDW 16.2 H Plt Count 169 Sodium 137.6 Potassium 3.3 L Chloride 105 Carbon Dioxide 24 Anion Gap 9 BUN 21 H Creatinine 1.87 H Est GFR ( Amer) 33 L Est GFR (Non-Af Amer) 27 L Glucose 405 H* Calcium 7.8 L Phosphorus 2.9 Magnesium 1.9 Impressions: Chest X-Ray 08/19/17 14:04 IMPRESSION: No acute findings Assessment & Plan - Diagnosis (1) Abscess Is this a current diagnosis for this admission?: Yes Plan: Incision and drainage was done in the emergency room of the right anterior chest wall abscess but appears no cultures were sent. I have placed her on clindamycin IV. We will continue with this for now and she can always be discharged on oral clindamycin (2) Hyperglycemia due to type 2 diabetes mellitus Qualifiers: Diabetes mellitus meterman insulin use: with meterman use Qualified Code( s): E11.65 - Type 2 diabetes mellitus with hyperglycemia; Z79.4 - terminal carman ( current) use of insulin; Z79.4 - assisted (current) use of insulin; Z79.4 - assisted (current) use of insulin; Z79.4 - terminal carman (current) use of insulin Is this a current diagnosis for this admission?: Yes Plan: Her blood sugar is still elevated but improved. 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 This appears to be relatively stable (4) Dementia Qualifiers: Dementia type: vascular dementia Dementia behavioral disturbance: without behavioral disturbance Qualified Code(s): F01.50 - Vascular dementia without behavioral disturbance Is this a current diagnosis for this admission?: Yes Plan: Underlying dementia possibly vascular from multiple infarcts. This is stable and there is no evidence of an acute infarct at this time (5) HTN (hypertension) Qualifiers: Hypertension type: essential hypertension Qualified Code(s): I10 - Essential (primary) hypertension Is this a current diagnosis for this admission?: Yes Plan: Blood pressure stable (6) Diabetes mellitus type 2 with retinopathy Qualifiers: Diabetic retinopathy severity: with unspecified retinopathy severity Laterality: unspecified laterality Is this a current diagnosis for this admission?: Yes Plan: Chronic with legal blindness (7) Hypopotassemia Is this a current diagnosis for this admission?: Yes Plan: Replaced - Time Time Spent with patient: 15-24 minutes Medications reviewed and adjusted accordingly: Yes Anticipated discharge: Home with Homehealth - I have requested a strategic planner assessment as I am concerned about this patient's living situation. He lives with her 25-year-old son who is employed and obviously is out of the house during the daytime. Will await social service input and see what help can be rendered if any. Within: within 48 hours - Inpatient Certification Based on my medical assessment, after consideration of the patient's comorbidities, presenting symptoms, or acuity I expect that the services needed warrant INPATIENT care.: Yes I certify that my determination is in accordance with my understanding of Medicare's requirements for reasonable and necessary INPATIENT services [42 CFR 412.3e].: Yes Medical Necessity: Need Close Monitoring Due to Risk of Patient Decompensation, Need for IV Antibiotics
[2017-08-20] MEDS: VENLAFAXINE HCL 25 MG TABLET PO SCH (22:10)
[2017-08-20] MEDS: TRAZODONE HCL 50 MG TABLET PO SCH (22:11)
[2017-08-20] MEDS: INSULIN GLARGINE,HUM.REC.ANLOG 300 UNIT/3 ML INSULN.PEN SUBCUT SCH (22:12)
[2017-08-21 06:05] LABS: HEMATOCRIT 25.4 % (36.0-47.0); HEMOGLOBIN 8.6 g/dL (12.0-15.5); MEAN CORPUSCULAR HEMOGLOBIN 28.8 pg (27.0-33.4); MEAN CORPUSCULAR VOLUME 85 fl (80-97); PLATELET COUNT 150 10^3/uL (150-450); RED CELL DISTRIBUTION WIDTH 16.4 % (11.5-14.0); WHITE BLOOD COUNT 5.6 10^3/uL (4.0-10.5)
[2017-08-21] MEDS: GABAPENTIN 100 MG CAPSULE PO SCH ×2 (06:05→18:02)
[2017-08-21] MEDS: CLINDAMYCIN 600 MG/D5W RTU 600 MG/50 ML RTUPB IV SCH (06:06)
[2017-08-21] MEDS: HYDRALAZINE HCL 25 MG TABLET PO SCH ×3 (06:06→21:53)
[2017-08-21 06:32] LABS: ANION GAP 5 (5-19); BLOOD UREA NITROGEN 26 mg/dL (7-20); CALCIUM 8.2 mg/dL (8.4-10.2); CARBON DIOXIDE 26 mmol/L (22-30); CHLORIDE 110 mmol/L (98-107); GLUCOSE 141 mg/dL (75-110); POTASSIUM 3.7 mmol/L (3.6-5.0); SODIUM 140.9 mmol/L (137-145)
[2017-08-21] MEDS: ISOSORBIDE MONONITRATE 30 MG TAB.ER.24H PO SCH (10:33)
[2017-08-21] MEDS: AMLODIPINE BESYLATE 10 MG TABLET PO SCH (10:33)
[2017-08-21] MEDS: METOPROLOL TARTRATE 100 MG TABLET PO SCH ×2 (10:35→21:53)
[2017-08-21] MEDS: CLONIDINE HCL 0.2 MG TABLET PO SCH ×2 (10:36→21:53)
[2017-08-21] MEDS: FAMOTIDINE 20 MG TABLET PO SCH ×2 (10:37→21:52)
[2017-08-21] MEDS: DOCUSATE SODIUM 100 MG CAPSULE PO SCH (10:38)
[2017-08-21] MEDS: VENLAFAXINE HCL 25 MG TABLET PO SCH ×2 (10:39→21:53)
[2017-08-21] MEDS: ENOXAPARIN SODIUM INJ 40 MG/0.4 ML DISP.SYRIN SUBCUT SCH (10:40)
[2017-08-21] MEDS: INSULIN REG, HUMAN 100 UNIT/ML 3 ML VIAL (PYX) SUBCUT PRN (12:40)
[2017-08-21] MEDS: CLINDAMYCIN HCL 150 MG CAPSULE PO SCH ×2 (14:17→21:52)
--- NOTE | 2017-08-21 18:18 | PDOC PROGRESS REPORT ---
Subjective Progress Note for:: 08/21/17 Subjective:: She is feeling better today. She has some pain under her right breast where the abscess was I&D'd. She is feeling weak. She has been hyperglycemic. She thinks that she is in the hospital to work today. 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 Reason For Visit: UNCONTROLLED DM,WOUND INFECTION,HYPOKALEMIA Physical Exam Vital Signs: Temp Pulse Resp BP Pulse Ox 97.5 F 64 18 166/64 H 97 08/21/17 07:41 08/21/17 07:41 08/21/17 07:41 08/21/17 07:41 08/21/17 07:41 Intake & Output 08/20/17 08/21/17 08/22/17 06:59 06:59 06:59 Intake Total 1170 Output Total 400 Balance 770 Weight 101.3 kg 103.2 kg General appearance: PRESENT: no acute distress, cooperative, obese Head exam: PRESENT: atraumatic, normocephalic Eye exam: PRESENT: conjunctiva pink Mouth exam: PRESENT: moist Respiratory exam: PRESENT: clear to auscultation ita, unlabored Cardiovascular exam: PRESENT: RRR. ABSENT: systolic murmur Pulses: PRESENT: normal radial pulses GI/Abdominal exam: PRESENT: normal bowel sounds, soft. ABSENT: distended, guarding, tenderness Rectal exam: PRESENT: deferred Extremities exam: PRESENT: +1 edema Neurological exam: PRESENT: alert, awake, oriented to person, oriented to place. ABSENT: oriented to situation Psychiatric exam: ABSENT: agitated, anxious Skin exam: PRESENT: dry, warm, other - I looked at the wound underneath the patient's right breast. There is no new cellulitis or drainage. She also has a small abrasion on her left benitez. No evidence of infection. Results Laboratory Results: 08/21/17 05:43 08/21/17 05:43 08/21/17 08/21/17 05:43 05:43 WBC 5.6 RBC 3.00 L Hgb 8.6 L Hct 25.4 L MCV 85 MCH 28.8 MCHC 34.0 RDW 16.4 H Plt Count 150 Sodium 140.9 Potassium 3.7 Chloride 110 H Carbon Dioxide 26 Anion Gap 5 BUN 26 H Creatinine 2.09 H Est GFR ( Amer) 29 L Est GFR (Non-Af Amer) 24 L Glucose 141 H Calcium 8.2 L Impressions: Chest X-Ray 08/19/17 14:04 IMPRESSION: No acute findings Assessment & Plan - Diagnosis (1) Abscess Is this a current diagnosis for this admission?: Yes Plan: Incision and drainage performed in the ER. Lesion is underneath the right breast. No evidence of cellulitis. No culture was performed. Patient is on clindamycin and this will continue for 5-7 days. (2) Hyperglycemia due to type 2 diabetes mellitus Qualifiers: Diabetes mellitus corn picker insulin use: with corn picker use Qualified Code( s): E11.65 - Type 2 diabetes mellitus with hyperglycemia; Z79.4 - cook ship ( current) use of insulin; Z79.4 - correction (current) use of insulin; Z79.4 - cook ship (current) use of insulin; Z79.4 - correction (current) use of insulin Is this a current diagnosis for this admission?: Yes Plan: Blood sugars are better controlled. She is on her long-acting insulin and short -acting. Continue to monitor and up titrate insulin dosing if indicated tomorrow. (3) CKD (chronic kidney disease) stage 3, GFR 30-59 ml/min Is this a current diagnosis for this admission?: Yes Plan: Patient's creatinine is a little bit elevated over what appears to be her baseline. Will recheck in the morning to see if workup for acute kidney injury needs to be performed. CKD related to poorly controlled diabetes. (4) HTN (hypertension) Qualifiers: Hypertension type: essential hypertension Qualified Code(s): I10 - Essential (primary) hypertension Is this a current diagnosis for this admission?: Yes Plan: Difficult to control at baseline. Patient is on her hydralazine, metoprolol, amlodipine and she has been on clonidine 0.2 twice daily and I have increase that to 0.3 twice daily which is her home dose. Will recheck again in the morning to see if any changes need to be made. (5) Vascular dementia Is this a current diagnosis for this admission?: Yes Plan: Appears to be nearing baseline. We will need to discuss discharge plan with her son who seems to care for her to assure that she is safe in the home. (6) Diabetes mellitus type 2 with retinopathy Qualifiers: Diabetic retinopathy severity: with unspecified retinopathy severity Laterality: unspecified laterality Is this a current diagnosis for this admission?: Yes Plan: We will work on maintaining good diabetic control. - Time Time Spent with patient: 25-34 minutes Medications reviewed and adjusted accordingly: Yes Within: within 48 hours - Inpatient Certification Based on my medical assessment, after consideration of the patient's comorbidities, presenting symptoms, or acuity I expect that the services needed warrant INPATIENT care.: Yes I certify that my determination is in accordance with my understanding of Medicare's requirements for reasonable and necessary INPATIENT services [42 CFR 412.3e].: Yes Medical Necessity: Significant Comorbidiites Make Outpatient Treatment Too Risky , Need Close Monitoring Due to Risk of Patient Decompensation, Risk of Complication if Not Cared For in Hospital
[2017-08-21] MEDS: TRAZODONE HCL 50 MG TABLET PO SCH (21:53)
[2017-08-21] MEDS: INSULIN GLARGINE,HUM.REC.ANLOG 300 UNIT/3 ML INSULN.PEN SUBCUT SCH (21:53)
[2017-08-22] MEDS: CLINDAMYCIN HCL 150 MG CAPSULE PO SCH (05:17)
[2017-08-22] MEDS: GABAPENTIN 100 MG CAPSULE PO SCH (05:17)
[2017-08-22] MEDS: HYDRALAZINE HCL 25 MG TABLET PO SCH (05:17)
[2017-08-22 05:58] LABS: HEMATOCRIT 25.5 % (36.0-47.0); HEMOGLOBIN 8.8 g/dL (12.0-15.5); MEAN CORPUSCULAR HEMOGLOBIN 29.3 pg (27.0-33.4); MEAN CORPUSCULAR HGB CONC 34.7 g/dL (32.0-36.0); MEAN CORPUSCULAR VOLUME 84 fl (80-97); PLATELET COUNT 150 10^3/uL (150-450); RED BLOOD COUNT 3.02 10^6/uL (3.72-5.28); RED CELL DISTRIBUTION WIDTH 16.4 % (11.5-14.0); WHITE BLOOD COUNT 4.9 10^3/uL (4.0-10.5)
[2017-08-22 06:40] LABS: ANION GAP 6 (5-19); BLOOD UREA NITROGEN 25 mg/dL (7-20); CALCIUM 8.5 mg/dL (8.4-10.2); CARBON DIOXIDE 24 mmol/L (22-30); CHLORIDE 113 mmol/L (98-107); GLUCOSE 100 mg/dL (75-110); POTASSIUM 3.5 mmol/L (3.6-5.0); SODIUM 142.8 mmol/L (137-145)
[2017-08-22] MEDS: FAMOTIDINE 20 MG TABLET PO SCH (10:02)
[2017-08-22] MEDS: DOCUSATE SODIUM 100 MG CAPSULE PO SCH (10:02)
[2017-08-22] MEDS: AMLODIPINE BESYLATE 10 MG TABLET PO SCH (10:02)
[2017-08-22] MEDS: VENLAFAXINE HCL 25 MG TABLET PO SCH (10:02)
[2017-08-22] MEDS: CLONIDINE HCL 0.2 MG TABLET PO SCH (10:03)
[2017-08-22] MEDS: ENOXAPARIN SODIUM INJ 40 MG/0.4 ML DISP.SYRIN SUBCUT SCH (10:03)
[2017-08-22] MEDS: METOPROLOL TARTRATE 100 MG TABLET PO SCH (10:03)
[2017-08-22] MEDS: ISOSORBIDE MONONITRATE 30 MG TAB.ER.24H PO SCH (10:03)
[2017-08-22 13:34] VITALS: BP 147/74
--- NOTE | 2017-08-22 20:49 | PDOC DISCHARGE SUMMARY ---
General - Admit/Disc Date/PCP Admission Date/Primary Care Provider: 08/19/17 17:20 Dr. Johnston Discharge Date: 08/22/17 - Discharge Diagnosis (1) Abscess Is this a current diagnosis for this admission?: Yes Summary: I indeed. Cellulitis improved and no drainage on discharge. She was discharged with 3 more days of clindamycin with wound care to be performed at home and instructions to return to the hospital with any worsening. (2) Hyperglycemia due to type 2 diabetes mellitus Is this a current diagnosis for this admission?: Yes Summary: Glucose fairly well controlled on discharge, thought to be harder to control secondary to infection. She was discharged on her home diabetic regimen. (3) CKD (chronic kidney disease) stage 3, GFR 30-59 ml/min Is this a current diagnosis for this admission?: Yes (4) HTN (hypertension) Is this a current diagnosis for this admission?: Yes Summary: Patient's home medications all restarted prior to discharge. Blood pressure was controlled for discharge. (5) Vascular dementia Is this a current diagnosis for this admission?: Yes Summary: Patient will need further workup with her primary care doctor to better assess her type of dementia. She definitely has at least mild dementia with her memory loss. (6) Diabetes mellitus type 2 with retinopathy Is this a current diagnosis for this admission?: Yes Summary: She discharged on her home regimen. - Additional Information Resuscitation Status: Full Code Discharge Diet: Cardiac, Diabetic Discharge Activity: Balance Activity w/Rest, No Driving Prescriptions: Clindamycin HCl [Cleocin 150 mg Capsule] 300 mg PO Q8 3 Days #9 capsule Home Medications: Amlodipine Besylate [Norvasc 10 mg Tablet] 10 mg PO DAILY 08/19/17 Clonidine HCl [Catapres 0.3 mg Tablet] 0.3 mg PO BID 08/19/17 Gabapentin [Neurontin 100 mg Capsule] 100 mg PO BID 08/19/17 Hydralazine HCl [Apresoline 50 mg Tablet] 50 mg PO TID 08/19/17 Insulin Glargine,Hum.rec.anlog [Lantus Solostar] 50 units SQ QHS 08/19/17 Insulin Lispro [Humalog Kwikpen U-100] See Protocol SQ MEALS 08/19/17 Isosorbide Mononitrate [Imdur 30 mg Tablet.er] 30 mg PO DAILY 08/19/17 Metoprolol Tartrate [Lopressor 100 mg Tablet] 100 mg PO Q12 08/19/17 Trazodone HCl [Desyrel 50 mg Tablet] 50 mg PO QHS 08/19/17 Venlafaxine HCl ER [Effexor Xr 75 mg Cap.sr] 75 mg PO BID 08/19/17 Clindamycin HCl [Cleocin 150 mg Capsule] 300 mg PO Q8 3 Days #9 capsule History of Present Illness History of Present Illness: DALIA QUEVEDO is a 61 year old female DALIA QUEVEDO is a 61 year old female Patient presents to emergency room with complaints of multiple draining wounds as well as elevated blood sugar. She was seen by the visiting nurse and when her blood sugar was checked and was apparently had an 500 so she was sent to the emergency room for further evaluation. She was found to have multiple wounds and abscesses and the one located under the right breast was drained with about 10 cc of purulent fluid apparently expressed. Patient was also found to be hypokalemic and received potassium supplementation and she received insulin for hyperglycemia. Hospital Course Hospital Course: patient was admitted after IND of right chest wall abscess. I&D was performed in the ER. She was started on clindamycin and she was discharged with 3 days to complete a full course. The wound was improving, no cellulitis, no drainage , she has home health nurse that comes to her home we will continue to monitor the wound. Also had a left benitez abrasion which was monitored during the hospitalization and her wound care nurse will follow that as well. Patient's blood pressure and diabetes were initially a little bit difficult to control. For discharge she was back on her home meds and both of these were in good control. Patient has some falls and at least early dementia. She lives with her son who agreed that she was safe to go home under his care. I recommended that he speak with her primary care provider about full dementia workup. Physical Exam Vital Signs: Temp Pulse Resp BP Pulse Ox 98.4 F 63 16 147/74 H 98 08/22/17 14:42 08/22/17 14:42 08/22/17 14:42 08/22/17 14:42 08/22/17 14:42 Intake & Output 08/21/17 08/22/17 08/23/17 06:59 06:59 06:59 Intake Total 1170 1278 Output Total 400 Balance 770 1278 Weight 103.2 kg 104.3 kg General appearance: PRESENT: no acute distress, cooperative, disheveled Head exam: PRESENT: atraumatic Eye exam: PRESENT: conjunctiva pink Ear exam: PRESENT: normal external ear exam Respiratory exam: PRESENT: clear to auscultation ita, unlabored. ABSENT: rales , rhonchi, wheezes Cardiovascular exam: PRESENT: RRR, systolic murmur Pulses: PRESENT: normal radial pulses GI/Abdominal exam: PRESENT: normal bowel sounds, soft. ABSENT: distended, tenderness Extremities exam: PRESENT: pedal edema Neurological exam: PRESENT: alert, oriented to person, oriented to place. ABSENT: oriented to time, oriented to situation Psychiatric exam: PRESENT: unusual affect. ABSENT: anxious Skin exam: PRESENT: dry, other - Left benitez abrasion healing well, no cellulitis or drainage. Right chest wall abscess I&D, no cellulitis or drainage. Results Laboratory Results: 08/22/17 05:05 08/22/17 05:05 08/22/17 08/22/17 05:05 05:05 WBC 4.9 RBC 3.02 L Hgb 8.8 L Hct 25.5 L MCV 84 MCH 29.3 MCHC 34.7 RDW 16.4 H Plt Count 150 Sodium 142.8 Potassium 3.5 L Chloride 113 H Carbon Dioxide 24 Anion Gap 6 BUN 25 H Creatinine 1.78 H Est GFR ( Amer) 35 L Est GFR (Non-Af Amer) 29 L Glucose 100 Calcium 8.5 Impressions: Chest X-Ray 08/19/17 14:04 IMPRESSION: No acute findings Qualifiers - * PATEINT BEING DISCHARGED WITH ANY OF THE FOLLOWING DIAGNOSIS?: No
[2017-08-26 13:22] LABS: PATH REVIEW PATHOLOGIST REVIEWED
== END 2017-08-22 15:28 | disposition home health service (06) | DRG 603 ==
LOC: ER 13:23 → EH 17:20 → 4S 08-20 00:20
PROVIDERS: ADMIT Internal Medicine; ATTEND Internal Medicine
PROC: 0W983ZX Drainage of Chest Wall, Percutaneous Approach, Diagnostic (ICD-10-PCS; principal; 2017-08-19)
DX: L02.213 Cutaneous abscess of chest wall (principal); I13.0 Hypertensive heart and chronic kidney disease with heart failure and stage 1 through stage 4 chronic kidney disease, or unspecified chronic kidney disease; L02.416 Cutaneous abscess of left lower limb; E11.65 Type 2 diabetes mellitus with hyperglycemia; N18.3 Chronic kidney disease, stage 3 (moderate); F01.50 Vascular dementia, unspecified severity, without behavioral disturbance, psychotic disturbance, mood disturbance, and anxiety; E11.319 Type 2 diabetes mellitus with unspecified diabetic retinopathy without macular edema; L02.211 Cutaneous abscess of abdominal wall; E87.6 Hypokalemia; E78.00 Pure hypercholesterolemia, unspecified; K21.9 Gastro-esophageal reflux disease without esophagitis; M19.90 Unspecified osteoarthritis, unspecified site; F03.90 Unspecified dementia, unspecified severity, without behavioral disturbance, psychotic disturbance, mood disturbance, and anxiety; F32.9 Major depressive disorder, single episode, unspecified; L03.313 Cellulitis of chest wall; D63.1 Anemia in chronic kidney disease; E66.01 Morbid (severe) obesity due to excess calories; Z68.37 Body mass index [BMI] 37.0-37.9, adult; Z79.899 Other long term (current) drug therapy; Z79.4 Long term (current) use of insulin; Z88.6 Allergy status to analgesic agent
CPT/HCPCS: 36415; 71045; 80048; 80053; 81001; 82962; 83735; 84100; 85025; 85027; 96365; 96367; 99285; G8978-GP; G8979-GP; J0690; J1650; J1815; J3480; J3490; J7030

== ENCOUNTER 2017-09-15 22:43 | Emergency (ER) | payer MEDICARE ==
--- NOTE | 2017-09-15 23:34 | RADIOLOGY REPORT (SQ) ---
EXAM DESCRIPTION: CT HEAD WITHOUT CLINICAL HISTORY: 61 years Female, STROKE SX COMPARISON: 07.03.17 TECHNIQUE: No contrast. This exam was performed according to our departmental dose-optimization program, which includes automated exposure control, adjustment of the mA and/or kV according to patient size and/or use of iterative reconstruction technique. FINDINGS: No hemorrhage or infarct. No mass, mass effect, or midline shift. Moderate right maxillary mucosal thickening. Atherosclerosis. Mild white matter microangiopathy. Brain and extra-axial structures appear otherwise intact. IMPRESSION: No acute findings.
--- NOTE | 2017-09-15 23:48 | ER Document Report ---
ED General - General Chief Complaint: Numbness Stated Complaint: POSSIBLE STROKE LIKE SYMPTOMS Time Seen by Provider: 09/15/17 23:32 Notes: Patient is a 61-year-old female who comes emergency department for complaints of tingling in her fingers of her right hand that have been going on intermittently for the past 3 days, she also states for the past 2-3 days she is getting intermittent tingling sensation at the tip of her tongue and on her lips. She denies headache, focal weakness, visual changes, fever, chest pain, shortness of breath, nausea or vomiting. She lives at home with her son. Past medical history includes CHF, hypertension, type 2 diabetes, AICD, CABG. she is not on a blood thinner. TRAVEL OUTSIDE OF THE [place] IN LAST 30 DAYS: No - Related Data Allergies/Adverse Reactions: morphine Allergy (Verified 07/03/17 14:39) Past Medical History - General Information source: Patient - Social History Smoking Status: Never Smoker Frequency of alcohol use: None Drug Abuse: None Lives with: Family Family History: Reviewed & Not Pertinent, Other - Alzheimer's Patient has suicidal ideation: No Patient has homicidal ideation: No - Past Medical History Cardiac Medical History: Reports: Hx Congestive Heart Failure, Hx Hypercholesterolemia, Hx Hypertension Denies: Hx Coronary Artery Disease, Hx Heart Attack, Hx Heart Murmur Pulmonary Medical History: Denies: Hx Asthma, Hx Bronchitis, Hx COPD, Hx Pneumonia Neurological Medical History: Denies: Hx Cerebrovascular Accident, Hx Seizures Endocrine Medical History: Reports: Hx Diabetes Mellitus Type 2 Renal/ Medical History: Denies: Hx Peritoneal Dialysis GI Medical History: Reports: Hx Gastroesophageal Reflux Disease. Denies: Hx Hepatitis, Hx Hiatal Hernia, Hx Ulcer Musculoskeltal Medical History: Reports Hx Arthritis, Denies Hx Multiple Sclerosis Psychiatric Medical History: Reports: Hx Dementia, Hx Depression Infectious Medical History: Denies: Hx Hepatitis Past Surgical History: Reports: Hx Tonsillectomy, Other - Abdominal wall surgery for infection. Denies: Hx Hysterectomy, Hx Mastectomy, Hx Open Heart Surgery, Hx Pacemaker - Immunizations Hx Diphtheria, Pertussis, Tetanus Vaccination: Yes Hx Pneumococcal Vaccination: 04/21/14 Review of Systems - Review of Systems Constitutional: See HPI EENT: No symptoms reported Cardiovascular: No symptoms reported Respiratory: No symptoms reported Gastrointestinal: No symptoms reported Genitourinary: No symptoms reported Female Genitourinary: No symptoms reported Musculoskeletal: See HPI Skin: No symptoms reported Hematologic/Lymphatic: No symptoms reported Neurological/Psychological: See HPI Physical Exam - Vital signs Vitals: Temp Pulse BP Pulse Ox 97.5 F 93 157/83 H 96 09/15/17 22:51 09/15/17 22:51 09/15/17 22:51 09/15/17 22:51 - General General appearance: Appears well In distress: None - HEENT Head: Normocephalic, Atraumatic Eyes: Normal Extraocular movements intact: Yes Eyelashes: Normal Pupils: PERRL Mouth/Lips: Normal Mucous membranes: Normal Pharynx: Normal Neck: Normal - Respiratory Respiratory status: No respiratory distress Breath sounds: Normal. No: Decreased air movement, Wheezing - Cardiovascular Rhythm: Regular. No: Tachycardia Heart sounds: Normal auscultation, S1 appreciated, S2 appreciated - Abdominal Inspection: Normal Tenderness: Nontender. No: Tender - Back Back: Normal, Nontender. No: Tender - Extremities General upper extremity: Normal inspection, Nontender, Normal strength, Normal temperature General lower extremity: Nontender, Normal strength, Normal temperature. No: Normal inspection - Patient has chronic discoloration of the lower extremities, she also has some excoriated areas on the lower extremities, no overt erythema, tenderness, or other abnormality noted. Normal distal neurovascular exam. - Neurological Neuro grossly intact: Yes Cognition: Normal. No: Confused, Inattentive Orientation: AAOx4. No: Disoriented to person, Disoriented to place, Disoriented to time, Disoriented to events Julián Coma Scale Eye Opening: Spontaneous Julián Coma Scale Verbal: Oriented Julián Coma Scale Motor: Obeys Commands Julián Coma Scale Total: 15 Speech: Normal. No: Dysarthria, Expressive aphasia, Receptive aphasia Cranial nerves: Normal. No: Facial palsy, Forehead sparing, Gaze palsy Cerebellar coordination: Normal. 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 She has a normal neurological exam with no deficits noted. She does not have any noted numbness of her hand, she was reporting intermittent numbness in her lips and in her hands, symptoms going on for 3 days , CT is negative, does not appear to be stroke symptoms. Remaining workup is baseline for patient including kidney function, troponin, glucose. Blood pressure is elevated but patient has not taken her nighttime medications, she was given these and blood pressure did start to improve. She denies headache, chest pain, or any current symptoms. Discussed patient with Dr. Butcher. No additional recommendations at this time. I did discuss because of her strange neurological symptoms that we could talk to the hospitalist for potential admission and additional evaluation, however this was declined, son states that he will take her to her primary care provider for additional evaluation and management. Discussed follow-up instructions and return precautions. Patient and son state satisfaction and agreement with plan. - Vital Signs Vital signs: Temp Pulse Resp BP Pulse Ox 98.1 F 88 15 191/81 H 98 09/16/17 02:16 09/15/17 23:48 09/16/17 02:16 09/16/17 02:16 09/16/17 02:16 - Laboratory Result Diagrams: 09/15/17 23:59 09/15/17 23:59 Laboratory results interpreted by me: 09/15/17 09/15/17 09/16/17 23:59 23:59 00:56 RBC 3.60 L Hgb 10.2 L Hct 31.2 L RDW 14.6 H Seg Neutrophils % 78.9 H Chloride 109 H BUN 24 H Creatinine 1.46 H Est GFR ( Amer) 44 L Est GFR (Non-Af Amer) 36 L Glucose 150 H Total Protein 6.1 L Albumin 3.2 L Urine Protein >=500 H Urine Glucose (UA) >=500 H Urine Ketones TRACE H Discharge - Discharge Clinical Impression: Paresthesia, Hyperglycemia Hypertension Qualifiers: Hypertension type: unspecified Qualified Code(s): I10 - Essential (primary) hypertension Condition: Stable Disposition: HOME, SELF-CARE Additional Instructions: The CAT scan of the head does not show any concerning a normality, the neurological exam at this time is normal, the exact cause of the tingling sensations is uncertain at this time. Please follow-up closely with primary care for additional management of blood sugar and blood pressure, return for any concerning or worsening symptoms including headache, chest pain, weakness on one side, visual changes, or any other concerning or worsening symptoms. Referrals: JUVE MCKEON MD [Primary Care Provider] - Follow up as needed
[2017-09-16 00:11] LABS: ABSOLUTE LYMPHOCYTES (AUTO) 1.2 10^3/uL (0.5-4.7); ABSOLUTE MONOCYTES (AUTO) 0.4 10^3/uL (0.1-1.4); ABSOLUTE NEUT (AUTO) 6.1 10^3/uL (1.7-8.2); BASOPHILS % (AUTO) 0.6 % (0-2); HEMATOCRIT 31.2 % (36.0-47.0); HEMOGLOBIN 10.2 g/dL (12.0-15.5); LYMPHOCYTES % (AUTO) 15.6 % (13-45); MEAN CORPUSCULAR HEMOGLOBIN 28.3 pg (27.0-33.4); MEAN CORPUSCULAR HGB CONC 32.7 g/dL (32.0-36.0); MEAN CORPUSCULAR VOLUME 87 fl (80-97); MONOCYTES % (AUTO) 4.9 % (3-13); PLATELET COUNT 183 10^3/uL (150-450); RED CELL DISTRIBUTION WIDTH 14.6 % (11.5-14.0); SEGMENTED NEUTROPHILS % (AUTO) 78.9 % (42-78); TOTAL CELLS COUNTED % (AUTO) 100 %; WHITE BLOOD COUNT 7.7 10^3/uL (4.0-10.5)
[2017-09-16 00:25] LABS: ALANINE AMINOTRANSFERASE 16 U/L (9-52); ALBUMIN 3.2 g/dL (3.5-5.0); ALKALINE PHOSPHATASE 98 U/L (38-126); ANION GAP 9 (5-19); ASPARTATE AMINO TRANSFERASE 21 U/L (14-36); BILIRUBIN,DIRECT 0.2 mg/dL (0.0-0.4); BILIRUBIN,TOTAL 0.4 mg/dL (0.2-1.3); BLOOD UREA NITROGEN 24 mg/dL (7-20); CARBON DIOXIDE 26 mmol/L (22-30); CHLORIDE 109 mmol/L (98-107); GLUCOSE 150 mg/dL (75-110); POTASSIUM 3.7 mmol/L (3.6-5.0); SODIUM 144.2 mmol/L (137-145); TOTAL PROTEIN 6.1 g/dL (6.3-8.2)
[2017-09-16 00:35] LABS: CREATINE KINASE MB 1.86 ng/mL (<4.55)
[2017-09-16 00:57] LABS: TROPONIN I 0.046 ng/mL
--- NOTE | 2017-09-16 00:59 | RADIOLOGY REPORT (SQ) ---
EXAM DESCRIPTION: CHEST SINGLE VIEW CLINICAL HISTORY: 61 years Female, neuro deficit workup COMPARISON: 2.28.18 NUMBER OF VIEWS/TECHNIQUE: 1/AP LIMITATIONS: None. FINDINGS: Moderate lung volume. Mildly enlarged cardiac silhouette. Atherosclerosis. Moderate deformity of the left clavicle. IMPRESSION: Moderate lung volume.
[2017-09-16 01:15] LABS: APPEARANCE,URINE SLIGHTLY-CLOUDY; BILIRUBIN,URINE NEGATIVE (NEGATIVE); COLOR,URINE YELLOW; GLUCOSE, URINE >=500 mg/dL (NEGATIVE); KETONES,URINE TRACE mg/dL (NEGATIVE); LEUKOCYTE ESTERASE,URINE NEGATIVE (NEGATIVE); NITRITE,URINE NEGATIVE (NEGATIVE); PROTEIN,URINE >=500 mg/dL (NEGATIVE); URINE SPECIFIC GRAVITY 1.013; UROBILINOGEN,URINE NEGATIVE mg/dL (<2.0)
[2017-09-16 03:05] VITALS: BP 191/81
--- NOTE | 2017-09-16 07:59 | EKG REPORT ---
SEVERITY:- ABNORMAL ECG - SINUS RHYTHM RIGHT BUNDLE BRANCH BLOCK LEFT VENTRICULAR HYPERTROPHY : Confirmed by: Sriram Amato MD 16-Sep-2017 07:58:48
== END 2017-09-16 03:04 | disposition home or self-care (01) ==
LOC: ER 22:43
DX: R20.2 Paresthesia of skin (principal); E11.65 Type 2 diabetes mellitus with hyperglycemia; I10 Essential (primary) hypertension; Z95.810 Presence of automatic (implantable) cardiac defibrillator; Z88.5 Allergy status to narcotic agent; Z79.899 Other long term (current) drug therapy
CPT/HCPCS: 36415; 70450; 71045; 80053; 81001; 82553; 84484; 85025; 93005; 93010; 99284

== ENCOUNTER 2017-10-16 16:20 | Emergency (ER) | payer MEDICARE ==
--- NOTE | 2017-10-16 18:09 | ER Document Report ---
ED General <ALEX REID E - Last Filed: 10/17/17 01:39> - General Mode of Arrival: Ambulatory Information source: Patient, Relative, [facility] Records Cannot obtain history due to: Dementia TRAVEL OUTSIDE OF THE [place] IN LAST 30 DAYS: No - HPI Onset: Yesterday Quality of pain: No pain Exacerbated by: Denies Relieved by: Denies Similar symptoms previously: Yes Recently seen / treated by doctor: Yes <IJEOMA HOLMAN - Last Filed: 10/17/17 02:53> - General Chief Complaint: Dizziness Stated Complaint: WEAKNESS Time Seen by Provider: 10/16/17 18:04 Notes: 61-year-old female with a history of hypertension, diabetes, CVA, dementia, CHF presents via private vehicle from home with her son who provides the majority of the history with complaint of weakness. Son who is the primary home care aide states that patient has had 2 falls since yesterday. The first fall was during physical therapy and she was able to be guided onto the couch. There was no head injury at that time. The second fall occurred later yesterday evening and was unwitnessed. The patient was found on the floor by her son. He was unable to get her off the floor independently and required assistance. Patient was seen by her primary care physician today and the son states that he basically carried her into the office and had to hold her up by her pants.. Patient does have a known history of previous CVA which left her with mental deficits but reportedly no physical deficits. Son states that previous CVA was associated with similar symptoms of weakness, inability to ambulate. (IJEOMA HOLMAN) - Related Data Allergies/Adverse Reactions: morphine Allergy (Verified 07/03/17 14:39) Past Medical History - General Information source: Patient, Relative Cannot obtain history due to: Dementia - Social History Smoking Status: Unknown if Ever Smoked Frequency of alcohol use: None Drug Abuse: None Lives with: Family Family History: Reviewed & Not Pertinent, Other - Alzheimer's Patient has suicidal ideation: No Patient has homicidal ideation: No - Past Medical History Cardiac Medical History: Reports: Hx Congestive Heart Failure, Hx Hypercholesterolemia, Hx Hypertension Denies: Hx Coronary Artery Disease, Hx Heart Attack, Hx Heart Murmur Pulmonary Medical History: Denies: Hx Asthma, Hx Bronchitis, Hx COPD, Hx Pneumonia Neurological Medical History: Denies: Hx Cerebrovascular Accident, Hx Seizures Endocrine Medical History: Reports: Hx Diabetes Mellitus Type 2 Renal/ Medical History: Denies: Hx Peritoneal Dialysis GI Medical History: Reports: Hx Gastroesophageal Reflux Disease. Denies: Hx Hepatitis, Hx Hiatal Hernia, Hx Ulcer Musculoskeltal Medical History: Reports Hx Arthritis, Denies Hx Multiple Sclerosis Psychiatric Medical History: Reports: Hx Dementia, Hx Depression Infectious Medical History: Denies: Hx Hepatitis Past Surgical History: Reports: Hx Tonsillectomy, Other - Abdominal wall surgery for infection. Denies: Hx Hysterectomy, Hx Mastectomy, Hx Open Heart Surgery, Hx Pacemaker - Immunizations Hx Diphtheria, Pertussis, Tetanus Vaccination: Yes Hx Pneumococcal Vaccination: 04/21/14 <IJEOMA HOLMAN - Last Filed: 10/17/17 02:53> Review of Systems <ALEX REID - Last Filed: 10/17/17 01:39> <IJEOMA HOLMAN - Last Filed: 10/17/17 02:53> - Review of Systems Notes: Patient denies fever, chills, nausea, vomiting, headache, ear pain, sore throat , cough, chest pain, shortness of breath, abdominal pain, back pain, dysuria, hematuria, rash, SI/HI. Admits to weakness, dizziness. (IJEOMA HOLMAN) Physical Exam <ALEX REID E - Last Filed: 10/17/17 01:39> <IJEOMA HOLMAN - Last Filed: 10/17/17 02:53> - Vital signs Vitals: Temp Pulse Resp BP Pulse Ox 97.9 F 101 H 16 121/67 96 10/16/17 16:29 10/16/17 16:29 10/16/17 16:29 10/16/17 16:29 10/16/17 16:29 - Notes Notes: PHYSICAL EXAMINATION: GENERAL: Well-appearing, well-nourished and in no acute distress. HEAD: Atraumatic, normocephalic. EYES: Pupils equal round and reactive to light, extraocular movements intact, conjunctiva are normal. Legally blind ENT: Nares patent, oropharynx clear without exudates. Moist mucous membranes. NECK: Normal range of motion, supple without lymphadenopathy LUNGS: Breath sounds clear to auscultation bilaterally and equal. No wheezes rales or rhonchi. HEART: Regular rate and rhythm without murmurs ABDOMEN: Soft, nontender, nondistended abdomen. No guarding, no rebound. No masses appreciated. Female : deferred Musculoskeletal: Normal range of motion, 1+ edema bilateral lower extremity. No cyanosis. NEUROLOGICAL: Right-sided facial droop. normal speech, normal gait. Normal sensory, motor exams PSYCH: Normal mood, normal affect. SKIN: Warm, Dry, normal turgor, multiple areas of excoriation, abrasions of the lower extremities bilaterally. (IJEOMA HOLMAN) Course - Laboratory Result Diagrams: 10/16/17 18:30 10/16/17 18:30 <ALEX REID - Last Filed: 10/17/17 01:39> - Laboratory Result Diagrams: 10/16/17 18:30 10/16/17 18:30 - Diagnostic Test Radiology reviewed: Image reviewed, Reports reviewed - EKG Interpretation by Ct EKG shows normal: Sinus rhythm Rate: Tachycardia <IJEOMA HOLMAN - Last Filed: 10/17/17 02:53> - Re-evaluation Re-evalutation: 10/17/17 01:39 Pt says she becomes carsick, so will add meclizine before her transport. She is stable for transportation. (ALEX REID) Laboratory 10/16/17 10/16/17 10/16/17 17:47 18:30 18:30 WBC 6.0 RBC 3.24 L Hgb 9.4 L Hct 28.3 L MCV 87 MCH 29.1 MCHC 33.3 RDW 14.3 H Plt Count 220 Seg Neutrophils % 77.1 Lymphocytes % 15.6 Monocytes % 6.7 Eosinophils % 0.0 Basophils % 0.6 Absolute Neutrophils 4.7 Absolute Lymphocytes 0.9 Absolute Monocytes 0.4 Absolute Eosinophils 0.0 Absolute Basophils 0.0 PT INR APTT Sodium 145.5 H Potassium 4.4 Chloride 107 Carbon Dioxide 25 Anion Gap 14 BUN 33 H Creatinine 2.13 H Est GFR ( Amer) 28 L Est GFR (Non-Af Amer) 23 L Glucose 106 POC Glucose 105 Calcium 9.0 Total Bilirubin 0.4 Direct Bilirubin 0.4 Neonat Total Bilirubin Not Reportable Neonat Direct Bilirubin Not Reportable Neonat Indirect Bili Not Reportable AST 23 ALT 26 Alkaline Phosphatase 114 Creatine Kinase 92 CK-MB (CK-2) Troponin I Total Protein 6.7 Albumin 3.5 Urine Color Urine Appearance Urine pH Ur Specific [place] Urine Protein Urine Glucose (UA) Urine Ketones Urine Blood Urine Nitrite Urine Bilirubin Urine Urobilinogen Ur Leukocyte Esterase Urine WBC (Auto) Urine RBC (Auto) U Hyaline Cast (Auto) Urine Bacteria (Auto) Squamous Epi Cells Auto Urine Mucus (Auto) Urine Ascorbic Acid Stool Occult Blood 10/16/17 10/16/17 10/16/17 18:30 18:30 20:43 WBC RBC Hgb Hct MCV MCH MCHC RDW Plt Count Seg Neutrophils % Lymphocytes % Monocytes % Eosinophils % Basophils % Absolute Neutrophils Absolute Lymphocytes Absolute Monocytes Absolute Eosinophils Absolute Basophils PT 12.8 INR 0.92 APTT 34.1 Sodium Potassium Chloride Carbon Dioxide Anion Gap BUN Creatinine Est GFR ( Amer) Est GFR (Non-Af Amer) Glucose POC Glucose Calcium Total Bilirubin Direct Bilirubin Neonat Total Bilirubin Neonat Direct Bilirubin Neonat Indirect Bili AST ALT Alkaline Phosphatase Creatine Kinase CK-MB (CK-2) 1.20 Troponin I < 0.012 Total Protein Albumin Urine Color Urine Appearance Urine pH Ur Specific [place] Urine Protein Urine Glucose (UA) Urine Ketones Urine Blood Urine Nitrite Urine Bilirubin Urine Urobilinogen Ur Leukocyte Esterase Urine WBC (Auto) Urine RBC (Auto) U Hyaline Cast (Auto) Urine Bacteria (Auto) Squamous Epi Cells Auto Urine Mucus (Auto) Urine Ascorbic Acid Stool Occult Blood POSITIVE 10/16/17 21:55 WBC RBC Hgb Hct MCV MCH MCHC RDW Plt Count Seg Neutrophils % Lymphocytes % Monocytes % Eosinophils % Basophils % Absolute Neutrophils Absolute Lymphocytes Absolute Monocytes Absolute Eosinophils Absolute Basophils PT INR APTT Sodium Potassium Chloride Carbon Dioxide Anion Gap BUN Creatinine Est GFR ( Amer) Est GFR (Non-Af Amer) Glucose POC Glucose Calcium Total Bilirubin Direct Bilirubin Neonat Total Bilirubin Neonat Direct Bilirubin Neonat Indirect Bili AST ALT Alkaline Phosphatase Creatine Kinase CK-MB (CK-2) Troponin I Total Protein Albumin Urine Color YELLOW Urine Appearance SLIGHTLY-CLOUDY Urine pH 5.0 Ur Specific [place] 1.014 Urine Protein >=500 H Urine Glucose (UA) 150 H Urine Ketones NEGATIVE Urine Blood NEGATIVE Urine Nitrite NEGATIVE Urine Bilirubin NEGATIVE Urine Urobilinogen NEGATIVE Ur Leukocyte Esterase TRACE H Urine WBC (Auto) 21 Urine RBC (Auto) 2 U Hyaline Cast (Auto) 15 Urine Bacteria (Auto) 2+ Squamous Epi Cells Auto 6 Urine Mucus (Auto) RARE Urine Ascorbic Acid NEGATIVE Stool Occult Blood Head CT 10/16/17 18:05 IMPRESSION: NO ACUTE INTRACRANIAL PROCESS. NO SIGNIFICANT CHANGE FROM PRIOR STUDY. EVIDENCE OF ACUTE STROKE: NO Head MRI 10/16/17 18:05 IMPRESSION: NO ACUTE ISCHEMIA, HEMORRHAGE, OR MASS LESION. INTERVAL EVOLUTION OF PREVIOUSLY IDENTIFIED SMALL RIGHT OCCIPITAL INFARCTION. EVIDENCE OF ACUTE STROKE: NO. Cervical Spine CT 10/16/17 18:11 IMPRESSION: CHRONIC DEGENERATIVE CHANGES. NO ACUTE FINDINGS. 10/16/17 23:32 61-year-old female with a history of hypertension, diabetes, congestive heart failure, previous CVA presents from her primary care physician's office with her son who is concerned for strokelike symptoms. Upon arrival patient is tachycardic, hypertensive. NIH was performed and patient scored 6. This is for visual field deficits, right-sided facial droop and drift of the right upper extremity drift which is all reported to be from her previous CVA. Son states that patient has had 2 falls in the last day. He also states that he has literally been holding her up by her pants which is not the patient's baseline. CT of the head was obtained that showed no acute process. MRI also showed no evidence of acute stroke. Patient was found to be orthostatic positive, anemic and has positive occult stool. She denies previous history of GI bleed. She states that she has required previous transfusions in the past ( unclear why). Patient did receive IV fluids during her ED course. She has remained stable throughout her ED course. She has no physical complaints at this time. Patient called me in the room several times to discuss discharge. I explained that with patients current sx's this is not reasonable. She is requesting transfer to [facility]. She was accepted by Dr. Ren. 10/17/17 02:52 (IJEOMA HOLMAN) - Vital Signs Vital signs: Temp Pulse Resp BP Pulse Ox 97.8 F 96 16 158/71 H 100 10/17/17 01:51 10/16/17 19:48 10/17/17 01:51 10/17/17 01:51 10/17/17 01:51 - Laboratory Laboratory results interpreted by me: 10/16/17 10/16/17 10/16/17 18:30 18:30 21:55 RBC 3.24 L Hgb 9.4 L Hct 28.3 L RDW 14.3 H Sodium 145.5 H BUN 33 H Creatinine 2.13 H Est GFR ( Amer) 28 L Est GFR (Non-Af Amer) 23 L Urine Protein >=500 H Urine Glucose (UA) 150 H Ur Leukocyte Esterase TRACE H Discharge <ALEX REID E - Last Filed: 10/17/17 01:39> <IJEOMA HOLMAN E - Last Filed: 10/17/17 02:53> - Discharge Clinical Impression: Renal insufficiency, Dehydration, Weakness, Orthostatic hypotension HTN (hypertension) Qualifiers: Hypertension type: unspecified Qualified Code(s): I10 - Essential (primary) hypertension Condition: Fair Disposition: [facility] Forms: Elevated Blood Pressure Referrals: JUVE MCKEON MD [Primary Care Provider] - Follow up as needed ED NIH Stroke Scale - NIH Stroke Scale When completed:: Before Alteplase *: 1. NIH scale should be completed with appropriate accompanying assessment tools. *: 2. The NIH should reflect what the patient is capable of doing and should not be coached by the clinician. 1a. Level of Consciousness: 0=Alert;keenly responsive -: 1=Drowsy -: 2=Obtunded -: 3=Coma/unresponsive or reflex to noxious stimuli. 1a. Responses: 0 1b. Orientation Questions: a. What month is it? -: b. How old are you? -: 0=Answers both questions correctly. -: 1=Answers one question correctly or patient is intubated or has orotracheal trauma. -: 2=Answers neither question correctly. 1b. Responses: 1 1c. Response to commands: a. Open and close eyes? -: b. Wood Ski Maker and release hand? -: Credit is given despite weakness. Demonstration of task is permitted. Substitute command if hands cannot be used. -: 0=Performs both tasks correctly -: 1=Performs one task correctly -: 2=Performs neither task correctly 1c. Responses: 0 2. Gaze: Establish eye contact and instruct patient to "Follow my finger" -: 0=Normal -: 1=Partial gaze palsy. Gaze is abnormal in one or both eyes, but where forced deviation or total gaze paresis is not present. -: 2=Forced deviation or total gaze paresis. 2. Responses: 0 3. Visual [place]: Sees fingers in all four quadrants. -: 0=No visual loss. -: 1=Partial hemianopsia. -: 2=Complete hemianopsia. -: 3=Bilateral hemianopsia (including Cortical blindness) 3. Responses: 3 - legally blind 4. Facial Movement: Instruct patient to: -: a. Show me your teeth -: b. Raise your eyebrows -: c. Close your eyes -: d. Smile -: 0=Normal symmetrical movement -: 1=Minor paralysis (flattened nasolabial fold, asymmetry on smiling). -: 2=Partial paralysis (total or near total paralysis of lower face). -: 3=Complete paralysis of upper and lower face 4. Responses: 1 5. Motor functions (left arm): Alternate sides and extend each arm with palms down (90 degrees if sitting or 45 degrees for supine). -: 0=No drift;limb holds for full 10 seconds. -: 1=Drift; limb holds but drifts down before full 10 seconds, but does not hit bed. -: 2=Some effort against gravity; limb cannot get to or maintain position. -: 3=No effort against gravity; limb falls. -: 4=No movement. -: UN=Amputation, joint fusion, explain in comments. 5. Responses (left arm): 0 5. Motor Functions (right arm): Alternate sides and extend each arm with palms down (90 degrees if sitting or 45 degrees for supine). -: 0=No drift;limb holds for full 10 seconds. -: 1=Drift; limb holds but drifts down before full 10 seconds, but does not hit bed. -: 2=Some effort against gravity; limb cannot get to or maintain position. -: 3=No effort against gravity; limb falls. -: 4=No movement. -: UN=Amputation, joint fusion, explain in comments. 5. Responses (right arm): 1 6. Motor Functions (left leg): With patient lying supine, alternate sides and extend each leg (30 degrees always while supine). -: 0=No drift, leg holds position for full 5 seconds -: 1=Drift; leg falls before full 5 seconds but does not hit bed. -: 2=Some effort against gravity, leg falls to bed but some effort against gravity. -: 3=No effort against gravity, leg falls to bed immediately. -: 4=No movement. -: UN=Amputation, joint fusion; explain in comments. 6. Responses (left leg): 0 6. Motor Functions (right leg): With patient lying supine, alternate sides and extend each leg (30 degrees always while supine). -: 0=No drift, leg holds position for full 5 seconds -: 1=Drift; leg falls before full 5 seconds but does not hit bed. -: 2=Some effort against gravity, leg falls to bed but some effort against gravity. -: 3=No effort against gravity, leg falls to bed immediately. -: 4=No movement. -: UN=Amputation, joint fusion; explain in comments. 6. Responses (right leg): 0 7. Limb Ataxia: With eyes open instruct patient to: -: a. "Touch your finger to your nose". -: b. "Touch your heel to your benitez" -: 0=Absent -: 1=Present in one limb. -: 2=Present in two limbs. -: UN=Amputation or joint fusion; explain in comments. 7. Responses: 0 8. Sensory: Test sensation using pinprick or noxious stimuli. Test as many body parts as possible. -: 0=Normal;no sensory loss -: 1=Mile to moderate sensory loss (patient feels pin prick but is less sharp on affected side). -: 2=Severe or total sensory loss. 8. Responses: 0 9. Best Language: Instruct patient to: -: a. "Describe what you see in this picture." -: b. "Name the items in this picture." -: c. "Read these sentences." -: 0=No aphasia, normal -: 1=Mild to moderate aphasia. -: 2=Severe aphasia -: 3=Mute, global aphasia, no usable speech or auditory comprehension. 9. Responses: 0 10. Articulation, Dysarthia: Instruct patient to: -: "Read these words" or "Repeat these words" -: 0=Normal -: 1=Mild to moderate; patient may slur some words but can be understood without difficulty. -: 2=Severe; patients speech so slurred as to be unintelligible in the absence of dysphasia. -: UN=Intubated or other physical barrier, explain in comments. 10. Responses: 0 11. Extinction or inattention: 0=No abnormality -: 1= Visual, tactile, auditory, spatial, or personal inattention or extinction to bilateral simulation in one or the sensory modalities. -: 2=Profound brittney-inattention or brittney-inattention to more than one modality; does not recognize own hand. 11. Responses: 0 Total Score: 6 <IJEOMA HOLMAN - Last Filed: 10/17/17 02:53>
--- NOTE | 2017-10-16 18:24 | EKG REPORT ---
SEVERITY:- ABNORMAL ECG - SINUS RHYTHM RIGHT BUNDLE BRANCH BLOCK LEFT VENTRICULAR HYPERTROPHY : Confirmed by: Sriram Amato MD 16-Oct-2017 18:23:29
[2017-10-16 19:01] LABS: ABSOLUTE LYMPHOCYTES (AUTO) 0.9 10^3/uL (0.5-4.7); ABSOLUTE MONOCYTES (AUTO) 0.4 10^3/uL (0.1-1.4); ABSOLUTE NEUT (AUTO) 4.7 10^3/uL (1.7-8.2); BASOPHILS % (AUTO) 0.6 % (0-2); HEMATOCRIT 28.3 % (36.0-47.0); HEMOGLOBIN 9.4 g/dL (12.0-15.5); LYMPHOCYTES % (AUTO) 15.6 % (13-45); MEAN CORPUSCULAR HEMOGLOBIN 29.1 pg (27.0-33.4); MEAN CORPUSCULAR HGB CONC 33.3 g/dL (32.0-36.0); MEAN CORPUSCULAR VOLUME 87 fl (80-97); MONOCYTES % (AUTO) 6.7 % (3-13); PLATELET COUNT 220 10^3/uL (150-450); RED BLOOD COUNT 3.24 10^6/uL (3.72-5.28); RED CELL DISTRIBUTION WIDTH 14.3 % (11.5-14.0); SEGMENTED NEUTROPHILS % (AUTO) 77.1 % (42-78); TOTAL CELLS COUNTED % (AUTO) 100 %
[2017-10-16 19:04] LABS: INTERNATIONAL RATION (INR) 0.92; PROTHROMBIN TIME 12.8 SEC (11.4-15.4)
[2017-10-16 19:05] LABS: PARTIAL THROMBOPLASTIN TIME 34.1 SEC (23.5-35.8)
[2017-10-16 19:17] LABS: ALANINE AMINOTRANSFERASE 26 U/L (9-52); ALBUMIN 3.5 g/dL (3.5-5.0); ALKALINE PHOSPHATASE 114 U/L (38-126); ANION GAP 14 (5-19); ASPARTATE AMINO TRANSFERASE 23 U/L (14-36); BILIRUBIN,DIRECT 0.4 mg/dL (0.0-0.4); BILIRUBIN,TOTAL 0.4 mg/dL (0.2-1.3); BLOOD UREA NITROGEN 33 mg/dL (7-20); CARBON DIOXIDE 25 mmol/L (22-30); CHLORIDE 107 mmol/L (98-107); CREATINE KINASE 92 U/L (30-135); GLUCOSE 106 mg/dL (75-110); POTASSIUM 4.4 mmol/L (3.6-5.0); SODIUM 145.5 mmol/L (137-145); TOTAL PROTEIN 6.7 g/dL (6.3-8.2)
--- NOTE | 2017-10-16 19:18 | RADIOLOGY REPORT (SQ) ---
EXAM DESCRIPTION: CT CERVICAL SPINE WITHOUT COMPLETED DATE/TIME: 10/16/2017 7:09 pm REASON FOR STUDY: fall COMPARISON: None. TECHNIQUE: Axial images acquired through the cervical spine without intravenous contrast. Images re viewed with lung, soft tissue and bone windows. Reconstructed coronal and sagittal MPR images review ed. Images stored on PACS. All CT scanners at this facility use dose modulation, iterative reconstruction, and/or weight based d osing when appropriate to reduce radiation dose to as low as reasonably achievable (ALARA). [facility]: Dose Right [facility]: CareDose [facility]: Dose Right [facility]: Teradose 4D [facility]: [employer] RADIATION DOSE: CT Rad equipment meets quality standard of care and radiation dose reduction techniq ues were employed. CTDIvol: 23.4 mGy. DLP: 497 mGy-cm. mGy. LIMITATIONS: None. FINDINGS: ALIGNMENT: Anatomic. MINERALIZATION: Normal. VERTEBRAL BODIES: No fractures or dislocation. DISCS: Multilevel disc space narrowing with osteophytes. FACETS, LATERAL MASSES, POSTERIOR ELEMENTS: Facet arthropathy. No fractures. No dislocation. No ac maryann findings. HARDWARE: None in the spine. VISUALIZED RIBS: No fractures. LUNG APICES AND SOFT TISSUES: No significant or acute findings. OTHER: No other significant finding. IMPRESSION: CHRONIC DEGENERATIVE CHANGES. NO ACUTE FINDINGS. TECHNICAL DOCUMENTATION: JOB ID: [id number] Quality ID # [id number]: Final reports with documentation of one or more dose reduction techniques (e.g., Au tomated exposure control, adjustment of the mA and/or kV according to patient size, use of iterative reconstruction technique) 2010 [employer]- All Rights Reserved Reading location - IP/workstation name: [email or web address]
--- NOTE | 2017-10-16 19:19 | RADIOLOGY REPORT (SQ) ---
EXAM DESCRIPTION: CT HEAD WITHOUT COMPLETED DATE/TIME: 10/16/2017 7:10 pm REASON FOR STUDY: weakness prior stroke w similar sx COMPARISON: 09/15/2017 TECHNIQUE: Axial images acquired through the brain without intravenous contrast. Images reviewed wi th bone, brain and subdural windows. Images stored on PACS. All CT scanners at this facility use dose modulation, iterative reconstruction, and/or weight based d osing when appropriate to reduce radiation dose to as low as reasonably achievable (ALARA). [facility]: Dose Right [facility]: CareDose [facility]: Dose Right [facility]: Teradose 4D [facility]: [employer] RADIATION DOSE: CT Rad equipment meets quality standard of care and radiation dose reduction techniq ues were employed. CTDIvol: 53.2 mGy. DLP: 1070 mGy-cm. mGy. LIMITATIONS: None. FINDINGS: VENTRICLES: Prominent. CEREBRUM: No masses. No hemorrhage. No midline shift. Stable chronic infarction right occipital lo be. Additional areas of low density in the white matter most likely due to chronic micro-vascular is chemic change. No evidence for acute infarction. CEREBELLUM: No masses. No hemorrhage. No alteration of density. No evidence for acute infarction. EXTRAAXIAL SPACES: Mild age-related involutional change. No fluid collections. No masses. ORBITS AND GLOBE: No intra- or extraconal masses. Normal contour of globe without masses. CALVARIUM: No fracture. PARANASAL SINUSES: No fluid or mucosal thickening. SOFT TISSUES: No mass or hematoma. OTHER: No other significant finding. IMPRESSION: NO ACUTE INTRACRANIAL PROCESS. NO SIGNIFICANT CHANGE FROM PRIOR STUDY. EVIDENCE OF ACUTE STROKE: NO TECHNICAL DOCUMENTATION: JOB ID: [id number] Quality ID # [id number]: Final reports with documentation of one or more dose reduction techniques (e.g., Au tomated exposure control, adjustment of the mA and/or kV according to patient size, use of iterative reconstruction technique) 2010 [employer]- All Rights Reserved Reading location - IP/workstation name: [email or web address]
[2017-10-16] MEDS ORDERED: NORMAL SALINE 500 ML IV ONE ×2 (19:27→19:54)
[2017-10-16 19:35] LABS: TROPONIN I < 0.012 ng/mL
--- NOTE | 2017-10-16 20:47 | RADIOLOGY REPORT (SQ) ---
EXAM DESCRIPTION: MRI HEAD WITHOUT COMPLETED DATE/TIME: 10/16/2017 8:33 pm REASON FOR STUDY: stroke sx's with cva history COMPARISON: 07/05/2017. TECHNIQUE: Multiplanar imaging includes non-contrasted T1, T2, FLAIR, and Diffusion with ADC map seq uences. Images stored on PACS. LIMITATIONS: None. FINDINGS: ANATOMY: No anomalies. Normal vascular flow voids. Pituitary fossa normal. CSF SPACES: Normal in size and contour. No hemorrhage. CEREBRUM: A few high-signal intensity lesions scattered throughout the white matter on FLAIR imaging with distribution suggesting chronic micro-vascular ischemic change. Small chronic infarction right occipital lobe. Sulci and gyri normal in size and contour. No evidence of hemorrhage, mass or extra axial fluid collection. POSTERIOR FOSSA: No signal alteration. No hemorrhage. No edema, masses or mass effect. Internal jose tory canals, cerebello-pontine angles, mastoids normal. DIFFUSION: Negative for acute or sub-acute infarction. ORBITS: No masses. Globes normal. PARANASAL SINUSES: No fluid levels. Mucosa normal. OTHER: No other significant finding. IMPRESSION: NO ACUTE ISCHEMIA, HEMORRHAGE, OR MASS LESION. INTERVAL EVOLUTION OF PREVIOUSLY IDENTIF IED SMALL RIGHT OCCIPITAL INFARCTION. EVIDENCE OF ACUTE STROKE: NO. TECHNICAL DOCUMENTATION: JOB ID: [id number] [employer]- All Rights Reserved Reading location - IP/workstation name: [email or web address]
[2017-10-16 22:26] LABS: APPEARANCE,URINE SLIGHTLY-CLOUDY; BILIRUBIN,URINE NEGATIVE (NEGATIVE); COLOR,URINE YELLOW; GLUCOSE, URINE 150 mg/dL (NEGATIVE); KETONES,URINE NEGATIVE (NEGATIVE); LEUKOCYTE ESTERASE,URINE TRACE (NEGATIVE); NITRITE,URINE NEGATIVE (NEGATIVE); PROTEIN,URINE >=500 mg/dL (NEGATIVE); URINE SPECIFIC GRAVITY 1.014; UROBILINOGEN,URINE NEGATIVE mg/dL (<2.0)
[2017-10-16] MEDS ORDERED: DEXTROSE 5%-1/2 NORMAL SALINE 1,000 ML IV ONE (23:42)
[2017-10-17] MEDS ORDERED: MECLIZINE HCL 25 MG TABLET PO ONE (01:39)
[2017-10-17 02:01] VITALS: BP 158/71
== END 2017-10-17 02:00 | disposition short-term general hospital (02) ==
LOC: ER 16:20
DX: N28.9 Disorder of kidney and ureter, unspecified (principal); I95.1 Orthostatic hypotension; I10 Essential (primary) hypertension; E86.0 Dehydration; R53.1 Weakness; R42 Dizziness and giddiness
CPT/HCPCS: 93005; 99285; 96360; 96361; 86900; 86901; 36415; 82553; 86850; 82962; 82550; 85025; 85610; 85730; 82272; 80053; 81001; 84484; 70551; 70450; 72125; 93010; A9270; J7040

== ENCOUNTER 2017-11-01 17:39 | Emergency (ER) | payer MEDICARE ==
--- NOTE | 2017-11-01 18:09 | ER Document Report ---
ED Medical Screen (RME) - General Chief Complaint: Weakness Stated Complaint: WEAKNESS Time Seen by Provider: 11/01/17 17:58 Notes: RAPID MEDICAL EVALUATION DISCLOSURE I have seen this patient as part of a Rapid Medical Evaluation and, if applicable, placed any initially appropriate orders. The patient will be seen and fully evaluated, including a full history and physical exam, by a provider ( in Main ED or Fast Track) when a room becomes available. 61-year-old female brought in by daughter who states that [facility] status and for the past week that she has been home, she has been doing well and able to walk on her own and talking appropriately. However, approximately 1230, the daughter noticed that she had slurred speech and was not as alert as usual. She also had difficulty getting out of the vehicle and they had to help her get out. She can normally get out on her own. The daughter has not noticed any facial drooping in the past 1 week she has been home visiting the patient. She does not think that the patient has exhibited any motor weakness. The patient reports "I do not know" when asked about weakness in the extremities. Of note, she has had some burning with urination over the past few days. EXAM Left facial droop present Slightly slurred speech Somewhat lethargic but arouses to verbal NOTE Last known normal 5.5 hours ago Since she is less than 24 hours onset and within possible LVO evaluation, code stroke activated Decision made in conjunction with discussions with the charge nurse TRAVEL OUTSIDE OF THE [place] IN LAST 30 DAYS: No - Related Data Allergies/Adverse Reactions: morphine Allergy (Verified 07/03/17 14:39) Past Medical History - Past Medical History Cardiac Medical History: Reports: Hx Congestive Heart Failure, Hx Hypercholesterolemia, Hx Hypertension Denies: Hx Coronary Artery Disease, Hx Heart Attack, Hx Heart Murmur Pulmonary Medical History: Denies: Hx Asthma, Hx Bronchitis, Hx COPD, Hx Pneumonia Neurological Medical History: Denies: Hx Cerebrovascular Accident, Hx Seizures Endocrine Medical History: Reports: Hx Diabetes Mellitus Type 2 Renal/ Medical History: Denies: Hx Peritoneal Dialysis GI Medical History: Reports: Hx Gastroesophageal Reflux Disease. Denies: Hx Hepatitis, Hx Hiatal Hernia, Hx Ulcer Musculoskeltal Medical History: Reports Hx Arthritis, Denies Hx Multiple Sclerosis Psychiatric Medical History: Reports: Hx Dementia, Hx Depression Infectious Medical History: Denies: Hx Hepatitis Past Surgical History: Reports: Hx Tonsillectomy, Other - Abdominal wall surgery for infection. Denies: Hx Hysterectomy, Hx Mastectomy, Hx Open Heart Surgery, Hx Pacemaker - Immunizations Hx Diphtheria, Pertussis, Tetanus Vaccination: Yes History of Influenza Vaccine for 03/2017 - 08/2017 Season: Yes Influenza Administration Date for 03/2017 - 08/2017 Season: 03/22/17
--- NOTE | 2017-11-01 18:21 | RADIOLOGY REPORT (SQ) ---
EXAM DESCRIPTION: CHEST SINGLE VIEW COMPLETED DATE/TIME: 11/01/2017 6:12 pm REASON FOR STUDY: stroke s/s COMPARISON: 09/15/2017. EXAM PARAMETERS: NUMBER OF VIEWS: One view. TECHNIQUE: Single frontal radiographic view of the chest acquired. RADIATION DOSE: NA LIMITATIONS: None. FINDINGS: LUNGS AND PLEURA: No acute infiltrates or effusions. MEDIASTINUM AND HILAR STRUCTURES: No masses. Contour normal. HEART AND VASCULAR STRUCTURES: The heart is normal with normal pulmonary vasculature. BONES: Old fracture deformity of left clavicle. HARDWARE: None in the chest. OTHER: No other significant finding. IMPRESSION: NO ACUTE DISEASE. TECHNICAL DOCUMENTATION: JOB ID: [id number] [employer]- All Rights Reserved Reading location - IP/workstation name: [email or web address]
[2017-11-01 18:43] LABS: ABSOLUTE BASOPHILS # (AUTO) 0.1 10^3/uL (0.0-0.2); ABSOLUTE LYMPHOCYTES (AUTO) 1.7 10^3/uL (0.5-4.7); ABSOLUTE MONOCYTES (AUTO) 0.7 10^3/uL (0.1-1.4); ABSOLUTE NEUT (AUTO) 5.1 10^3/uL (1.7-8.2); BASOPHILS % (AUTO) 0.7 % (0-2); EOSINOPHILS % (AUTO) 0.1 % (0-6); HEMATOCRIT 29.2 % (36.0-47.0); HEMOGLOBIN 9.6 g/dL (12.0-15.5); INTERNATIONAL RATION (INR) 0.94; LYMPHOCYTES % (AUTO) 22.8 % (13-45); MEAN CORPUSCULAR HGB CONC 33.1 g/dL (32.0-36.0); MEAN CORPUSCULAR VOLUME 88 fl (80-97); MONOCYTES % (AUTO) 9.3 % (3-13); PLATELET COUNT 228 10^3/uL (150-450); PROTHROMBIN TIME 13.1 SEC (11.4-15.4); RED BLOOD COUNT 3.33 10^6/uL (3.72-5.28); RED CELL DISTRIBUTION WIDTH 14.7 % (11.5-14.0); SEGMENTED NEUTROPHILS % (AUTO) 67.1 % (42-78); TOTAL CELLS COUNTED % (AUTO) 100 %; WHITE BLOOD COUNT 7.6 10^3/uL (4.0-10.5)
[2017-11-01 18:44] LABS: PARTIAL THROMBOPLASTIN TIME 30.2 SEC (23.5-35.8)
--- NOTE | 2017-11-01 18:45 | RADIOLOGY REPORT (SQ) ---
EXAM DESCRIPTION: CT HEAD WITHOUT COMPLETED DATE/TIME: 11/01/2017 6:25 pm REASON FOR STUDY: stroke s/s COMPARISON: CT head 09/26/2017 TECHNIQUE: Axial images acquired through the brain without intravenous contrast. Images reviewed wi th bone, brain and subdural windows. Images stored on PACS. All CT scanners at this facility use dose modulation, iterative reconstruction, and/or weight based d osing when appropriate to reduce radiation dose to as low as reasonably achievable (ALARA). [facility]: Dose Right [facility]: CareDose [facility]: Dose Right [facility]: Teradose 4D [facility]: Dafiti RADIATION DOSE: mGy. LIMITATIONS: None. FINDINGS: VENTRICLES: Normal size and contour. CEREBRUM: No mass effect. No hemorrhage. No midline shift. Normal berger/white matter differentiatio n. No evidence for acute territorial infarction. CEREBELLUM: No mass effect. No hemorrhage. No alteration of density. No evidence for acute infarct ion. EXTRAAXIAL SPACES: No fluid collections. ORBITS AND GLOBE: Symmetrical contour of the globes. CALVARIUM: No depressed skull fracture. PARANASAL SINUSES: No air-fluid level. SOFT TISSUES: No hematoma. IMPRESSION: No acute intracranial hemorrhage or acute territorial infarct. EVIDENCE OF ACUTE STROKE: NO. COMMENT: Pertinent findings on the imaging study reported as a CRITICAL RESULT to Dr. Ryan At18:3 7 hrs on 11/01/2017. Category of Critical Result: Stroke alert Quality ID # [id number]: Final reports with documentation of one or more dose reduction techniques (e.g., Au tomated exposure control, adjustment of the mA and/or kV according to patient size, use of iterative reconstruction technique) TECHNICAL DOCUMENTATION: JOB ID: [id number] 2010 [employer]- All Rights Reserved Reading location - IP/workstation name: [email or web address]
--- NOTE | 2017-11-01 18:46 | ER Document Report ---
ED General - General Chief Complaint: Weakness Stated Complaint: WEAKNESS Time Seen by Provider: 11/01/17 17:58 Information source: Patient, Relative - daughter TRAVEL OUTSIDE OF THE [place] IN LAST 30 DAYS: No - HPI Patient complains to provider of: mental status change Onset: Other - this am Onset/Duration: Gradual Similar symptoms previously: Yes Recently seen / treated by doctor: Yes - [facility] Notes: History is mostly from the daughter as the sheet has vascular dementia. The patient was discharged just discharged from [facility] for diabetes renal failure and hypertension. Her creatinine is usually around 2. For the last 2 weeks the daughter is visiting with the mother and states that she has been alert ambulatory and doing well. She states today the patient began with difficulty forming her words, slurred speech, inability to ambulate with a walker which she normally has no problem with as well as swelling to her bilateral lower extremities. - Related Data Allergies/Adverse Reactions: morphine Allergy (Verified 11/01/17 19:50) Past Medical History - General Information source: Patient, Relative - daughter - Social History Smoking Status: Never Smoker Chew tobacco use (# tins/day): No Frequency of alcohol use: None Drug Abuse: None Lives with: Family - son Family History: Reviewed & Not Pertinent, Other - Alzheimer's Patient has suicidal ideation: No Patient has homicidal ideation: No - Past Medical History Cardiac Medical History: Reports: Hx Congestive Heart Failure, Hx Hypercholesterolemia, Hx Hypertension Denies: Hx Coronary Artery Disease, Hx Heart Attack, Hx Heart Murmur Pulmonary Medical History: Denies: Hx Asthma, Hx Bronchitis, Hx COPD, Hx Pneumonia Neurological Medical History: Denies: Hx Cerebrovascular Accident, Hx Seizures Endocrine Medical History: Reports: Hx Diabetes Mellitus Type 2 Renal/ Medical History: Reports: Hx Renal Insufficiency. Denies: Hx Peritoneal Dialysis GI Medical History: Reports: Hx Gastroesophageal Reflux Disease. Denies: Hx Hepatitis, Hx Hiatal Hernia, Hx Ulcer Musculoskeltal Medical History: Reports Hx Arthritis, Denies Hx Multiple Sclerosis Psychiatric Medical History: Reports: Hx Dementia, Hx Depression Infectious Medical History: Denies: Hx Hepatitis Past Surgical History: Reports: Hx Tonsillectomy, Other - Abdominal wall surgery for infection. Denies: Hx Hysterectomy, Hx Mastectomy, Hx Open Heart Surgery, Hx Pacemaker - Immunizations Hx Diphtheria, Pertussis, Tetanus Vaccination: Yes Hx Pneumococcal Vaccination: 04/21/14 Review of Systems - Review of Systems Constitutional: Weakness - generalized EENT: No symptoms reported Cardiovascular: No symptoms reported Respiratory: No symptoms reported Gastrointestinal: No symptoms reported Genitourinary: Dysuria Musculoskeletal: Ankle swelling Neurological/Psychological: Confusion, Dementia, Gait changes, Speech impairment Physical Exam - Vital signs Vitals: Temp Pulse Resp BP Pulse Ox 98.7 F 96 17 100/51 L 97 11/01/17 17:47 11/01/17 17:47 11/01/17 17:47 11/01/17 17:47 11/01/17 17:47 - Notes Notes: PHYSICAL EXAMINATION: GENERAL: Chronically ill-appearing in no acute distress HEAD: Atraumatic, normocephalic. EYES: Pupils equal round and reactive to light, extraocular movements intact, conjunctiva are normal. ENT: Nares patent. Moist mucous membranes. NECK: Normal range of motion, supple without lymphadenopathy LUNGS: Breath sounds clear to auscultation bilaterally and equal. No wheezes rales or rhonchi. HEART: Regular rate and rhythm without murmurs ABDOMEN: Soft, nontender, nondistended abdomen. No guarding, no rebound. No masses appreciated. Female : deferred Musculoskeletal: Normal range of motion, +2 pitting edema. No cyanosis. NEUROLOGICAL: Alert to self. CN 2-12 grossly intact. PSYCH: Normal mood, normal affect. SKIN: Warm, Dry, normal turgor. Pt. hasmild erythema to right dorsum of foot as well as toes on left foot. Course - Re-evaluation Re-evalutation: 11/01/17 18:46 Spoke with the radiologist who stated that the CT of the head is negative for any acute findings. 11/01/17 21:33 Patient is alert and tolerating p.o. intake. Vital signs are stable. She has no fever or leukocytosis. Talk to Dr. Fleming he felt that the patient should be able to go home. Rocephin is infusing. I did go to talk to the patient and her daughter. They are agreeable to a discharge home with antibiotics. - Vital Signs Vital signs: Temp Pulse Resp BP Pulse Ox 98.7 F 79 18 151/61 H 97 11/01/17 17:47 11/01/17 19:06 11/01/17 21:01 11/01/17 21:01 11/01/17 21:01 - Laboratory Result Diagrams: 11/01/17 18:25 11/01/17 18:25 Laboratory results interpreted by me: 11/01/17 11/01/17 11/01/17 18:25 18:25 19:25 RBC 3.33 L Hgb 9.6 L Hct 29.2 L RDW 14.7 H Sodium 147.8 H Chloride 109 H BUN 30 H Creatinine 2.60 H Est GFR ( Amer) 22 L Est GFR (Non-Af Amer) 19 L Glucose 122 H Ammonia < 8.7 L Albumin 3.4 L Urine Protein Urine Glucose (UA) Urine Nitrite Urine Urobilinogen 11/01/17 19:30 RBC Hgb Hct RDW Sodium Chloride BUN Creatinine Est GFR ( Amer) Est GFR (Non-Af Amer) Glucose Ammonia Albumin Urine Protein >=500 H Urine Glucose (UA) 50 H Urine Nitrite POSITIVE H Urine Urobilinogen 4.0 H - EKG Interpretation by Me EKG shows normal: Sinus rhythm - 81 Anthon/QRS: RBBB Discharge - Discharge Clinical Impression: UTI (urinary tract infection), Edema of lower extremity, Dehydration, CKD ( chronic kidney disease) stage 3, GFR 30-59 ml/min Condition: Stable Disposition: HOME, SELF-CARE Instructions: Nitrofurantoin ([facility]), Urinary Tract Infection ([facility]) Additional Instructions: Return to the emergency department if your vomiting unable to take antibiotics, as high fevers, or any other concerns. Please follow-up the primary medical doctor in the next 1-2 days. Make sure you are drinking plenty of water. Prescriptions: Nitrofurantoin/Nitrofuran Mac [Macrobid 100 mg Capsule] 1 tab PO BID #20 capsule Referrals: KATHARINE BUSTAMANTE NP [Primary Care Provider] - Follow up in 3-5 days
[2017-11-01 19:01] LABS: ALANINE AMINOTRANSFERASE 16 U/L (9-52); ALBUMIN 3.4 g/dL (3.5-5.0); ALKALINE PHOSPHATASE 73 U/L (38-126); ANION GAP 10 (5-19); ASPARTATE AMINO TRANSFERASE 14 U/L (14-36); BILIRUBIN,TOTAL 0.2 mg/dL (0.2-1.3); BLOOD UREA NITROGEN 30 mg/dL (7-20); CALCIUM 9.2 mg/dL (8.4-10.2); CARBON DIOXIDE 29 mmol/L (22-30); CHLORIDE 109 mmol/L (98-107); CREATINE KINASE 56 U/L (30-135); GLUCOSE 122 mg/dL (75-110); POTASSIUM 4.1 mmol/L (3.6-5.0); SODIUM 147.8 mmol/L (137-145); TOTAL PROTEIN 6.4 g/dL (6.3-8.2)
[2017-11-01 19:12] LABS: CREATINE KINASE MB 0.59 ng/mL (<4.55)
[2017-11-01 19:16] LABS: TROPONIN I < 0.012 ng/mL
[2017-11-01 20:07] LABS: AMORPHOUS SEDIMENT,URINE TRACE /HPF; APPEARANCE,URINE CLOUDY; BILIRUBIN,URINE NEGATIVE (NEGATIVE); GLUCOSE, URINE 50 mg/dL (NEGATIVE); KETONES,URINE NEGATIVE (NEGATIVE); LEUKOCYTE ESTERASE,URINE NEGATIVE (NEGATIVE); NITRITE,URINE POSITIVE (NEGATIVE); PROTEIN,URINE >=500 mg/dL (NEGATIVE); URINE SPECIFIC GRAVITY 1.025
[2017-11-01 20:12] LABS: COLOR,URINE ORANGE
[2017-11-01] MEDS ORDERED: CEFTRIAXONE 1 GM/D5W RTU 1 GM/50 ML RTUPB IV ONE (20:38)
--- NOTE | 2017-11-01 22:10 | EKG REPORT ---
SEVERITY:- ABNORMAL ECG - SINUS RHYTHM RIGHT BUNDLE BRANCH BLOCK PROBABLE LEFT VENTRICULAR HYPERTROPHY : Confirmed by: Sriram Amato MD 01-Nov-2017 22:09:11
[2017-11-01 22:35] VITALS: BP 151/71
== END 2017-11-01 22:35 | disposition home or self-care (01) ==
LOC: ER 17:39
DX: N39.0 Urinary tract infection, site not specified (principal); R60.9 Edema, unspecified; E86.0 Dehydration; E11.22 Type 2 diabetes mellitus with diabetic chronic kidney disease; I13.0 Hypertensive heart and chronic kidney disease with heart failure and stage 1 through stage 4 chronic kidney disease, or unspecified chronic kidney disease; N18.3 Chronic kidney disease, stage 3 (moderate); I50.9 Heart failure, unspecified; R53.1 Weakness; F01.50 Vascular dementia, unspecified severity, without behavioral disturbance, psychotic disturbance, mood disturbance, and anxiety; E78.00 Pure hypercholesterolemia, unspecified; Z88.6 Allergy status to analgesic agent
CPT/HCPCS: 93005; 99285; 51701; 96365; 36415; 87040; 87086; 82553; 82140; 82550; 85025; 85610; 85730; 87088; 80053; 81001; 84484; 87186; 71045; 70450; 93010; J0696

== ENCOUNTER 2018-06-04 20:41 | Emergency (ER) | payer MEDICARE ==
--- NOTE | 2018-06-04 20:49 | ER Document Report ---
ED General - General Stated Complaint: FALL Time Seen by Provider: 06/04/18 20:45 Cannot obtain history due to: Dementia Notes: Patient is a 62-year-old female with a past medical history of early onset dementia, essential hypertension, presents by EMS due to a fall. Patient apparently fell, struck her head but did not lose consciousness. No noted injuries. Patient was transported to the emergency department as she was having more difficulty with short-term memory which is not normal for her and is usually only long-term memory. The patient apparently had a fall 1 week ago , had both a CT and MRI of her head which were effectively unremarkable. The patient currently denies any complaints. She is laughing and joking with staff on initial assessment. History is otherwise limited secondary to the patient's degree of dementia. TRAVEL OUTSIDE OF THE [place] IN LAST 30 DAYS: No - Related Data Allergies/Adverse Reactions: morphine Allergy (Verified 11/01/17 19:50) Past Medical History - General Information source: Patient, Emergency Med Personnel Cannot obtain history due to: Dementia - Social History Smoking Status: Never Smoker Frequency of alcohol use: None Drug Abuse: None Lives with: Family Family History: Reviewed & Not Pertinent, Other - Alzheimer's - Past Medical History Cardiac Medical History: Reports: Hx Congestive Heart Failure, Hx Hypercholesterolemia, Hx Hypertension Denies: Hx Coronary Artery Disease, Hx Heart Attack, Hx Heart Murmur Pulmonary Medical History: Denies: Hx Asthma, Hx Bronchitis, Hx COPD, Hx Pneumonia Neurological Medical History: Denies: Hx Cerebrovascular Accident, Hx Seizures Endocrine Medical History: Reports: Hx Diabetes Mellitus Type 2 Renal/ Medical History: Reports: Hx Renal Insufficiency. Denies: Hx Peritoneal Dialysis GI Medical History: Reports: Hx Gastroesophageal Reflux Disease. Denies: Hx Hepatitis, Hx Hiatal Hernia, Hx Ulcer Musculoskeletal Medical History: Reports Hx Arthritis, Denies Hx Multiple Sclerosis Psychiatric Medical History: Reports: Hx Dementia, Hx Depression Infectious Medical History: Denies: Hx Hepatitis Past Surgical History: Reports: Hx Tonsillectomy, Other - Abdominal wall surgery for infection. Denies: Hx Hysterectomy, Hx Mastectomy, Hx Open Heart Surgery, Hx Pacemaker - Immunizations Hx Diphtheria, Pertussis, Tetanus Vaccination: Yes Hx Pneumococcal Vaccination: 04/21/14 Review of Systems - Review of Systems Notes: Constitutional: Negative for fever. Eyes: Negative for visual changes. ENT: Negative for facial injury Cardiovascular: Negative for chest injury. Respiratory: Negative for shortness of breath. Gastrointestinal: Negative for abdominal injury. Genitourinary: Negative for genital injury Musculoskeletal: Negative for back injury. Skin: Negative for laceration/abrasions. Neurological: Positive for head injury. Physical Exam - Vital signs Vitals: Temp Resp BP Pulse Ox 97.5 F 17 212/85 H 100 06/04/18 20:53 06/04/18 20:53 06/04/18 20:53 06/04/18 20:53 Interpretation: Hypertensive Notes: PHYSICAL EXAMINATION: GENERAL: Well-appearing, no acute distress. HEAD: Atraumatic, normocephalic. EYES: Right pupil 4 mm, left 3 mm, extraocular movements intact, sclera anicteric, conjunctiva are normal. ENT: nares patent, no oral pharyngeal trauma. No hemotympanum, no Rosado's sign , no raccoon eyes. NECK: No midline cervical spine tenderness. Patient able to move their head to 45 bilaterally without any discomfort. LUNGS: Breath sounds clear to auscultation bilaterally and equal. No wheezes rales or rhonchi. HEART: Regular rate and rhythm without murmurs. CHEST WALL: No ecchymosis over the chest wall. ABDOMEN: Soft, nontender, normoactive bowel sounds. No guarding, no rebound. No abdominal bruising EXTREMITIES: Normal range of motion, no pitting or edema. No long bone deformities. BACK: No midline spinal tenderness, step-offs, or deformities. NEUROLOGICAL: Face symmetric. Tongue protrudes midline. Extraocular motions intact. Pupils are 2 mm and equally reactive. Normal speech, normal gait. 5 out of 5 strength in both the distal and proximal upper and lower extremities bilaterally. Sensation is grossly intact throughout. Finger to nose testing normal. Pronator drift normal. PSYCH: Alert, oriented to person and month but not year. SKIN: Warm, Dry, normal turgor, chronic wounds to the distal left lower extremity Course - Re-evaluation Re-evalutation: 06/04/18 20:49 Presentation of a well appearing elderly patient in no acute distress, vitals within normal limits after a mechanical fall. Patient denies a syncopal episode as the cause for today's fall. No focal neurologic deficits on exam, no evidence of basilar skull fracture on exam without evidence of hemotympanum, raccoon eyes, or periauricular hematoma. No papilledema. Patient is not on anticoagulation. GCS is 15. No loss of consciousness. No episodes of vomiting. However, based on patient's age a CT of the head has been obtained which is negative for any acute intracranial bleed. Likewise, patient was unable to be clinically cleared due to age by [place] cervical spine criteria. A CT of the cervical spine was also obtained and likewise is negative for any acute fracture. No indication for further imaging of the cervical spine. Patient has no focal deformities or limited range of motion in any joint space. Chest and abdominal exam are benign without any focal tenderness, shortness of breath, or bruising over the chest or abdominal wall. Patient has no flank tenderness. There is no obvious findings on trauma exam today and therefore no further imaging or evaluation will be obtained at this time. At this time will discharge with return precautions and follow-up recommendations. Verbal discharge instructions given a the bedside and opportunity for questions given. Medication warnings reviewed. Patient is in agreement with this plan and has verbalized understanding of return precautions and the need for primary care follow-up in the next 24-72 hours. - Vital Signs Vital signs: Temp Pulse Resp BP Pulse Ox 97.5 F 69 18 212/85 H 100 06/04/18 20:53 06/04/18 21:05 06/04/18 21:05 06/04/18 21:05 06/04/18 21:05 - Diagnostic Test Radiology reviewed: Image reviewed, Reports reviewed Radiology results interpreted by me: 06/04/18 21:17 CT head: No acute intracranial bleed or mass Discharge - Discharge Clinical Impression: Fall Qualifiers: Encounter type: initial encounter Qualified Code(s): W19.XXXA - Unspecified fall, initial encounter Head trauma Qualifiers: Encounter type: initial encounter Qualified Code(s): S09.90XA - Unspecified injury of head, initial encounter Dementia Qualifiers: Dementia type: unspecified type Dementia behavioral disturbance: without behavioral disturbance Qualified Code(s): F03.90 - Unspecified dementia without behavioral disturbance HTN (hypertension) Qualifiers: Hypertension type: essential hypertension Qualified Code(s): I10 - Essential ( primary) hypertension Condition: Good Disposition: HOME, SELF-CARE Additional Instructions: You have been seen in the Emergency Department (ED) today following a fall. Your workup today did not reveal any injuries that require you to stay in the hospital. A CT scan of your head and neck are normal. You can expect, though, to be stiff and sore for the next several days. You can take Tylenol 1000 mg every 6 hours as needed for pain. You can apply a hot pack or electric heating pad to the sore areas. You can also use topical "Aspercreme with lidocaine" to sore areas as needed. Please follow up with your primary care doctor as soon as possible regarding today's ED visit and your recent fall. Call your doctor or return to the ED if you develop a sudden or severe headache , confusion, slurred speech, facial droop, weakness or numbness in any arm or leg, extreme fatigue, vomiting more than two times, severe abdominal pain, or other symptoms that concern you. Referrals: KATHARINE BUSTAMANTE NP [Primary Care Provider] - Follow up as needed
--- NOTE | 2018-06-04 21:28 | RADIOLOGY REPORT (SQ) ---
EXAM DESCRIPTION: CT CERVICAL SPINE WITHOUT IV CONTRAST COMPLETED DATE/TME: 06/04/2018 00:00 CLINICAL HISTORY: 62 years Female fall COMPARISON: 10/16/2017. TECHNIQUE: Contiguous axial images obtained through the cervical spine without IV contrast. Coronal and sagittal reformatted images obtained. This exam was performed according to our department optimization program which includes automated exposure control, adjustment of the mA and/or kv according to patient size and/or use of iterative reconstruction technique. FINDINGS: Vertebral body alignment is unremarkable. No acute fractures. Draining of the normal lordosis. Narrowing of cervical disc interspaces with facet arthropathy at multiple levels. Disc space narrowing and osteophytosis is noted particularly at C3-4 C4-5 and C5-6. Mild disc bulging at C2-3. Right neural foraminal stenosis at C3-4. C4-5: Bilateral neural foraminal stenosis. C5-6: Severe bilateral neural foraminal stenosis. C6-7: Bilateral neural foraminal stenosis. C7-T1: Mild right neural foraminal narrowing. IMPRESSION: No acute cervical spinal fracture is identified. Multilevel degenerative change
--- NOTE | 2018-06-04 21:32 | RADIOLOGY REPORT (SQ) ---
EXAM DESCRIPTION: CT HEAD WITHOUT IV CONTRAST COMPLETED DATE/TME: 06/04/2018 00:00 CLINICAL HISTORY: 62 years Female r/o stroke, fall short-term memory loss COMPARISON: 11/01/2017. TECHNIQUE: Contiguous axial CT images obtained through the brain without IV contrast. This exam was performed according to our department optimization program which includes automated exposure control, adjustment of the mA and/or kv according to patient size and/or use of iterative reconstruction technique. FINDINGS: The ventricles and sulci are prominent consistent with atrophic changes. No mass lesions. No acute hemorrhage. Atherosclerotic calcifications. Areas of previous infarct adjacent to the left frontal white matter and in the left external capsule. These were present on the previous exam. There is a comminuted and depressed fracture of the right orbital floor with hemorrhage in the right maxillary sinus. There is some extension of orbital fat through the fracture and deviation of the inferior rectus along the fracture lines. The possibility of entrapment is not excluded. There also appears to be a nondisplaced fracture of the inferior aspect of the lamina papyracea. No depressed calvarial fractures. IMPRESSION: No acute intracranial abnormality is identified. Comminuted and depressed right orbital floor fracture with small amount of hemorrhage in the sinus, nondisplaced fracture of the lamina papyracea inferiorly and extension of the inferior rectus along the fracture line. Entrapment is not excluded
[2018-06-04 22:02] VITALS: BP 194/71
== END 2018-06-04 22:02 | disposition home or self-care (01) ==
LOC: ER 20:41
DX: S09.90XA Unspecified injury of head, initial encounter (principal); F03.90 Unspecified dementia, unspecified severity, without behavioral disturbance, psychotic disturbance, mood disturbance, and anxiety; W19.XXXA Unspecified fall, initial encounter; I50.9 Heart failure, unspecified; I11.0 Hypertensive heart disease with heart failure; E11.9 Type 2 diabetes mellitus without complications; E78.00 Pure hypercholesterolemia, unspecified; Z88.6 Allergy status to analgesic agent
CPT/HCPCS: 70450; 72125; 99285

== ENCOUNTER 2018-06-15 23:56 | Inpatient (IN) | payer MEDICARE ==
[2018-06-16 00:42] LABS: ABSOLUTE LYMPHOCYTES (AUTO) 0.9 10^3/uL (0.5-4.7); ABSOLUTE MONOCYTES (AUTO) 0.6 10^3/uL (0.1-1.4); ABSOLUTE NEUT (AUTO) 12.2 10^3/uL (1.7-8.2); BASOPHILS % (AUTO) 0.2 % (0-2); HEMATOCRIT 25.6 % (36.0-47.0); HEMOGLOBIN 8.5 g/dL (12.0-15.5); LYMPHOCYTES % (AUTO) 6.8 % (13-45); MEAN CORPUSCULAR HEMOGLOBIN 28.1 pg (27.0-33.4); MEAN CORPUSCULAR HGB CONC 33.3 g/dL (32.0-36.0); MEAN CORPUSCULAR VOLUME 85 fl (80-97); MONOCYTES % (AUTO) 4.6 % (3-13); PLATELET COUNT 190 10^3/uL (150-450); RED BLOOD COUNT 3.03 10^6/uL (3.72-5.28); RED CELL DISTRIBUTION WIDTH 16.2 % (11.5-14.0); SEGMENTED NEUTROPHILS % (AUTO) 88.4 % (42-78); TOTAL CELLS COUNTED % (AUTO) 100 %; WHITE BLOOD COUNT 13.8 10^3/uL (4.0-10.5)
[2018-06-16 00:48] LABS: ALANINE AMINOTRANSFERASE 13 U/L (9-52); ALBUMIN 2.4 g/dL (3.5-5.0); ALKALINE PHOSPHATASE 90 U/L (38-126); ANION GAP 6 (5-19); ASPARTATE AMINO TRANSFERASE 15 U/L (14-36); BILIRUBIN,DIRECT 0.3 mg/dL (0.0-0.4); BILIRUBIN,TOTAL 0.5 mg/dL (0.2-1.3); BLOOD UREA NITROGEN 22 mg/dL (7-20); CALCIUM 8.1 mg/dL (8.4-10.2); CARBON DIOXIDE 25 mmol/L (22-30); CHLORIDE 105 mmol/L (98-107); GLUCOSE 202 mg/dL (75-110); POTASSIUM 3.3 mmol/L (3.6-5.0); SODIUM 136.4 mmol/L (137-145); TOTAL PROTEIN 5.3 g/dL (6.3-8.2)
--- NOTE | 2018-06-16 01:06 | RADIOLOGY REPORT (SQ) ---
EXAM DESCRIPTION: XR CHEST 1 VIEW COMPLETED DATE/TME: 06/16/2018 00:29 CLINICAL HISTORY: 62 years, Female, sob COMPARISON: 11/01/2017 chest x-ray NUMBER OF VIEWS: 1 TECHNIQUE: Portable chest LIMITATIONS: None. FINDINGS: Heart size is normal. Mild atheromatous change thoracic aorta. No pneumothorax. Lungs are clear IMPRESSION: No acute cardiopulmonary process copyright 2010 [employer]- All Rights Reserved
[2018-06-16 01:38] LABS: APPEARANCE,URINE CLOUDY; BILIRUBIN,URINE NEGATIVE (NEGATIVE); COLOR,URINE YELLOW; GLUCOSE, URINE >=500 mg/dL (NEGATIVE); KETONES,URINE NEGATIVE (NEGATIVE); LEUKOCYTE ESTERASE,URINE NEGATIVE (NEGATIVE); NITRITE,URINE NEGATIVE (NEGATIVE); PROTEIN,URINE >=500 mg/dL (NEGATIVE); URINE SPECIFIC GRAVITY 1.015; UROBILINOGEN,URINE NEGATIVE mg/dL (<2.0)
--- NOTE | 2018-06-16 02:19 | RADIOLOGY REPORT (SQ) ---
EXAM DESCRIPTION: CT HEAD WITHOUT IV CONTRAST COMPLETED DATE/TME: 06/16/2018 00:29 CLINICAL HISTORY: 62 years, Female, change in mental status COMPARISON: 06/04/2018 CT brain. TECHNIQUE: 80 Images stored on PACS. All CT scanners at this facility use dose modulation, iterative reconstruction, and/or weight based dosing when appropriate to reduce radiation dose to as low as reasonably achievable (ALARA). [facility]: Dose Right [facility]: CareDose [facility]: Dose Right [facility]: Teradose 4D [facility]: [employer] LIMITATIONS: None. FINDINGS: Globes are intact. Paranasal sinuses show extensive mucosal thickening and polyp formation of the right maxillary sinus. No displaced or depressed skull fracture. No intra or extra-axial hemorrhage. CT is limited for evaluation of acute infarct. No CT evidence for large or territorial acute infarct. No mass or midline shift. Age-appropriate atrophy. Small vessel ischemic change, as before. IMPRESSION: Atrophy with small vessel ischemic change. Right maxillary sinusitis. TECHNICAL DOCUMENTATION: Quality ID # 436: Final reports with documentation of one or more dose reduction techniques (e.g., Automated exposure control, adjustment of the mA and/or kV according to patient size, use of iterative reconstruction technique) copyright 2010 [employer]- All Rights Reserved
--- NOTE | 2018-06-16 02:21 | RADIOLOGY REPORT (SQ) ---
EXAM DESCRIPTION: CT CERVICAL SPINE WITHOUT IV CONTRAST COMPLETED DATE/TME: 06/16/2018 00:35 CLINICAL HISTORY: 62 years, Female, fall COMPARISON: 06/04/2018 CT TECHNIQUE: 243 Images stored on PACS. All CT scanners at this facility use dose modulation, iterative reconstruction, and/or weight based dosing when appropriate to reduce radiation dose to as low as reasonably achievable (ALARA). [facility]: Dose Right [facility]: CareDose [facility]: Dose Right [facility]: Teradose 4D [facility]: [employer] LIMITATIONS: None. FINDINGS: Vertebral body height and alignment is preserved. Negative for fracture/compression deformity or subluxation. Multilevel degenerative change throughout the cervical spine with disc space narrowing, osteophytic spurring, facet arthropathy and uncovertebral joint hypertrophy. Similar findings were present previously. Trying soft tissues are unremarkable. IMPRESSION: No CT evidence for acute C-spine abnormality. Multilevel degenerative change TECHNICAL DOCUMENTATION: Quality ID # 436: Final reports with documentation of one or more dose reduction techniques (e.g., Automated exposure control, adjustment of the mA and/or kV according to patient size, use of iterative reconstruction technique) copyright 2011 [employer]- All Rights Reserved
--- NOTE | 2018-06-16 02:23 | RADIOLOGY REPORT (SQ) ---
EXAM DESCRIPTION: XR TIBIA FIBULA 2 VIEWS COMPLETED DATE/TME: 06/16/2018 00:35 CLINICAL HISTORY: 62 years, Female, pain/fall COMPARISON: None. NUMBER OF VIEWS: 2 TECHNIQUE: 2 view right tibia fibula LIMITATIONS: None. FINDINGS: Osteopenia. Degenerative change of the knee. No radiographic evidence for acute fracture or dislocation. Vascular calcifications. IMPRESSION: Osteopenia. No acute osseous abnormality copyright 2010 [employer]- All Rights Reserved
--- NOTE | 2018-06-16 02:23 | RADIOLOGY REPORT (SQ) ---
EXAM DESCRIPTION: XR FEMUR 2 VIEWS COMPLETED DATE/TME: 06/16/2018 00:35 CLINICAL HISTORY: 62 years, Female, pain/fall COMPARISON: None. NUMBER OF VIEWS: 4 TECHNIQUE: 4 views of the right femur LIMITATIONS: None. FINDINGS: Osteopenia. Negative for acute fracture or dislocation. Degenerative changes of the hip and knee. Vascular calcifications. IMPRESSION: No acute osseous abnormality copyright 2010 [employer]- All Rights Reserved
[2018-06-16 02:51] LABS: VENOUS BLOOD HCO3 27.6 mmol/L (20-32); VENOUS BLOOD PCO2 47.3 mmHg (35-63); VENOUS BLOOD PH 7.38 (7.30-7.42)
--- NOTE | 2018-06-16 03:35 | ER Document Report ---
ED General - General Chief Complaint: Altered Mental Status Stated Complaint: ALTERED MENTAL STATUS Time Seen by Provider: 06/16/18 00:29 Notes: Patient is a 62-year-old female presents to the emergency department via EMS for generalized weakness. According to son who is patient's primary caregiver the patient tripped and fell this morning around 0900 hrs. States throughout the day he has noticed that she has been "acting out of it". States he came downstairs this afternoon to find the patient had urinated on herself which is inevitably why he called 911. Son states patient has an extensive history of urinary tract infections and he was worried that she was having a urinary tract infection. Past medical history: Dementia, hypertension, diabetes, anemia, chronic kidney disease, hyperlipidemia, depression Medications: Effexor, trazodone, Lopressor, Humalog, gabapentin, clonidine, Norvasc Allergies: Morphine TRAVEL OUTSIDE OF THE [place] IN LAST 30 DAYS: No - Related Data Allergies/Adverse Reactions: morphine Allergy (Verified 06/04/18 21:21) Past Medical History - General Information source: Relative, Emergency Med Personnel - Social History Smoking Status: Unknown if Ever Smoked Family History: Reviewed & Not Pertinent, Other - Alzheimer's Patient has suicidal ideation: No Patient has homicidal ideation: No - Past Medical History Cardiac Medical History: Reports: Hx Congestive Heart Failure, Hx Hypercholesterolemia, Hx Hypertension Denies: Hx Coronary Artery Disease, Hx Heart Attack, Hx Heart Murmur Pulmonary Medical History: Denies: Hx Asthma, Hx Bronchitis, Hx COPD, Hx Pneumonia Neurological Medical History: Denies: Hx Cerebrovascular Accident, Hx Seizures Endocrine Medical History: Reports: Hx Diabetes Mellitus Type 2 Renal/ Medical History: Reports: Hx Renal Insufficiency. Denies: Hx Peritoneal Dialysis GI Medical History: Reports: Hx Gastroesophageal Reflux Disease. Denies: Hx He patitis, Hx Hiatal Hernia, Hx Ulcer Musculoskeletal Medical History: Reports Hx Arthritis, Denies Hx Multiple Sclerosis Psychiatric Medical History: Reports: Hx Dementia, Hx Depression Infectious Medical History: Denies: Hx Hepatitis Past Surgical History: Reports: Hx Tonsillectomy, Other - Abdominal wall surgery for infection. Denies: Hx Hysterectomy, Hx Mastectomy, Hx Open Heart Surgery, Hx Pacemaker - Immunizations Hx Diphtheria, Pertussis, Tetanus Vaccination: Yes Hx Pneumococcal Vaccination: 04/21/14 Review of Systems - Review of Systems Constitutional: No symptoms reported EENT: No symptoms reported Cardiovascular: No symptoms reported Respiratory: No symptoms reported Gastrointestinal: No symptoms reported Genitourinary: See HPI Female Genitourinary: No symptoms reported Musculoskeletal: No symptoms reported Hematologic/Lymphatic: No symptoms reported Neurological/Psychological: See HPI Physical Exam - Vital signs Vitals: Resp Pulse Ox 9 L 99 06/16/18 00:05 06/16/18 00:05 - Notes Notes: GENERAL: Patient sleeping upon my arrival to the room but is easily arousable with verbal stimuli. Patient is now GCS of 15 alert, interacts well. No acute distress. HEAD: Normocephalic, atraumatic. EYES: Pupils equal, round, and reactive to light. Extraocular movements intact. ENT: Oral mucosa moist, tongue midline. NECK: Full range of motion. Supple. Trachea midline. LUNGS: Clear to auscultation bilaterally, no wheezes, rales, or rhonchi. No respiratory distress. HEART: Regular rate and rhythm. No murmur ABDOMEN: Soft, non-tender. Non-distended. Bowel sounds present in all 4 quadrants. EXTREMITIES: Moves all 4 extremities spontaneously. No edema, normal radial and dorsalis pedis pulses bilaterally. No cyanosis. Patient complains of generalized pain distal right femur proximal right tib-fib upon palpation. Patient moves right knee and ankle on command with no issues. BACK: no cervical, thoracic, lumbar midline tenderness. No saddle anesthesia, normal distal neurovascular exam. NEUROLOGICAL: Alert and oriented x3. Normal speech. cranial nerves II through XII grossly intact PSYCH: Normal affect, normal mood. SKIN: Warm, dry, normal turgor. Patient has a scab wounds noted to her left di stal anterior benitez. No surrounding erythema. Son states she has had these lesions for a "long time." Course - Re-evaluation Re-evalutation: 06/16/18 03:[address] shows no signs of acute, bleeding, skull fracture. Patient's x- rays revealed no signs of fractures. Patient does have a mild leukocytosis of 13.8. Her H&H is 8.5 and 25.6 respectively but she does have a history of anemia. Patient's blood glass is normal at this time. Patient's labs do show no minor hypokalemia and hyponatremia. Patient does have a history of chronic kidney disease and her creatinine and BUN are actually improved from her last visit. Her urine shows no signs of infection at this time. Discussed these results at length with son at bedside. Son is requesting that we admit the patient to the hospital to inevitably get her placed in a nursing facility. In reviewing past patient charts it appears that she has had generalized weakn ess since 10/16/2017 with her most recent visit being 06/04/2018. 06/16/18 04:28 Nursing staff attempted to stand the patient up on the side of the bed with a walker. States she typically walks at home with a walker. Patient states she feels weak and dizzy and will not stand up for long periods of time. I will call hospitalist Dr. Null to discuss this case for possible admission. 06/16/18 05:40 Dr. Null is requesting orthostatics at that time, he states he will come down to the emergency room to see the patient. 06/16/18 06:26 Dr. Null did come down to the emergency room to see the patient. Although she does have positive orthostatics she does have chronic kidney failure so her fluid is limited. He will admit the patient for generalized weakness. - Vital Signs Vital signs: Temp Pulse Resp BP Pulse Ox 19 109/37 L 100 06/16/18 06:00 06/16/18 05:51 06/16/18 06:00 - Laboratory Result Diagrams: 06/16/18 00:14 06/16/18 00:14 Laboratory results interpreted by me: 06/16/18 06/16/18 06/16/18 00:14 00:14 01:15 WBC 13.8 H RBC 3.03 L Hgb 8.5 L Hct 25.6 L RDW 16.2 H Seg Neutrophils % 88.4 H Lymphocytes % 6.8 L Absolute Neutrophils 12.2 H Sodium 136.4 L Potassium 3.3 L BUN 22 H Creatinine 1.98 H Est GFR ( Amer) 31 L Est GFR (Non-Af Amer) 25 L Glucose 202 H Calcium 8.1 L Total Protein 5.3 L Albumin 2.4 L Urine Protein >=500 H Urine Glucose (UA) >=500 H Urine Blood SMALL H Discharge - Discharge Clinical Impression: Weakness Condition: Stable Disposition: ADMITTED INPATIENT Admitting Provider: Hospitalist - Dr. Null Unit Admitted: Medical Floor Referrals: KATHARINE BUSTAMANTE NP [Primary Care Provider] - Follow up as needed
[2018-06-16] MEDS ORDERED: MAGNESIUM HYDROXIDE SUSP 30 ML UDCUP PO PRN (06:29)
[2018-06-16] MEDS ORDERED: ONDANSETRON 4 MG TAB.RAPDIS PO PRN (06:29)
[2018-06-16] MEDS ORDERED: MAG HYDROX/AL HYDROX/SIMETH SUSP 30 ML UDCUP PO PRN (06:29)
[2018-06-16] MEDS ORDERED: ONDANSETRON HCL INJ/PF 4 MG/2 ML SDV IV PRN (06:29)
[2018-06-16] MEDS ORDERED: ACETAMINOPHEN 650 MG SUPP.RECT PR PRN (06:36)
--- NOTE | 2018-06-16 07:01 | PDOC H&P ---
History of Present Illness Admission Date/PCP: KATHARINE BUSTAMANTE NP Patient complains of: Acute encephalopathy History of Present Illness: DALIA QUEVEDO is a 62 year old female who presented to the emergency room with a history of decrease in mental status since approximately 9 AM this morning (06/15/2018). The patient was evidently losing her balance when she was standing up and she was assisted to the ground without injury. Since that time she has had difficulty getting up and she has been increasingly confused. Her son pointed out that she had had an episode of urinary incontinence at home which prompted his call to EMS to bring his mother to the hospital. He was concerned that she may have a urinary tract infection as she has had this diagnosed several times in the past when she is had episodes of confusion. This seems to be worse than her prior episodes according to her son. Patient is significantly confused and is unable to provide any reliable information concerning her medical history or any recent events. In the emergency room she was found to have a negative urinalysis and no significant neurologic changes on evaluation. She was noted to have mild orthostatic hypotension and she is unable to stand when she was being discharged and was being prompted to get off the table and into the wheelchair to go home. She was unable to stand to transfer and for this reason her son felt that she should probably stay in the hospital and may need to be in a fdc. Patient was therefore admitted for further evaluation and treatment. Past Medical History Past Medical History: This history is taken from the patient's son as well as available records due to the patient's significant dementia. Cardiac Medical History: Reports: Congestive Heart Failure, Hyperlipidema, Hypertension Denies: Coronary Artery Disease, Myocardial Infarction, Heart Murmur Pulmonary Medical History: Denies: Asthma, Bronchitis, Chronic Obstructive Pulmonary Disease (COPD), Pneumonia EENT Medical History: Reports: None Neurological Medical History: Denies: Multiple Sclerosis, Seizures Endocrine Medical History: Reports: Diabetes Mellitus Type 2, Obesity, Other - Weight loss of 60 pounds over the last 17 mo primarily decreased intake Renal/ Medical History: Denies: Chronic Kidney Disease, Nephrolithiasis Malignancy Medical History: Reports: None GI Medical History: Reports: Gastroesophageal Reflux Disease Denies: Hepatitis, Hiatal Hernia Musculoskeltal Medical History: Reports: Arthritis Denies: Gout Skin Medical History: Denies: Eczema, Psoriasis Psychiatric Medical History: Reports: Dementia, Depression Denies: Alcohol Dependency, Substance Abuse, Tobacco Dependency Traumatic Medical History: Reports: None Hematology: Reports: Anemia Denies: Bleeding Tendencies Infectious Medical History: Reports: None Past Surgical History Past Surgical History: Reports: Tonsillectomy, Other - Abdominal wall surgery for infection Social History Information Source: Relative Lives with: Family Smoking Status: Never Smoker Frequency of Alcohol Use: None Hx Recreational Drug Use: No Drugs: None Hx Prescription Drug Abuse: No - Advance Directive Resuscitation Status: Full Code Surrogate healthcare decision maker:: Son Family History Family History: DM, Other - Alzheimer's Parental Family History Reviewed: Yes Children Family History Reviewed: No Sibling(s) Family History Reviewed.: Yes Medication/Allergy Home Medications: Amlodipine Besylate [Norvasc 10 mg Tablet] 10 mg PO DAILY 08/19/17 Clonidine HCl [Catapres 0.3 mg Tablet] 0.3 mg PO BID 08/19/17 Gabapentin [Neurontin 100 mg Capsule] 100 mg PO BID 08/19/17 Hydralazine HCl [Apresoline 50 mg Tablet] 50 mg PO TID 08/19/17 Insulin Glargine,Hum.rec.anlog [Lantus Solostar] 50 units SQ QHS 08/19/17 Insulin Lispro [Humalog Kwikpen U-100] See Protocol SQ MEALS 08/19/17 Isosorbide Mononitrate [Imdur 30 mg Tablet.er] 30 mg PO DAILY 08/19/17 Metoprolol Tartrate [Lopressor 100 mg Tablet] 100 mg PO Q12 08/19/17 Trazodone HCl [Desyrel 50 mg Tablet] 50 mg PO QHS 08/19/17 Venlafaxine HCl ER [Effexor Xr 75 mg Cap.sr] 75 mg PO BID 08/19/17 Clindamycin HCl [Cleocin 150 mg Capsule] 300 mg PO Q8 3 Days #9 capsule 08/22/17 Nitrofurantoin/Nitrofuran Mac [Macrobid 100 mg Capsule] 1 tab PO BID #20 capsule 11/01/17 Allergies/Adverse Reactions: morphine Allergy (Verified 06/04/18 21:21) Review of Systems ROS unobtainable: Due to mental status - Acute encephalopathy on top of chronic vascular dementia makes patient's offers of fact completely unreliable. Physical Exam Vital Signs: Temp Pulse Resp BP Pulse Ox 19 109/37 L 100 06/16/18 06:00 06/16/18 05:51 06/16/18 06:00 General appearance: PRESENT: no acute distress, cooperative, other - Demented Head exam: PRESENT: atraumatic, normocephalic Eye exam: PRESENT: EOMI. ABSENT: conjunctival injection, scleral icterus Ear exam: PRESENT: normal external ear exam. ABSENT: bleeding, drainage Mouth exam: PRESENT: dry mucosa, neck supple Neck exam: ABSENT: JVD, thyromegaly, tracheal deviation Respiratory exam: PRESENT: clear to auscultation ita, symmetrical, unlabored Cardiovascular exam: PRESENT: RRR. ABSENT: clicks, gallop, rubs Pulses: PRESENT: normal radial pulses, normal dorsalis pedis pul Vascular exam: PRESENT: normal capillary refill. ABSENT: pallor GI/Abdominal exam: PRESENT: normal bowel sounds, soft Rectal exam: PRESENT: deferred Extremities exam: ABSENT: joint swelling, pedal edema Musculoskeletal exam: ABSENT: deformity, dislocation Neurological exam: PRESENT: alert, other - Confused with significant confabulation. ABSENT: oriented to person, oriented to place, oriented to time, oriented to situation Psychiatric exam: PRESENT: appropriate affect, normal mood Skin exam: PRESENT: dry, intact, warm. ABSENT: jaundice, rash, urticaria Results Laboratory Results: 06/16/18 00:14 06/16/18 00:14 06/16/18 06/16/18 06/16/18 00:14 00:14 01:15 WBC 13.8 H RBC 3.03 L Hgb 8.5 L Hct 25.6 L MCV 85 MCH 28.1 MCHC 33.3 RDW 16.2 H Plt Count 190 Seg Neutrophils % 88.4 H Lymphocytes % 6.8 L Monocytes % 4.6 Eosinophils % 0.0 Basophils % 0.2 Absolute Neutrophils 12.2 H Absolute Lymphocytes 0.9 Absolute Monocytes 0.6 Absolute Eosinophils 0.0 Absolute Basophils 0.0 VBG pH VBG pCO2 VBG HCO3 VBG Base Excess Sodium 136.4 L Potassium 3.3 L Chloride 105 Carbon Dioxide 25 Anion Gap 6 BUN 22 H Creatinine 1.98 H Est GFR ( Amer) 31 L Est GFR (Non-Af Amer) 25 L Glucose 202 H Calcium 8.1 L Total Bilirubin 0.5 AST 15 ALT 13 Alkaline Phosphatase 90 Total Protein 5.3 L Albumin 2.4 L Urine Color YELLOW Urine Appearance CLOUDY Urine pH 5.0 Ur Specific [place] 1.015 Urine Protein >=500 H Urine Glucose (UA) >=500 H Urine Ketones NEGATIVE Urine Blood SMALL H Urine Nitrite NEGATIVE Ur Leukocyte Esterase NEGATIVE Urine WBC (Auto) 5 Urine RBC (Auto) 1 06/16/18 02:25 WBC RBC Hgb Hct MCV MCH MCHC RDW Plt Count Seg Neutrophils % Lymphocytes % Monocytes % Eosinophils % Basophils % Absolute Neutrophils Absolute Lymphocytes Absolute Monocytes Absolute Eosinophils Absolute Basophils VBG pH 7.38 VBG pCO2 47.3 VBG HCO3 27.6 VBG Base Excess 2.0 Sodium Potassium Chloride Carbon Dioxide Anion Gap BUN Creatinine Est GFR ( Amer) Est GFR (Non-Af Amer) Glucose Calcium Total Bilirubin AST ALT Alkaline Phosphatase Total Protein Albumin Urine Color Urine Appearance Urine pH Ur Specific [place] Urine Protein Urine Glucose (UA) Urine Ketones Urine Blood Urine Nitrite Ur Leukocyte Esterase Urine WBC (Auto) Urine RBC (Auto) Impressions: Chest X-Ray 06/16/18 00:29 IMPRESSION: No acute cardiopulmonary process copyright 2010 [employer]- All Rights Reserved Head CT 06/16/18 00:29 IMPRESSION: Atrophy with small vessel ischemic change. Right maxillary sinusitis. TECHNICAL DOCUMENTATION: Quality ID # 436: Final reports with documentation of one or more dose reduction techniques (e.g., Automated exposure control, adjustment of the mA and/or kV according to patient size, use of iterative reconstruction technique) copyright 2010 [employer]- All Rights Reserved Cervical Spine CT 06/16/18 00:35 IMPRESSION: No CT evidence for acute C-spine abnormality. Multilevel degenerative change TECHNICAL DOCUMENTATION: Quality ID # 436: Final reports with documentation of one or more dose reduction techniques (e.g., Automated exposure control, adjustment of the mA and/or kV according to patient size, use of iterative reconstruction technique) copyright 2010 [employer]- All Rights Reserved Femur X-Ray 06/16/18 00:35 IMPRESSION: No acute osseous abnormality copyright 2010 [employer] All Rights Reserved Tibia/Fibula X-Ray 06/16/18 00:35 IMPRESSION: Osteopenia. No acute osseous abnormality copyright 2010 [employer]- All Rights Reserved Assessment & Plan - Diagnosis (1) Acute encephalopathy Is this a current diagnosis for this admission?: Yes Plan: By history the patient has had an acute change in her mental status and that she has become less responsive to her family members who also feel that she is "out of it" today. This will be observed clinically and further evaluation will be undertaken as appropriate. Patient will most likely show intermittent improvement, but steady regression over time. The family is encouraged to understand the problem and discuss their feelings and ask questions as to any misunderstandings or difficulties that they may have of interpreting available data. Patient's son feels that she may be ready for a fdc at this point unless she improved substantially back to her prior state of mental alertness. (2) Vascular dementia Qualifiers: Dementia behavioral disturbance: with behavioral disturbance Qualified Co de(s): F01.51 - Vascular dementia with behavioral disturbance Is this a current diagnosis for this admission?: Yes Plan: Patient has a history of vascular dementia which is most likely the cause of her current problem in his progressive form. Further evaluation will be undertaken as deemed appropriate. (3) HTN (hypertension) Qualifiers: Hypertension type: essential hypertension Qualified Code(s): I10 - Essential (primary) hypertension Is this a current diagnosis for this admission?: Yes Plan: Patient's hypertension is well controlled. She is noted to have mild orthostatic hypotension and her antihypertensive regiment will probably need to be adjusted to eliminate orthostasis during her hospital stay. (4) Hyperlipidemia Qualifiers: Hyperlipidemia type: unspecified Qualified Code(s): E78.5 - Hyperlipidemia, unspecified Is this a current diagnosis for this admission?: Yes Plan: Patient has a history of hyperlipidemia which will be assessed utilizing a lipid panel during her hospital course. Adjustments of therapy can be made after results of the tests are available. (5) Diabetes mellitus type 2 in obese Is this a current diagnosis for this admission?: Yes Plan: Hemoglobin A1c will be obtained and adjustments to the patient's diabetic therapeutic regiment can be made as appropriate based upon scientific results. - Time Time Spent: 30 to 50 Minutes Critical Time spent with patient: Less than 15 minutes Medications reviewed and adjusted accordingly: Yes Anticipated discharge: SNF - Inpatient Certification Based on my medical assessment, after consideration of the patient's comorbidities, presenting symptoms, or acuity I expect that the services needed warrant INPATIENT care.: Yes I certify that my determination is in accordance with my understanding of Medicare's requirements for reasonable and necessary INPATIENT services [42 CFR 412.3e].: Yes Medical Necessity: Significant Comorbidiites Make Outpatient Treatment Too Risky, Need Close Monitoring Due to Risk of Patient Decompensation, Risk of Complication if Not Cared For in Hospital
[2018-06-16 07:33] LABS: CREATINE KINASE MB 1.01 ng/mL (<4.55)
[2018-06-16] MEDS ORDERED: DEXTROSE 40% GEL 15 GM TUBE PO PRN ×2 (07:34)
[2018-06-16] MEDS ORDERED: DEXTROSE 50%-WATER 25 GM/50 ML DISP.SYRIN IV PRN ×2 (07:34)
[2018-06-16] MEDS ORDERED: GLUCAGON,HUMAN RECOMB 1 MG INJ IM PRN (07:34)
[2018-06-16 07:38] LABS: TROPONIN I 0.042 ng/mL
[2018-06-16 08:01] LABS: URINE AMPHETAMINES SCREEN NEGATIVE; URINE BARBITURATES SCREEN NEGATIVE; URINE BENZODIAZEPINES SCREEN NEGATIVE; URINE COCAINE SCREEN NEGATIVE; URINE MARIJUANA (THC) SCREEN NEGATIVE; URINE METHADONE SCREEN NEGATIVE; URINE PHENCYCLIDINE SCREEN NEGATIVE
[2018-06-16] MEDS: VENLAFAXINE HCL 75 MG CAP.SR.24H PO SCH ×2 (09:30→17:52)
[2018-06-16] MEDS: METOPROLOL TARTRATE 100 MG TABLET PO SCH ×2 (09:30→21:47)
[2018-06-16] MEDS: FAMOTIDINE 20 MG TABLET PO SCH ×2 (09:30→21:47)
[2018-06-16] MEDS: DOCUSATE SODIUM 100 MG CAPSULE PO SCH ×3 (09:30→17:54)
[2018-06-16] MEDS: INSULIN LISPRO 100 UNIT/ML 3 ML VIAL SUBCUT PRN ×4 (09:31→21:46)
[2018-06-16 14:06] LABS: CREATINE KINASE MB 1.19 ng/mL (<4.55); TROPONIN I 0.026 ng/mL
[2018-06-16] MEDS: HEPARIN SOD (PORCINE) 5,000 UNIT/ML 1 ML SYRINGE SUBCUT SCH ×2 (14:56→21:47)
[2018-06-16 19:41] LABS: CREATINE KINASE MB 0.82 ng/mL (<4.55); TROPONIN I 0.02 ng/mL
[2018-06-16] MEDS: INSULIN GLARGINE,HUM.REC.ANLOG 300 UNIT/3 ML INSULN.PEN SUBCUT SCH (21:46)
[2018-06-17] MEDS: HEPARIN SOD (PORCINE) 5,000 UNIT/ML 1 ML SYRINGE SUBCUT SCH ×3 (05:19→21:39)
[2018-06-17 05:20] LABS: ANION GAP 8 (5-19); BLOOD UREA NITROGEN 27 mg/dL (7-20); CALCIUM 8.4 mg/dL (8.4-10.2); CARBON DIOXIDE 25 mmol/L (22-30); CHLORIDE 104 mmol/L (98-107); CHOLESTEROL 131.27 mg/dL (0-200); GLUCOSE 86 mg/dL (75-110); POTASSIUM 3.3 mmol/L (3.6-5.0); TRIGLYCERIDES 115 mg/dL (<150)
[2018-06-17 05:31] LABS: DIRECT LDL 77 mg/dL (<100)
[2018-06-17 05:36] LABS: FREE T3 1.84 pg/mL (2.77-5.27); FREE T4 (FREE THYROXINE) 1.63 ng/dL (0.78-2.19)
[2018-06-17 05:49] LABS: THYROID STIMULATING HORMONE 0.85 uIU/mL (0.47-4.68)
[2018-06-17 06:08] LABS: ABSOLUTE BASOPHILS # (AUTO) 0.1 10^3/uL (0.0-0.2); ABSOLUTE LYMPHOCYTES (AUTO) 1.4 10^3/uL (0.5-4.7); ABSOLUTE MONOCYTES (AUTO) 0.7 10^3/uL (0.1-1.4); ABSOLUTE NEUT (AUTO) 14.3 10^3/uL (1.7-8.2); BASOPHILS % (AUTO) 0.4 % (0-2); EOSINOPHILS % (AUTO) 0.1 % (0-6); HEMATOCRIT 28.1 % (36.0-47.0); HEMOGLOBIN 9.3 g/dL (12.0-15.5); LYMPHOCYTES % (AUTO) 8.6 % (13-45); MEAN CORPUSCULAR HEMOGLOBIN 27.7 pg (27.0-33.4); MEAN CORPUSCULAR HGB CONC 33.2 g/dL (32.0-36.0); MEAN CORPUSCULAR VOLUME 83 fl (80-97); PLATELET COUNT 199 10^3/uL (150-450); RED BLOOD COUNT 3.37 10^6/uL (3.72-5.28); RED CELL DISTRIBUTION WIDTH 16.1 % (11.5-14.0); SEGMENTED NEUTROPHILS % (AUTO) 86.9 % (42-78); TOTAL CELLS COUNTED % (AUTO) 100 %; WHITE BLOOD COUNT 16.5 10^3/uL (4.0-10.5)
[2018-06-17] MEDS: METOPROLOL TARTRATE 100 MG TABLET PO SCH ×2 (09:22→21:40)
[2018-06-17] MEDS: FAMOTIDINE 20 MG TABLET PO SCH ×2 (09:22→21:40)
[2018-06-17] MEDS: DOCUSATE SODIUM 100 MG CAPSULE PO SCH ×2 (09:22→17:51)
[2018-06-17] MEDS: VENLAFAXINE HCL 75 MG CAP.SR.24H PO SCH ×2 (09:22→17:55)
[2018-06-17] MEDS: ACETAMINOPHEN 325 MG TABLET PO PRN (16:07)
--- NOTE | 2018-06-17 18:43 | PDOC PROGRESS REPORT ---
Subjective Progress Note for:: 06/17/18 Subjective:: Krystle is a 62-year-old female with a past medical history of diabetes, diabetic neuropathy, dementia, diabetic retinopathy, hypertension, legal blindness, CKD, anemia,obsessive compulsive disorder, and falls. She is evaluated in the company of her daughter today. Her daughter provides much of the information. Patient is much more demented acting today, than when I stop by and spoke with her yesterday. She believes she is home. She believes I am a friend stopping by to take care of her and say hello. She is very polite and kind throughout the evaluation. Even when corrected. Daughter reports the patient has been falling more and more over the past year. This fall has no identifiable source. She also reports patient has been eating less and less. She reports weight loss of about 60 pounds over the past year. Daughter does report a fall about a month ago that seemed consistent with orthostatic hypotension. Reason For Visit: ACUTE ENCEPHALOPATHY,(ALTERED MENTAL STATUS) Physical Exam Vital Signs: Temp Pulse Resp BP Pulse Ox 98.6 F 78 16 174/86 H 100 06/17/18 15:55 06/17/18 15:55 06/17/18 15:55 06/17/18 15:55 06/17/18 15:55 Intake & Output 06/16/18 06/17/18 06/18/18 06:59 06:59 06:59 Intake Total 1980 606 Output Total 300 Balance 1680 606 Weight 87.2 kg General appearance: PRESENT: no acute distress, cooperative Head exam: PRESENT: atraumatic, normocephalic Eye exam: PRESENT: PERRLA Ear exam: PRESENT: normal external ear exam Mouth exam: PRESENT: moist, tongue midline Respiratory exam: PRESENT: clear to auscultation ita Cardiovascular exam: PRESENT: RRR, +S1, +S2 GI/Abdominal exam: PRESENT: normal bowel sounds, soft. ABSENT: distended, guarding, mass, organolmegaly, rebound, tenderness Rectal exam: PRESENT: deferred Extremities exam: PRESENT: other - Limited sensation bilateral lower extremities below the ankles. 1+ edema bilateral lower extremities. Scabbed over superficial wounds on right foot big toe. Neurological exam: PRESENT: alert, awake, oriented to person, CN II-XII grossly intact Psychiatric exam: PRESENT: normal mood Results Laboratory Results: 06/17/18 04:38 06/17/18 04:38 06/17/18 06/17/18 06/17/18 04:38 04:38 04:38 WBC 16.5 H RBC 3.37 L Hgb 9.3 L Hct 28.1 L MCV 83 MCH 27.7 MCHC 33.2 RDW 16.1 H Plt Count 199 Seg Neutrophils % 86.9 H Lymphocytes % 8.6 L Monocytes % 4.0 Eosinophils % 0.1 Basophils % 0.4 Absolute Neutrophils 14.3 H Absolute Lymphocytes 1.4 Absolute Monocytes 0.7 Absolute Eosinophils 0.0 Absolute Basophils 0.1 Sodium 137.0 Potassium 3.3 L Chloride 104 Carbon Dioxide 25 Anion Gap 8 BUN 27 H Creatinine 1.69 H Est GFR ( Amer) 37 L Est GFR (Non-Af Amer) 30 L Glucose 86 Calcium 8.4 Magnesium 1.9 Ammonia 9.1 Triglycerides 115 Cholesterol 131.27 LDL Cholesterol Direct 77 VLDL Cholesterol 23.0 HDL Cholesterol 42 TSH Free T4 Free T3 pg/mL 06/17/18 04:38 WBC RBC Hgb Hct MCV MCH MCHC RDW Plt Count Seg Neutrophils % Lymphocytes % Monocytes % Eosinophils % Basophils % Absolute Neutrophils Absolute Lymphocytes Absolute Monocytes Absolute Eosinophils Absolute Basophils Sodium Potassium Chloride Carbon Dioxide Anion Gap BUN Creatinine Est GFR ( Amer) Est GFR (Non-Af Amer) Glucose Calcium Magnesium Ammonia Triglycerides Cholesterol LDL Cholesterol Direct VLDL Cholesterol HDL Cholesterol TSH 0.85 Free T4 1.63 Free T3 pg/mL 1.84 L 06/16/18 06/16/18 06/16/18 06:50 06:50 12:45 Creatine Kinase 52 62 CK-MB (CK-2) 1.01 Troponin I 0.042 NT-Pro-B Natriuret Pep 06/16/18 06/16/18 06/16/18 12:45 19:00 19:00 Creatine Kinase 46 CK-MB (CK-2) 1.19 0.82 Troponin I 0.026 0.020 NT-Pro-B Natriuret Pep 06/17/18 04:38 Creatine Kinase CK-MB (CK-2) Troponin I NT-Pro-B Natriuret Pep 7380 H Impressions: Chest X-Ray 06/16/18 00:29 IMPRESSION: No acute cardiopulmonary process copyright 2011 [employer]- All Rights Reserved Head CT 06/16/18 00:29 IMPRESSION: Atrophy with small vessel ischemic change. Right maxillary sinusitis. TECHNICAL DOCUMENTATION: Quality ID # 436: Final reports with documentation of one or more dose reduction techniques (e.g., Automated exposure control, adjustment of the mA and/or kV according to patient size, use of iterative reconstruction technique) copyright 2010 [employer]- All Rights Reserved Cervical Spine CT 06/16/18 00:35 IMPRESSION: No CT evidence for acute C-spine abnormality. Multilevel degenerative change TECHNICAL DOCUMENTATION: Quality ID # 436: Final reports with documentation of one or more dose reduction techniques (e.g., Automated exposure control, adjustment of the mA and/or kV according to patient size, use of iterative reconstruction technique) copyright 2010 [employer]- All Rights Reserved Femur X-Ray 06/16/18 00:35 IMPRESSION: No acute osseous abnormality copyright 2010 [employer] All Rights Reserved Tibia/Fibula X-Ray 06/16/18 00:35 IMPRESSION: Osteopenia. No acute osseous abnormality copyright 2010 [employer]- All Rights Reserved Assessment & Plan - Diagnosis (1) Weakness Is this a current diagnosis for this admission?: Yes (2) Abrasion of great toe, right, infected Qualifiers: Encounter type: initial encounter Qualified Code(s): S90.411A - Abrasion, right great toe, initial encounter; L08.9 - Local infection of the skin and subcutaneous tissue, unspecified; L08.9 - Local infection of the skin and subcutaneous tissue, unspecified Is this a current diagnosis for this admission?: Yes (3) Anemia in chronic kidney disease Qualifiers: Chronic kidney disease stage: stage 3 (moderate) Qualified Code(s): N18.3 - Chronic kidney disease, stage 3 (moderate); D63.1 - Anemia in chronic kidney disease; D63.1 - Anemia in chronic kidney disease Is this a current diagnosis for this admission?: Yes (4) HTN (hypertension) Qualifiers: Hypertension type: essential hypertension Qualified Code(s): I10 - Essential (primary) hypertension Is this a current diagnosis for this admission?: Yes (5) Hyperglycemia due to type 2 diabetes mellitus Qualifiers: Diabetes mellitus meterman insulin use: with meterman use Qualified Code(s): E11.65 - Type 2 diabetes mellitus with hyperglycemia; Z79.4 - senior care (current) use of insulin; Z79.4 - manager intermediate (current) use of insulin; Z79.4 - manager intermediate (current) use of insulin; Z79.4 - manager intermediate (current) use of insulin Is this a current diagnosis for this admission?: Yes (6) Hyperlipidemia Qualifiers: Hyperlipidemia type: unspecified Qualified Code(s): E78.5 - Hyperlipidemia, unspecified Is this a current diagnosis for this admission?: Yes (7) Vascular dementia Qualifiers: Dementia behavioral disturbance: with behavioral disturbance Qualified Code(s): F01.51 - Vascular dementia with behavioral disturbance Is this a current diagnosis for this admission?: Yes (8) Diabetes mellitus type 2 with retinopathy Qualifiers: Diabetic retinopathy severity: with unspecified retinopathy severity Laterality: unspecified laterality Is this a current diagnosis for this admission?: Yes - Time Time Spent with patient: 35 or more minutes Medications reviewed and adjusted accordingly: Yes Anticipated discharge: Acute Rehab - Inpatient Certification Based on my medical assessment, after consideration of the patient's comorbidities, presenting symptoms, or acuity I expect that the services needed warrant INPATIENT care.: Yes I certify that my determination is in accordance with my understanding of Medicare's requirements for reasonable and necessary INPATIENT services [42 CFR 412.3e].: Yes - Plan Summary Plan Summary: (1) Acute encephalopathy Is this a current diagnosis for this admission?: Yes Plan: -Seems to have improved, and mostly display symptoms consistent with dementia now. -Family is open to rehab or long-term. (2) Vascular dementia Qualifiers: Dementia behavioral disturbance: with behavioral disturbance Qualified Code(s): F01.51 - Vascular dementia with behavioral disturbance Is this a current diagnosis for this admission?: Yes Plan: -history of vascular dementia which is most likely the cause of her current problem in his progressive form. Will work on controlling contributing factors. (3) HTN (hypertension) Qualifiers: Hypertension type: essential hypertension Qualified Code(s): I10 - Essential (primary) hypertension Is this a current diagnosis for this admission?: Yes Plan: -Elevated since admission, likely due to the majority of her home medications and not being restarted. -We will try to simplify the med regimen (4) Hyperlipidemia Qualifiers: Hyperlipidemia type: unspecified Qualified Code(s): E78.5 - Hyperlipidemia, unspecified Is this a current diagnosis for this admission?: Yes Plan: Patient has a history of hyperlipidemia which will be assessed utilizing a lipid panel during her hospital course. Adjustments of therapy can be made after results of the tests are available. (5) Diabetes mellitus type 2 in obese Is this a current diagnosis for this admission?: Yes Plan: -a1c 8.9. -Blood glucose levels have been more acceptable since admission. Continue with current regimen and monitor for changes. (6) Falls/Pre-syncope -With no better explanation, and given she is on 5 blood pressure medications it seems these episodes could be related to orthostatic hypotension and generalized weakness, in conjunction with her poor lower extremity sensation due to diabetic neuropathy, as well as legal blindness secondary to diabetic retinopathy. (7)Anemia -Likely of chronic disease. Check iron levels.
[2018-06-17] MEDS: INSULIN GLARGINE,HUM.REC.ANLOG 300 UNIT/3 ML INSULN.PEN SUBCUT SCH (21:39)
[2018-06-17] MEDS: TRAZODONE HCL 50 MG TABLET PO SCH (21:39)
[2018-06-17] MEDS: ATORVASTATIN CALCIUM 40 MG TABLET PO SCH (21:39)
[2018-06-17] MEDS: POTASSIUM CHLORIDE 10 MEQ CAPSULE.ER PO SCH (21:39)
[2018-06-17] MEDS ORDERED: (PENDING PHARMACY ID) (Buspirone Hcl [Buspar 15 Mg Tablet] 7.5 MG) PO SCH (22:00)
[2018-06-18] MEDS: HEPARIN SOD (PORCINE) 5,000 UNIT/ML 1 ML SYRINGE SUBCUT SCH ×3 (05:25→23:07)
[2018-06-18 06:13] LABS: HEMATOCRIT 27.5 % (36.0-47.0); HEMOGLOBIN 9.1 g/dL (12.0-15.5); MEAN CORPUSCULAR HEMOGLOBIN 27.7 pg (27.0-33.4); MEAN CORPUSCULAR HGB CONC 33.1 g/dL (32.0-36.0); MEAN CORPUSCULAR VOLUME 84 fl (80-97); PLATELET COUNT 222 10^3/uL (150-450); RED BLOOD COUNT 3.28 10^6/uL (3.72-5.28); RED CELL DISTRIBUTION WIDTH 16.1 % (11.5-14.0); WHITE BLOOD COUNT 12.7 10^3/uL (4.0-10.5)
[2018-06-18 06:32] LABS: ANION GAP 8 (5-19); BLOOD UREA NITROGEN 23 mg/dL (7-20); CARBON DIOXIDE 25 mmol/L (22-30); CHLORIDE 105 mmol/L (98-107); GLUCOSE 63 mg/dL (75-110); IRON(TIBC) 10.4 ug/dL (37-170); POTASSIUM 3.2 mmol/L (3.6-5.0); SODIUM 137.9 mmol/L (137-145)
[2018-06-18 06:53] LABS: ABSOLUTE LYMPHOCYTES# (MANUAL) 1.1 10^3/uL (0.5-4.7); ABSOLUTE MONOCYTES # (MANUAL) 0.4 10^3/uL (0.1-1.4); ABSOLUTE NEUTROPHILS# (MANUAL) 11.2 10^3/uL (1.7-8.2); BASOPHILS % (MANUAL) 0 % (0-2); EOSINOPHILS % (MANUAL) 0 % (0-6); LYMPHOCYTES % (MANUAL) 9 % (13-45); MONOCYTES % (MANUAL) 3 % (3-13); SEGMENTED NEUTROPHILS % (MAN) 88 % (42-78); TOTAL CELLS COUNTED 100
[2018-06-18 06:55] LABS: ANISOCYTOSIS 1+; PLATELET COMMENT ADEQUATE
[2018-06-18 07:53] LABS: FOLATE 7.54 ng/mL (>2.76)
[2018-06-18] MEDS: VENLAFAXINE HCL 75 MG CAP.SR.24H PO SCH (08:25)
[2018-06-18] MEDS ORDERED: AMLODIPINE BESYLATE 10 MG TABLET PO SCH (10:00)
[2018-06-18] MEDS: FAMOTIDINE 20 MG TABLET PO SCH ×2 (11:24→23:05)
[2018-06-18] MEDS: METOPROLOL TARTRATE 100 MG TABLET PO SCH (11:24)
[2018-06-18] MEDS: MEMANTINE HCL 10 MG TABLET PO SCH ×2 (11:24→18:54)
[2018-06-18] MEDS: DOCUSATE SODIUM 100 MG CAPSULE PO SCH ×2 (11:25→18:54)
[2018-06-18] MEDS: POTASSIUM CHLORIDE 10 MEQ CAPSULE.ER PO SCH ×2 (11:25→23:07)
[2018-06-18] MEDS: ACETAMINOPHEN 325 MG TABLET PO PRN ×2 (11:31→23:05)
[2018-06-18] MEDS ORDERED: HYDRALAZINE HCL 10 MG TABLET PO PRN ×2 (13:26→14:30)
[2018-06-18] MEDS: HYDRALAZINE HCL 10 MG TABLET PO SCH ×3 (14:41→23:04)
--- NOTE | 2018-06-18 16:31 | PDOC PROGRESS REPORT ---
Subjective Progress Note for:: 06/18/18 Subjective:: Krystle is a 62-year-old female with a past medical history of diabetes, diabetic neuropathy, dementia, diabetic retinopathy, hypertension, legal blindness, CKD, anemia,obsessive compulsive disorder, and falls. Daughter provides much of the information today. She reports that mom has been more sleepy today than yesterday. She is unsure how well she slept last night. She is also displayed less interest in her food. She did have a good dinner last night. During my time in the room she does awaken and interact. She is pleasantly confused/demented. She is oriented to only herself. Daughter does reveal she is the healthcare power of research attorney as well as the power of research attorney. She lives in [place]. Reports that her mother's condition has gradually declined over the past 6-12 months. Discussion had about making decisions going forward, as well as long-term placement. Seems that the family is suffering from some caregiver fatigue. Blood pressure was elevated this morning, the patient remained asymptomatic. Patient had an episode of hypoglycemia, but also remained asymptomatic. Patient has no complaints. She denies being in pain, shortness of breath, nausea, vomiting, diarrhea, chest pain. Reason For Visit: ACUTE ENCEPHALOPATHY,(ALTERED MENTAL STATUS) Physical Exam Vital Signs: Temp Pulse Resp BP Pulse Ox 99.2 F 88 16 184/67 H 99 06/18/18 11:08 06/18/18 11:08 06/18/18 11:08 06/18/18 11:08 06/18/18 11:08 Intake & Output 06/17/18 06/18/18 06/19/18 06:59 06:59 06:59 Intake Total 1980 1026 Output Total 300 Balance 1680 1026 Weight 87.2 kg 87.5 kg General appearance: PRESENT: no acute distress, cooperative, disheveled Exam: Pleasantly confused/demented Head exam: PRESENT: atraumatic - There is an old small ecchymosis around the right eye, normocephalic Eye exam: PRESENT: PERRLA Ear exam: PRESENT: normal external ear exam Mouth exam: PRESENT: moist, tongue midline Respiratory exam: PRESENT: other - Good airflow bilaterally. No wheeze appreciated. Cardiovascular exam: PRESENT: RRR, +S1, +S2 Pulses: PRESENT: normal carotid pulses, normal radial pulses, +2 pedal pulses bilateral GI/Abdominal exam: PRESENT: normal bowel sounds, soft. ABSENT: distended, guarding, mass, organolmegaly, rebound, tenderness Rectal exam: PRESENT: deferred Extremities exam: PRESENT: +1 edema - Bilateral lower extremities. Poor sensation distal bilateral feet., other - Scabbed over superficial wound on great toe. Noninfectious. Neurological exam: PRESENT: alert, altered, awake, oriented to person Psychiatric exam: PRESENT: normal mood Results Laboratory Results: 06/18/18 05:33 06/18/18 05:33 06/18/18 06/18/18 06/18/18 05:33 05:33 05:33 WBC 12.7 H RBC 3.28 L Hgb 9.1 L Hct 27.5 L MCV 84 MCH 27.7 MCHC 33.1 RDW 16.1 H Plt Count 222 Seg Neutrophils % Not Reportable Lymphocytes % Not Reportable Monocytes % Not Reportable Eosinophils % Not Reportable Basophils % Not Reportable Absolute Neutrophils Not Reportable Absolute Lymphocytes Not Reportable Absolute Monocytes Not Reportable Absolute Eosinophils Not Reportable Absolute Basophils Not Reportable Sodium 137.9 Potassium 3.2 L Chloride 105 Carbon Dioxide 25 Anion Gap 8 BUN 23 H Creatinine 1.69 H Est GFR ( Amer) 37 L Est GFR (Non-Af Amer) 30 L Glucose 63 L Calcium 8.0 L Magnesium 1.9 Iron 10.4 L TIBC 147 L % Saturation 7 Transferrin 80.96 L Ferritin 198.00 Vitamin B12 779.0 Folate 7.54 06/16/18 01:15 Catheterized Urine Urine Culture - Final NO GROWTH 2 DAYS 06/16/18 06/16/18 06/16/18 06:50 06:50 12:45 Creatine Kinase 52 62 CK-MB (CK-2) 1.01 Troponin I 0.042 NT-Pro-B Natriuret Pep 06/16/18 06/16/18 06/16/18 12:45 19:00 19:00 Creatine Kinase 46 CK-MB (CK-2) 1.19 0.82 Troponin I 0.026 0.020 NT-Pro-B Natriuret Pep 06/17/18 04:38 Creatine Kinase CK-MB (CK-2) Troponin I NT-Pro-B Natriuret Pep 7380 H Impressions: Chest X-Ray 06/16/18 00:29 IMPRESSION: No acute cardiopulmonary process copyright 2010 [employer]- All Rights Reserved Head CT 06/16/18 00:29 IMPRESSION: Atrophy with small vessel ischemic change. Right maxillary sinusitis. TECHNICAL DOCUMENTATION: Quality ID # 436: Final reports with documentation of one or more dose reduction techniques (e.g., Automated exposure control, adjustment of the mA and/or kV according to patient size, use of iterative reconstruction technique) copyright 2010 [employer]- All Rights Reserved Cervical Spine CT 06/16/18 00:35 IMPRESSION: No CT evidence for acute C-spine abnormality. Multilevel degenerative change TECHNICAL DOCUMENTATION: Quality ID # 436: Final reports with documentation of one or more dose reduction techniques (e.g., Automated exposure control, adjustment of the mA and/or kV according to patient size, use of iterative reconstruction technique) copyright 2010 [employer] All Rights Reserved Femur X-Ray 06/16/18 00:35 IMPRESSION: No acute osseous abnormality copyright 2010 [employer] Tibia/Fibula X-Ray 06/16/18 00:35 IMPRESSION: Osteopenia. No acute osseous abnormality copyright 2010 [employer]- All Rights Reserved Assessment & Plan - Diagnosis (1) Weakness Is this a current diagnosis for this admission?: Yes (2) Abrasion of great toe, right, infected Qualifiers: Encounter type: initial encounter Qualified Code(s): S90.411A - Abrasion, right great toe, initial encounter; L08.9 - Local infection of the skin and subcutaneous tissue, unspecified; L08.9 - Local infection of the skin and subcutaneous tissue, unspecified Is this a current diagnosis for this admission?: Yes (3) Anemia in chronic kidney disease Qualifiers: Chronic kidney disease stage: stage 3 (moderate) Qualified Code(s): N18.3 - Chronic kidney disease, stage 3 (moderate); D63.1 - Anemia in chronic kidney disease; D63.1 - Anemia in chronic kidney disease Is this a current diagnosis for this admission?: Yes (4) HTN (hypertension) Qualifiers: Hypertension type: essential hypertension Qualified Code(s): I10 - Essential (primary) hypertension Is this a current diagnosis for this admission?: Yes (5) Hyperglycemia due to type 2 diabetes mellitus Qualifiers: Diabetes mellitus buttermaker helper insulin use: with snf use Qualified Code(s): E11.65 - Type 2 diabetes mellitus with hyperglycemia; Z79.4 - residential (current) use of insulin; Z79.4 - computer terminal operator (current) use of insulin; Z79.4 - residential (current) use of insulin; Z79.4 - computer terminal operator (current) use of insulin Is this a current diagnosis for this admission?: Yes (6) Hyperlipidemia Qualifiers: Hyperlipidemia type: unspecified Qualified Code(s): E78.5 - Hyperlipidemia, unspecified Is this a current diagnosis for this admission?: Yes (7) Vascular dementia Qualifiers: Dementia behavioral disturbance: with behavioral disturbance Qualified Code(s): F01.51 - Vascular dementia with behavioral disturbance Is this a current diagnosis for this admission?: Yes (8) Diabetes mellitus type 2 with retinopathy Qualifiers: Diabetic retinopathy severity: with unspecified retinopathy severity Laterality: unspecified laterality Is this a current diagnosis for this admission?: Yes - Time Time Spent with patient: 35 or more minutes Medications reviewed and adjusted accordingly: Yes - Inpatient Certification Based on my medical assessment, after consideration of the patient's comorbidities, presenting symptoms, or acuity I expect that the services needed warrant INPATIENT care.: Yes I certify that my determination is in accordance with my understanding of Medicare's requirements for reasonable and necessary INPATIENT services [42 CFR 412.3e].: Yes - Plan Summary Plan Summary: (1) Acute encephalopathy Is this a current diagnosis for this admission?: Yes Plan: -Seems to have improved, and mostly display symptoms consistent with dementia now. -Family is open to rehab or group home. (2) Vascular dementia Qualifiers: Dementia behavioral disturbance: with behavioral disturbance Qualified Code(s): F01.51 - Vascular dementia with behavioral disturbance Is this a current diagnosis for this admission?: Yes Plan: -hx of vascular dementia which is likely the cause of her current problem in his progressive form. Will work on controlling contributing factors. -Family reports diminished appetite and interest in eating over the past few months. -She should however be evaluated o/p by psychiatry and neurology to ensure something like depression is an acting as a pseudo-dementia. (3) HTN (hypertension) Qualifiers: Hypertension type: essential hypertension Qualified Code(s): I10 - Essenti al (primary) hypertension Is this a current diagnosis for this admission?: Yes Plan: -Elevated since admission, likely due to the majority of her home medications and not being restarted. -Stop metoprolol, and start carvedilol to elicit some alpha blockade. -Restart hydralazine at 10 mg q6h. Likely had some rebound hypertension/poor coverage w/hydralazine being dosed q12h due to short half-life. -Also start hydralazine 10 mg every 4 hours as needed for systolic blood pressure greater than 165. -Hold parameters placed on all blood pressure medications. -If BP elevations persist will consider swabbing out amlodipine for Procardia a fter the current medications have been maximized. (4) Hyperlipidemia Qualifiers: Hyperlipidemia type: unspecified Qualified Code(s): E78.5 - Hyperlipidemia, unspecified Is this a current diagnosis for this admission?: Yes Plan: -Currently controlled (5) Diabetes mellitus type 2 in obese Is this a current diagnosis for this admission?: Yes Plan: -a1c 8.9. -BG levels were more appropriate on Lantus 50u nightly, however patient's appetite waxes/wanes, as well as her blood glucose was in the 60s this am, thus will change Lantus to 20u BID (6) Falls/Pre-syncope -Thought to be a combination of orthostatic hypotension, generalized weakness, peripheral neuropathy in bilateral lower extremities, and her legal blindness. Attempts are being made to maximize her blood pressure medications. (7)Anemia -Likely of chronic disease. Appears to be in line with patient's values in the past. (8) leukocytosis -WBC trending down. Normal chest x-ray. Normal urinalysis. Temp = 99. Continue to monitor Disposition: Daughter is healthcare power of research attorney and power of research attorney. Family is interested in group home and/or rehab placement as the patient's acuity has become more than they can handle. They are also exhibiting symptoms consistent with caregiver fatigue
[2018-06-18] MEDS: NYSTATIN TOPICAL POWDER 15 GM TP SCH (19:41)
[2018-06-18] MEDS ORDERED: NIFEDIPINE 30 MG TAB.ER.24 PO SCH (22:00)
[2018-06-18] MEDS: CARVEDILOL 6.25 MG TABLET PO SCH (23:05)
[2018-06-18] MEDS: TRAZODONE HCL 50 MG TABLET PO SCH (23:06)
[2018-06-18] MEDS: ATORVASTATIN CALCIUM 40 MG TABLET PO SCH (23:07)
[2018-06-18] MEDS: INSULIN GLARGINE,HUM.REC.ANLOG 300 UNIT/3 ML INSULN.PEN SUBCUT SCH (23:18)
[2018-06-19 06:23] LABS: ABSOLUTE LYMPHOCYTES (AUTO) 1.1 10^3/uL (0.5-4.7); ABSOLUTE MONOCYTES (AUTO) 0.6 10^3/uL (0.1-1.4); ABSOLUTE NEUT (AUTO) 11.4 10^3/uL (1.7-8.2); BASOPHILS % (AUTO) 0.2 % (0-2); HEMATOCRIT 25.7 % (36.0-47.0); HEMOGLOBIN 8.6 g/dL (12.0-15.5); LYMPHOCYTES % (AUTO) 8.2 % (13-45); MEAN CORPUSCULAR HEMOGLOBIN 28.2 pg (27.0-33.4); MEAN CORPUSCULAR HGB CONC 33.5 g/dL (32.0-36.0); MEAN CORPUSCULAR VOLUME 84 fl (80-97); MONOCYTES % (AUTO) 4.9 % (3-13); PLATELET COUNT 236 10^3/uL (150-450); RED BLOOD COUNT 3.06 10^6/uL (3.72-5.28); RED CELL DISTRIBUTION WIDTH 16.3 % (11.5-14.0); SEGMENTED NEUTROPHILS % (AUTO) 86.7 % (42-78); TOTAL CELLS COUNTED % (AUTO) 100 %; WHITE BLOOD COUNT 13.2 10^3/uL (4.0-10.5)
[2018-06-19] MEDS: HYDRALAZINE HCL 10 MG TABLET PO SCH ×4 (06:23→23:00)
[2018-06-19] MEDS: HEPARIN SOD (PORCINE) 5,000 UNIT/ML 1 ML SYRINGE SUBCUT SCH ×3 (06:24→22:56)
[2018-06-19 06:50] LABS: ANION GAP 9 (5-19); BLOOD UREA NITROGEN 28 mg/dL (7-20); CALCIUM 7.8 mg/dL (8.4-10.2); CARBON DIOXIDE 22 mmol/L (22-30); CHLORIDE 107 mmol/L (98-107); GLUCOSE 97 mg/dL (75-110); POTASSIUM 3.9 mmol/L (3.6-5.0); SODIUM 137.5 mmol/L (137-145)
[2018-06-19] MEDS: ACETAMINOPHEN 325 MG TABLET PO PRN ×2 (08:00→15:01)
[2018-06-19] MEDS: POTASSIUM CHLORIDE 10 MEQ CAPSULE.ER PO SCH ×2 (10:52→22:53)
[2018-06-19] MEDS: FAMOTIDINE 20 MG TABLET PO SCH ×2 (10:53→22:54)
[2018-06-19] MEDS: VENLAFAXINE HCL 75 MG CAP.SR.24H PO SCH (10:53)
[2018-06-19] MEDS: DOCUSATE SODIUM 100 MG CAPSULE PO SCH ×2 (10:53→20:18)
[2018-06-19] MEDS: MEMANTINE HCL 10 MG TABLET PO SCH ×2 (10:54→20:17)
[2018-06-19] MEDS: CARVEDILOL 6.25 MG TABLET PO SCH ×2 (10:54→23:00)
[2018-06-19] MEDS: AMLODIPINE BESYLATE 10 MG TABLET PO SCH (10:57)
[2018-06-19] MEDS: NYSTATIN TOPICAL POWDER 15 GM TP SCH ×2 (10:59→18:00)
[2018-06-19] MEDS: INSULIN GLARGINE,HUM.REC.ANLOG 300 UNIT/3 ML INSULN.PEN SUBCUT SCH ×2 (11:35→22:56)
[2018-06-19] MEDS: INSULIN LISPRO 100 UNIT/ML 3 ML VIAL SUBCUT PRN ×3 (12:41→22:54)
--- NOTE | 2018-06-19 16:58 | PDOC PROGRESS REPORT ---
Subjective Progress Note for:: 06/19/18 Subjective:: Krystle is a 62-year-old female with a past medical history of diabetes, diabetic neuropathy, dementia, diabetic retinopathy, hypertension, legal blindness, CKD, anemia,obsessive compulsive disorder, and falls. Patient is resting comfortably in her recliner during my evaluation. She is eating the majority of her lunch. She continues to be confused and show signs of dementia. She does not recall who I am, even though I seen her the last 2 days. She continues to be pleasant. She reports feeling well this morning. She denies chest pain, shortness of breath, fever, chills or any other associated symptoms. She is aware that she is on [facility], but she is not oriented to anything else other than herself. There is no family present in the room this morning. Nursing had no concerns reported Reason For Visit: ACUTE ENCEPHALOPATHY,(ALTERED MENTAL STATUS) Physical Exam Vital Signs: Temp Pulse Resp BP Pulse Ox 98.4 F 76 17 134/56 H 100 06/19/18 11:58 06/19/18 11:58 06/19/18 11:58 06/19/18 11:58 06/19/18 11:58 Intake & Output 06/18/18 06/19/18 06/20/18 06:59 06:59 06:59 Intake Total 1026 1163 Balance 1026 1163 Weight 87.5 kg 87.1 kg General appearance: PRESENT: no acute distress, disheveled, obese Head exam: PRESENT: atraumatic, normocephalic Eye exam: PRESENT: conjunctiva pink, EOMI, PERRLA. ABSENT: scleral icterus Ear exam: PRESENT: normal external ear exam Mouth exam: PRESENT: moist, tongue midline Teeth exam: PRESENT: poor dentation Neck exam: ABSENT: carotid bruit, JVD, lymphadenopathy, thyromegaly Respiratory exam: PRESENT: clear to auscultation ita. ABSENT: rales, rhonchi, wheezes Cardiovascular exam: PRESENT: diastolic murmur, RRR, systolic murmur. ABSENT: rubs Pulses: PRESENT: normal dorsalis pedis pul Vascular exam: PRESENT: normal capillary refill GI/Abdominal exam: PRESENT: normal bowel sounds, soft. ABSENT: distended, guarding, mass, organolmegaly, rebound, tenderness Rectal exam: PRESENT: deferred Extremities exam: PRESENT: full ROM, other - 1-2+ edema bilateral lower extremities.. ABSENT: calf tenderness, clubbing, pedal edema Neurological exam: PRESENT: alert, altered, awake, oriented to person, oriented to place, CN II-XII grossly intact. ABSENT: motor sensory deficit Psychiatric exam: PRESENT: appropriate affect, normal mood. ABSENT: homicidal ideation, suicidal ideation Skin exam: PRESENT: dry, intact, warm. ABSENT: cyanosis, rash Results Laboratory Results: 06/19/18 05:36 06/19/18 05:36 06/19/18 06/19/18 05:36 05:36 WBC 13.2 H RBC 3.06 L Hgb 8.6 L Hct 25.7 L MCV 84 MCH 28.2 MCHC 33.5 RDW 16.3 H Plt Count 236 Seg Neutrophils % 86.7 H Lymphocytes % 8.2 L Monocytes % 4.9 Eosinophils % 0.0 Basophils % 0.2 Absolute Neutrophils 11.4 H Absolute Lymphocytes 1.1 Absolute Monocytes 0.6 Absolute Eosinophils 0.0 Absolute Basophils 0.0 Sodium 137.5 Potassium 3.9 Chloride 107 Carbon Dioxide 22 Anion Gap 9 BUN 28 H Creatinine 1.88 H Est GFR ( Amer) 33 L Est GFR (Non-Af Amer) 27 L Glucose 97 Calcium 7.8 L Magnesium 2.0 06/16/18 06/16/18 06/16/18 06:50 06:50 12:45 Creatine Kinase 52 62 CK-MB (CK-2) 1.01 Troponin I 0.042 NT-Pro-B Natriuret Pep 06/16/18 06/16/18 06/16/18 12:45 19:00 19:00 Creatine Kinase 46 CK-MB (CK-2) 1.19 0.82 Troponin I 0.026 0.020 NT-Pro-B Natriuret Pep 06/17/18 04:38 Creatine Kinase CK-MB (CK-2) Troponin I NT-Pro-B Natriuret Pep 7380 H Impressions: Chest X-Ray 06/16/18 00:29 IMPRESSION: No acute cardiopulmonary process copyright 2011 [employer] All Rights Reserved Head CT 06/16/18 00:29 IMPRESSION: Atrophy with small vessel ischemic change. Right maxillary sinusitis. TECHNICAL DOCUMENTATION: Quality ID # 436: Final reports with documentation of one or more dose reduction techniques (e.g., Automated exposure control, adjustment of the mA and/or kV according to patient size, use of iterative reconstruction technique) copyright 2010 [employer] All Rights Reserved Cervical Spine CT 06/16/18 00:35 IMPRESSION: No CT evidence for acute C-spine abnormality. Multilevel degenerative change TECHNICAL DOCUMENTATION: Quality ID # 436: Final reports with documentation of one or more dose reduction techniques (e.g., Automated exposure control, adjustment of the mA and/or kV according to patient size, use of iterative reconstruction technique) copyright 2010 [employer] All Rights Reserved Femur X-Ray 06/16/18 00:35 IMPRESSION: No acute osseous abnormality copyright 2010 [employer] All Rights Reserved Tibia/Fibula X-Ray 06/16/18 00:35 IMPRESSION: Osteopenia. No acute osseous abnormality copyright 2010 [employer] All Rights Reserved Assessment & Plan - Diagnosis (1) Weakness Is this a current diagnosis for this admission?: Yes (2) Abrasion of great toe, right, infected Qualifiers: Encounter type: initial encounter Qualified Code(s): S90.411A - Abrasion, right great toe, initial encounter; L08.9 - Local infection of the skin and subcutaneous tissue, unspecified; L08.9 - Local infection of the skin and subcutaneous tissue, unspecified Is this a current diagnosis for this admission?: Yes (3) Anemia in chronic kidney disease Qualifiers: Chronic kidney disease stage: stage 3 (moderate) Qualified Code(s): N18.3 - Chronic kidney disease, stage 3 (moderate); D63.1 - Anemia in chronic kidney disease; D63.1 - Anemia in chronic kidney disease Is this a current diagnosis for this admission?: Yes (4) HTN (hypertension) Qualifiers: Hypertension type: essential hypertension Qualified Code(s): I10 - Essential (primary) hypertension Is this a current diagnosis for this admission?: Yes (5) Hyperglycemia due to type 2 diabetes mellitus Qualifiers: Diabetes mellitus correction insulin use: with correction use Qualified Code(s): E11.65 - Type 2 diabetes mellitus with hyperglycemia; Z79.4 - watermelon inspector (current) use of insulin; Z79.4 - watermelon inspector (current) use of insulin; Z79.4 - shelter (current) use of insulin; Z79.4 - shelter (current) use of insulin Is this a current diagnosis for this admission?: Yes (6) Hyperlipidemia Qualifiers: Hyperlipidemia type: unspecified Qualified Code(s): E78.5 - Hyperlipidemia, unspecified Is this a current diagnosis for this admission?: Yes (7) Vascular dementia Qualifiers: Dementia behavioral disturbance: with behavioral disturbance Qualified Code(s): F01.51 - Vascular dementia with behavioral disturbance Is this a current diagnosis for this admission?: Yes (8) Diabetes mellitus type 2 with retinopathy Qualifiers: Diabetic retinopathy severity: with unspecified retinopathy severity Laterality: unspecified laterality Is this a current diagnosis for this admission?: Yes - Time Time Spent with patient: 25-34 minutes Medications reviewed and adjusted accordingly: Yes - Inpatient Certification Based on my medical assessment, after consideration of the patient's comorbidities, presenting symptoms, or acuity I expect that the services needed warrant INPATIENT care.: Yes I certify that my determination is in accordance with my understanding of Medicare's requirements for reasonable and necessary INPATIENT services [42 CFR 412.3e].: Yes - Plan Summary Plan Summary: (1) Acute encephalopathy Is this a current diagnosis for this admission?: Yes Plan: -Seems to have improved, and mostly display symptoms consistent with dementia now. -Family is open to rehab or retirement. (2) Vascular dementia Qualifiers: Dementia behavioral disturbance: with behavioral disturbance Qualified Code(s): F01.51 - Vascular dementia with behavioral disturbance Is this a current diagnosis for this admission?: Yes Plan: -hx of vascular dementia which is likely the cause of her current problem in his progressive form. Will work on controlling contributing factors. -Family reports diminished appetite and interest in eating over the past few months. -She should however be evaluated o/p by psychiatry and neurology to ensure something like depression is an acting as a pseudo-dementia. -Manage modifiable factors. See below -Scheduled trazodone to help with sleep. (3) HTN (hypertension) Qualifiers: Hypertension type: essential hypertension Qualified Code(s): I10 - Essential (primary) hypertension Is this a current diagnosis for this admission?: Yes Plan: -Elevated since admission, likely due to the majority of her home medications and not being restarted. -Metoprolol stopped on admission. Carvedilol started in its place. Continue with current dose, and will consider increasing over the next few days depending on her blood pressure. -Continue hydralazine at 10 mg q6h. Likely had some rebound hypertension/poor coverage w/hydralazine being dosed q12h due to short half-life. -Continue hydralazine 10 mg every 4 hours as needed for systolic blood pressure greater than 165. -Hold parameters placed on all blood pressure medications. -If BP elevations persist will consider swabbing out amlodipine for Procardia after the current medications have been maximized. (4) Hyperlipidemia Qualifiers: Hyperlipidemia type: unspecified Qualified Code(s): E78.5 - Hyperlipidemia, unspecified Is this a current diagnosis for this admission?: Yes Plan: -Currently controlled (5) Diabetes mellitus type 2 in obese Is this a current diagnosis for this admission?: Yes Plan: -a1c 8.9. -Appetite is intermittent Lantus will be lowered to 10 units twice daily and cover with sliding scale. (6) Falls/Pre-syncope -Thought to be a combination of orthostatic hypotension, generalized weakness, peripheral neuropathy in bilateral lower extremities, and her legal blindness. -Currently working to maximize her blood pressure medications. (7)Anemia -Likely of chronic disease. Appears to be in line with patient's values in the past. (8) leukocytosis -WBC trending down. Normal chest x-ray. Normal urinalysis. Temp = 99. Continue to monitor (9) candidiasis -Nystatin powder topical to affected area twice daily. Disposition: Daughter is healthcare power of research attorney and power of research attorney. Family is interested in retirement and/or rehab placement as the patient's acuity has become more than they can handle. They are also exhibiting symptoms consistent with caregiver fatigue
[2018-06-19] MEDS: ATORVASTATIN CALCIUM 40 MG TABLET PO SCH (22:53)
[2018-06-19] MEDS: TRAZODONE HCL 50 MG TABLET PO SCH (22:54)
[2018-06-20] MEDS: HYDRALAZINE HCL 10 MG TABLET PO SCH ×3 (05:53→17:14)
[2018-06-20] MEDS: HEPARIN SOD (PORCINE) 5,000 UNIT/ML 1 ML SYRINGE SUBCUT SCH ×3 (05:54→22:25)
[2018-06-20] MEDS: VENLAFAXINE HCL 75 MG CAP.SR.24H PO SCH (10:17)
[2018-06-20] MEDS: POTASSIUM CHLORIDE 10 MEQ CAPSULE.ER PO SCH ×2 (10:17→22:26)
[2018-06-20] MEDS: DOCUSATE SODIUM 100 MG CAPSULE PO SCH ×2 (10:17→17:14)
[2018-06-20] MEDS: CARVEDILOL 6.25 MG TABLET PO SCH ×2 (10:18→22:23)
[2018-06-20] MEDS: INSULIN GLARGINE,HUM.REC.ANLOG 300 UNIT/3 ML INSULN.PEN SUBCUT SCH ×2 (10:18→18:06)
[2018-06-20] MEDS: FAMOTIDINE 20 MG TABLET PO SCH ×2 (10:18→22:27)
[2018-06-20] MEDS: NYSTATIN TOPICAL POWDER 15 GM TP SCH ×2 (10:19→17:15)
[2018-06-20] MEDS: MEMANTINE HCL 10 MG TABLET PO SCH ×2 (10:21→17:16)
[2018-06-20] MEDS: AMLODIPINE BESYLATE 10 MG TABLET PO SCH (10:21)
[2018-06-20] MEDS ORDERED: (PENDING PHARMACY ID) (Buspirone Hcl [Buspar 15 Mg Tablet] 7.5 MG) PO SCH (11:00)
[2018-06-20] MEDS: ACETAMINOPHEN 325 MG TABLET PO PRN (11:18)
[2018-06-20] MEDS ORDERED: INSULIN GLARGINE,HUM.REC.ANLOG 300 UNIT/3 ML INSULN.PEN SUBCUT SCH (16:04)
--- NOTE | 2018-06-20 16:04 | PDOC PROGRESS REPORT ---
Subjective Progress Note for:: 06/20/18 Subjective:: Krystle is a 62-year-old female with a past medical history of diabetes, diabetic neuropathy, dementia, diabetic retinopathy, hypertension, legal blindness, CKD, anemia,obsessive compulsive disorder, and falls. Patient is eating lunch at the time of evaluation. She is accompanied by friend. She has no specific complaints. Nursing has no reports of complaints. Her blood pressure has improved with medication changes. Blood glucose levels have also improved. She did have a blood glucose level of 69 this morning. No reports on placement. Reason For Visit: ACUTE ENCEPHALOPATHY,(ALTERED MENTAL STATUS) Physical Exam Vital Signs: Temp Pulse Resp BP Pulse Ox 98.5 F 82 18 125/56 L 100 06/20/18 12:00 06/20/18 12:00 06/20/18 12:00 06/20/18 12:00 06/20/18 12:00 Intake & Output 06/19/18 06/20/18 06/21/18 06:59 06:59 06:59 Intake Total 1163 1890 Balance 1163 1890 Weight 87.1 kg 87.9 kg General appearance: PRESENT: no acute distress, cooperative, obese Head exam: PRESENT: atraumatic, normocephalic Eye exam: PRESENT: conjunctiva pink, EOMI, PERRLA. ABSENT: scleral icterus Ear exam: PRESENT: normal external ear exam Mouth exam: PRESENT: moist, tongue midline Neck exam: ABSENT: carotid bruit, JVD, lymphadenopathy, thyromegaly Respiratory exam: PRESENT: clear to auscultation ita. ABSENT: rales, rhonchi, wheezes Cardiovascular exam: PRESENT: RRR. ABSENT: diastolic murmur, rubs, systolic murmur GI/Abdominal exam: PRESENT: normal bowel sounds, soft. ABSENT: distended, guarding, mass, organolmegaly, rebound, tenderness Rectal exam: PRESENT: deferred Extremities exam: PRESENT: other - 1+ edema bilateral lower extremities. Decreased sensation distal to the ankles. Musculoskeletal exam: PRESENT: normal inspection, tenderness Neurological exam: PRESENT: alert, awake, oriented to person, oriented to place, oriented to time, oriented to situation, CN II-XII grossly intact. ABSENT: motor sensory deficit Psychiatric exam: PRESENT: appropriate affect, normal mood. ABSENT: homicidal ideation, suicidal ideation Results Laboratory Results: 06/19/18 05:36 12/29/18 05:36 06/16/18 06/16/18 06/16/18 06:50 06:50 12:45 Creatine Kinase 52 62 CK-MB (CK-2) 1.01 Troponin I 0.042 NT-Pro-B Natriuret Pep 06/16/18 06/16/18 06/16/18 12:45 19:00 19:00 Creatine Kinase 46 CK-MB (CK-2) 1.19 0.82 Troponin I 0.026 0.020 NT-Pro-B Natriuret Pep 06/17/18 04:38 Creatine Kinase CK-MB (CK-2) Troponin I NT-Pro-B Natriuret Pep 7380 H Impressions: Chest X-Ray 06/16/18 00:29 IMPRESSION: No acute cardiopulmonary process copyright 2010 [employer]- All Rights Reserved Head CT 06/16/18 00:29 IMPRESSION: Atrophy with small vessel ischemic change. Right maxillary sinusitis. TECHNICAL DOCUMENTATION: Quality ID # 436: Final reports with documentation of one or more dose reduction techniques (e.g., Automated exposure control, adjustment of the mA and/or kV according to patient size, use of iterative reconstruction technique) copyright 2010 [employer] All Rights Reserved Cervical Spine CT 06/16/18 00:35 IMPRESSION: No CT evidence for acute C-spine abnormality. Multilevel degenerative change TECHNICAL DOCUMENTATION: Quality ID # 436: Final reports with documentation of one or more dose reduction techniques (e.g., Automated exposure control, adjustment of the mA and/or kV according to patient size, use of iterative reconstruction technique) copyright 2010 [employer] All Rights Reserved Femur X-Ray 06/16/18 00:35 IMPRESSION: No acute osseous abnormality copyright 2010 [employer] Rights Reserved Tibia/Fibula X-Ray 06/16/18 00:35 IMPRESSION: Osteopenia. No acute osseous abnormality copyright 2010 [employer] All Rights Reserved Assessment & Plan - Diagnosis (1) Weakness Is this a current diagnosis for this admission?: Yes (2) Abrasion of great toe, right, infected Qualifiers: Encounter type: initial encounter Qualified Code(s): S90.411A - Abrasion, right great toe, initial encounter; L08.9 - Local infection of the skin and subcutaneous tissue, unspecified; L08.9 - Local infection of the skin and subcutaneous tissue, unspecified Is this a current diagnosis for this admission?: Yes (3) Anemia in chronic kidney disease Qualifiers: Chronic kidney disease stage: stage 3 (moderate) Qualified Code(s): N18.3 - Chronic kidney disease, stage 3 (moderate); D63.1 - Anemia in chronic kidney disease; D63.1 - Anemia in chronic kidney disease Is this a current diagnosis for this admission?: Yes (4) HTN (hypertension) Qualifiers: Hypertension type: essential hypertension Qualified Code(s): I10 - Essential (primary) hypertension Is this a current diagnosis for this admission?: Yes (5) Hyperglycemia due to type 2 diabetes mellitus Qualifiers: Diabetes mellitus terminal gauger supervisor insulin use: with [facility] use Qualified Code(s): E11.65 - Type 2 diabetes mellitus with hyperglycemia; Z79.4 - alf (current) use of insulin; Z79.4 - termite technician (current) use of insulin; Z79.4 - termite technician (current) use of insulin; Z79.4 - alf (current) use of insulin Is this a current diagnosis for this admission?: Yes (6) Hyperlipidemia Qualifiers: Hyperlipidemia type: unspecified Qualified Code(s): E78.5 - Hyperlipidemia, unspecified Is this a current diagnosis for this admission?: Yes (7) Vascular dementia Qualifiers: Dementia behavioral disturbance: with behavioral disturbance Qualified Code(s): F01.51 - Vascular dementia with behavioral disturbance Is this a current diagnosis for this admission?: Yes (8) Diabetes mellitus type 2 with retinopathy Qualifiers: Diabetic retinopathy severity: with unspecified retinopathy severity Laterality: unspecified laterality Is this a current diagnosis for this admission?: Yes - Time Time Spent with patient: 25-34 minutes Medications reviewed and adjusted accordingly: Yes - Inpatient Certification Based on my medical assessment, after consideration of the patient's comorbidities, presenting symptoms, or acuity I expect that the services needed warrant INPATIENT care.: Yes I certify that my determination is in accordance with my understanding of Medicare's requirements for reasonable and necessary INPATIENT services [42 CFR 412.3e].: Yes - Plan Summary Plan Summary: (1) Acute encephalopathy Is this a current diagnosis for this admission?: Yes Plan: -Seems to have improved, and mostly display symptoms consistent with dementia now. -Family is open to rehab or retirement. (2) Vascular dementia Qualifiers: Dementia behavioral disturbance: with behavioral disturbance Qualified Code(s): F01.51 - Vascular dementia with behavioral disturbance Is this a current diagnosis for this admission?: Yes Plan: -hx of vascular dementia which is likely the cause of her current problem in his progressive form. Will work on controlling contributing factors. -Family reports diminished appetite and interest in eating over the past few months. -She should however be evaluated o/p by psychiatry and neurology to ensure something like depression is an acting as a pseudo-dementia. -Manage modifiable factors. See below -Scheduled trazodone to help with sleep. (3) HTN (hypertension) Qualifiers: Hypertension type: essential hypertension Qualified Code(s): I10 - Essential (primary) hypertension Is this a current diagnosis for this admission?: Yes Plan: -Elevated since admission, likely due to the majority of her home medications and not being restarted. -Metoprolol stopped on admission. Carvedilol started in its place. Continue with current dose, and will consider increasing over the next few days depending on her blood pressure. -Continue hydralazine at 10 mg q6h. Likely had some rebound hypertension/poor coverage w/hydralazine being dosed q12h due to short half-life. -Continue hydralazine 10 mg every 4 hours as needed for systolic blood pressure greater than 165. -Hold parameters placed on all blood pressure medications. -If BP elevations persist will consider swabbing out amlodipine for Procardia after the current medications have been maximized. (4) Hyperlipidemia Qualifiers: Hyperlipidemia type: unspecified Qualified Code(s): E78.5 - Hyperlipidemia, unspecified Is this a current diagnosis for this admission?: Yes Plan: -Currently controlled (5) Diabetes mellitus type 2 in obese Is this a current diagnosis for this admission?: Yes Plan: -a1c 8.9. -Appetite is intermittent. -Lantus lowered to 15 units twice daily and cover with sliding scale. (6) Falls/Pre-syncope -Thought to be a combination of orthostatic hypotension, generalized weakness, peripheral neuropathy in bilateral lower extremities, and her legal blindness. -Currently working to maximize her blood pressure medications. (7)Anemia -Likely of chronic disease. Appears to be in line with patient's values in the past. (8) leukocytosis -Mild. WBC trending down. Normal chest x-ray. Normal urinalysis. VSS. Continue to monitor (9) candidiasis -Nystatin powder topical to affected area twice daily. Disposition: Daughter is healthcare power of surgical physician assistant and power of surgical physician assistant. Family is interested in retirement and/or rehab placement as the patient's acuity has become more than they can handle. They are also exhibiting symptoms consistent with caregiver fatigue.
[2018-06-20] MEDS ORDERED: INSULIN GLARGINE,HUM.REC.ANLOG 1,000 UNIT/10 ML UNIT SUBCUT ONE (17:36)
[2018-06-20] MEDS: TRAZODONE HCL 50 MG TABLET PO SCH (22:24)
[2018-06-20] MEDS: ATORVASTATIN CALCIUM 40 MG TABLET PO SCH (22:27)
[2018-06-21] MEDS: HYDRALAZINE HCL 10 MG TABLET PO SCH ×4 (01:45→16:59)
[2018-06-21 05:45] LABS: HEMATOCRIT 23.9 % (36.0-47.0); HEMOGLOBIN 8.1 g/dL (12.0-15.5); MEAN CORPUSCULAR HEMOGLOBIN 28.2 pg (27.0-33.4); MEAN CORPUSCULAR HGB CONC 33.9 g/dL (32.0-36.0); MEAN CORPUSCULAR VOLUME 83 fl (80-97); PLATELET COUNT 233 10^3/uL (150-450); RED BLOOD COUNT 2.88 10^6/uL (3.72-5.28); RED CELL DISTRIBUTION WIDTH 16.5 % (11.5-14.0); WHITE BLOOD COUNT 14.5 10^3/uL (4.0-10.5)
[2018-06-21 06:02] LABS: ANION GAP 7 (5-19); BLOOD UREA NITROGEN 35 mg/dL (7-20); CALCIUM 7.8 mg/dL (8.4-10.2); CARBON DIOXIDE 23 mmol/L (22-30); CHLORIDE 108 mmol/L (98-107); GLUCOSE 131 mg/dL (75-110); POTASSIUM 5.1 mmol/L (3.6-5.0); SODIUM 137.8 mmol/L (137-145)
[2018-06-21] MEDS: HEPARIN SOD (PORCINE) 5,000 UNIT/ML 1 ML SYRINGE SUBCUT SCH ×3 (06:55→22:40)
[2018-06-21] MEDS: ACETAMINOPHEN 325 MG TABLET PO PRN (08:47)
[2018-06-21] MEDS: POTASSIUM CHLORIDE 10 MEQ CAPSULE.ER PO SCH ×2 (09:00→22:42)
[2018-06-21] MEDS: MEMANTINE HCL 10 MG TABLET PO SCH ×2 (09:01→16:59)
[2018-06-21] MEDS: CARVEDILOL 6.25 MG TABLET PO SCH ×2 (09:01→22:39)
[2018-06-21] MEDS: NYSTATIN TOPICAL POWDER 15 GM TP SCH ×2 (09:01→16:59)
[2018-06-21] MEDS: AMLODIPINE BESYLATE 10 MG TABLET PO SCH (09:01)
[2018-06-21] MEDS: DOCUSATE SODIUM 100 MG CAPSULE PO SCH ×2 (09:01→16:59)
[2018-06-21] MEDS: VENLAFAXINE HCL 75 MG CAP.SR.24H PO SCH (09:01)
[2018-06-21] MEDS: FAMOTIDINE 20 MG TABLET PO SCH ×2 (09:01→22:42)
[2018-06-21] MEDS: INSULIN GLARGINE,HUM.REC.ANLOG 300 UNIT/3 ML INSULN.PEN SUBCUT SCH ×2 (09:06→18:31)
[2018-06-21] MEDS: INSULIN LISPRO 100 UNIT/ML 3 ML VIAL SUBCUT PRN ×2 (13:14→16:55)
[2018-06-21] MEDS: TRAZODONE HCL 50 MG TABLET PO SCH (22:39)
[2018-06-21] MEDS: ATORVASTATIN CALCIUM 40 MG TABLET PO SCH (22:43)
[2018-06-22] MEDS: INSULIN GLARGINE,HUM.REC.ANLOG 300 UNIT/3 ML INSULN.PEN SUBCUT SCH ×2 (04:03→09:55)
[2018-06-22] MEDS: HYDRALAZINE HCL 10 MG TABLET PO SCH ×4 (04:06→23:01)
[2018-06-22] MEDS: HEPARIN SOD (PORCINE) 5,000 UNIT/ML 1 ML SYRINGE SUBCUT SCH ×3 (06:43→23:00)
--- NOTE | 2018-06-22 06:55 | PDOC PROGRESS REPORT ---
Subjective Progress Note for:: 06/21/18 Subjective:: The patient is resting in bed. She is somewhat listless. She does not appear to be in any distress. Reason For Visit: ACUTE ENCEPHALOPATHY,(ALTERED MENTAL STATUS) Physical Exam Vital Signs: Temp Pulse Resp BP Pulse Ox 98.6 F 88 17 150/61 H 98 06/21/18 23:32 06/21/18 23:32 06/21/18 23:32 06/21/18 23:32 06/21/18 23:32 Intake & Output 06/20/18 06/21/18 06/22/18 06:59 06:59 06:59 Intake Total 1890 1200 857 Balance 1890 1200 857 Weight 87.9 kg 88.4 kg 85.4 kg General appearance: PRESENT: no acute distress, cooperative - Attempts to answer questions (limited due to dementia), well-developed Head exam: PRESENT: normocephalic Respiratory exam: PRESENT: clear to auscultation ita, symmetrical, unlabored. ABSENT: accessory muscle use, rales, rhonchi, wheezes Cardiovascular exam: PRESENT: RRR, +S1, +S2 GI/Abdominal exam: PRESENT: normal bowel sounds, soft. ABSENT: distended, tenderness Neurological exam: PRESENT: alert, awake, oriented to person Psychiatric exam: PRESENT: flat affect. ABSENT: agitated, anxious Focused psych exam: ABSENT: restlessness Results Laboratory Results: 06/21/18 05:22 06/21/18 05:22 06/16/18 01:38 Blood Blood Culture - Final NO GROWTH IN 5 DAYS 06/16/18 06/16/18 06/16/18 06:50 06:50 12:45 Creatine Kinase 52 62 CK-MB (CK-2) 1.01 Troponin I 0.042 NT-Pro-B Natriuret Pep 06/16/18 06/16/18 06/16/18 12:45 19:00 19:00 Creatine Kinase 46 CK-MB (CK-2) 1.19 0.82 Troponin I 0.026 0.020 NT-Pro-B Natriuret Pep 06/17/18 04:38 Creatine Kinase CK-MB (CK-2) Troponin I NT-Pro-B Natriuret Pep 7380 H Impressions: Chest X-Ray 06/16/18 00:29 IMPRESSION: No acute cardiopulmonary process copyright 2011 [employer]- All Rights Reserved Head CT 06/16/18 00:29 IMPRESSION: Atrophy with small vessel ischemic change. Right maxillary sinusitis. TECHNICAL DOCUMENTATION: Quality ID # 436: Final reports with documentation of one or more dose reduction techniques (e.g., Automated exposure control, adjustment of the mA and/or kV according to patient size, use of iterative reconstruction technique) copyright 2010 [employer] Reserved Cervical Spine CT 06/16/18 00:35 IMPRESSION: No CT evidence for acute C-spine abnormality. Multilevel degenerative change TECHNICAL DOCUMENTATION: Quality ID # 436: Final reports with documentation of one or more dose reduction techniques (e.g., Automated exposure control, adjustment of the mA and/or kV according to patient size, use of iterative reconstruction technique) copyright 2010 [employer] Rights Reserved Femur X-Ray 06/16/18 00:35 IMPRESSION: No acute osseous abnormality copyright 2010 [employer] Reserved Tibia/Fibula X-Ray 06/16/18 00:35 IMPRESSION: Osteopenia. No acute osseous abnormality copyright 2010 [employer] Rights Reserved Assessment & Plan - Diagnosis (1) Acute encephalopathy Is this a current diagnosis for this admission?: Yes Plan: The acute encephalopathy has resolved. She appears to be back to baseline however after long discussion with the daughter it is clear that she has de teriorated. See discussion below. (2) Vascular dementia Qualifiers: Dementia behavioral disturbance: with behavioral disturbance Qualified C ode(s): F01.51 - Vascular dementia with behavioral disturbance Is this a current diagnosis for this admission?: Yes Plan: Per discussion with the daughter the patient's deterioration seems to be progressing. Some of her symptoms are likely due to the change of environment (being hospitalized) on top of acute issues. She has had falls. Her right knee is swollen and painful and she has an infection in her toe. Her daughter re ports that she is confusing nights with days. Trazodone has been started to help with restoring normal diurnal cycles. It is clear that the family is unable to provide adequate care for the patient at home. See discussion below. (3) HTN (hypertension) Qualifiers: Hypertension type: essential hypertension Qualified Code(s): I10 - Essential (primary) hypertension Is this a current diagnosis for this admission?: Yes Plan: Medication changes were instituted on admission. Blood pressure is improved. I am going to monitor for another day before making any further adjustments. (4) Hyperglycemia due to type 2 diabetes mellitus Qualifiers: Diabetes mellitus termite control technician insulin use: with termite control technician use Qualified Code(s): E11.65 - Type 2 diabetes mellitus with hyperglycemia; Z79.4 - halfway (current) use of insulin; Z79.4 - medical terminologist (current) use of insulin; Z79.4 - halfway (current) use of insulin; Z79.4 - medical terminologist (current) use of insulin Is this a current diagnosis for this admission?: Yes Plan: Currently on Lantus and sliding scale. Adjust Lantus based on sliding scale requirements and Accu-Cheks. On admission her hemoglobin A1c was elevated at 8 9. (5) Multiple falls Is this a current diagnosis for this admission?: Yes Plan: This is likely multifactorial including orthostatic hypotension, increasing weakness, diabetic neuropathy and decreased visual acuity. Because she has been falling more at home it is likely she will require [facility] placement. This most probably will be a permanent situation. Currently the right knee is mattress filling machine tender and ice packs are being applied. (6) Depression Qualifiers: Depression Type: other depression Qualified Code(s): F32.89 - Other specified depressive episodes Is this a current diagnosis for this admission?: Yes Plan: Depression is likely multifactorial. Contributing factors include her dementia and likely realization of increasing frailty with potential for intermediate placement. Continue current regimen. - Time Time Spent with patient: 35 or more minutes Medications reviewed and adjusted accordingly: Yes Anticipated discharge: SNF - Plan Summary Plan Summary: I had a very long (25-minute) discussion with the patient's daughter outside of the room after the bedside encounter with the patient. The daughter became tearful. She is the medical power of investor. She admits that her and her brother are unable to provide adequate care at home. She knows that her mother would not want to be in a intermediate but as her condition declines it is a necessary next step. The daughter is having difficulties and guilt regarding t he upcoming decisions. She is not sure how to proceed. I explained that there are several possibilities. The next stages of care will likely be done in stages. The first step certainly would be to place the patient in a [facility] facility. If she responds to therapy and it is felt that she is safe to return home (which is unlikely) then that could be a consideration. More likely she will need to stay in the [facility] facility. Eventually there will come a time when the patient will have an acute episode (likely infection) and make comfort care decision can be made if medically appropriate. I explained to the daughter that I would order a palliative care consult. I explained that they could explain and educate the daughter about the potential decisions and help her moving forward.
[2018-06-22 07:24] LABS: HEMATOCRIT 25.3 % (36.0-47.0); HEMOGLOBIN 8.4 g/dL (12.0-15.5); MEAN CORPUSCULAR HEMOGLOBIN 27.8 pg (27.0-33.4); MEAN CORPUSCULAR HGB CONC 33.1 g/dL (32.0-36.0); MEAN CORPUSCULAR VOLUME 84 fl (80-97); PLATELET COUNT 244 10^3/uL (150-450); RED BLOOD COUNT 3.02 10^6/uL (3.72-5.28); RED CELL DISTRIBUTION WIDTH 16.6 % (11.5-14.0); WHITE BLOOD COUNT 11.3 10^3/uL (4.0-10.5)
[2018-06-22 07:47] LABS: ANION GAP 6 (5-19); BLOOD UREA NITROGEN 33 mg/dL (7-20); CALCIUM 7.7 mg/dL (8.4-10.2); CARBON DIOXIDE 25 mmol/L (22-30); CHLORIDE 108 mmol/L (98-107); GLUCOSE 145 mg/dL (75-110); POTASSIUM 4.7 mmol/L (3.6-5.0); SODIUM 138.5 mmol/L (137-145); URIC ACID 5.9 mg/dL (2.5-7.5)
[2018-06-22] MEDS: MEMANTINE HCL 10 MG TABLET PO SCH ×2 (09:54→17:39)
[2018-06-22] MEDS: CARVEDILOL 6.25 MG TABLET PO SCH ×2 (09:54→23:02)
[2018-06-22] MEDS: POTASSIUM CHLORIDE 10 MEQ CAPSULE.ER PO SCH ×2 (09:54→23:02)
[2018-06-22] MEDS: AMLODIPINE BESYLATE 10 MG TABLET PO SCH (09:54)
[2018-06-22] MEDS: NYSTATIN TOPICAL POWDER 15 GM TP SCH ×2 (09:55→17:39)
[2018-06-22] MEDS: DOCUSATE SODIUM 100 MG CAPSULE PO SCH ×2 (09:55→17:39)
[2018-06-22] MEDS: VENLAFAXINE HCL 75 MG CAP.SR.24H PO SCH (09:55)
[2018-06-22] MEDS: FAMOTIDINE 20 MG TABLET PO SCH ×2 (09:55→23:03)
[2018-06-22] MEDS: ACETAMINOPHEN 325 MG TABLET PO PRN ×2 (13:14→23:01)
--- NOTE | 2018-06-22 17:10 | PDOC PROGRESS REPORT ---
Subjective Progress Note for:: 06/22/18 Subjective:: The patient is wide awake. Her daughter is at the bedside. She is quite conversant this evening. She still complains of discomfort in the right knee and ankle. Reason For Visit: ACUTE ENCEPHALOPATHY,(ALTERED MENTAL STATUS) Physical Exam Vital Signs: Temp Pulse Resp BP Pulse Ox 98.6 F 78 16 133/57 H 99 06/22/18 15:53 06/22/18 15:53 06/22/18 15:53 06/22/18 15:53 06/22/18 15:53 Intake & Output 06/21/18 06/22/18 06/23/18 06:59 06:59 06:59 Intake Total 1200 857 484 Balance 1200 857 484 Weight 88.4 kg 85.4 kg General appearance: PRESENT: no acute distress, well-developed Head exam: PRESENT: normocephalic Mouth exam: PRESENT: dry mucosa Respiratory exam: PRESENT: clear to auscultation ita, symmetrical, unlabored. ABSENT: rales, rhonchi, wheezes Cardiovascular exam: PRESENT: RRR, +S1, +S2 GI/Abdominal exam: PRESENT: normal bowel sounds, soft. ABSENT: tenderness Extremities exam: PRESENT: joint swelling - Right knee and right ankle, pedal edema. ABSENT: full ROM - The slightest movement causes significant discomfort with the right knee or ankle Neurological exam: PRESENT: alert, awake, oriented to person, oriented to place Psychiatric exam: PRESENT: normal mood. ABSENT: agitated, anxious Focused psych exam: ABSENT: restlessness Skin exam: PRESENT: other - Several shallow ulcers anterior left leg. Appear to be healing nicely. Dried lesions on the dorsum of the right foot and right hallux. Keratinized tissue should flake off on its own. No dressing necessary. She also has 2 linear areas on the lateral aspect of the right wrist that appear to be from excoriation. Results Laboratory Results: 06/22/18 06:37 06/22/18 06:37 06/22/18 06/22/18 06:37 06:37 WBC 11.3 H RBC 3.02 L Hgb 8.4 L Hct 25.3 L MCV 84 MCH 27.8 MCHC 33.1 RDW 16.6 H Plt Count 244 Sodium 138.5 Potassium 4.7 Chloride 108 H Carbon Dioxide 25 Anion Gap 6 BUN 33 H Creatinine 2.01 H Est GFR ( Amer) 30 L Est GFR (Non-Af Amer) 25 L Glucose 145 H Uric Acid 5.9 Calcium 7.7 L Magnesium 2.1 06/16/18 06/16/18 06/16/18 06:50 06:50 12:45 Creatine Kinase 52 62 CK-MB (CK-2) 1.01 Troponin I 0.042 NT-Pro-B Natriuret Pep 06/16/18 06/16/18 06/16/18 12:45 19:00 19:00 Creatine Kinase 46 CK-MB (CK-2) 1.19 0.82 Troponin I 0.026 0.020 NT-Pro-B Natriuret Pep 06/17/18 04:38 Creatine Kinase CK-MB (CK-2) Troponin I NT-Pro-B Natriuret Pep 7380 H Impressions: Chest X-Ray 06/16/18 00:29 IMPRESSION: No acute cardiopulmonary process copyright 2010 [employer]- All Rights Reserved Head CT 06/16/18 00:29 IMPRESSION: Atrophy with small vessel ischemic change. Right maxillary sinusitis. TECHNICAL DOCUMENTATION: Quality ID # 436: Final reports with documentation of one or more dose reduction techniques (e.g., Automated exposure control, adjustment of the mA and/or kV according to patient size, use of iterative reconstruction technique) copyright 2010 [employer]- All Rights Reserved Cervical Spine CT 06/16/18 00:35 IMPRESSION: No CT evidence for acute C-spine abnormality. Multilevel degenerative change TECHNICAL DOCUMENTATION: Quality ID # 436: Final reports with documentation of one or more dose reduction techniques (e.g., Automated exposure control, adjustment of the mA and/or kV according to patient size, use of iterative reconstruction technique) copyright 2010 [employer]- All Rights Reserved Femur X-Ray 06/16/18 00:35 IMPRESSION: No acute osseous abnormality copyright 2010 [employer] All Rights Reserved Tibia/Fibula X-Ray 06/16/18 00:35 IMPRESSION: Osteopenia. No acute osseous abnormality copyright 2010 [employer] All Rights Reserved Assessment & Plan - Diagnosis (1) Acute encephalopathy Is this a current diagnosis for this admission?: Yes Plan: The patient appears to be back at baseline. Unsure of the exact etiology of this change. There was no evidence of infection. She was exhibiting orthostasis. (2) Vascular dementia Qualifiers: Dementia behavioral disturbance: with behavioral disturbance Qualified Code(s): F01.51 - Vascular dementia with behavioral disturbance Is this a current diagnosis for this admission?: Yes Plan: Appears to be at baseline. She is on Namenda daily. Try to maintain good blood pressure control. (3) HTN (hypertension) Qualifiers: Hypertension type: essential hypertension Qualified Code(s): I10 - Essential (primary) hypertension Is this a current diagnosis for this admission?: Yes Plan: Still with significant orthostasis. I will decrease the hydralazine because this is most likely culprit. We may need to discontinue the hydralazine altogether and adjust her other antihypertensive medications. (4) Hyperglycemia due to type 2 diabetes mellitus Qualifiers: Diabetes mellitus predatory animal exterminator insulin use: with fci use Qualified Code(s): E11.65 - Type 2 diabetes mellitus with hyperglycemia; Z79.4 - detention (current) use of insulin; Z79.4 - watermelon inspector (current) use of insulin; Z79.4 - watermelon inspector (current) use of insulin; Z79.4 - detention (current) use of insulin Is this a current diagnosis for this admission?: Yes Plan: Accu-Cheks still not well controlled. I will increase the Lantus to 20 units twice a day and continue sliding scale. (5) Multiple falls Is this a current diagnosis for this admission?: Yes Plan: Contributing factors are likely her orthostasis. She does have significant generalized weakness. In fact physical therapy recommends that she is not safe for any out of bed activities. (6) Depression Qualifiers: Depression Type: other depression Qualified Code(s): F32.89 - Other specified depressive episodes Is this a current diagnosis for this admission?: Yes Plan: Continue BuSpar, Effexor and trazodone - Time Time Spent with patient: 15-24 minutes Medications reviewed and adjusted accordingly: Yes - Plan Summary Plan Summary: An order for palliative care consult was placed yesterday. Being that it is a holiday they will likely be able to visit with the patient and her daughter tomorrow. The patient clearly needs long term post discharge but the likelihood of a significant recovery is small. She may need permanent placement.
[2018-06-22] MEDS: INSULIN LISPRO 100 UNIT/ML 3 ML VIAL SUBCUT PRN ×2 (17:40→23:00)
--- NOTE | 2018-06-22 21:13 | XCELERA REPORT ---
[address] [address] Transthoracic Echocardiogram Report Name: DALIA QUEVEDO Age: 62 yrs Gender: Female : 1955 Patient Status: [facility]: 06/18/2018 06:18 PM Height: 66 in Weight: 192 lb BSA: 2.0 m2 Procedure: A two-dimensional transthoracic echocardiogram with color flow and Doppler was performed. The study was technically difficult with many images being suboptimal in quality. Images were not obtained from all of the standard acoustic windows due to the limited scope of the study. Reason For Study: syncope,elevated BNP History: syncope,elevated BNP. Ordering Physician: JORDAN ORNELAS Performed By: Aspen Byrnes Interpretation Summary The left ventricle is grossly normal size. There is normal left ventricular wall thickness. No True apical 2 chamber views obtained.Hence cannot comment on the apical anterior , the basal anterior, the basal inferior and apical inferior monterroso.The mid anterior , the mid inferior and the rest of the LV monterroso contract normally. .Normal LVEF is normal and is greater than 65% in the limited views. Doppler measurements suggest impaired left ventricular relaxation, which is associated with grade I/IV or mild diastolic dysfunction There is no thrombus. The right ventricle is not well visualized secondary to technical limitations The left atrial size is normal. There is no evidence of mitral valve prolapse. There is no mitral valve stenosis. There is a mild amount of mitral regurgitation There is no aortic valve stenosis No aortic regurgitation is present. There is no tricuspid stenosis. There is a trace amount of tricuspid regurgitation Right ventricular systolic pressure is normal. RVSP is 11 to 16 mm of Hg , with RA mean of 5 to 10. The pulmonic valve is not well visualized. The inferior vena cava appeared normal and decreased > 50% with respiration (RAP 5-10 mmHg) There is no pericardial effusion. MMode/2D Measurements & Calculations RVDd: 2.2 cm LVIDd: 4.9 cm FS: 33.4 % Ao root diam: 2.4 cm IVSd: 0.97 cm LVIDs: 3.2 cm EDV(Teich): 110.3 ml Ao root area: 4.5 cm2 LVPWd: 0.95 cm ESV(Teich): 42.0 ml LA dimension: 2.9 cm EF(Teich): 62.0 % Doppler Measurements & Calculations MV E max eulogio: MV P1/2t max eulogio: Ao V2 max: LV V1 max P.8 cm/sec 83.5 cm/sec 121.5 cm/sec 3.9 mmHg MV A max eulogio: MV P1/2t: 58.2 msec Ao max PG: LV V1 max: 76.5 cm/sec MVA(P1/2t): 3.8 cm2 5.9 mmHg 99.2 cm/sec MV E/A: 0.69 MV dec slope: 419.9 cm/sec2 MV dec time: 0.25 sec TV V2 max: PA V2 max: TR max eulogio: MV P1/2t-pr_phl: 116.7 cm/sec 133.0 cm/sec 116.7 cm/sec 58.2 msec TV max PG: PA max P.1 mmHg TR max P.5 mmHg 5.5 mmHg Left Ventricle The left ventricle is grossly normal size. There is normal left ventricular wall thickness. No True apical 2 chamber views obtained.Hence cannot comment on the apical anterior , the basal anterior, the basal inferior and apical inferior monterroso.The mid anterior , the mid inferior and the rest of the LV monterroso contract normally. .Normal LVEF is normal and is greater than 65% in the limited views. Doppler measurements suggest impaired left ventricular relaxation, which is associated with grade I/IV or mild diastolic dysfunction. There is no thrombus. Right Ventricle The right ventricle is not well visualized secondary to technical limitations. Atria Right atrium not well visualized secondary to technical limitations. The left atrial size is normal. Mitral Valve There is no evidence of mitral valve prolapse. There is no vegetation seen on the mitral valve. There is no mitral valve stenosis. There is a mild amount of mitral regurgitation. Aortic Valve There is no aortic valve stenosis. No aortic regurgitation is present. Tricuspid Valve There is no tricuspid stenosis. There is a trace amount of tricuspid regurgitation. Right ventricular systolic pressure is normal. RVSP is 11 to 16 mm of Hg , with RA mean of 5 to 10. Pulmonic Valve The pulmonic valve is not well visualized. Great Vessels The aortic root is not well visualized but is probably normal size. The inferior vena cava appeared normal and decreased > 50% with respiration (RAP 5-10 mmHg). Effusions There is no pericardial effusion. : JORDAN ORNELAS > Mellissa Marcus
[2018-06-22] MEDS ORDERED: INSULIN GLARGINE,HUM.REC.ANLOG 300 UNIT/3 ML INSULN.PEN SUBCUT SCH ×2 (22:00)
[2018-06-22] MEDS: TRAZODONE HCL 50 MG TABLET PO SCH (23:02)
[2018-06-22] MEDS: ATORVASTATIN CALCIUM 40 MG TABLET PO SCH (23:03)
[2018-06-23] MEDS: HEPARIN SOD (PORCINE) 5,000 UNIT/ML 1 ML SYRINGE SUBCUT SCH ×3 (05:25→22:46)
[2018-06-23] MEDS: HYDRALAZINE HCL 10 MG TABLET PO SCH ×3 (05:26→22:47)
--- NOTE | 2018-06-23 08:37 | RADIOLOGY REPORT (SQ) ---
EXAM DESCRIPTION: ANKLE RIGHT AP/LATERAL COMPLETED DATE/TIME: 06/23/2018 8:17 am REASON FOR STUDY: Increased ankle pain COMPARISON: None. NUMBER OF VIEWS: Two views. TECHNIQUE: AP and lateral radiographic images acquired of the right ankle. LIMITATIONS: None. FINDINGS: MINERALIZATION: Osteopenia. BONES: No acute fracture or dislocation. No worrisome bone lesions. JOINTS: Intact. SOFT TISSUES: Diffuse swelling. Vascular calcifications. No foreign body. OTHER: No other significant finding. IMPRESSION: Cellulitis. No evidence of osteomyelitis. TECHNICAL DOCUMENTATION: JOB ID: [id number] [employer]- All Rights Reserved Reading location - IP/workstation name: [email or web address]
--- NOTE | 2018-06-23 09:14 | PDOC PROGRESS REPORT ---
Subjective Progress Note for:: 06/23/18 Subjective:: Patient appears to be resting comfortably. She still complains of discomfort in her right knee and ankle. She did ask me if she was in [place] Reason For Visit: ACUTE ENCEPHALOPATHY,(ALTERED MENTAL STATUS) Physical Exam Vital Signs: Temp Pulse Resp BP Pulse Ox 97.5 F 85 16 137/66 H 100 06/23/18 07:44 06/23/18 07:44 06/23/18 07:44 06/23/18 07:44 06/23/18 07:44 Intake & Output 06/22/18 06/23/18 06/24/18 06:59 06:59 06:59 Intake Total 857 1340 Balance 857 1340 Weight 85.4 kg 84.6 kg General appearance: PRESENT: no acute distress, cooperative, well-developed Mouth exam: PRESENT: dry mucosa, tongue midline Respiratory exam: PRESENT: clear to auscultation ita, symmetrical, unlabored. ABSENT: accessory muscle use, rales, rhonchi, wheezes Cardiovascular exam: PRESENT: RRR, +S1, +S2 GI/Abdominal exam: PRESENT: normal bowel sounds, soft. ABSENT: distended, tenderness Extremities exam: PRESENT: joint swelling - Right knee and ankle, pedal edema Neurological exam: PRESENT: alert, awake, oriented to person Psychiatric exam: PRESENT: flat affect. ABSENT: agitated, anxious Focused psych exam: ABSENT: restlessness Skin exam: PRESENT: other - Bandage on left leg covering stasis ulcers Results Laboratory Results: 06/22/18 06:37 06/22/18 06:37 06/16/18 06/16/18 06/16/18 06:50 06:50 12:45 Creatine Kinase 52 62 CK-MB (CK-2) 1.01 Troponin I 0.042 NT-Pro-B Natriuret Pep 06/16/18 06/16/18 06/16/18 12:45 19:00 19:00 Creatine Kinase 46 CK-MB (CK-2) 1.19 0.82 Troponin I 0.026 0.020 NT-Pro-B Natriuret Pep 06/17/18 04:38 Creatine Kinase CK-MB (CK-2) Troponin I NT-Pro-B Natriuret Pep 7380 H Impressions: Chest X-Ray 06/16/18 00:29 IMPRESSION: No acute cardiopulmonary process copyright 2011 [employer]- All Rights Reserved Head CT 06/16/18 00:29 IMPRESSION: Atrophy with small vessel ischemic change. Right maxillary sinusitis. TECHNICAL DOCUMENTATION: Quality ID # 436: Final reports with documentation of one or more dose reduction techniques (e.g., Automated exposure control, adjustment of the mA and/or kV according to patient size, use of iterative reconstruction technique) copyright 2010 [employer]- All Rights Reserved Cervical Spine CT 06/16/18 00:35 IMPRESSION: No CT evidence for acute C-spine abnormality. Multilevel degenerative change TECHNICAL DOCUMENTATION: Quality ID # 436: Final reports with documentation of one or more dose reduction techniques (e.g., Automated exposure control, adjustment of the mA and/or kV according to patient size, use of iterative reconstruction technique) copyright 2010 [employer]- All Rights Reserved Femur X-Ray 06/16/18 00:35 IMPRESSION: No acute osseous abnormality copyright 2010 [employer] Tibia/Fibula X-Ray 06/16/18 00:35 IMPRESSION: Osteopenia. No acute osseous abnormality copyright 2010 [employer] All Rights Reserved Ankle X-Ray 06/23/18 08:00 IMPRESSION: Cellulitis. No evidence of osteomyelitis. Assessment & Plan - Diagnosis (1) Acute encephalopathy Is this a current diagnosis for this admission?: Yes Plan: Appears to be at baseline (2) Vascular dementia Qualifiers: Dementia behavioral disturbance: with behavioral disturbance Qualified Code(s): F01.51 - Vascular dementia with behavioral disturbance Is this a current diagnosis for this admission?: Yes Plan: Still with some memory/cognitive issues. Currently on Namenda. (3) HTN (hypertension) Qualifiers: Hypertension type: essential hypertension Qualified Code(s): I10 - Essential (primary) hypertension Is this a current diagnosis for this admission?: Yes Plan: Reasonable blood pressure control. Continue current regimen. (4) Hyperglycemia due to type 2 diabetes mellitus Qualifiers: Diabetes mellitus halfway insulin use: with halfway use Qualified Code(s): E11.65 - Type 2 diabetes mellitus with hyperglycemia; Z79.4 - charge auditor (current) use of insulin; Z79.4 - charge auditor (current) use of insulin; Z79.4 - charge auditor (current) use of insulin; Z79.4 - charge auditor (current) use of insulin Is this a current diagnosis for this admission?: Yes Plan: Still having some elevated glucoses in the evening. I am going to increase the morning Lantus and make a slight increase in the evening Lantus instead of 20 units twice a day. (5) Multiple falls Is this a current diagnosis for this admission?: Yes Plan: Palliative care is meeting with the patient's daughter today. I explained to the patient that she does need to go to a shelter facility at least for short while to see if she can regain strength. (6) Depression Qualifiers: Depression Type: other depression Qualified Code(s): F32.89 - Other specified depressive episodes Is this a current diagnosis for this admission?: Yes Plan: Continue BuSpar, Effexor and trazodone (7) Right ankle pain Qualifiers: Chronicity: acute Qualified Code(s): M25.571 - Pain in right ankle and joints of right foot Is this a current diagnosis for this admission?: Yes Plan: X-ray of the ankle reveals no fracture. Uric acid was normal. Like her right knee these joint pains are likely a result of her fall. - Time Time Spent with patient: Less than 15 minutes Medications reviewed and adjusted accordingly: Yes Anticipated discharge: SNF Within: within 48 hours
[2018-06-23] MEDS ORDERED: INSULIN GLARGINE,HUM.REC.ANLOG 300 UNIT/3 ML INSULN.PEN SUBCUT SCH ×2 (10:00→22:00)
[2018-06-23] MEDS: INSULIN GLARGINE,HUM.REC.ANLOG 300 UNIT/3 ML INSULN.PEN SUBCUT SCH ×2 (10:34→22:47)
[2018-06-23] MEDS: CARVEDILOL 6.25 MG TABLET PO SCH ×2 (10:36→22:46)
[2018-06-23] MEDS: VENLAFAXINE HCL 75 MG CAP.SR.24H PO SCH (10:36)
[2018-06-23] MEDS: AMLODIPINE BESYLATE 10 MG TABLET PO SCH (10:36)
[2018-06-23] MEDS: POTASSIUM CHLORIDE 10 MEQ CAPSULE.ER PO SCH ×2 (10:36→22:46)
[2018-06-23] MEDS: DOCUSATE SODIUM 100 MG CAPSULE PO SCH ×2 (10:36→17:32)
[2018-06-23] MEDS: NYSTATIN TOPICAL POWDER 15 GM TP SCH ×2 (10:37→17:44)
[2018-06-23] MEDS: ACETAMINOPHEN 325 MG TABLET PO PRN ×2 (10:37→17:31)
[2018-06-23] MEDS: MEMANTINE HCL 10 MG TABLET PO SCH ×2 (10:37→17:32)
[2018-06-23] MEDS: FAMOTIDINE 20 MG TABLET PO SCH ×2 (10:37→22:47)
[2018-06-23] MEDS: INSULIN LISPRO 100 UNIT/ML 3 ML VIAL SUBCUT PRN ×3 (11:59→22:48)
[2018-06-23] MEDS: ATORVASTATIN CALCIUM 40 MG TABLET PO SCH (22:46)
[2018-06-23] MEDS: TRAZODONE HCL 50 MG TABLET PO SCH (22:46)
[2018-06-24] MEDS: HYDRALAZINE HCL 10 MG TABLET PO SCH ×3 (05:26→22:59)
[2018-06-24] MEDS: HEPARIN SOD (PORCINE) 5,000 UNIT/ML 1 ML SYRINGE SUBCUT SCH ×3 (05:27→22:57)
[2018-06-24] MEDS: POTASSIUM CHLORIDE 10 MEQ CAPSULE.ER PO SCH ×2 (10:08→22:59)
[2018-06-24] MEDS: MEMANTINE HCL 10 MG TABLET PO SCH ×2 (10:08→17:34)
[2018-06-24] MEDS: FAMOTIDINE 20 MG TABLET PO SCH ×2 (10:08→22:59)
[2018-06-24] MEDS: AMLODIPINE BESYLATE 10 MG TABLET PO SCH (10:08)
[2018-06-24] MEDS: ACETAMINOPHEN 325 MG TABLET PO PRN ×2 (10:08→17:32)
[2018-06-24] MEDS: CARVEDILOL 6.25 MG TABLET PO SCH ×2 (10:08→22:59)
[2018-06-24] MEDS: INSULIN GLARGINE,HUM.REC.ANLOG 300 UNIT/3 ML INSULN.PEN SUBCUT SCH ×2 (10:09→22:58)
[2018-06-24] MEDS: DOCUSATE SODIUM 100 MG CAPSULE PO SCH ×2 (10:09→17:28)
[2018-06-24] MEDS: VENLAFAXINE HCL 75 MG CAP.SR.24H PO SCH (10:09)
[2018-06-24] MEDS: NYSTATIN TOPICAL POWDER 15 GM TP SCH ×2 (11:05→17:30)
--- NOTE | 2018-06-24 13:51 | PDOC PROGRESS REPORT ---
Subjective Progress Note for:: 06/24/18 Subjective:: The patient is in good spirits. She is actually eating lunch. Her daughter is at the bedside. Reason For Visit: ACUTE ENCEPHALOPATHY,(ALTERED MENTAL STATUS) Physical Exam Vital Signs: Temp Pulse Resp BP Pulse Ox 97.9 F 88 18 150/62 H 100 06/23/18 23:34 06/23/18 23:34 06/23/18 23:34 06/23/18 23:34 06/23/18 23:34 Intake & Output 06/23/18 06/24/18 06/25/18 06:59 06:59 06:59 Intake Total 1340 888 Output Total 500 Balance 1340 388 Weight 84.6 kg 82.9 kg General appearance: PRESENT: no acute distress, cooperative Mouth exam: PRESENT: other - Eating lunch Respiratory exam: PRESENT: clear to auscultation ita, symmetrical, unlabored. ABSENT: rales, rhonchi, wheezes Cardiovascular exam: PRESENT: RRR, +S1, +S2 GI/Abdominal exam: PRESENT: normal bowel sounds, soft. ABSENT: distended, tenderness Extremities exam: PRESENT: joint swelling - Right knee and ankle Musculoskeletal exam: PRESENT: tenderness - Right knee and ankle Neurological exam: PRESENT: alert, awake, oriented to person, oriented to place Psychiatric exam: PRESENT: appropriate affect, normal mood. ABSENT: agitated Focused psych exam: ABSENT: delusional, restlessness Results Laboratory Results: 06/22/18 06:37 06/22/18 06:37 06/16/18 06/16/18 06/16/18 06:50 06:50 12:45 Creatine Kinase 52 62 CK-MB (CK-2) 1.01 Troponin I 0.042 NT-Pro-B Natriuret Pep 06/16/18 06/16/18 06/16/18 12:45 19:00 19:00 Creatine Kinase 46 CK-MB (CK-2) 1.19 0.82 Troponin I 0.026 0.020 NT-Pro-B Natriuret Pep 06/17/18 04:38 Creatine Kinase CK-MB (CK-2) Troponin I NT-Pro-B Natriuret Pep 7380 H Impressions: Chest X-Ray 06/16/18 00:29 IMPRESSION: No acute cardiopulmonary process copyright 2011 [employer]- All Rights Reserved Head CT 06/16/18 00:29 IMPRESSION: Atrophy with small vessel ischemic change. Right maxillary sinusitis. TECHNICAL DOCUMENTATION: Quality ID # 436: Final reports with documentation of one or more dose reduction techniques (e.g., Automated exposure control, adjustment of the mA and/or kV according to patient size, use of iterative reconstruction technique) copyright 2010 [employer]- All Rights Reserved Cervical Spine CT 06/16/18 00:35 IMPRESSION: No CT evidence for acute C-spine abnormality. Multilevel degenerative change TECHNICAL DOCUMENTATION: Quality ID # 436: Final reports with documentation of one or more dose reduction techniques (e.g., Automated exposure control, adjustment of the mA and/or kV according to patient size, use of iterative reconstruction technique) copyright 2010 [employer]- All Rights Reserved Femur X-Ray 06/16/18 00:35 IMPRESSION: No acute osseous abnormality copyright 2010 [employer]- All Rights Reserved Tibia/Fibula X-Ray 06/16/18 00:35 IMPRESSION: Osteopenia. No acute osseous abnormality copyright 2010 [employer]- All Rights Reserved Ankle X-Ray 06/23/18 08:00 IMPRESSION: Cellulitis. No evidence of osteomyelitis. Assessment & Plan - Diagnosis (1) Acute encephalopathy Is this a current diagnosis for this admission?: Yes Plan: Appears to be at baseline. No additional intervention at this time. (2) Vascular dementia Qualifiers: Dementia behavioral disturbance: with behavioral disturbance Qualified Code(s): F01.51 - Vascular dementia with behavioral disturbance Is this a current diagnosis for this admission?: Yes Plan: Still with some memory/cognitive issues. Currently on Namenda. The patient's daughter has requested that psychiatry see the patient. This is in anticipation of placement issues. The daughter already has the healthcare power of tobacco cutter but we will evaluate to see if guardianship should be pursued. (3) HTN (hypertension) Qualifiers: Hypertension type: essential hypertension Qualified Code(s): I10 - Essential (primary) hypertension Is this a current diagnosis for this admission?: Yes Plan: Still with slightly elevated systolic pressures. I will add low-dose lisinopril. (4) Hyperglycemia due to type 2 diabetes mellitus Qualifiers: Diabetes mellitus superintendent container terminal insulin use: with [facility] use Qualified Code(s): E11.65 - Type 2 diabetes mellitus with hyperglycemia; Z79.4 - superintendent container terminal (current) use of insulin; Z79.4 - shelter (current) use of insulin; Z79.4 - superintendent container terminal (current) use of insulin; Z79.4 - shelter (current) use of insulin Is this a current diagnosis for this admission?: Yes Plan: She does seem to have higher sugars in the afternoon. I will increase the morning Lantus slightly. (5) Multiple falls Is this a current diagnosis for this admission?: Yes Plan: Will require ongoing therapy in a skilled facility (6) Depression Qualifiers: Depression Type: other depression Qualified Code(s): F32.89 - Other specified depressive episodes Is this a current diagnosis for this admission?: Yes Plan: Continue BuSpar, Effexor and trazodone. Seems to be effective. She has been in fairly good spirits for the last several days. (7) Right ankle pain Qualifiers: Chronicity: acute Qualified Code(s): M25.571 - Pain in right ankle and joints of right foot Is this a current diagnosis for this admission?: Yes Plan: No fracture on x-ray. Continue symptomatic care. - Time Time Spent with patient: 15-24 minutes Medications reviewed and adjusted accordingly: Yes Anticipated discharge: SNF
[2018-06-24 14:29] LABS: HEMATOCRIT 25.2 % (36.0-47.0); HEMOGLOBIN 8.2 g/dL (12.0-15.5); MEAN CORPUSCULAR HEMOGLOBIN 27.4 pg (27.0-33.4); MEAN CORPUSCULAR HGB CONC 32.8 g/dL (32.0-36.0); MEAN CORPUSCULAR VOLUME 84 fl (80-97); PLATELET COUNT 275 10^3/uL (150-450); RED BLOOD COUNT 3.01 10^6/uL (3.72-5.28); RED CELL DISTRIBUTION WIDTH 16.7 % (11.5-14.0); WHITE BLOOD COUNT 12.7 10^3/uL (4.0-10.5)
[2018-06-24 14:55] LABS: ANION GAP 7 (5-19); BLOOD UREA NITROGEN 31 mg/dL (7-20); CALCIUM 7.7 mg/dL (8.4-10.2); CARBON DIOXIDE 22 mmol/L (22-30); CHLORIDE 109 mmol/L (98-107); GLUCOSE 121 mg/dL (75-110); POTASSIUM 5.9 mmol/L (3.6-5.0); SODIUM 137.7 mmol/L (137-145)
--- NOTE | 2018-06-24 17:10 | PSYCHOLOGICAL NOTE ---
Psych Note - Psych Note Date seen by psych provider: 06/24/18 Time seen by psych provider: 15:00 Psych Note: Reason for Consult:Capacity Patient's daughter Inna QUVEEDO is a 62 year old female who presented to [facility] with concerns of decreased ability in her mental status. Patient was unaware that Cabot had passed and believes the current president is Lomas. When asked if she can remember previous presidents she reports that she knows Objulian was president for two terms. She is aware she is at [facility] in [place], [place] in [facility]. She lacks abstract, rational and higher cortical reasoning including decision making and safety reasoning with the ability to maintain her own safety and that of others. These deficits place her at significant risk for engaging in high risk behaviors, becoming seriously injured or in or a victim of crime without 24-hour supervision. Patient is felt to lack capacity at this time, thus it is recommended the patient's MPOA is activated.
[2018-06-24] MEDS: TRAZODONE HCL 50 MG TABLET PO SCH (22:59)
[2018-06-24] MEDS: ATORVASTATIN CALCIUM 40 MG TABLET PO SCH (22:59)
[2018-06-25] MEDS: HYDRALAZINE HCL 10 MG TABLET PO SCH ×2 (05:27→14:52)
[2018-06-25] MEDS: HEPARIN SOD (PORCINE) 5,000 UNIT/ML 1 ML SYRINGE SUBCUT SCH ×2 (05:28→14:54)
[2018-06-25] MEDS ORDERED: ACETAMINOPHEN 325 MG TABLET PO PRN (07:38)
[2018-06-25] MEDS ORDERED: ACETAMINOPHEN 650 MG SUPP.RECT PR PRN (08:00)
[2018-06-25] MEDS ORDERED: ONDANSETRON HCL INJ/PF 4 MG/2 ML SDV IV PRN (08:00)
[2018-06-25] MEDS ORDERED: ONDANSETRON 4 MG TAB.RAPDIS PO PRN (08:00)
[2018-06-25] MEDS: CARVEDILOL 6.25 MG TABLET PO SCH (09:46)
[2018-06-25] MEDS: VENLAFAXINE HCL 75 MG CAP.SR.24H PO SCH (09:47)
[2018-06-25] MEDS: AMLODIPINE BESYLATE 10 MG TABLET PO SCH (09:47)
[2018-06-25] MEDS: DOCUSATE SODIUM 100 MG CAPSULE PO SCH ×2 (09:47→18:12)
[2018-06-25] MEDS: MEMANTINE HCL 10 MG TABLET PO SCH ×2 (09:47→18:12)
[2018-06-25] MEDS ORDERED: LISINOPRIL 5 MG TABLET PO SCH (10:00)
[2018-06-25] MEDS ORDERED: BUSPIRONE HCL 10 MG TABLET PO SCH ×2 (10:00→14:00)
[2018-06-25] MEDS ORDERED: INSULIN GLARGINE,HUM.REC.ANLOG 300 UNIT/3 ML INSULN.PEN SUBCUT SCH (10:00)
[2018-06-25] MEDS: NYSTATIN TOPICAL POWDER 15 GM TP SCH (10:25)
--- NOTE | 2018-06-25 12:42 | PDOC TRANSFER SUMMARY ---
General - Admit/Disc Date/PCP Admission Date/Primary Care Provider: 06/16/18 06:30 KATHARINE BUSTAMANTE NP Discharge Date: 06/25/18 - Discharge Diagnosis (1) Acute encephalopathy Is this a current diagnosis for this admission?: Yes Summary: There was no focal etiology identified. The patient did not have evidence of cystitis. She was having orthostatic hypotension but this alone typically does not cause encephalopathy. Regardless, per her daughter, she is back to baseline. She does have underlying dementia as well. There have been changes in her medication regimen and this could also contribute to improved status. (2) Vascular dementia Is this a current diagnosis for this admission?: Yes Summary: The patient is stable. The goal is to provide good blood pressure control. She is on Namenda 10 mg twice daily. She was having orthostatic hypotension and thus could have had decreased cerebral perfusion. She is stable at this time and back to her baseline. (3) HTN (hypertension) Is this a current diagnosis for this admission?: Yes Summary: Multiple changes in medication were made during this hospitalization. Currently she is on hydralazine, Norvasc, Coreg and lisinopril. She in fact is on fewer medications than at home. She still can exhibit orthostasis. Part of this is due to her profound weakness and the fact that she has not been out of bed much due to her gait instability, weakness and a sore right knee (sustained in a fall at home). (4) Hyperglycemia due to type 2 diabetes mellitus Is this a current diagnosis for this admission?: Yes Summary: Sugars are under better control. Continue consistent carbohydrate and cardiac diet. Changes in insulin dosing were made. Follow current schedule and adjust as clinically indicated. (5) Multiple falls Is this a current diagnosis for this admission?: Yes Summary: The patient had gait instability at home. This could be a symptom of her progressive dementia. Physical therapy has been working with the patient and her gait has not significantly improved. She will transition to custodial for ongoing therapy. (6) Depression Is this a current diagnosis for this admission?: Yes Summary: The patient is typically in a good mood. We will continue her Effexor (at a lower dose than previously) as well as BuSpar and trazodone. (7) Right ankle pain Is this a current diagnosis for this admission?: Yes - Additional Information Resuscitation Status: Full Code Discharge Diet: Cardiac Discharge Activity: Other - Requires physical therapy. Currently not ambulating. Home Medications: Amlodipine Besylate [Norvasc 10 mg Tablet] 10 mg PO DAILY 06/16/18 Atorvastatin Calcium [Lipitor 40 mg Tablet] 40 mg PO QHS 06/16/18 Isosorbide Mononitrate [Imdur 30 mg Tablet.er] 30 mg PO DAILY 06/16/18 Memantine HCl [Namenda 10 mg Tablet] 10 mg PO BID 06/16/18 Trazodone HCl [Desyrel 50 mg Tablet] 50 mg PO QHS 06/16/18 Amlodipine Besylate [Norvasc 10 mg Tablet] 10 mg PO DAILY tablet 06/25/18 Buspirone HCl [Buspar 10 mg Tablet] 5 mg PO Q8 tablet 06/25/18 Carvedilol [Coreg 6.25 mg Tablet] 6.25 mg PO Q12 tablet 06/25/18 Docusate Sodium [Colace 100 mg Capsule] 100 mg PO BID capsule 06/25/18 Famotidine [Pepcid 20 mg Tablet] 20 mg PO QHS tablet 06/25/18 Hydralazine HCl [Apresoline 10 mg Tablet] 5 mg PO Q8 tablet 06/25/18 Hydralazine HCl [Apresoline 10 mg Tablet] 10 mg PO Q4HP PRN tablet 06/25/18 Insulin Glargine,Hum.rec.anlog [Lantus Insulin 100 Unit/mL] 22 unit SUBCUT QHS insuln.pen 06/25/18 Insulin Glargine,Hum.rec.anlog [Lantus Insulin 100 Unit/mL] 28 unit SUBCUT DAILY insuln.pen 06/25/18 Insulin Lispro [Humalog Insulin (Lispro) 100 unit/mL] 0 - 12 unit SUBCUT ACHSP PRN unit 06/25/18 Lisinopril [Prinivil 5 mg Tablet] 2.5 mg PO DAILY tablet 06/25/18 Venlafaxine HCl ER [Effexor Xr 75 mg Cap.sr] 75 mg PO [id number] cap.sr.24h 06/25/18 History of Present Illness Admission Date/PCP: 06/16/18 06:30 KATHARINE BUSTAMANTE NP Patient complains of: Please also see the admission history and physical. Patient presented with significant confusion and weakness. History of Present Illness: DALIA QUEVEDO is a 62 year old female with a history of vascular dementia, depression, hypertension and diabetes. Family noted that she has been falling more at home. When she had an episode of urinary incontinence (typically occurred with cystitis in the past) her son called EMS so that she might be evaluated at the hospital. She does have a history of vascular dementia. Family reports that her gait has been declining. She has had multiple falls just prior to admission. Evaluation in the hospital ruled out cystitis. She did exhibit confusion and weakness. She was admitted to the hospitalist service for inpatient treatment. Hospital Course Hospital Course: During the early hospitalization the patient was still having significant orthostasis. Multiple adjustments were made in her medications. The orthosta sis has improved but certainly needs to be monitored. In addition her confusion cleared. Family feels that she is back at baseline. They do understand that dementia is a chronic progressive illness. Her mood improved. She is pleasantly conversive during my encounters. She still lacks the capacity to live on her own and make decisions (see psychiatry note). Her daughter does have medical power of custodial laborer and because of her compromised capacity the daughter should make the medical decisions for the patient. The patient did display ongoing weakness. This certainly could be a sign of her chronic progressive dementia. Physical therapy was working with the patient. At discharge she will need ongoing therapy to regain as much strength and balance as possible. Physical Exam Vital Signs: Temp Pulse Resp BP Pulse Ox 97.9 F 88 17 167/70 H 98 06/25/18 07:53 06/25/18 07:53 06/25/18 07:53 06/25/18 07:53 06/25/18 07:53 Intake & Output 06/24/18 06/25/18 06/26/18 06:59 06:59 06:59 Intake Total 888 320 Output Total 500 480 Balance 388 -160 Weight 82.9 kg 82 kg Results Laboratory Results: 06/24/18 13:43 06/24/18 13:43 06/24/18 06/24/18 13:43 13:43 WBC 12.7 H RBC 3.01 L Hgb 8.2 L Hct 25.2 L MCV 84 MCH 27.4 MCHC 32.8 RDW 16.7 H Plt Count 275 Sodium 137.7 Potassium 5.9 H Chloride 109 H Carbon Dioxide 22 Anion Gap 7 BUN 31 H Creatinine 1.68 H Est GFR ( Amer) 37 L Est GFR (Non-Af Amer) 31 L Glucose 121 H Calcium 7.7 L 06/16/18 06/16/18 06/16/18 06:50 06:50 12:45 Creatine Kinase 52 62 CK-MB (CK-2) 1.01 Troponin I 0.042 NT-Pro-B Natriuret Pep 06/16/18 06/16/18 06/16/18 12:45 19:00 19:00 Creatine Kinase 46 CK-MB (CK-2) 1.19 0.82 Troponin I 0.026 0.020 NT-Pro-B Natriuret Pep 06/17/18 04:38 Creatine Kinase CK-MB (CK-2) Troponin I NT-Pro-B Natriuret Pep 7380 H Impressions: Chest X-Ray 06/16/18 00:29 IMPRESSION: No acute cardiopulmonary process copyright 2010 [employer]- All Rights Reserved Head CT 06/16/18 00:29 IMPRESSION: Atrophy with small vessel ischemic change. Right maxillary sinusitis. TECHNICAL DOCUMENTATION: Quality ID # 436: Final reports with documentation of one or more dose reduction techniques (e.g., Automated exposure control, adjustment of the mA and/or kV according to patient size, use of iterative reconstruction technique) copyright 2010 [employer]- All Rights Reserved Cervical Spine CT 06/16/18 00:35 IMPRESSION: No CT evidence for acute C-spine abnormality. Multilevel degenerative change TECHNICAL DOCUMENTATION: Quality ID # 436: Final reports with documentation of one or more dose reduction techniques (e.g., Automated exposure control, adjustment of the mA and/or kV according to patient size, use of iterative reconstruction technique) copyright 2010 [employer]- All Rights Reserved Femur X-Ray 06/16/18 00:35 IMPRESSION: No acute osseous abnormality copyright 2010 [employer] All Rights Reserved Tibia/Fibula X-Ray 06/16/18 00:35 IMPRESSION: Osteopenia. No acute osseous abnormality copyright 2010 [employer] All Rights Reserved Ankle X-Ray 06/23/18 08:00 IMPRESSION: Cellulitis. No evidence of osteomyelitis. Transfer Plan - Disposition Transfer Plan: The patient will transfer to [facility]. She will undergo therapy. Based on her response the next level of care can be determined. - Time Spent with Patient Time spent with patient: Greater than 30 Minutes Qualifiers - * PATIENT BEING DISCHARGED WITH ANY OF THE FOLLOWING DIAGNOSIS: No Plan Discharge Plan: As outlined above Time Spent: Greater than 30 Minutes
[2018-06-25 20:14] VITALS: BP 139/65
[2018-06-25] MEDS ORDERED: FAMOTIDINE 20 MG TABLET PO SCH (22:00)
== END 2018-06-25 20:10 | DRG 71 ==
LOC: ER 23:56 → EH 06-16 06:30 → 5 06-16 08:44 → UNDODISIN 06-20 10:10
PROVIDERS: ADMIT Emergency Medicine; ATTEND Emergency Medicine
DX: G93.40 Encephalopathy, unspecified (principal); I13.0 Hypertensive heart and chronic kidney disease with heart failure and stage 1 through stage 4 chronic kidney disease, or unspecified chronic kidney disease; Z91.81 History of falling; Z87.440 Personal history of urinary (tract) infections; N18.9 Chronic kidney disease, unspecified; E11.65 Type 2 diabetes mellitus with hyperglycemia; I50.9 Heart failure, unspecified; E78.5 Hyperlipidemia, unspecified; E66.9 Obesity, unspecified; M25.571 Pain in right ankle and joints of right foot; E11.22 Type 2 diabetes mellitus with diabetic chronic kidney disease; R63.4 Abnormal weight loss; K21.9 Gastro-esophageal reflux disease without esophagitis; M19.90 Unspecified osteoarthritis, unspecified site; F01.50 Vascular dementia, unspecified severity, without behavioral disturbance, psychotic disturbance, mood disturbance, and anxiety; F32.9 Major depressive disorder, single episode, unspecified; Z83.3 Family history of diabetes mellitus; Z84.89 Family history of other specified conditions; Z79.4 Long term (current) use of insulin; Z88.6 Allergy status to analgesic agent
CPT/HCPCS: 36415; 70450; 71045; 72125; 80048; 80053; 80061; 80307; 81001; 82140; 82550; 82553; 82607; 82728; 82746; 82803; 82962; 83036; 83540; 83550; 83735; 83880; 84439; 84443; 84466; 84481; 84484; 84550; 85025; 85027; 87040; 87086; 93306; 99285; G8978-GP; G8979-GP; G8987-GO; G8988-GO; J1644; J1815; J3490

== ENCOUNTER 2018-07-06 16:04 | Emergency (ER) | payer MEDICARE ==
[2018-07-06] MEDS ORDERED: NORMAL SALINE 250 ML IV PRN (16:39)
[2018-07-06 16:45] LABS: ABSOLUTE LYMPHOCYTES (AUTO) 0.7 10^3/uL (0.5-4.7); ABSOLUTE MONOCYTES (AUTO) 0.6 10^3/uL (0.1-1.4); BASOPHILS % (AUTO) 0.3 % (0-2); EOSINOPHILS % (AUTO) 0.1 % (0-6); HEMATOCRIT 21.6 % (36.0-47.0); LYMPHOCYTES % (AUTO) 9.3 % (13-45); MEAN CORPUSCULAR HEMOGLOBIN 27.7 pg (27.0-33.4); MEAN CORPUSCULAR HGB CONC 32.9 g/dL (32.0-36.0); MEAN CORPUSCULAR VOLUME 84 fl (80-97); MONOCYTES % (AUTO) 7.6 % (3-13); PLATELET COUNT 375 10^3/uL (150-450); RED BLOOD COUNT 2.57 10^6/uL (3.72-5.28); RED CELL DISTRIBUTION WIDTH 16.8 % (11.5-14.0); SEGMENTED NEUTROPHILS % (AUTO) 82.7 % (42-78); TOTAL CELLS COUNTED % (AUTO) 100 %; WHITE BLOOD COUNT 7.3 10^3/uL (4.0-10.5)
[2018-07-06 16:47] LABS: HEMOGLOBIN 7.1 g/dL (12.0-15.5)
[2018-07-06 16:56] LABS: ALANINE AMINOTRANSFERASE 38 U/L (9-52); ALBUMIN 2.1 g/dL (3.5-5.0); ALKALINE PHOSPHATASE 228 U/L (38-126); ANION GAP 7 (5-19); ASPARTATE AMINO TRANSFERASE 41 U/L (14-36); BILIRUBIN,DIRECT 0.2 mg/dL (0.0-0.4); BILIRUBIN,TOTAL 0.2 mg/dL (0.2-1.3); BLOOD UREA NITROGEN 41 mg/dL (7-20); CALCIUM 7.4 mg/dL (8.4-10.2); CARBON DIOXIDE 22 mmol/L (22-30); CHLORIDE 107 mmol/L (98-107); GLUCOSE 130 mg/dL (75-110); POTASSIUM 4.1 mmol/L (3.6-5.0); SODIUM 135.9 mmol/L (137-145); TOTAL PROTEIN 6.1 g/dL (6.3-8.2)
--- NOTE | 2018-07-06 16:58 | ER Document Report ---
ED General - General Chief Complaint: Abnormal Lab Results Stated Complaint: WEAKNESS Time Seen by Provider: 07/06/18 16:28 Mode of Arrival: Medic Information source: Patient, Outside Facility Records Notes: Patient is a 62-year-old female who presents to the emergency department from [facility] with complaint of low hemoglobin. Nursing staff reports that they milly labs this morning at about 10 AM and she had a hemoglobin of 6.5. Patient has had history of blood transfusions in the past. She states the last one was about 2 years ago. Patient does have baseline dementia however she is answering all questions appropriately. Patient denies any known episodes of bleeding to include vaginal bleeding or blood in her stool. TRAVEL OUTSIDE OF THE [place] IN LAST 30 DAYS: No - Related Data Allergies/Adverse Reactions: morphine Allergy (Verified 06/04/18 21:21) Past Medical History - General Information source: Patient - Social History Smoking Status: Unknown if Ever Smoked Family History: DM, Other - Alzheimer's Patient has suicidal ideation: Yes Patient has homicidal ideation: No - Past Medical History Cardiac Medical History: Reports: Hx Congestive Heart Failure, Hx Hyperc holesterolemia, Hx Hypertension Denies: Hx Coronary Artery Disease, Hx Heart Attack, Hx Heart Murmur Pulmonary Medical History: Denies: Hx Asthma, Hx Bronchitis, Hx COPD, Hx Pneumonia Neurological Medical History: Denies: Hx Cerebrovascular Accident, Hx Seizures Endocrine Medical History: Reports: Hx Diabetes Mellitus Type 2 Renal/ Medical History: Reports: Hx Renal Insufficiency. Denies: Hx Peritoneal Dialysis GI Medical History: Reports: Hx Gastroesophageal Reflux Disease. Denies: Hx Hepatitis, Hx Hiatal Hernia, Hx Ulcer Musculoskeletal Medical History: Reports Hx Arthritis, Denies Hx Gout, Denies Hx Multiple Sclerosis Skin Medical History: Denies Hx Eczema, Denies Hx Psoriasis Psychiatric Medical History: Reports: Hx Dementia, Hx Depression Infectious Medical History: Denies: Hx Hepatitis Past Surgical History: Reports: Hx Tonsillectomy, Other - Abdominal wall surgery for infection. Denies: Hx Hysterectomy, Hx Mastectomy, Hx Open Heart Surgery, Hx Pacemaker - Immunizations Hx Diphtheria, Pertussis, Tetanus Vaccination: Yes Hx Pneumococcal Vaccination: 04/21/14 Review of Systems - Review of Systems Constitutional: Other - Generalized fatigue EENT: No symptoms reported Cardiovascular: No symptoms reported Respiratory: No symptoms reported Gastrointestinal: No symptoms reported Genitourinary: No symptoms reported Female Genitourinary: No symptoms reported Musculoskeletal: No symptoms reported Skin: No symptoms reported Hematologic/Lymphatic: No symptoms reported Neurological/Psychological: No symptoms reported Physical Exam - Vital signs Vitals: Resp 15 07/06/18 16:26 - Notes Notes: PHYSICAL EXAMINATION: GENERAL: Elderly female in no acute distress. HEAD: Atraumatic, normocephalic. EYES: Pupils equal round and reactive to light, extraocular movements intact, conjunctiva are normal. ENT: Nares patent, oropharynx clear without exudates. Moist mucous membranes. NECK: Normal range of motion, supple without lymphadenopathy LUNGS: Breath sounds clear to auscultation bilaterally and equal. No wheezes ra les or rhonchi. HEART: Regular rate and rhythm without murmurs ABDOMEN: Soft, nontender, nondistended abdomen. No guarding, no rebound. No masses appreciated. Female : No CVA tenderness Musculoskeletal: Normal range of motion, no pitting or edema. No cyanosis. NEUROLOGICAL: Cranial nerves grossly intact. Normal sensory, motor exams SKIN: Warm, Dry, normal turgor, no rashes or lesions noted. Course - Re-evaluation Re-evalutation: Patient's hemoglobin today in the emergency department is 7.1. Other than that the only abnormality with her labs is her elevated BUN and creatinine which appears to be chronic for this patient. I discussed the case with Dr. Snell who recommends that I transfuse the patient and since she is asymptomatic with stable vital signs like she can [facility]. Patient is agreeable to this plan patient gave verbal consent for blood transfusion however due to patient's history of dementia nursing staff did contact her next of kin and they also gave phone consent for the blood transfusion. - Vital Signs Vital signs: Temp Pulse Resp BP Pulse Ox 98.3 F 86 22 H 141/63 H 98 07/06/18 18:30 07/06/18 18:31 07/06/18 18:31 07/06/18 18:31 07/06/18 18:31 - Laboratory Result Diagrams: 07/06/18 16:30 07/06/18 16:30 Laboratory results interpreted by me: 07/06/18 07/06/18 07/06/18 16:30 16:30 16:35 RBC 2.57 L Hgb 7.1 L Hct 21.6 L RDW 16.8 H Seg Neutrophils % 82.7 H Lymphocytes % 9.3 L Sodium 135.9 L BUN 41 H Creatinine 2.17 H Est GFR ( Amer) 28 L Est GFR (Non-Af Amer) 23 L Glucose 130 H Calcium 7.4 L AST 41 H Alkaline Phosphatase 228 H Total Protein 6.1 L Albumin 2.1 L Crossmatch See Detail Discharge - Discharge Clinical Impression: Anemia Qualifiers: Anemia type: unspecified type Qualified Code(s): D64.9 - Anemia, unspecified Condition: Stable Disposition: HOME, SELF-CARE Additional Instructions: You were given 2 units of packed red blood cells here in the emergency department today for hemoglobin of 7.1. Please follow-up with your primary care provider regarding your chronically low hemoglobin. They may want to consider starting you on something like Procrit. Return to the emergency department if you experience any worsening symptoms such as difficulty breathing, shortness of breath, weakness or any other symptom that is concerning to you. Referrals: PEEWEE CHAVEZ MD [Primary Care Provider] - Follow up as needed
--- NOTE | 2018-07-06 19:29 | EKG REPORT ---
SEVERITY:- ABNORMAL ECG - SINUS RHYTHM RIGHT BUNDLE BRANCH BLOCK LEFT VENTRICULAR HYPERTROPHY : Confirmed by: Aissatou Hess 06-Jul-2018 19:28:43
[2018-07-07 01:11] VITALS: BP 145/70
== END 2018-07-07 01:11 | disposition home health service (06) ==
LOC: ER 16:04
DX: D64.9 Anemia, unspecified (principal); R53.1 Weakness; I50.9 Heart failure, unspecified; I11.0 Hypertensive heart disease with heart failure; E11.9 Type 2 diabetes mellitus without complications; R53.83 Other fatigue
CPT/HCPCS: 93005; 99284; 86900; 86901; 36415; 36430; 86850; 85025; 80053; 86920; 93010; P9016

== ENCOUNTER 2018-07-12 11:59 | Emergency (ER) | payer MEDICARE ==
[2018-07-12 12:47] LABS: VENOUS BLOOD BASE EXCESS -2.1 mmol/L; VENOUS BLOOD HCO3 22.4 mmol/L (20-32); VENOUS BLOOD PCO2 36.9 mmHg (35-63); VENOUS BLOOD PH 7.4 (7.30-7.42)
[2018-07-12 12:58] LABS: INTERNATIONAL RATION (INR) 1.19; PROTHROMBIN TIME 15.7 SEC (11.4-15.4)
--- NOTE | 2018-07-12 13:02 | RADIOLOGY REPORT (SQ) ---
EXAM DESCRIPTION: CT HEAD WITHOUT COMPLETED DATE/TIME: 07/12/2018 12:47 pm REASON FOR STUDY: bed 12 ams per jas altered mental status. COMPARISON: 06/16/2018 TECHNIQUE: Axial images acquired through the brain without intravenous contrast. Images reviewed wi th bone, brain and subdural windows. Additional sagittal and coronal reconstructions were generated. Images stored on PACS. All CT scanners at this facility use dose modulation, iterative reconstruction, and/or weight based d osing when appropriate to reduce radiation dose to as low as reasonably achievable (ALARA). [facility]: Dose Right [facility]: CareDose [facility]: Dose Right [facility]: Teradose 4D [facility]: Smart Technologies RADIATION DOSE: CT Rad equipment meets quality standard of care and radiation dose reduction techniq ues were employed. CTDIvol: 53.2 mGy. DLP: 1044 mGy-cm. mGy. LIMITATIONS: None. FINDINGS: VENTRICLES: Normal size and contour. CEREBRUM: No masses. No hemorrhage. No midline shift. No evidence for acute infarction. Normal gra y/white matter differentiation. Periventricular white matter hypodensity and unchanged small focus o f right occipital encephalomalacia. CEREBELLUM: No masses. No hemorrhage. No alteration of density. No evidence for acute infarction. EXTRAAXIAL SPACES: No fluid collections. No masses. ORBITS AND GLOBE: No intra- or extraconal masses. Normal contour of globe without masses. CALVARIUM: No fracture. PARANASAL SINUSES: No fluid or mucosal thickening. SOFT TISSUES: No mass or hematoma. OTHER: No other significant finding. IMPRESSION: 1. No acute intracranial pathology. 2. Small vessel white matter disease and unchanged small focus of right occipital encephalomalacia. EVIDENCE OF ACUTE STROKE: NO. COMMENT: Quality ID # 436: Final reports with documentation of one or more dose reduction techniques (e.g., Automated exposure control, adjustment of the mA and/or kV according to patient size, use of iterative reconstruction technique) TECHNICAL DOCUMENTATION: JOB ID: [id number] [employer]- All Rights Reserved Reading location - IP/workstation name: [email or web address]
[2018-07-12 13:06] LABS: ALANINE AMINOTRANSFERASE 36 U/L (9-52); ALBUMIN 2.3 g/dL (3.5-5.0); ALKALINE PHOSPHATASE 178 U/L (38-126); ANION GAP 6 (5-19); ASPARTATE AMINO TRANSFERASE 38 U/L (14-36); BILIRUBIN,DIRECT 0.3 mg/dL (0.0-0.4); BILIRUBIN,TOTAL 0.3 mg/dL (0.2-1.3); BLOOD UREA NITROGEN 47 mg/dL (7-20); CALCIUM 8.1 mg/dL (8.4-10.2); CARBON DIOXIDE 23 mmol/L (22-30); CHLORIDE 109 mmol/L (98-107); GLUCOSE 71 mg/dL (75-110); POTASSIUM 4.5 mmol/L (3.6-5.0); SODIUM 138.1 mmol/L (137-145); TOTAL PROTEIN 6.4 g/dL (6.3-8.2)
[2018-07-12 13:16] LABS: ABSOLUTE LYMPHOCYTES (AUTO) 0.9 10^3/uL (0.5-4.7); ABSOLUTE MONOCYTES (AUTO) 0.4 10^3/uL (0.1-1.4); ABSOLUTE NEUT (AUTO) 8.6 10^3/uL (1.7-8.2); BASOPHILS % (AUTO) 0.2 % (0-2); HEMOGLOBIN 8.2 g/dL (12.0-15.5); LYMPHOCYTES % (AUTO) 9.5 % (13-45); MONOCYTES % (AUTO) 4.1 % (3-13); PLATELET COUNT 276 10^3/uL (150-450); SEGMENTED NEUTROPHILS % (AUTO) 86.2 % (42-78); TOTAL CELLS COUNTED % (AUTO) 100 %
[2018-07-12 13:22] LABS: HEMATOCRIT 24.2 % (36.0-47.0); MEAN CORPUSCULAR HEMOGLOBIN 29.7 pg (27.0-33.4); MEAN CORPUSCULAR HGB CONC 33.8 g/dL (32.0-36.0); RED BLOOD COUNT 2.76 10^6/uL (3.72-5.28)
[2018-07-12 13:50] LABS: MEAN CORPUSCULAR VOLUME 88 fl (80-97)
[2018-07-12 15:55] LABS: APPEARANCE,URINE CLOUDY; BILIRUBIN,URINE NEGATIVE (NEGATIVE); COLOR,URINE YELLOW; GLUCOSE, URINE NEGATIVE (NEGATIVE); KETONES,URINE NEGATIVE (NEGATIVE); LEUKOCYTE ESTERASE,URINE TRACE (NEGATIVE); NITRITE,URINE NEGATIVE (NEGATIVE); PROTEIN,URINE >=500 mg/dL (NEGATIVE); URINE SPECIFIC GRAVITY 1.012; UROBILINOGEN,URINE NEGATIVE mg/dL (<2.0)
[2018-07-12] MEDS ORDERED: HYDROCOD/ACETAMIN 7.5-325 MG/15 ML ORAL SOLN UDCUP PO ONE (15:55)
--- NOTE | 2018-07-12 16:33 | RADIOLOGY REPORT (SQ) ---
EXAM DESCRIPTION: KNEE RIGHT 4 VIEWS COMPLETED DATE/TIME: 07/12/2018 4:22 pm REASON FOR STUDY: fall, knee pain, swelling COMPARISON: None. NUMBER OF VIEWS: Four views. TECHNIQUE: AP, lateral, and both oblique radiographic images acquired of the right knee. LIMITATIONS: None. FINDINGS: MINERALIZATION: Normal. BONES: No acute fracture or dislocation. No worrisome bone lesions. JOINT: There is mild narrowing of medial and lateral joint compartments with small marginal osteophyt es medially. There is a prominent effusion in the joint. SOFT TISSUES: No soft tissue swelling. No radio-opaque foreign body. OTHER: No other significant finding. IMPRESSION: There is mild degenerative joint disease. There is a joint effusion. If there is yrn rn for internal derangement, consider MRI. TECHNICAL DOCUMENTATION: JOB ID: [id number] [employer]- All Rights Reserved Reading location - IP/workstation name: [email or web address]
--- NOTE | 2018-07-12 17:07 | RADIOLOGY REPORT (SQ) ---
EXAM DESCRIPTION: VENOUS UNILATERAL LOWER COMPLETED DATE/TIME: 07/12/2018 4:57 pm REASON FOR STUDY: knee pain, swelling, immobilization d/t pain COMPARISON: None. TECHNIQUE: Dynamic and static berger scale and color images acquired of the right leg venous system. S elected spectral images acquired with additional compression and augmentation maneuvers. The contrala teral common femoral vein and saphenofemoral junction were also imaged. Images stored on PACS. LIMITATIONS: None. FINDINGS: COMMON FEMORAL: Normal phasicity, compression and augmentation. No visualized echogenic ma terial on berger scale. No defects on color images. FEMORAL: Normal compression and augmentation. No visualized echogenic material on berger scale. No defe cts on color images. POPLITEAL: Normal compression, augmentation. No visualized echogenic material on berger scale. No defec ts on color images. CALF VESSELS: Normal compression, augmentation. No visualized echogenic material on berger scale. No de fects on color images. GSV and SSV: Normal compression, augmentation. No visualized echogenic material on berger scale. No def ects on color images. ANY DEEP VENOUS INSUFFICIENCY: Not evaluated. ANY EVIDENCE OF POPLITEAL CYST: No. OTHER: No other significant finding. CONTRALATERAL COMMON FEMORAL VEIN AND SAPHENOFEMORAL JUNCTION: Normal phasicity, compression and augmentation. No visualized echogenic material on berger scale. No de fects on color images. IMPRESSION: NO EVIDENCE DVT OR SVT IN THE RIGHT LEG. TECHNICAL DOCUMENTATION: JOB ID: [id number] [employer]- All Rights Reserved Reading location - IP/workstation name: [email or web address]
--- NOTE | 2018-07-12 18:37 | EKG REPORT ---
SEVERITY:- ABNORMAL ECG - SINUS RHYTHM RIGHT BUNDLE BRANCH BLOCK : Confirmed by: Mellissa Marcus MD 12-Jul-2018 18:36:20
[2018-07-12] MEDS ORDERED: LIDOCAINE 5% (700 MG) TRANSDERMAL ADH..PATCH TP ONE (18:46)
[2018-07-12 19:33] VITALS: BP 126/57
--- NOTE | 2018-07-13 01:31 | ER Document Report ---
Entered by RAMANA SELBY SCRIBE 07/12/18 181 Acting as scribe for:JUSTINE GUIDRY DO ED General - General Chief Complaint: Knee Pain Stated Complaint: KNEE PAIN Time Seen by Provider: 07/12/18 15:19 Primary Care Provider: PEEWEE CHAVEZ MD [Primary Care Provider] - Follow up as needed Mode of Arrival: Medic Information source: Patient, Relative Notes: Patient is a 62 year old female with osteoarthritis, dementia, CHF, diabetes type 2, hypertension, hyperlipidemia presents to the emergency department accompanied by daughter complaining of right knee pain. Daughter states the patient has had multiple falls in 2017 and was subsequently placed in rehab. Daughter states the patient was placed on a copious amounts of pain medications which altered the patient's mental status so she asked if the patient could stop receiving them yesterday. She states the patient's mental status has significantly improved although she still has significant right knee pain. She states the patient also had some swelling although that has also imp roved. Daughter is quite concerned because the patient is set to be discharged from rehab tomorrow and go to assisted living facility. Daughter is worried that they might be missing something that would like to have the patient rechecked. Daughter states that the right is still swollen but was significantly more swollen initially Daughter states the patient has an appointment with Dr. Avila on 07/14/2018. TRAVEL OUTSIDE OF THE [place] IN LAST 30 DAYS: No - Related Data Allergies/Adverse Reactions: morphine Allergy (Verified 06/04/18 21:21) Past Medical History - General Information source: Patient - Social History Smoking Status: Never Smoker Cigarette use (# per day): No Chew tobacco use (# tins/day): No Smoking Education Provided: No Frequency of alcohol use: None Family History: DM, Other - Alzheimer's - Past Medical History Cardiac Medical History: Reports: Hx Congestive Heart Failure, Hx Hypercholesterolemia, Hx Hypertension Endocrine Medical History: Reports: Hx Diabetes Mellitus Type 2 Renal/ Medical History: Reports: Hx Renal Insufficiency GI Medical History: Reports: Hx Gastroesophageal Reflux Disease Musculoskeletal Medical History: Reports Hx Arthritis, Denies Hx Gout, Denies Hx Multiple Sclerosis Skin Medical History: Denies Hx Eczema, Denies Hx Psoriasis Psychiatric Medical History: Reports: Hx Dementia, Hx Depression Infectious Medical History: Denies: Hx Hepatitis Past Surgical History: Reports: Hx Tonsillectomy, Other - Abdominal wall surgery for infection. Denies: Hx Hysterectomy, Hx Mastectomy, Hx Open Heart Surgery, Hx Pacemaker - Immunizations Hx Diphtheria, Pertussis, Tetanus Vaccination: Yes Hx Pneumococcal Vaccination: 04/21/14 Review of Systems - Review of Systems Constitutional: No symptoms reported EENT: No symptoms reported Cardiovascular: No symptoms reported Respiratory: No symptoms reported Gastrointestinal: No symptoms reported Genitourinary: No symptoms reported Female Genitourinary: No symptoms reported Musculoskeletal: See HPI Skin: No symptoms reported Hematologic/Lymphatic: No symptoms reported Neurological/Psychological: No symptoms reported -: Yes All other systems reviewed and negative Physical Exam - Vital signs Vitals: Temp Pulse Resp BP Pulse Ox 97.5 F 94 17 119/55 L 97 07/12/18 12:07 07/12/18 12:07 07/12/18 12:07 07/12/18 12:07 07/12/18 12:07 - Notes Notes: GENERAL: Alert, interacts well. No acute distress. Obese HEAD: Normocephalic, atraumatic. EYES: Pupils equal, round, and reactive to light. Extraocular movements intact. ENT: Oral mucosa moist, tongue midline. NECK: Full range of motion. Supple. Trachea midline. LUNGS: Clear to auscultation bilaterally, no wheezes, rales, or rhonchi. No respiratory distress. HEART: Regular rate and rhythm. No murmurs, gallops, or rubs. ABDOMEN: Soft, non-tender. Non-distended. Bowel sounds present in all 4 quadrants. EXTREMITIES: Moves all 4 extremities spontaneously. Right knee is swollen, not ballotable. No prepatellar effusion. There is a suprapatellar effusion. Right knee is slightly warmer than the left. No joint line tenderness palpation. No ligamentous laxity. There is cracking sound with flexion of the right knee, able to flex to 45 degree angle. Right great toenail is missing, daughter states patient has a history of picking at skin and nails. NEUROLOGICAL: Alert and oriented x3. Normal speech. PSYCH: Normal affect, normal mood. SKIN: Warm, dry, normal turgor. No rashes or lesions noted. Course - Re-evaluation Re-evalutation: 07/13/18 01:29 CBC shows improving hemoglobin, blood gas unremarkable, CMP shows improving renal function, urinalysis does not show any signs of infection. CT scan of the head was ordered given the concerns of multiple falls and alteration of mental status. X-ray was ordered to look for a fracture. This was not seen although there was a large occlusion, venous Doppler was ordered to look for DVT this was negative. Patient was placed in a immobilizer for pain. Has a follow-up appointment with her orthopedic surgeon. Recommend discussing with him poss ibility of MRI for persistent pain and difficulty walking. Agree with daughter's decision to decrease pain medications. Patient was given 2.5 mg of hydrocodone here which controlled her pain well. Reviewed notes from [facility] which shows that the doctor actually stopped Flexeril and Ultram to day. Started 5 mg, I recommend giving a half dose. Discharged back to the [facility]. Family agreeable to this plan. - Vital Signs Vital signs: Temp Pulse Resp BP Pulse Ox 98.5 F 86 16 126/57 H 94 07/12/18 19:32 07/12/18 19:32 07/12/18 19:32 07/12/18 19:32 07/12/18 19:32 - Laboratory Result Diagrams: 07/12/18 12:30 07/12/18 12:30 Laboratory results interpreted by me: 07/12/18 07/12/18 07/12/18 12:30 12:30 12:30 RBC 2.76 L Hgb 8.2 L Hct 24.2 L RDW 17.0 H Seg Neutrophils % 86.2 H Lymphocytes % 9.5 L Absolute Neutrophils 8.6 H PT 15.7 H Chloride 109 H BUN 47 H Creatinine 1.56 H Est GFR ( Amer) 40 L Est GFR (Non-Af Amer) 33 L Glucose 71 L Calcium 8.1 L AST 38 H Alkaline Phosphatase 178 H Albumin 2.3 L Urine Protein Ur Leukocyte Esterase 07/12/18 15:40 RBC Hgb Hct RDW Seg Neutrophils % Lymphocytes % Absolute Neutrophils PT Chloride BUN Creatinine Est GFR ( Amer) Est GFR (Non-Af Amer) Glucose Calcium AST Alkaline Phosphatase Albumin Urine Protein >=500 H Ur Leukocyte Esterase TRACE H Procedures - Immobilization Right Knee Pre-Proc Neuro Vasc Exam: Normal Immobilizer type: Knee immobilizer Performed by: PCT Post-Proc Neuro Vasc Exam: Normal, Unchanged from pre-exam Alignment checked and good: Yes Discharge - Discharge Clinical Impression: Swelling of right knee joint Right knee pain Qualifiers: Chronicity: acute Qualified Code(s): M25.561 - Pain in right knee Condition: Stable Disposition: REHAB FACILITY Additional Instructions: The doctor at the rehab facility orders today to stop the Flexeril and stop the tramadol, she has ordered Seaside 1 tablet 5/325 mg tablets every 4-6 hours as needed for pain. Based off of the medication dosage that we gave her here I would recommend giving half a tablet every 4-6 hours rather than a full tablet every 4-6 hours. They can always give her the second tablet if she is still having pain or later. Please follow-up with Dr. Avila as scheduled on Thursday. They may wish to consider doing of her knee. X-rays here did not show any fracture. There was an effusion but no evidence of infection. Prescriptions: Hydrocodone/Acetaminophen [Seaside 5-325 mg Tablet] 0.5 tab PO Q4HP PRN #10 tablet PRN Reason: For Pain Referrals: PEEWEE CHAVEZ MD [Primary Care Provider] - Follow up as needed Scribe Attestation: 07/13/18 01:30 I personally performed the services described in the documentation, reviewed and edited the documentation which was dictated to the scribe in my presence, and it accurately records my words and actions. I personally performed the services described in the documentation, reviewed and edited the documentation which was dictated to the scribe in my presence, and it accurately records my words and actions.
== END 2018-07-12 19:33 ==
LOC: ER 11:59
DX: M25.461 Effusion, right knee (principal); M25.561 Pain in right knee; F03.90 Unspecified dementia, unspecified severity, without behavioral disturbance, psychotic disturbance, mood disturbance, and anxiety; I50.9 Heart failure, unspecified; I11.0 Hypertensive heart disease with heart failure; E11.9 Type 2 diabetes mellitus without complications; E66.9 Obesity, unspecified; E78.5 Hyperlipidemia, unspecified; Z88.6 Allergy status to analgesic agent
CPT/HCPCS: 93005; 99285; 36415; 87040; 87086; 87205; 87070; 85025; 85610; 87075; 87077; 80053; 81001; 82803; 83605; 93971; 73564; 70450; 93010; L1830; 87186

== ENCOUNTER 2018-07-13 10:58 | Inpatient (IN) | payer MEDICARE ==
--- NOTE | 2018-07-13 11:45 | ER Document Report ---
ED General - General Chief Complaint: Abnormal Lab Results Stated Complaint: ABNORMAL LABS Time Seen by Provider: 07/13/18 11:16 Primary Care Provider: PEEWEE CHAVEZ MD [Primary Care Provider] - Follow up as needed Mode of Arrival: Medic Information source: Relative Notes: 62-year-old female with a history of dementia is brought to the emergency department today for 2+ blood cultures that show gram-positive cocci in chains. Patient was seen in the emergency department yesterday for complaints of right knee pain. Patient currently at [facility] but is being transferred to [facility] living facility today. Daughter was concerned because she's still having R knee pain. Labs and imaging were obtained. Her white blood cell count was normal. Lactic acid was normal. UA shows contaminated specimen vs infection. An x-ray of the right knee was done and showed an effusion. Venous Doppler was done and negative. Patient was discharged back to [facility] and told to follow up with Dr. Avila for MRI. UA was not treated for suspicion of contamination. Patient's daughter is at bedside. She states that she has been having pain in the right knee for the last month. She states that the patient was admitted to the hospital around [place] but does not think that anyone addressed the right knee. TRAVEL OUTSIDE OF THE [place] IN LAST 30 DAYS: No - HPI Onset: Other - 1 month Onset/Duration: Persistent Severity: Severe Exacerbated by: Movement Relieved by: Denies Similar symptoms previously: Yes Recently seen / treated by doctor: Yes - Related Data Allergies/Adverse Reactions: morphine Allergy (Verified 07/13/18 11:07) Past Medical History - General Information source: Relative - Social History Smoking Status: Unknown if Ever Smoked Family History: DM, Other - Alzheimer's Patient has suicidal ideation: No Patient has homicidal ideation: No - Past Medical History Cardiac Medical History: Reports: Hx Congestive Heart Failure, Hx Hypercholesterolemia, Hx Hypertension Denies: Hx Coronary Artery Disease, Hx Heart Attack, Hx Heart Murmur Pulmonary Medical History: Denies: Hx Asthma, Hx Bronchitis, Hx COPD, Hx Pneumonia Neurological Medical History: Denies: Hx Cerebrovascular Accident, Hx Seizures Endocrine Medical History: Reports: Hx Diabetes Mellitus Type 2 Renal/ Medical History: Reports: Hx Renal Insufficiency. Denies: Hx Peritoneal Dialysis GI Medical History: Reports: Hx Gastroesophageal Reflux Disease. Denies: Hx Hepatitis, Hx Hiatal Hernia, Hx Ulcer Musculoskeletal Medical History: Reports Hx Arthritis, Denies Hx Gout, Denies Hx Multiple Sclerosis Skin Medical History: Denies Hx Eczema, Denies Hx Psoriasis Psychiatric Medical History: Reports: Hx Dementia, Hx Depression Infectious Medical History: Denies: Hx Hepatitis Past Surgical History: Reports: Hx Tonsillectomy, Other - Abdominal wall surgery for infection. Denies: Hx Hysterectomy, Hx Mastectomy, Hx Open Heart Surgery, Hx Pacemaker - Immunizations Hx Diphtheria, Pertussis, Tetanus Vaccination: Yes Hx Pneumococcal Vaccination: 04/21/14 Review of Systems - Review of Systems Constitutional: No symptoms reported EENT: No symptoms reported Cardiovascular: No symptoms reported Respiratory: No symptoms reported Gastrointestinal: No symptoms reported Genitourinary: No symptoms reported Musculoskeletal: Joint pain Skin: No symptoms reported Hematologic/Lymphatic: No symptoms reported Neurological/Psychological: No symptoms reported -: Yes All other systems reviewed and negative Physical Exam - Vital signs Vitals: Temp Pulse Resp BP Pulse Ox 97.4 F 92 18 133/62 H 94 07/13/18 11:07 07/13/18 11:07 07/13/18 11:07 07/13/18 11:07 07/13/18 11:07 - Notes Notes: PHYSICAL EXAMINATION: GENERAL: Ill appearing. No acute distress. HEAD: Atraumatic, Alert only to person. EYES: Pupils equal round and reactive to light, extraocular movements intact, conjunctiva are normal. ENT: Nares patent, oropharynx clear without exudates. Moist mucous membranes. NECK: Normal range of motion, supple without lymphadenopathy LUNGS: Breath sounds clear to auscultation bilaterally and equal. No wheezes rales or rhonchi. HEART: Regular rate and rhythm without murmurs ABDOMEN: Soft, nontender, nondistended abdomen. No guarding, no rebound. No masses appreciated. RECTAL: No anal fissure, no hemorrhoids, No gross blood. Heme occult negative. Female : deferred Musculoskeletal: Right knee tenderness to palpation. 2+ DP/PT pulses. Pain with active and passive ROM. No erythema. +swelling. NEUROLOGICAL: Cranial nerves grossly intact. Normal speech, Normal sensory, motor exams PSYCH: Normal mood, normal affect. SKIN: Warm, Dry, Pale, Stage 2 decub ulcer. Course - Re-evaluation Re-evalutation: 07/13/18 15:05 Labs obtained. Patient's white blood cell count is elevated. CRP and ESR elevated. Patient's hemoglobin has dropped to 7.0. Patient's daughter states that she has a history of anemia requiring blood transfusions. A Hemoccult was done and is negative. No gross blood appreciated on exam. She states that she has had an endoscopy and colonoscopy done without finding any source of bleeding. A cath urine was obtained. There is moderate leukocyte esterase and an increased number of white blood cells as compared to yesterday. Culture was ordered. A culture was obtained of the patient's stage II decubitus ulcer and sent to lab. As the patient had 2+ blood cultures from yesterday, vancomycin and Zosyn were started. Patient's lactic acid today is normal. Patient's vital signs are stable. I contacted the hospitalist, Dr. Fry, for admission. - Vital Signs Vital signs: Temp Pulse Resp BP Pulse Ox 100.1 F 92 21 H 117/59 L 96 07/13/18 12:10 07/13/18 11:07 07/13/18 14:01 07/13/18 14:01 07/13/18 14:01 - Laboratory Result Diagrams: 07/13/18 12:04 07/13/18 12:04 Laboratory results interpreted by me: 07/13/18 07/13/18 07/13/18 12:04 12:04 12:04 WBC 11.5 H RBC 2.40 L Hgb 7.0 L Hct 20.7 L RDW 17.1 H Seg Neutrophils % 83.8 H Lymphocytes % 11.2 L Absolute Neutrophils 9.7 H ESR > 120 H Chloride 109 H BUN 48 H Creatinine 1.54 H Est GFR ( Amer) 41 L Est GFR (Non-Af Amer) 34 L Calcium 7.9 L AST 38 H Alkaline Phosphatase 174 H C-Reactive Protein 214.9 H Total Protein 5.9 L Albumin 2.1 L Urine Protein 100 H Urine Glucose (UA) 50 H Ur Leukocyte Esterase MODERATE H Crossmatch 07/13/18 07/13/18 13:43 14:52 WBC RBC Hgb Hct RDW Seg Neutrophils % Lymphocytes % Absolute Neutrophils ESR Chloride BUN Creatinine Est GFR ( Amer) Est GFR (Non-Af Amer) Calcium AST Alkaline Phosphatase C-Reactive Protein Total Protein Albumin Urine Protein Urine Glucose (UA) Ur Leukocyte Esterase Crossmatch See Detail See Detail Discharge - Discharge Clinical Impression: Positive blood culture, Sacral decubitus ulcer, stage II, Swelling of right knee joint Urinary tract infection Qualifiers: Urinary tract infection type: site unspecified Hematuria presence: without hematuria Qualified Code(s): N39.0 - Urinary tract infection, site not specified Anemia Qualifiers: Anemia type: unspecified type Qualified Code(s): D64.9 - Anemia, unspecified Right knee pain Qualifiers: Chronicity: chronic Qualified Code(s): M25.561 - Pain in right knee Condition: Stable Disposition: ADMITTED OBSERVATION Admitting Provider: Hospitalist Unit Admitted: Medical Floor Referrals: PEEWEE CHAVEZ MD [Primary Care Provider] - Follow up as needed
[2018-07-13 12:23] LABS: APPEARANCE,URINE CLOUDY; BILIRUBIN,URINE NEGATIVE (NEGATIVE); COLOR,URINE YELLOW; GLUCOSE, URINE 50 mg/dL (NEGATIVE); KETONES,URINE NEGATIVE (NEGATIVE); LEUKOCYTE ESTERASE,URINE MODERATE (NEGATIVE); NITRITE,URINE NEGATIVE (NEGATIVE); PROTEIN,URINE 100 mg/dL (NEGATIVE); URINE SPECIFIC GRAVITY 1.012; UROBILINOGEN,URINE NEGATIVE mg/dL (<2.0)
[2018-07-13 12:42] LABS: ALANINE AMINOTRANSFERASE 33 U/L (9-52); ALBUMIN 2.1 g/dL (3.5-5.0); ALKALINE PHOSPHATASE 174 U/L (38-126); ANION GAP 5 (5-19); ASPARTATE AMINO TRANSFERASE 38 U/L (14-36); BILIRUBIN,DIRECT 0.3 mg/dL (0.0-0.4); BILIRUBIN,TOTAL 0.3 mg/dL (0.2-1.3); BLOOD UREA NITROGEN 48 mg/dL (7-20); CALCIUM 7.9 mg/dL (8.4-10.2); CARBON DIOXIDE 23 mmol/L (22-30); CHLORIDE 109 mmol/L (98-107); GLUCOSE 109 mg/dL (75-110); POTASSIUM 4.3 mmol/L (3.6-5.0); SODIUM 137.1 mmol/L (137-145); TOTAL PROTEIN 5.9 g/dL (6.3-8.2)
[2018-07-13] MEDS ORDERED: VANCOMYCIN HCL INJ 1000 MG VIAL IV ONE (12:43)
[2018-07-13] MEDS ORDERED: PIPERACILLIN/TAZOBACTAM 3.375 GM VIAL IV ONE (12:44)
[2018-07-13 12:51] LABS: ABSOLUTE LYMPHOCYTES (AUTO) 1.3 10^3/uL (0.5-4.7); ABSOLUTE MONOCYTES (AUTO) 0.5 10^3/uL (0.1-1.4); ABSOLUTE NEUT (AUTO) 9.7 10^3/uL (1.7-8.2); BASOPHILS % (AUTO) 0.3 % (0-2); HEMATOCRIT 20.7 % (36.0-47.0); LYMPHOCYTES % (AUTO) 11.2 % (13-45); MONOCYTES % (AUTO) 4.7 % (3-13); PLATELET COUNT 282 10^3/uL (150-450); RED CELL DISTRIBUTION WIDTH 17.1 % (11.5-14.0); SEGMENTED NEUTROPHILS % (AUTO) 83.8 % (42-78); TOTAL CELLS COUNTED % (AUTO) 100 %; WHITE BLOOD COUNT 11.5 10^3/uL (4.0-10.5)
[2018-07-13 12:54] LABS: C-REACTIVE PROTEIN 214.9 mg/L (<10.0)
[2018-07-13] MEDS ORDERED: NORMAL SALINE 250 ML IV PRN ×2 (12:58→19:56)
[2018-07-13 13:00] LABS: MEAN CORPUSCULAR VOLUME 86 fl (80-97)
[2018-07-13 13:01] LABS: MEAN CORPUSCULAR HEMOGLOBIN 29.2 pg (27.0-33.4); MEAN CORPUSCULAR HGB CONC 33.8 g/dL (32.0-36.0)
[2018-07-13] MEDS ORDERED: FENTANYL CITRATE INJ/PF 100 MCG/2 ML AMPUL IV ONE (13:50)
[2018-07-13 14:02] LABS: ERYTHROCYTE SEDIMENTATION RATE > 120 mm/hr (0-30)
[2018-07-13] MEDS ORDERED: ACETAMINOPHEN 650 MG SUPP.RECT PR PRN (17:15)
[2018-07-13] MEDS ORDERED: HYDRALAZINE HCL 10 MG TABLET PO PRN (17:40)
[2018-07-13] MEDS ORDERED: INSULIN LISPRO 100 UNIT/ML 3 ML VIAL SUBCUT PRN (17:47)
[2018-07-13] MEDS ORDERED: DEXTROSE 40% GEL 15 GM TUBE PO PRN ×4 (17:47→19:55)
[2018-07-13] MEDS ORDERED: DEXTROSE 50%-WATER 25 GM/50 ML DISP.SYRIN IV PRN ×4 (17:47→19:55)
[2018-07-13] MEDS ORDERED: GLUCAGON,HUMAN RECOMB 1 MG INJ IM PRN (17:47)
[2018-07-13] MEDS: DOCUSATE SODIUM 100 MG CAPSULE PO SCH (18:07)
[2018-07-13] MEDS: ENOXAPARIN SODIUM INJ 40 MG/0.4 ML DISP.SYRIN SUBCUT SCH (18:07)
[2018-07-13] MEDS: FERROUS SULFATE 325 MG TABLET PO SCH (18:07)
--- NOTE | 2018-07-13 18:14 | PDOC H&P ---
History of Present Illness Admission Date/PCP: 07/13/18 15:52 PEEWEE CHAVEZ MD Patient complains of: Feeling poorly History of Present Illness: DALIA QUEVEDO is a 62 year old female recently discharged from [facility]. She has been at [facility]. She had been feeling poorly over the last several days and yesterday was sent to the emergency department. She has been having right knee pain with tenderness. She does have an effusion. Blood cultures were drawn yesterday and 2 out of 2 sets were positive and her urinalysis suggests infection as well. The patient was recently an inpatient at this facility. She did have open lesions on her leg. These have healed. She does have a stage II pressure ulcer present on admission . She has a complex medical history with multiple medications. The patient has been started on antibiotics. We are trying to ascertain if the bacteremia is from her urine. We also need to investigate the right knee. It is still swollen and tender as it was during her previous admission. The skin is slightly warmer than the surrounding skin. There is definite swelling in that leg. An ultrasound study ruled out a deep venous thrombosis. In addition the patient's hemoglobin was only 7.0. She will received 2 units of packed red blood cells. Anemia workup during her last admission showed minimal reticulocyte activity and very low serum iron. I have started oral iron supplement. Intravenous iron would be contraindicated with recurrent bacteremia. She will be admitted to the hospitalist service. We will continue investigating the source of the infection as well as ongoing treatment. Past Medical History Cardiac Medical History: Reports: Congestive Heart Failure, Hyperlipidema, Hypertension Denies: Coronary Artery Disease, Myocardial Infarction, Heart Murmur Pulmonary Medical History: Denies: Asthma, Bronchitis, Chronic Obstructive Pulmonary Disease (COPD), Pneumonia EENT Medical History: Denies: Eyes, Ears, Nose Neurological Medical History: Reports: Other - Dementia Denies: Seizures Endocrine Medical History: Reports: Diabetes Mellitus Type 2 Renal/ Medical History: Denies: Chronic Kidney Disease, Nephrolithiasis Malignancy Medical History: Reports: None GI Medical History: Reports: Gastroesophageal Reflux Disease Denies: Hepatitis, Hiatal Hernia Musculoskeltal Medical History: Reports: Arthritis Denies: Gout Skin Medical History: Denies: Eczema, Psoriasis Psychiatric Medical History: Reports: Dementia, Depression Traumatic Medical History: Reports: None Hematology: Reports: Anemia Denies: Sickle Cell Disease, Bleeding Tendencies Infectious Medical History: Reports: None Past Surgical History Past Surgical History: Reports: Tonsillectomy, Other - Abdominal wall surgery for infection Denies: Amputation, Hysterectomy, Mastectomy, Pacemaker Social History Information Source: Patient, Relative Lives with: Care Home - Was supposed to transfer to assisted living today Smoking Status: Never Smoker Frequency of Alcohol Use: None Hx Recreational Drug Use: No Drugs: None Hx Prescription Drug Abuse: No Family History Family History: DM, Other - Alzheimer's Parental Family History Reviewed: Yes Children Family History Reviewed: Yes Sibling(s) Family History Reviewed.: Yes Medication/Allergy Home Medications: Atorvastatin Calcium [Lipitor 40 mg Tablet] 40 mg PO QHS 06/16/18 Isosorbide Mononitrate [Imdur 30 mg Tablet.er] 30 mg PO DAILY 06/16/18 Memantine HCl [Namenda 10 mg Tablet] 10 mg PO BID 06/16/18 Trazodone HCl [Desyrel 50 mg Tablet] 50 mg PO QHS 06/16/18 Amlodipine Besylate [Norvasc 10 mg Tablet] 10 mg PO DAILY tablet 06/25/18 Buspirone HCl [Buspar 10 mg Tablet] 5 mg PO Q8 tablet 06/25/18 Carvedilol [Coreg 6.25 mg Tablet] 6.25 mg PO Q12 tablet 06/25/18 Docusate Sodium [Colace 100 mg Capsule] 100 mg PO BID capsule 06/25/18 Hydralazine HCl [Apresoline 10 mg Tablet] 5 mg PO Q8 tablet 06/25/18 Hydralazine HCl [Apresoline 10 mg Tablet] 10 mg PO Q4HP PRN tablet 06/25/18 Insulin Glargine,Hum.rec.anlog [Lantus Insulin 100 Unit/mL] 22 unit SUBCUT QHS insuln.pen 06/25/18 Insulin Glargine,Hum.rec.anlog [Lantus Insulin 100 Unit/mL] 28 unit SUBCUT DAILY insuln.pen 06/25/18 Lisinopril [Prinivil 5 mg Tablet] 2.5 mg PO DAILY tablet 06/25/18 Venlafaxine HCl ER [Effexor Xr 75 mg Cap.sr] 75 mg PO [id number] cap.sr.24h 06/25/18 Allergies/Adverse Reactions: morphine Allergy (Verified 07/13/18 11:07) Physical Exam Vital Signs: Temp Pulse Resp BP Pulse Ox 100.1 F 92 20 125/58 L 96 07/13/18 12:10 07/13/18 11:07 07/13/18 17:00 07/13/18 16:01 07/13/18 16:01 Intake & Output 07/12/18 07/13/18 07/14/18 06:59 06:59 06:59 Intake Total 250 Balance 250 Weight 82.3 kg General appearance: PRESENT: no acute distress, cooperative, well-developed Head exam: PRESENT: atraumatic, normocephalic Eye exam: PRESENT: conjunctiva pale, EOMI. ABSENT: scleral icterus Ear exam: PRESENT: normal external ear exam Mouth exam: PRESENT: dry mucosa, tongue midline Neck exam: ABSENT: carotid bruit, JVD, lymphadenopathy Respiratory exam: PRESENT: clear to auscultation ita, symmetrical, unlabored. ABSENT: rales, rhonchi, wheezes Cardiovascular exam: PRESENT: irregular rhythm, +S1, +S2, systolic murmur - 3/6 murmur Pulses: PRESENT: other - Difficult to palpate dorsalis pedis pulses. GI/Abdominal exam: PRESENT: normal bowel sounds, soft. ABSENT: distended, guarding, tenderness Rectal exam: PRESENT: deferred Gentrourinary exam: PRESENT: indwelling catheter Extremities exam: PRESENT: joint swelling, pedal edema, tenderness, +2 edema, other - Very tender right knee. Skin is slightly warmer than the surrounding skin. There is some mild erythema. The right leg is markedly swollen. Musculoskeletal exam: ABSENT: ambulatory Neurological exam: PRESENT: alert, awake, oriented to person, oriented to place Psychiatric exam: PRESENT: flat affect. ABSENT: agitated, anxious Focused psych exam: ABSENT: restlessness Skin exam: PRESENT: other - Excoriations present on last visit have healed. ABSENT: rash, vesicles Results Laboratory Results: 07/13/18 12:04 07/13/18 12:04 07/13/18 07/13/18 07/13/18 12:04 12:04 12:04 WBC 11.5 H RBC 2.40 L Hgb 7.0 L Hct 20.7 L MCV 86 MCH 29.2 MCHC 33.8 RDW 17.1 H Plt Count 282 Seg Neutrophils % 83.8 H Lymphocytes % 11.2 L Monocytes % 4.7 Eosinophils % 0.0 Basophils % 0.3 Absolute Neutrophils 9.7 H Absolute Lymphocytes 1.3 Absolute Monocytes 0.5 Absolute Eosinophils 0.0 Absolute Basophils 0.0 Sodium 137.1 Potassium 4.3 Chloride 109 H Carbon Dioxide 23 Anion Gap 5 BUN 48 H Creatinine 1.54 H Est GFR ( Amer) 41 L Est GFR (Non-Af Amer) 34 L Glucose 109 Lactic Acid 0.7 Calcium 7.9 L Total Bilirubin 0.3 AST 38 H ALT 33 Alkaline Phosphatase 174 H C-Reactive Protein 214.9 H Total Protein 5.9 L Albumin 2.1 L Urine Color Urine Appearance Urine pH Ur Specific [place] Urine Protein Urine Glucose (UA) Urine Ketones Urine Blood Urine Nitrite Ur Leukocyte Esterase Urine WBC (Auto) Blood Type Antibody Screen 07/13/18 07/13/18 12:04 13:43 WBC RBC Hgb Hct MCV MCH MCHC RDW Plt Count Seg Neutrophils % Lymphocytes % Monocytes % Eosinophils % Basophils % Absolute Neutrophils Absolute Lymphocytes Absolute Monocytes Absolute Eosinophils Absolute Basophils Sodium Potassium Chloride Carbon Dioxide Anion Gap BUN Creatinine Est GFR ( Amer) Est GFR (Non-Af Amer) Glucose Lactic Acid Calcium Total Bilirubin AST ALT Alkaline Phosphatase C-Reactive Protein Total Protein Albumin Urine Color YELLOW Urine Appearance CLOUDY Urine pH 5.0 Ur Specific [place] 1.012 Urine Protein 100 H Urine Glucose (UA) 50 H Urine Ketones NEGATIVE Urine Blood NEGATIVE Urine Nitrite NEGATIVE Ur Leukocyte Esterase MODERATE H Urine WBC (Auto) 28 Blood Type Cancelled Antibody Screen Cancelled Assessment & Plan - Diagnosis (1) Bacteremia Is this a current diagnosis for this admission?: Yes Plan: 2 out of 2 sets of blood cultures drawn in the emergency department yesterday are positive. Gram-positive cocci in chains is reported. This is usually a Streptococcus. Considering her urine it could be an enterococcus. Blood cultures drawn from her admission June 16 were no growth. She is currently on Zosyn and vancomycin which certainly would cover enterococcus with the exception of vancomycin resistant enterococcus. Await final identification and sensitivities. (2) Urinary tract infection Qualifiers: Urinary tract infection type: acute cystitis Hematuria presence: without hematuria Qualified Code(s): N30.00 - Acute cystitis without hematuria Is this a current diagnosis for this admission?: Yes Plan: Awaiting urine culture results. This should help correlate possible etiology of the bacteremia. The patient has been placed on vancomycin and Zosyn. She did have a positive urine culture in October 2017 for Klebsiella. Continue current antibiotic therapy until further identification and sensitivity information is available. (3) Right knee pain Qualifiers: Chronicity: chronic Qualified Code(s): M25.561 - Pain in right knee; G89.29 - Other chronic pain Is this a current diagnosis for this admission?: Yes Plan: Her knee pain still persist. She had knee pain during her admission June 16. Plain x-ray shows an effusion. I will have orthopedic surgery evaluate the patient and determine if furth imaging is required. Also to see if a diagnostic arthrocentesis is warranted. (4) Anemia Qualifiers: Anemia type: iron deficiency Iron deficiency anemia type: unspecified iron deficiency Qualified Code(s): D50.9 - Iron deficiency anemia, unspecified Is this a current diagnosis for this admission?: Yes Plan: Serum iron was 10 on her last admission. Intravenous iron is contraindicated with her bacteremia. She will receive 2 units of packed red blood cells today. She was transfused previously and appears to be developing antibodies. I have started oral iron supplement at this time. (5) Sacral decubitus ulcer, stage II Is this a current diagnosis for this admission?: Yes Plan: The patient has a stage II decubitus ulcer present on admission. I did not roll the patient during my encounter but a fresh dressing was placed by the nurses earlier today. I have written for an Allevyn foam dressing changed every other day as well as turning every 2 hours for offloading. (6) Swelling of right knee joint Is this a current diagnosis for this admission?: Yes Plan: Effusion noted on x-ray. I will ask orthopedic surgery to evaluate. She had swelling and knee pain during her last admission. (7) Diabetes mellitus type 2 in obese Is this a current diagnosis for this admission?: Yes Plan: Continue twice daily long-acting insulin with Humalog sliding scale and consiste nt carbohydrate diet. - Time Time Spent: 50 to 70 Minutes Medications reviewed and adjusted accordingly: Yes Anticipated discharge: Other
[2018-07-13] MEDS ORDERED: GLUCAGON,HUMAN RECOMB 1 MG INJ SUBCUT PRN (19:55)
--- NOTE | 2018-07-13 20:03 | PDOC CONSULTATION ---
History of Present Illness Admission Date/PCP: 07/13/18 17:16 PEEWEE CHAVEZ MD Patient complains of: Right knee pain History of Present Illness: DALIA QUEVEDO is a 62 year old female who according the family sustained a fall injuring her knee around [place] time. She recently was admitted to the hospital for medical issues. She was sent to [place] for rehabilitation however she began not feeling well and blood cultures were obtained demonstrating positive bacteremia. Thus patient was admitted to the hospital service for further workup. According to the patient's family she is been having pain in her knee she has attempted a knee immobilizer without significant improvement. Has been unable to weight-bear since around the end of May. She has had poor appetite as well. Current pain 8/10 worse with motion. Denies numbness. Past Medical History Cardiac Medical History: Reports: Congestive Heart Failure, Hyperlipidema, Hypertension Denies: Coronary Artery Disease, Myocardial Infarction, Heart Murmur Pulmonary Medical History: Denies: Asthma, Bronchitis, Chronic Obstructive Pulmonary Disease (COPD), Pneumonia EENT Medical History: Denies: Eyes, Ears, Nose Neurological Medical History: Reports: Other - Dementia Denies: Seizures Endocrine Medical History: Reports: Diabetes Mellitus Type 2 Renal/ Medical History: Denies: Chronic Kidney Disease, Nephrolithiasis Malignancy Medical History: Reports: None GI Medical History: Reports: Gastroesophageal Reflux Disease Denies: Hepatitis, Hiatal Hernia Musculoskeltal Medical History: Reports: Arthritis Denies: Gout Skin Medical History: Denies: Eczema, Psoriasis Psychiatric Medical History: Reports: Dementia, Depression Traumatic Medical History: Reports: None Hematology: Reports: Anemia Denies: Sickle Cell Disease, Bleeding Tendencies Infectious Medical History: Reports: None Past Surgical History Past Surgical History: Reports: Tonsillectomy, Other - Abdominal wall surgery for infection Denies: Amputation, Hysterectomy, Mastectomy, Pacemaker Social History Lives with: Long-Term - Was supposed to transfer to assisted living today Smoking Status: Never Smoker Frequency of Alcohol Use: None Hx Recreational Drug Use: No Drugs: None Hx Prescription Drug Abuse: No Family History Family History: DM, Other - Alzheimer's Parental Family History Reviewed: No Children Family History Reviewed: No Sibling(s) Family History Reviewed.: No Medication/Allergy Home Medications: Amlodipine Besylate [Norvasc 10 mg Tablet] 10 mg PO QAM 07/13/18 Atorvastatin Calcium [Lipitor 40 mg Tablet] 40 mg PO QHS 07/13/18 Buspirone HCl [Buspar 5 mg Tablet] 5 mg PO Q8 07/13/18 Carvedilol [Coreg 6.25 mg Tablet] 6.25 mg PO Q12 07/13/18 Docusate Sodium [Colace 100 mg Capsule] 100 mg PO BID 07/13/18 Hydralazine HCl [Apresoline 10 mg Tablet] 5 mg PO Q8 07/13/18 Hydralazine HCl [Apresoline 10 mg Tablet] 10 mg PO Q8HP PRN 07/13/18 Insulin Glargine,Hum.rec.anlog [Lantus Insulin 100 Unit/mL] 22 units SQ QHS 07/13/18 Insulin Glargine,Hum.rec.anlog [Lantus Insulin 100 Unit/mL] 28 units SQ QAM 07/13/18 Insulin Lispro [Humalog Insulin (Lispro) 100 unit/mL] 0 units SQ .SLIDING SCALE 07/13/18 Isosorbide Mononitrate [Imdur 30 mg Tablet.er] 30 mg PO QAM 07/13/18 Lisinopril [Prinivil 2.5 mg Tablet] 2.5 mg PO QAM 07/13/18 Memantine HCl [Namenda 10 mg Tablet] 10 mg PO BID 07/13/18 Trazodone HCl [Desyrel 50 mg Tablet] 50 mg PO QHS 07/13/18 Venlafaxine HCl [Venlafaxine HCl ER] 75 mg PO QAM 07/13/18 Allergies/Adverse Reactions: morphine Allergy (Verified 07/13/18 11:07) Review of Systems ROS unobtainable: Due to mental status Constitutional: PRESENT: chills. ABSENT: fever(s), headache(s), weight gain, weight loss Eyes: PRESENT: visual disturbances Ears: ABSENT: hearing changes Cardiovascular: ABSENT: chest pain, dyspnea on exertion, edema, orthropnea, palpitations Respiratory: ABSENT: cough, hemoptysis Gastrointestinal: ABSENT: abdominal pain, constipation, diarrhea, hematemesis, hematochezia, nausea, vomiting Genitourinary: ABSENT: dysuria, hematuria Musculoskeletal: PRESENT: as per HPI Integumentary: ABSENT: rash, wounds Neurological: ABSENT: abnormal gait, abnormal speech, confusion, dizziness, focal weakness, syncope Psychiatric: ABSENT: anxiety, depression, homidical ideation, suicidal ideation Endocrine: ABSENT: cold intolerance, heat intolerance, menstrual abnormalities, polydipsia, polyuria Hematologic/Lymphatic: ABSENT: easy bleeding, easy bruising, lymphadenopathy Physical Exam Vital Signs: Temp Pulse Resp BP Pulse Ox 100.1 F 92 18 125/58 L 96 07/13/18 12:10 07/13/18 11:07 07/13/18 18:00 07/13/18 16:01 07/13/18 18:00 Intake & Output 07/12/18 07/13/18 07/14/18 06:59 06:59 06:59 Intake Total 250 Balance 250 Weight 82.3 kg General appearance: PRESENT: no acute distress, disheveled, well-developed, well-nourished Head exam: PRESENT: atraumatic, normocephalic Eye exam: PRESENT: other - Poor vision noted.. ABSENT: scleral icterus Ear exam: PRESENT: normal external ear exam Mouth exam: PRESENT: moist, tongue midline Neck exam: PRESENT: full ROM. ABSENT: carotid bruit, JVD, lymphadenopathy, thyromegaly Respiratory exam: PRESENT: unlabored Cardiovascular exam: PRESENT: RRR. ABSENT: diastolic murmur, rubs, systolic murmur Pulses: PRESENT: normal dorsalis pedis pul, +2 pedal pulses bilateral Vascular exam: PRESENT: normal capillary refill GI/Abdominal exam: PRESENT: normal bowel sounds, soft. ABSENT: distended, gua rding, mass, organolmegaly, rebound, tenderness Rectal exam: PRESENT: deferred Musculoskeletal exam: PRESENT: other - Right knee: Notable effusion. Tenderness along the joint line and patella. No evidence of erythema. No evidence of wounds. Patient unable to straight leg raise. Pain with any attempted range of motion. Neurological exam: PRESENT: alert, awake, oriented to person, oriented to place, oriented to time, oriented to situation, CN II-XII grossly intact. ABSENT: motor sensory deficit Psychiatric exam: PRESENT: appropriate affect, normal mood. ABSENT: homicidal ideation, suicidal ideation Skin exam: PRESENT: dry, intact, warm. ABSENT: cyanosis, rash Results Laboratory Results: 07/13/18 12:04 07/13/18 12:04 07/13/18 07/13/18 07/13/18 12:04 12:04 12:04 WBC 11.5 H RBC 2.40 L Hgb 7.0 L Hct 20.7 L MCV 86 MCH 29.2 MCHC 33.8 RDW 17.1 H Plt Count 282 Seg Neutrophils % 83.8 H Lymphocytes % 11.2 L Monocytes % 4.7 Eosinophils % 0.0 Basophils % 0.3 Absolute Neutrophils 9.7 H Absolute Lymphocytes 1.3 Absolute Monocytes 0.5 Absolute Eosinophils 0.0 Absolute Basophils 0.0 Sodium 137.1 Potassium 4.3 Chloride 109 H Carbon Dioxide 23 Anion Gap 5 BUN 48 H Creatinine 1.54 H Est GFR ( Amer) 41 L Est GFR (Non-Af Amer) 34 L Glucose 109 Lactic Acid 0.7 Calcium 7.9 L Total Bilirubin 0.3 AST 38 H ALT 33 Alkaline Phosphatase 174 H C-Reactive Protein 214.9 H Total Protein 5.9 L Albumin 2.1 L Urine Color Urine Appearance Urine pH Ur Specific [place] Urine Protein Urine Glucose (UA) Urine Ketones Urine Blood Urine Nitrite Ur Leukocyte Esterase Urine WBC (Auto) Blood Type Antibody Screen 07/13/18 07/13/18 07/13/18 12:04 13:43 14:52 WBC RBC Hgb Hct MCV MCH MCHC RDW Plt Count Seg Neutrophils % Lymphocytes % Monocytes % Eosinophils % Basophils % Absolute Neutrophils Absolute Lymphocytes Absolute Monocytes Absolute Eosinophils Absolute Basophils Sodium Potassium Chloride Carbon Dioxide Anion Gap BUN Creatinine Est GFR ( Amer) Est GFR (Non-Af Amer) Glucose Lactic Acid Calcium Total Bilirubin AST ALT Alkaline Phosphatase C-Reactive Protein Total Protein Albumin Urine Color YELLOW Urine Appearance CLOUDY Urine pH 5.0 Ur Specific [place] 1.012 Urine Protein 100 H Urine Glucose (UA) 50 H Urine Ketones NEGATIVE Urine Blood NEGATIVE Urine Nitrite NEGATIVE Ur Leukocyte Esterase MODERATE H Urine WBC (Auto) 28 Blood Type Cancelled O POSITIVE Antibody Screen Cancelled NEGATIVE Status: Image reviewed by me - I have reviewed patient's previous x-ray which demonstrates significant effusion with underlying osteoarthritis. Assessment & Plan - Diagnosis (1) Septic arthritis of knee, right Qualifiers: Septic arthritis organism: due to unspecified organism Qualified Code(s): M00.9 - Pyogenic arthritis, unspecified Is this a current diagnosis for this admission?: Yes Plan: I discussed treatment options with patient and family given the effusion have recommended aspiration. See procedure note below. Results of the aspiration demonstrated cloudy appearing fluid consistent with likely infection or septic arthritis today we discussed treatment options with the patient's daughter and son I have recommended operative intervention which includes arthroscopic irrigation and debridement right septic knee. The note the severity of her situation which may ultimately result in posttraumatic arthritis, recurrent infection necessitating repeat operative intervention after discussing risks and benefits of operative treatment and the findings after aspiration they have elected to proceed with operative intervention. Procedure note: Preprocedure diagnosis right knee effusion Post procedure diagnosis same/septic arthritis Procedure performed right knee aspiration Fluid sent for cultures, aerobic/anaerobic, cell count, crystals Procedure in detail: Right knee was prepped with Betadine and alcohol. 18-gauge needle was placed through the medial suprapatellar approach. 60 cc of brownish cloudy fluid was aspirated. Patient tolerated procedure well.
[2018-07-13 20:48] LABS: CALCIUM PYROPHOSPHATE CRYSTALS NONE OBSERVED; MONOSODIUM URATE CRYSTALS NONE OBSERVED
[2018-07-13 20:49] LABS: OTHER CRYSTALS NONE OBSERVED
[2018-07-13] MEDS ORDERED: INSULIN GLARGINE,HUM.REC.ANLOG 300 UNIT/3 ML INSULN.PEN SUBCUT SCH (22:00)
[2018-07-13] MEDS: TRAZODONE HCL 50 MG TABLET PO SCH (22:29)
[2018-07-13] MEDS: BUSPIRONE HCL 10 MG TABLET PO SCH (22:29)
[2018-07-13] MEDS: CARVEDILOL 6.25 MG TABLET PO SCH (22:30)
[2018-07-13] MEDS: INSULIN GLARGINE,HUM.REC.ANLOG 1,000 UNIT/10 ML UNIT SUBCUT SCH (22:30)
[2018-07-13] MEDS: MEMANTINE HCL 10 MG TABLET PO SCH (22:32)
[2018-07-13] MEDS: HYDRALAZINE HCL 10 MG TABLET PO SCH (22:39)
[2018-07-13] MEDS: ATORVASTATIN CALCIUM 40 MG TABLET PO SCH (22:40)
[2018-07-14] MEDS: HYDRALAZINE HCL 10 MG TABLET PO SCH ×3 (06:05→23:30)
[2018-07-14] MEDS: BUSPIRONE HCL 10 MG TABLET PO SCH ×3 (06:06→22:02)
[2018-07-14 07:27] LABS: BLOOD UREA NITROGEN 49 mg/dL (7-20); CALCIUM 7.5 mg/dL (8.4-10.2); CARBON DIOXIDE 21 mmol/L (22-30); CHLORIDE 112 mmol/L (98-107); GLUCOSE 103 mg/dL (75-110); SODIUM 137.1 mmol/L (137-145)
[2018-07-14 07:29] LABS: ANION GAP 5 (5-19)
[2018-07-14 07:50] LABS: ABSOLUTE LYMPHOCYTES (AUTO) 1.3 10^3/uL (0.5-4.7); ABSOLUTE MONOCYTES (AUTO) 0.5 10^3/uL (0.1-1.4); ABSOLUTE NEUT (AUTO) 7.6 10^3/uL (1.7-8.2); BASOPHILS % (AUTO) 0.3 % (0-2); HEMATOCRIT 24.5 % (36.0-47.0); HEMOGLOBIN 8.4 g/dL (12.0-15.5); LYMPHOCYTES % (AUTO) 13.6 % (13-45); MONOCYTES % (AUTO) 4.8 % (3-13); PLATELET COUNT 234 10^3/uL (150-450); RED CELL DISTRIBUTION WIDTH 16.3 % (11.5-14.0); SEGMENTED NEUTROPHILS % (AUTO) 81.3 % (42-78); TOTAL CELLS COUNTED % (AUTO) 100 %; WHITE BLOOD COUNT 9.4 10^3/uL (4.0-10.5)
[2018-07-14 07:51] LABS: RED BLOOD COUNT 2.83 10^6/uL (3.72-5.28)
[2018-07-14 07:52] LABS: MEAN CORPUSCULAR HEMOGLOBIN 29.8 pg (27.0-33.4); MEAN CORPUSCULAR HGB CONC 34.5 g/dL (32.0-36.0); MEAN CORPUSCULAR VOLUME 86 fl (80-97)
[2018-07-14] MEDS ORDERED: INSULIN GLARGINE,HUM.REC.ANLOG 300 UNIT/3 ML INSULN.PEN SUBCUT SCH (10:00)
[2018-07-14] MEDS: INSULIN GLARGINE,HUM.REC.ANLOG 1,000 UNIT/10 ML UNIT SUBCUT SCH ×2 (10:17→22:30)
[2018-07-14] MEDS: ENOXAPARIN SODIUM INJ 40 MG/0.4 ML DISP.SYRIN SUBCUT SCH (10:17)
[2018-07-14] MEDS: MEMANTINE HCL 10 MG TABLET PO SCH ×2 (10:23→19:42)
[2018-07-14] MEDS: FERROUS SULFATE 325 MG TABLET PO SCH ×2 (10:23→17:27)
[2018-07-14] MEDS: DOCUSATE SODIUM 100 MG CAPSULE PO SCH ×2 (10:24→17:27)
[2018-07-14] MEDS: CARVEDILOL 6.25 MG TABLET PO SCH ×2 (10:24→22:01)
[2018-07-14] MEDS: ISOSORBIDE MONONITRATE 30 MG TAB.ER.24H PO SCH (10:24)
[2018-07-14] MEDS: VENLAFAXINE HCL 75 MG CAP.SR.24H PO SCH (10:24)
[2018-07-14] MEDS: LISINOPRIL 5 MG TABLET PO SCH (12:04)
[2018-07-14] MEDS: AMLODIPINE BESYLATE 10 MG TABLET PO SCH (12:04)
[2018-07-14] MEDS ORDERED: BUPIVACAINE HCL 0.5 % INJ/PF 30 ML SDV ONE (13:47)
[2018-07-14] MEDS ORDERED: LIDOCAINE 1%/EPINEPHRINE INJ 20 ML VIAL ONE (13:47)
[2018-07-14] MEDS ORDERED: CEFTRIAXONE INJ 1000 MG VIAL ONE (17:06)
[2018-07-14] MEDS ORDERED: MIDAZOLAM 2 MG/2 ML INJ ONE (17:34)
[2018-07-14] MEDS ORDERED: LIDOCAINE 2% INJ-PF (20 MG/ML) 10 ML AMPUL ONE (17:34)
[2018-07-14] MEDS ORDERED: FENTANYL CITRATE INJ/PF 100 MCG/2 ML AMPUL ONE (17:34)
[2018-07-14] MEDS ORDERED: PROPOFOL INJ 200 MG/20 ML VIAL IV ONE (17:35)
[2018-07-14] MEDS ORDERED: PROMETHAZINE HCL INJ 25 MG/1 ML VIAL IV PRN ×2 (18:21)
[2018-07-14] MEDS ORDERED: MEPERIDINE HCL/PF INJ 25 MG/1 ML DISP.SYRIN IV PRN (18:21)
[2018-07-14] MEDS ORDERED: OXYCODONE-ACETAMINOPHEN 5-325 MG TABLET PO PRN ×2 (18:21)
[2018-07-14] MEDS ORDERED: FENTANYL CITRATE INJ/PF 100 MCG/2 ML AMPUL IV PRN ×3 (18:21)
[2018-07-14] MEDS ORDERED: DIPHENHYDRAMINE HCL 50 MG/ML VIAL IV PRN (18:21)
--- NOTE | 2018-07-14 18:50 | Operative Report ---
Operative Report DATE OF SURGERY: 07/14/18 PREOPERATIVE DIAGNOSIS: Septic arthritis right knee POSTOPERATIVE DIAGNOSIS: Septic arthritis right knee. 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 Intact ACL. Grade 2-3 chondral malacia lateral compartment. Grade 2-3 chondral malacia of the patellofemoral compartment. OPERATION: Arthroscopic synovectomy right knee SURGEON: INGA NGUYEN ANESTHESIA: LMAC TISSUE REMOVED OR ALTERED: Synovial aspirate sent for culture and sensitivity x2 ESTIMATED BLOOD LOSS: Normal PROCEDURE: With the patient supine on the operative table the right lower extremities prepped and draped in sterile fashion. A 16-gauge needle was advanced into a medial infrapatellar portal and approximately 20 cc of frankly purulent material was aspirated and sent for culture and sensitivity. Xylocaine, Marcaine, and epinephrine were then injected through medial lateral patella portals and used for the introduction of the arthroscope and debridements mentation. The joint is examined in systematic fashion findings as above. Mechanical shaver was then used to systematically perform an aggressive synovectomy beginning medially extending into the suprapatellar pouch extending laterally and then as much as possible into the posterior aspect of the knee. The joint is in irrigated with 6 L of normal saline containing bacitracin. Instrumentation was removed. The portals reapproximated interrupted nylon. A sterile compressive dressing was applied. The patient's return to the recovery room in satisfactory condition.
[2018-07-14] MEDS: FENTANYL CITRATE INJ/PF 100 MCG/2 ML AMPUL ONE ×2 (18:55→19:00)
[2018-07-14] MEDS: HYDROMORPHONE HCL INJ/PF 2 MG/ML AMPULE ONE ×2 (19:16→19:20)
--- NOTE | 2018-07-14 19:53 | PDOC PROGRESS REPORT ---
Subjective Progress Note for:: 07/14/18 Subjective:: Acute events overnight. Patient is status post right knee I&D for septic arthritis. Reason For Visit: BACTEREMIA, PAINFUL RIGHT KNEE, POSSIBLE CYSTITIS Physical Exam Vital Signs: Temp Pulse Resp BP Pulse Ox 97.5 F 73 18 118/56 L 97 07/14/18 18:45 07/14/18 18:45 07/14/18 18:45 07/14/18 18:45 07/14/18 18:45 Intake & Output 07/13/18 07/14/18 07/15/18 06:59 06:59 06:59 Intake Total 1150 6200 Output Total 475 5005 Balance 675 1195 Weight 82.3 kg General appearance: PRESENT: no acute distress, well-developed, well-nourished Head exam: PRESENT: atraumatic, normocephalic Respiratory exam: PRESENT: clear to auscultation ita. ABSENT: rales, rhonchi, wheezes Cardiovascular exam: PRESENT: RRR. ABSENT: diastolic murmur, rubs, systolic murmur Extremities exam: PRESENT: tenderness, other - Right knee swelling and tenderness.. ABSENT: calf tenderness, clubbing, pedal edema Results Laboratory Results: 07/14/18 07:43 07/14/18 06:49 07/13/18 07/13/18 07/13/18 14:52 19:50 19:50 WBC RBC Hgb Hct MCV MCH MCHC RDW Plt Count Seg Neutrophils % Lymphocytes % Monocytes % Eosinophils % Basophils % Absolute Neutrophils Absolute Lymphocytes Absolute Monocytes Absolute Eosinophils Absolute Basophils Sodium Potassium Chloride Carbon Dioxide Anion Gap BUN Creatinine Est GFR ( Amer) Est GFR (Non-Af Amer) Glucose Calcium Magnesium Fluid Type Cancelled SYNOVIAL Fluid Source Cancelled RIGHT KNEE Fluid Color Cancelled Fluid Appearance Cancelled Fluid Viscosity Cancelled Fluid WBC Cancelled Fluid RBC Cancelled Blood Type O POSITIVE Antibody Screen NEGATIVE 07/14/18 07/14/18 07/14/18 06:49 06:49 07:43 WBC Cancelled 9.4 RBC Cancelled 2.83 L Hgb Cancelled 8.4 L Hct Cancelled 24.5 L MCV Cancelled 86 MCH Cancelled 29.8 MCHC Cancelled 34.5 RDW Cancelled 16.3 H Plt Count Cancelled 234 Seg Neutrophils % Cancelled 81.3 H Lymphocytes % Cancelled 13.6 Monocytes % Cancelled 4.8 Eosinophils % Cancelled 0.0 Basophils % Cancelled 0.3 Absolute Neutrophils Cancelled 7.6 Absolute Lymphocytes Cancelled 1.3 Absolute Monocytes Cancelled 0.5 Absolute Eosinophils Cancelled 0.0 Absolute Basophils Cancelled 0.0 Sodium 137.1 Potassium 4.0 Chloride 112 H Carbon Dioxide 21 L Anion Gap 5 BUN 49 H Creatinine 1.47 H Est GFR ( Amer) 43 L Est GFR (Non-Af Amer) 36 L Glucose 103 Calcium 7.5 L Magnesium 2.2 Fluid Type Fluid Source Fluid Color Fluid Appearance Fluid Viscosity Fluid WBC Fluid RBC Blood Type Antibody Screen 07/13/18 13:11 Sacrum - Decubitis Ulcer Gram Stain - Final 07/13/18 12:04 Catheterized Urine Urine Culture - Final Lactobacillus (Vaginal Flory) Assessment & Plan - Diagnosis (1) Septic arthritis of knee, right Qualifiers: Septic arthritis organism: due to unspecified organism Qualified Code(s): M00.9 - Pyogenic arthritis, unspecified Is this a current diagnosis for this admission?: Yes Plan: Status post right knee surgery by orthopedic surgeons. Continue empiric antibiotics. Follow-up cultures. (2) Anemia Qualifiers: Anemia type: iron deficiency Iron deficiency anemia type: unspecified iron deficiency Qualified Code(s): D50.9 - Iron deficiency anemia, unspecified Is this a current diagnosis for this admission?: Yes Plan: Status post 2 PRBC infusion continue oral iron supplements. (3) Bacteremia Is this a current diagnosis for this admission?: Yes Plan: Gram-positive bacteremia. Pending sensitivity. Continue empiric antibiotics. Pending echo. Consult ID for further recommendation. (4) Urinary tract infection Qualifiers: Urinary tract infection type: acute cystitis Hematuria presence: without hematuria Qualified Code(s): N30.00 - Acute cystitis without hematuria Is this a current diagnosis for this admission?: Yes Plan: Currently receiving empiric antibiotics for septic arthritis. Follow-up cultures. (5) Diabetes mellitus type 2 in obese Is this a current diagnosis for this admission?: Yes Plan: Diabetic diet. Continue long-acting insulin. Adjust meds as needed.
[2018-07-14] MEDS ORDERED: VANCOMYCIN HCL 0 MG in DEXTROSE 5%-WATER 250 ML IV NR (20:00)
[2018-07-14] MEDS ORDERED: VANCOMYCIN HCL 1,500 MG in DEXTROSE 5%-WATER 250 ML IV SCH (22:00)
[2018-07-14] MEDS: ATORVASTATIN CALCIUM 40 MG TABLET PO SCH (22:01)
[2018-07-14] MEDS: NORMAL SALINE 1000 ML 1,000 ML IV PRN (22:02)
[2018-07-14] MEDS: TRAZODONE HCL 50 MG TABLET PO SCH (22:11)
[2018-07-15] MEDS: PIPERACILLIN SODIUM/TAZOBACTAM 4.5 GM in NORMAL SALINE 100 ML IV SCH ×4 (00:02→15:39)
[2018-07-15] MEDS: BUSPIRONE HCL 10 MG TABLET PO SCH ×3 (05:39→22:15)
[2018-07-15] MEDS: HYDRALAZINE HCL 10 MG TABLET PO SCH ×3 (05:39→22:15)
--- NOTE | 2018-07-15 07:05 | PDOC PROGRESS REPORT ---
Subjective Progress Note for:: 07/15/18 Reason For Visit: BACTEREMIA, PAINFUL RIGHT KNEE, POSSIBLE CYSTITIS 62-year-old white female postop day 1 status post arthroscopic synovectomy and debridement of her right knee pyarthrosis. Patient with an uneventful postoperative night. Patient's empirically on Rocephin in light of blood cultures growing gram-negative rods x2 and gram-positive cocci in chains. Physical Exam Vital Signs: Temp Pulse Resp BP Pulse Ox 36.4 C 74 16 125/53 L 98 07/15/18 01:15 07/15/18 01:15 07/15/18 01:15 07/15/18 01:15 07/15/18 01:15 Intake & Output 07/14/18 07/15/18 07/16/18 06:59 06:59 06:59 Intake Total 1150 6750 Output Total 475 5505 Balance 675 1245 Weight 82.3 kg 87.5 kg Physical Exam: Middle-aged white female lying in bed. Patient in no apparent distress. Daughter is in the recliner next to her. Reports that the night was relatively quiet. General appearance: PRESENT: no acute distress, mild distress Respiratory exam: PRESENT: unlabored Cardiovascular exam: PRESENT: RRR Vascular exam: PRESENT: normal capillary refill GI/Abdominal exam: PRESENT: soft Rectal exam: PRESENT: deferred Extremities exam: PRESENT: other - Right lower extremity dressing clean dry and intact. Results Laboratory Results: 07/14/18 07:43 07/14/18 06:49 07/14/18 07/14/18 07/14/18 06:49 06:49 07:43 WBC Cancelled 9.4 RBC Cancelled 2.83 L Hgb Cancelled 8.4 L Hct Cancelled 24.5 L MCV Cancelled 86 MCH Cancelled 29.8 MCHC Cancelled 34.5 RDW Cancelled 16.3 H Plt Count Cancelled 234 Seg Neutrophils % Cancelled 81.3 H Lymphocytes % Cancelled 13.6 Monocytes % Cancelled 4.8 Eosinophils % Cancelled 0.0 Basophils % Cancelled 0.3 Absolute Neutrophils Cancelled 7.6 Absolute Lymphocytes Cancelled 1.3 Absolute Monocytes Cancelled 0.5 Absolute Eosinophils Cancelled 0.0 Absolute Basophils Cancelled 0.0 Sodium 137.1 Potassium 4.0 Chloride 112 H Carbon Dioxide 21 L Anion Gap 5 BUN 49 H Creatinine 1.47 H Est GFR ( Amer) 43 L Est GFR (Non-Af Amer) 36 L Glucose 103 Calcium 7.5 L Magnesium 2.2 07/13/18 13:11 Sacrum - Decubitis Ulcer Gram Stain - Final 07/13/18 12:04 Catheterized Urine Urine Culture - Final Lactobacillus (Vaginal Flory) Status: Imported from PACS Assessment & Plan - Diagnosis (1) Septic arthritis of knee, right Qualifiers: Septic arthritis organism: due to unspecified organism Qualified Code(s): M00.9 - Pyogenic arthritis, unspecified Is this a current diagnosis for this admission?: Yes Plan: Patient can be mobilized with physical therapy and weightbearing as tolerated basis. Ongoing antibiotics based on blood cultures. These may be modified when the intraoperative cultures are returned. Anticipate need for senior care facility placement. - Time Time Spent with patient: 15-24 minutes Anticipated discharge: SNF Within: when bed available, Other
[2018-07-15 09:04] LABS: PLATELET COUNT 262 10^3/uL (150-450); RED CELL DISTRIBUTION WIDTH 16.3 % (11.5-14.0); WHITE BLOOD COUNT 8.3 10^3/uL (4.0-10.5)
[2018-07-15 09:06] LABS: BLOOD UREA NITROGEN 39 mg/dL (7-20); CALCIUM 7.3 mg/dL (8.4-10.2); GLUCOSE 101 mg/dL (75-110); POTASSIUM 4.4 mmol/L (3.6-5.0)
[2018-07-15 09:09] LABS: CARBON DIOXIDE 22 mmol/L (22-30); CHLORIDE 114 mmol/L (98-107); SODIUM 138.6 mmol/L (137-145)
[2018-07-15 09:22] LABS: HEMATOCRIT 21.4 % (36.0-47.0); RED BLOOD COUNT 2.57 10^6/uL (3.72-5.28)
[2018-07-15 09:23] LABS: HEMOGLOBIN 7.3 g/dL (12.0-15.5); MEAN CORPUSCULAR HEMOGLOBIN 28.2 pg (27.0-33.4); MEAN CORPUSCULAR HGB CONC 33.8 g/dL (32.0-36.0); MEAN CORPUSCULAR VOLUME 83 fl (80-97)
[2018-07-15 09:37] LABS: ANION GAP 3 (5-19); C-REACTIVE PROTEIN 161.7 mg/L (<10.0)
[2018-07-15] MEDS: DOCUSATE SODIUM 100 MG CAPSULE PO SCH ×2 (09:58→18:00)
[2018-07-15] MEDS: ACETAMINOPHEN 325 MG TABLET PO PRN ×2 (10:05→22:18)
[2018-07-15] MEDS: FERROUS SULFATE 325 MG TABLET PO SCH ×2 (10:06→18:06)
[2018-07-15] MEDS: VENLAFAXINE HCL 75 MG CAP.SR.24H PO SCH (10:06)
[2018-07-15] MEDS: ISOSORBIDE MONONITRATE 30 MG TAB.ER.24H PO SCH (10:07)
[2018-07-15] MEDS: CARVEDILOL 6.25 MG TABLET PO SCH ×2 (10:07→22:16)
[2018-07-15] MEDS: INSULIN GLARGINE,HUM.REC.ANLOG 1,000 UNIT/10 ML UNIT SUBCUT SCH (10:07)
[2018-07-15] MEDS: AMLODIPINE BESYLATE 10 MG TABLET PO SCH (10:07)
[2018-07-15] MEDS: MEMANTINE HCL 10 MG TABLET PO SCH ×2 (10:07→18:06)
[2018-07-15] MEDS: ENOXAPARIN SODIUM INJ 40 MG/0.4 ML DISP.SYRIN SUBCUT SCH (10:08)
[2018-07-15] MEDS: CEFTRIAXONE 2 GM/D5W RTU 2 GM/50 ML RTUPB IV SCH (10:08)
[2018-07-15 10:34] LABS: ERYTHROCYTE SEDIMENTATION RATE > 120 mm/hr (0-30)
--- NOTE | 2018-07-15 12:17 | PDOC PROGRESS REPORT ---
Subjective Progress Note for:: 07/15/18 Subjective:: DALIA QUEVEDO is a 62 year old female Past medical history of hypertension, dementia, depression, diabetes, history of multiple falls, patient was recently admitted on 06/16/2018 and was transferred to [facility] on 06/25/2018 and then transferred to [facility] living on the day of admission. On 07/11/2018 patient presented to ED from senior care complaining of worsening right knee pain, positive blood cultures, patient daughter who was accompanying her on admission was also concerned for worsening right persistent knee pain. On prior to admission x-ray on admission showed right knee effusion, venous Doppler was negative and patient was asked to follow-up with Dr. Avila with an MRI of right knee. On admission patient had mild leukocytosis with no bandemia, ESR more than 120, hemoglobin 7.0, CRP 161.7, UA positive for leukocyte esterase. Patient was started on Vanco and Zosyn, Ortho was consulted. Patient is day 1 status post arthroscopic synovectomy and debridement of her right knee. 07/15/2017. Hemoglobin has dropped from 8.4-7.3 since admission, she is status post 1 PRBC transfusion since admission. Another PRBC transfused today and surgery consulted for possible endoscopy to rule out any GI bleed. Blood culture from 07/13/2018 was positive for gram-positive cocci in chains group A beta Streptococcus. Repeat blood cultures on 07/14/2018 are negative. Patient is pending an echo to rule out any endocarditis. Reason For Visit: BACTEREMIA, PAINFUL RIGHT KNEE, POSSIBLE CYSTITIS Physical Exam Vital Signs: Temp Pulse Resp BP Pulse Ox 97.5 F 79 17 130/56 H 99 07/15/18 07:53 07/15/18 07:53 07/15/18 07:53 07/15/18 07:53 07/15/18 07:53 Intake & Output 07/14/18 07/15/18 07/16/18 06:59 06:59 06:59 Intake Total 1150 7750 150 Output Total 475 5505 Balance 675 2245 150 Weight 82.3 kg 87.5 kg General appearance: PRESENT: no acute distress, obese, well-developed, well- nourished Head exam: PRESENT: atraumatic, normocephalic Respiratory exam: PRESENT: clear to auscultation ita. ABSENT: rales, rhonchi, wheezes Cardiovascular exam: PRESENT: RRR. ABSENT: diastolic murmur, rubs, systolic murmur GI/Abdominal exam: PRESENT: normal bowel sounds, soft. ABSENT: distended, guarding, mass, organolmegaly, rebound, tenderness Musculoskeletal exam: PRESENT: other - Right knee status post arthroscopic intervention. Neurological exam: PRESENT: alert, awake, oriented to person, oriented to time, oriented to situation, CN II-XII grossly intact. ABSENT: motor sensory deficit Results Laboratory Results: 07/15/18 08:24 07/15/18 08:24 07/13/18 07/15/18 07/15/18 14:52 08:24 08:24 WBC 8.3 RBC 2.57 L Hgb 7.3 L Hct 21.4 L MCV 83 MCH 28.2 MCHC 33.8 RDW 16.3 H Plt Count 262 Sodium 138.6 Potassium 4.4 Chloride 114 H Carbon Dioxide 22 Anion Gap 3 L BUN 39 H Creatinine 1.18 Est GFR ( Amer) 56 L Est GFR (Non-Af Amer) 46 L Glucose 101 Calcium 7.3 L C-Reactive Protein 161.7 H Blood Type O POSITIVE Antibody Screen NEGATIVE 07/13/18 13:11 Sacrum - Decubitis Ulcer Gram Stain - Final 07/13/18 12:04 Catheterized Urine Urine Culture - Final Lactobacillus (Vaginal Flory) Assessment & Plan - Diagnosis (1) Septic arthritis of knee, right Qualifiers: Septic arthritis organism: due to unspecified organism Qualified Code(s): M00.9 - Pyogenic arthritis, unspecified Is this a current diagnosis for this admission?: Yes Plan: Day 1 status post arthroscopic synovectomy and debridement of her right knee. Knee joint fluid cultures from 07/14/2018 no growth for 1 day. Vancomycin day 2. Zosyn day 2. Continue wound care, physical therapy. Orthopedic surgery following recommendations noted. (2) Anemia Qualifiers: Anemia type: iron deficiency Iron deficiency anemia type: unspecified iron deficiency Qualified Code(s): D50.9 - Iron deficiency anemia, unspecified Is this a current diagnosis for this admission?: Yes Plan: Patient having melanotic stool which could be caused by she is having active GI bleed. Could be a combination of anemia of chronic disease and anemia of iron deficiency possibly caused by GI bleed. Hemoglobin is dropping 8.4-7.3 since yesterday. Status post 1 unit transfusion. Status post 3 unit transfusion since admission. Consult surgery for possible endoscopy. Monitor H&H transfuse as needed. (3) Bacteremia Is this a current diagnosis for this admission?: Yes Plan: 07/12/2018 blood cultures positive 2/2 group A beta strep pansensitive. 07/13/2018 for group A beta Streptococcus pending sensitivity. 07/11/2018 decubitus ulcer culture positive polymicrobial (Morganella morganii, Klebsiella oxytoca, gram-positive cocci in chains) Pending echo to rule out endocarditis. Pending ID consultation for further recommendations. Zosyn day 2, vancomycin day 2. (4) Urinary tract infection Qualifiers: Urinary tract infection type: acute cystitis Hematuria presence: without hematuria Qualified Code(s): N30.00 - Acute cystitis without hematuria Is this a current diagnosis for this admission?: Yes Plan: 07/13/2017 urinalysis positive for leukocyte esterase unfortunately urine was not cultured. 11/03/2017 urine culture positive for Klebsiella pneumonia pansensitive except for ampicillin. Currently on broad-spectrum antibiotics for multiple infections. (5) Diabetes mellitus type 2 in obese Is this a current diagnosis for this admission?: Yes Plan: Controlled. 06/18/2018 hemoglobin A1c 8.9 Home meds. Lantus 22 units subcutaneous nightly, 28 units subcutaneous every morning, and lispro sliding scale. Fasting blood glucose 101. POC glucose 67-169 Currently on Accu-Chek, sliding scale insulin, Lantus 22 nightly, 28 every morning. Diabetic diet. Patient is not taking oral hypoglycemics. Follow-up with PCP for adjustment and management of diabetes once patient is discharged home. (6) CKD (chronic kidney disease) stage 3, GFR 30-59 ml/min Is this a current diagnosis for this admission?: Yes Plan: Possibly due to hypertension and diabetes, baseline creatinine 1.35 - 2.95 07/11/2018 creatinine 1.54. 07/15/2017 creatinine 1.18. Outpatient nephrology follow-up, monitor volume status, electrolytes, continue renal diet. (7) Sacral decubitus ulcer, stage II Is this a current diagnosis for this admission?: Yes Plan: 07/11/2018 wound culture positive polymicrobial. Continue wound care, currently receiving broad-spectrum antibiotics for underlying infections.
[2018-07-15] MEDS: LISINOPRIL 5 MG TABLET PO SCH (12:19)
--- NOTE | 2018-07-15 15:11 | PDOC CONSULTATION ---
Consultation Consult Date: 07/15/18 Consult reason:: chronic anemia,r/o gi bleed History of Present Illness Admission Date/PCP: 07/13/18 17:16 PEEWEE CHAVEZ MD History of Present Illness: DALIA QUEVEDO is a 62 year old female admitted on 07/13for rt knee swelling and joint infection pt has hx of chronic anemia and was noted at time of admission to be anemic with hemoglobin of 7.0 pt recieved 1 unit prbc prior to surgery yesterday, then recieved a second unit yesterday after surgery and was again noted today to have a hemoglobin of 7.3 and is recieving a 3rd unit of prbc pt reports dark stools for years, she take feso4 and has regular bowel movements. she states that for last few years she has hemoccult + stools when checked by her physician. She underwent a upper and lower endosocpy in 01/2016 [address]Dr Prieto who documented gastritis and multiple colonic polyps which were removed. Past Medical History Cardiac Medical History: Reports: Congestive Heart Failure, Hyperlipidema, Hypertension Denies: Coronary Artery Disease, Myocardial Infarction, Heart Murmur Pulmonary Medical History: Denies: Asthma, Bronchitis, Chronic Obstructive Pulmonary Disease (COPD), Pneumonia EENT Medical History: Denies: Eyes, Ears, Nose Neurological Medical History: Reports: Other - Dementia Denies: Seizures Endocrine Medical History: Reports: Diabetes Mellitus Type 2 Renal/ Medical History: Denies: Chronic Kidney Disease, Nephrolithiasis Malignancy Medical History: Reports: None GI Medical History: Reports: Gastroesophageal Reflux Disease, Other - pt has 2-3 yr hx of chronic anemia and heme + stools with colonic polyps Denies: Hepatitis, Hiatal Hernia Musculoskeltal Medical History: Reports: Arthritis Denies: Gout Skin Medical History: Denies: Eczema, Psoriasis Psychiatric Medical History: Reports: Dementia, Depression Traumatic Medical History: Reports: None Hematology: Reports: Anemia Denies: Sickle Cell Disease, Bleeding Tendencies Infectious Medical History: Reports: None Past Surgical History Past Surgical History: Reports: Tonsillectomy, Other - Abdominal wall surgery for infection Denies: Amputation, Hysterectomy, Mastectomy, Pacemaker Social History Lives with: Longterm - Was supposed to transfer to assisted living today Smoking Status: Never Smoker Frequency of Alcohol Use: None Hx Recreational Drug Use: No Drugs: None Hx Prescription Drug Abuse: No - Advance Directive Resuscitation Status: Full Code Family History Family History: DM, Other - Alzheimer's Parental Family History Reviewed: No Children Family History Reviewed: Unknown Sibling(s) Family History Reviewed.: Unknown Medication/Allergy Home Medications: Amlodipine Besylate [Norvasc 10 mg Tablet] 10 mg PO QAM 07/13/18 Atorvastatin Calcium [Lipitor 40 mg Tablet] 40 mg PO QHS 07/13/18 Buspirone HCl [Buspar 5 mg Tablet] 5 mg PO Q8 07/13/18 Carvedilol [Coreg 6.25 mg Tablet] 6.25 mg PO Q12 07/13/18 Docusate Sodium [Colace 100 mg Capsule] 100 mg PO BID 07/13/18 Hydralazine HCl [Apresoline 10 mg Tablet] 5 mg PO Q8 07/13/18 Hydralazine HCl [Apresoline 10 mg Tablet] 10 mg PO Q8HP PRN 07/13/18 Insulin Glargine,Hum.rec.anlog [Lantus Insulin 100 Unit/mL] 22 units SQ QHS 07/13/18 Insulin Glargine,Hum.rec.anlog [Lantus Insulin 100 Unit/mL] 28 units SQ QAM 07/13/18 Insulin Lispro [Humalog Insulin (Lispro) 100 unit/mL] 0 units SQ .SLIDING SCALE 07/13/18 Isosorbide Mononitrate [Imdur 30 mg Tablet.er] 30 mg PO QAM 07/13/18 Lisinopril [Prinivil 2.5 mg Tablet] 2.5 mg PO QAM 07/13/18 Memantine HCl [Namenda 10 mg Tablet] 10 mg PO BID 07/13/18 Trazodone HCl [Desyrel 50 mg Tablet] 50 mg PO QHS 07/13/18 Venlafaxine HCl [Venlafaxine HCl ER] 75 mg PO QAM 07/13/18 Allergies/Adverse Reactions: morphine Allergy (Verified 07/13/18 11:07) Physical Exam Vital Signs: Temp Pulse Resp BP Pulse Ox 97.5 F 80 19 103/57 L 95 07/15/18 11:03 07/15/18 11:03 07/15/18 11:03 07/15/18 11:03 07/15/18 11:03 Intake & Output 07/14/18 07/15/1807/16/19 06:59 06:59 06:59 Intake Total 1150 7750 570 Output Total 117 5505 500 Balance 675 2245 70 Weight 82.3 kg 87.5 kg General appearance: PRESENT: no acute distress, cooperative, mild distress, obese Head exam: PRESENT: atraumatic Eye exam: PRESENT: conjunctiva pale Respiratory exam: PRESENT: clear to auscultation ita, unlabored Cardiovascular exam: PRESENT: RRR Pulses: PRESENT: normal radial pulses, normal femoral pulses GI/Abdominal exam: PRESENT: soft Rectal exam: PRESENT: deferred Extremities exam: PRESENT: other - recent rt knee surgery with dressing in place. Psychiatric exam: PRESENT: agitated, anxious Results Laboratory Results: 07/15/18 08:24 07/15/18 08:24 07/13/18 07/15/18 07/15/18 14:52 08:24 08:24 WBC 8.3 RBC 2.57 L Hgb 7.3 L Hct 21.4 L MCV 83 MCH 28.2 MCHC 33.8 RDW 16.3 H Plt Count 262 Sodium 138.6 Potassium 4.4 Chloride 114 H Carbon Dioxide 22 Anion Gap 3 L BUN 39 H Creatinine 1.18 Est GFR ( Amer) 56 L Est GFR (Non-Af Amer) 46 L Glucose 101 Calcium 7.3 L C-Reactive Protein 161.7 H Blood Type O POSITIVE Antibody Screen NEGATIVE 07/13/18 13:11 Sacrum - Decubitis Ulcer Gram Stain - Final 07/13/18 12:04 Catheterized Urine Urine Culture - Final Lactobacillus (Vaginal Flory) Assessment & Plan - Diagnosis (1) Anemia Qualifiers: Anemia type: iron deficiency Iron deficiency anemia type: unspecified iron deficiency Qualified Code(s): D50.9 - Iron deficiency anemia, unspecified Is this a current diagnosis for this admission?: Yes - Inpatient Certification Medical Necessity: Need Close Monitoring Due to Risk of Patient Decompensation, Need For IV Fluids, Need for Surgery - pt with chronic anemia, reported heme + stools hx of colonic polyps here for rt knee infection, has recieved 3 units of blood since admission plan for upper and lower endosocopy after a bowel prep wo uld hold antithrombotic iv meds
--- NOTE | 2018-07-15 15:13 | Progress Note ---
Provider Note Provider Note: ID Consult Note Asked to review patient's chart by Dr Marquis and spoke with him briefly via telephone. Ms Fisher is a 62 year old female SNF resident with PMH including dementia, CHF, DM, HTN, HLD, OA who presented to the ED on 07/12/18 with c/o R knee pain and inability to bear weight after falls in May and was found to have R knee effusion, tenderness along joint line and patella, pain with ROM, slightly increased warmth. Exam was also notable for irregular rhythm, 3/6 systolic murmur, RLE swelling. Per ED provider, also a sacral ulcer was present, but per Dr Marquis is not clinically infected in appearance. Empirically vancomycin and Zosyn were started. Blood cultures showed growth of Group A Strep. ESR was >120 and CRP 214.9 on 07/13. Aspiration from the knee was yielded cloudy fluid that subsequently grew Group A Strep, and she was taken to the OR on 07/14/18 for septic arthritis of the R knee and underwent arthroscopic synovectomy; intraoperatively, frankly purulent material was encountered and sent for cx and susceptibility testing. Synovial fluid had no crystals observed. Rocephin 2 g IV has since been added. Impression/Recommendations Group A Strep septic arthritis of R knee and bacteremia - Group A Strep grew from blood cultures and arthrocentesis. It is possible may have had some predisposition due to trauma to her knee reported from falls in May. - Recommend discontinuing vancomycin and Zosyn. - IV Rocephin 2 g daily was started for Group A Strep and should be continued for 4 weeks; anticipated end date Aug 11 - If pt is a poor PICC line candidate or develops problems with a PICC line or skilled nursing outpatient IV antibiotic therapy, PO Levaquin is an alternative to complete treatment. Shaan Darden MD [facility] pager [phone]
[2018-07-15] MEDS ORDERED: PEG 3350/NA SULF,BICARB,CL/KCL 4000 ML PO ONE (16:30)
[2018-07-15] MEDS: NORMAL SALINE 1000 ML 1,000 ML IV PRN (18:06)
[2018-07-15 19:37] LABS: ABSOLUTE LYMPHOCYTES (AUTO) 1.2 10^3/uL (0.5-4.7); ABSOLUTE MONOCYTES (AUTO) 0.4 10^3/uL (0.1-1.4); ABSOLUTE NEUT (AUTO) 6.2 10^3/uL (1.7-8.2); BASOPHILS % (AUTO) 0.5 % (0-2); EOSINOPHILS % (AUTO) 0.1 % (0-6); HEMATOCRIT 18.9 % (36.0-47.0); LYMPHOCYTES % (AUTO) 15.2 % (13-45); MONOCYTES % (AUTO) 5.6 % (3-13); PLATELET COUNT 229 10^3/uL (150-450); RED CELL DISTRIBUTION WIDTH 16.1 % (11.5-14.0); SEGMENTED NEUTROPHILS % (AUTO) 78.6 % (42-78); TOTAL CELLS COUNTED % (AUTO) 100 %; WHITE BLOOD COUNT 7.9 10^3/uL (4.0-10.5)
[2018-07-15 19:40] LABS: MEAN CORPUSCULAR HEMOGLOBIN 27.8 pg (27.0-33.4); MEAN CORPUSCULAR HGB CONC 33.7 g/dL (32.0-36.0); MEAN CORPUSCULAR VOLUME 83 fl (80-97); RED BLOOD COUNT 2.29 10^6/uL (3.72-5.28)
[2018-07-15 19:43] LABS: HEMOGLOBIN 6.4 g/dL (12.0-15.5)
[2018-07-15] MEDS ORDERED: FUROSEMIDE 20 MG TABLET PO PRN (20:30)
[2018-07-15] MEDS: TRAZODONE HCL 50 MG TABLET PO SCH (22:16)
[2018-07-15] MEDS: ATORVASTATIN CALCIUM 40 MG TABLET PO SCH (22:17)
[2018-07-15] MEDS: DIPHENHYDRAMINE HCL 25 MG CAPSULE PO PRN (22:18)
--- NOTE | 2018-07-15 22:24 | XCELERA REPORT ---
[address] [address] Transthoracic Echocardiogram Report Name: DALIA QUEVEDO Age: 62 yrs Gender: Female : 1955 Patient Status: Inpatient Patient Location: [facility] Study Date: 07/15/2018 02:51 PM Height: 66 in Weight: 181 lb BSA: 1.9 m2 Procedure: A two-dimensional transthoracic echocardiogram with color flow and Doppler was performed. Study Quality: Good. Reason For Study: r/o endocarditis History: r/o endocarditis. Ordering Physician: SHADE ADRIAN Performed By: Sana Sidhu Interpretation Summary RECOMMEND KELLEY TO LOOK FOR VEGETATIONS. The left ventricle is normal in size. There is mild concentric left ventricular hypertrophy. LV EF is 65% Left ventricular systolic function is normal. Doppler measurements suggest impaired left ventricular relaxation, which is associated with grade I/IV or mild diastolic dysfunction The left ventricular wall motion is normal. There is no thrombus. There is no ventricular septal defect visualized. The right ventricle is grossly normal size. The right atrium is normal. The left atrial size is normal. The interatrial septum is intact with no evidence for an atrial septal defect. There is no Doppler evidence for an interatrial shunt The mitral valve chordae are thickened and/or calcified. There is no evidence of mitral valve prolapse. There is no vegetation seen on the mitral valve. There is no mitral valve stenosis. There is a mild amount of mitral regurgitation There is no aortic valvular vegetation. There is no aortic valve stenosis There is no LVOT obstruction. No aortic regurgitation is present. There is aortic sclerosis without aortic stenosis. There is no tricuspid stenosis. There is a mild amount of tricuspid regurgitation There is no tricuspid valve vegetation. There is mild pulmonary hypertension by echo RVSP is 36 to 41 mm of Hg , with RA mean of 5 to 10. There is no pulmonic valvular stenosis. There is no pulmonic valvular regurgitation. The aortic root is normal size. The inferior vena cava appeared normal and decreased > 50% with respiration (RAP 5-10 mmHg) Minimal pericardial effusion. There are no echocardiographic or Doppler indications for cardiac tamponade RECOMMEND KELLEY TO LOOK FOR VEGETATIONS. MMode/2D Measurements & Calculations RVDd: 3.7 cm LVIDd: 3.7 cm FS: 34.5 % Ao root diam: 2.9 cm IVSd: 1.2 cm LVIDs: 2.4 cm EDV(Teich): 59.0 ml Ao root area: 6.8 cm2 LVPWd: 1.2 cm ESV(Teich): 21.0 ml LA dimension: 3.2 cm EF(Teich): 64.4 % Doppler Measurements & Calculations MV E max eulogio: MV P1/2t max eulogio: Ao V2 max: LV V1 max P.4 cm/sec 82.4 cm/sec 160.8 cm/sec 4.1 mmHg MV A max eulogio: MV P1/2t: 69.5 msec Ao max PG: LV V1 max: 98.7 cm/sec MVA(P1/2t): 3.2 cm2 10.3 mmHg 100.7 cm/sec MV E/A: 0.82 MV dec slope: 347.3 cm/sec2 MV dec time: 0.24 sec PA V2 max: TR max eulogio: MV P1/2t-pr_phl: 111.6 cm/sec 276.3 cm/sec 69.5 msec PA max P.0 mmHgTR max P.5 mmHg Left Ventricle The left ventricle is normal in size. There is mild concentric left ventricular hypertrophy. LV EF is 65%. Left ventricular systolic function is normal. Doppler measurements suggest impaired left ventricular relaxation, which is associated with grade I/IV or mild diastolic dysfunction. The left ventricular wall motion is normal. There is no thrombus. There is no ventricular septal defect visualized. Right Ventricle The right ventricle is grossly normal size. Atria The right atrium is normal. The left atrial size is normal. The interatrial septum is intact with no evidence for an atrial septal defect. There is no Doppler evidence for an interatrial shunt. Mitral Valve The mitral valve chordae are thickened and/or calcified. There is no evidence of mitral valve prolapse. There is no vegetation seen on the mitral valve. There is no mitral valve stenosis. There is a mild amount of mitral regurgitation. Aortic Valve There is no aortic valvular vegetation. There is no aortic valve stenosis. There is no LVOT obstruction. There is aortic sclerosis without aortic stenosis. No aortic regurgitation is present. Tricuspid Valve There is no tricuspid valve vegetation. There is no tricuspid stenosis. There is a mild amount of tricuspid regurgitation. There is mild pulmonary hypertension by echo. RVSP is 36 to 41 mm of Hg , with RA mean of 5 to 10. Pulmonic Valve There is no pulmonic valvular stenosis. There is no pulmonic valvular regurgitation. Great Vessels The aortic root is normal size. The inferior vena cava appeared normal and decreased > 50% with respiration (RAP 5-10 mmHg). Effusions Minimal pericardial effusion. There are no echocardiographic or Doppler indications for cardiac tamponade. : SHADE ADRIAN Lakshmi
[2018-07-16] MEDS: DIPHENHYDRAMINE HCL 25 MG CAPSULE PO PRN (04:00)
[2018-07-16] MEDS: ACETAMINOPHEN 325 MG TABLET PO PRN (04:01)
[2018-07-16] MEDS: HYDRALAZINE HCL 10 MG TABLET PO SCH ×2 (06:48→13:21)
[2018-07-16] MEDS: BUSPIRONE HCL 10 MG TABLET PO SCH ×2 (06:48→13:21)
[2018-07-16] MEDS ORDERED: PROPOFOL INJ 200 MG/20 ML VIAL IV ONE (08:48)
--- NOTE | 2018-07-16 08:50 | PDOC PROGRESS REPORT ---
Subjective Progress Note for:: 07/16/18 Reason For Visit: BACTEREMIA, PAINFUL RIGHT KNEE, POSSIBLE CYSTITIS 62-year-old white female postop day 2 status post arthroscopic synovectomy and debridement for a septic pyarthrosis. All intraoperative cultures are no growth so far. Antibiotics have been changed to accommodate positive blood cultures. Patient is receiving packed red blood cells currently. Physical Exam Vital Signs: Temp Pulse Resp BP Pulse Ox 36.4 C 92 16 135/61 H 100 07/16/18 08:30 07/16/18 08:30 07/16/18 08:30 07/16/18 08:30 07/16/18 08:30 Intake & Output 07/15/18 07/16/18 07/17/18 06:59 06:59 06:59 Intake Total 7750 1330 300 Output Total 5505 1050 Balance 2245 280 300 Weight 87.5 kg 90 kg General appearance: PRESENT: mild distress Head exam: PRESENT: normocephalic Respiratory exam: PRESENT: unlabored Cardiovascular exam: PRESENT: RRR Pulses: PRESENT: +1 pedal pulses bilateral Vascular exam: PRESENT: normal capillary refill Extremities exam: PRESENT: other - Right lower extremity dressing clean dry and intact. Considerable tenderness to palpation and pain associate with passive range of motion. Results Laboratory Results: 07/15/18 18:35 07/15/18 08:24 07/13/18 07/15/18 07/15/18 14:52 08:24 08:24 WBC 8.3 RBC 2.57 L Hgb 7.3 L Hct 21.4 L MCV 83 MCH 28.2 MCHC 33.8 RDW 16.3 H Plt Count 262 Seg Neutrophils % Lymphocytes % Monocytes % Eosinophils % Basophils % Absolute Neutrophils Absolute Lymphocytes Absolute Monocytes Absolute Eosinophils Absolute Basophils Sodium 138.6 Potassium 4.4 Chloride 114 H Carbon Dioxide 22 Anion Gap 3 L BUN 39 H Creatinine 1.18 Est GFR ( Amer) 56 L Est GFR (Non-Af Amer) 46 L Glucose 101 Calcium 7.3 L C-Reactive Protein 161.7 H Blood Type O POSITIVE Antibody Screen NEGATIVE 07/15/18 07/15/18 17:30 18:35 WBC Cancelled 7.9 RBC Cancelled 2.29 L Hgb Cancelled 6.4 L Hct Cancelled 18.9 L MCV Cancelled 83 MCH Cancelled 27.8 MCHC Cancelled 33.7 RDW Cancelled 16.1 H Plt Count Cancelled 229 Seg Neutrophils % Cancelled 78.6 H Lymphocytes % Cancelled 15.2 Monocytes % Cancelled 5.6 Eosinophils % Cancelled 0.1 Basophils % Cancelled 0.5 Absolute Neutrophils Cancelled 6.2 Absolute Lymphocytes Cancelled 1.2 Absolute Monocytes Cancelled 0.4 Absolute Eosinophils Cancelled 0.0 Absolute Basophils Cancelled 0.0 Sodium Potassium Chloride Carbon Dioxide Anion Gap BUN Creatinine Est GFR ( Amer) Est GFR (Non-Af Amer) Glucose Calcium C-Reactive Protein Blood Type Antibody Screen 07/13/18 13:11 Sacrum - Decubitis Ulcer Gram Stain - Final Status: Imported from PACS Assessment & Plan - Diagnosis (1) Septic arthritis of knee, right Qualifiers: Septic arthritis organism: due to unspecified organism Qualified Code(s): M00.9 - Pyogenic arthritis, unspecified Is this a current diagnosis for this admission?: Yes Plan: Continue IV antibiotics and attempts to mobilize on a weightbearing as tolerated basis - Time Time Spent with patient: 15-24 minutes Anticipated discharge: SNF Within: when bed available
[2018-07-16] MEDS: ISOSORBIDE MONONITRATE 30 MG TAB.ER.24H PO SCH (10:48)
[2018-07-16] MEDS: CARVEDILOL 6.25 MG TABLET PO SCH (10:48)
[2018-07-16] MEDS: FERROUS SULFATE 325 MG TABLET PO SCH (10:48)
[2018-07-16] MEDS: DOCUSATE SODIUM 100 MG CAPSULE PO SCH (10:48)
[2018-07-16] MEDS: VENLAFAXINE HCL 75 MG CAP.SR.24H PO SCH (10:48)
[2018-07-16] MEDS: ENOXAPARIN SODIUM INJ 40 MG/0.4 ML DISP.SYRIN SUBCUT SCH (10:49)
[2018-07-16] MEDS: AMLODIPINE BESYLATE 10 MG TABLET PO SCH (10:50)
[2018-07-16] MEDS: LISINOPRIL 5 MG TABLET PO SCH (10:50)
[2018-07-16] MEDS: MEMANTINE HCL 10 MG TABLET PO SCH (10:50)
[2018-07-16] MEDS: INSULIN GLARGINE,HUM.REC.ANLOG 1,000 UNIT/10 ML UNIT SUBCUT SCH (11:00)
[2018-07-16] MEDS: CEFTRIAXONE 2 GM/D5W RTU 2 GM/50 ML RTUPB IV SCH (11:01)
[2018-07-16 11:28] LABS: ALANINE AMINOTRANSFERASE 24 U/L (9-52); ALBUMIN 1.5 g/dL (3.5-5.0); ALKALINE PHOSPHATASE 108 U/L (38-126); ASPARTATE AMINO TRANSFERASE 15 U/L (14-36); BILIRUBIN,DIRECT 0.3 mg/dL (0.0-0.4); BILIRUBIN,TOTAL 0.3 mg/dL (0.2-1.3); BLOOD UREA NITROGEN 48 mg/dL (7-20); GLUCOSE 149 mg/dL (75-110); POTASSIUM 4.4 mmol/L (3.6-5.0); TOTAL PROTEIN 4.5 g/dL (6.3-8.2)
[2018-07-16 11:33] LABS: ABSOLUTE BASOPHILS # (AUTO) 0.1 10^3/uL (0.0-0.2); ABSOLUTE LYMPHOCYTES (AUTO) 1.3 10^3/uL (0.5-4.7); ABSOLUTE MONOCYTES (AUTO) 0.4 10^3/uL (0.1-1.4); ABSOLUTE NEUT (AUTO) 8.5 10^3/uL (1.7-8.2); BASOPHILS % (AUTO) 0.7 % (0-2); LYMPHOCYTES % (AUTO) 13.1 % (13-45); MONOCYTES % (AUTO) 3.9 % (3-13); PLATELET COUNT 284 10^3/uL (150-450); RED CELL DISTRIBUTION WIDTH 15.2 % (11.5-14.0); SEGMENTED NEUTROPHILS % (AUTO) 82.3 % (42-78); TOTAL CELLS COUNTED % (AUTO) 100 %; WHITE BLOOD COUNT 10.3 10^3/uL (4.0-10.5)
[2018-07-16 11:36] LABS: ANION GAP 5 (5-19); CARBON DIOXIDE 18 mmol/L (22-30); CHLORIDE 119 mmol/L (98-107); SODIUM 141.6 mmol/L (137-145)
[2018-07-16 11:41] LABS: CALCIUM 6.9 mg/dL (8.4-10.2)
[2018-07-16 11:54] LABS: HEMATOCRIT 21.5 % (36.0-47.0); HEMOGLOBIN 7.4 g/dL (12.0-15.5); RED BLOOD COUNT 2.49 10^6/uL (3.72-5.28)
[2018-07-16 11:55] LABS: MEAN CORPUSCULAR HEMOGLOBIN 29.6 pg (27.0-33.4); MEAN CORPUSCULAR HGB CONC 34.3 g/dL (32.0-36.0); MEAN CORPUSCULAR VOLUME 86 fl (80-97)
--- NOTE | 2018-07-16 12:10 | Progress Note ---
Provider Note Provider Note: This note is for medical documentation. I was contacted by Dr Hyman of the surgical service yesterday. the surgical service had been contacted to see the patient in consult It was determined by the surgeon bmw sales consultant that she needed an EGD and colonoscopy it was noted that Dr Nevarez did not perform endoscopic procedures I had agreed to help out with getting procedure done Dr Shields had written prep order Geetha Rendon RN had spoken to the patient with RN's nurse to emphasize the prep. we were told this am that patient did not prep. I spoke with Dr. Nevarez, not able to proceed with colonoscopy offered to perform EGD but the question still remains as to whether the surgical service who be able to perform the colonoscopy over the weekend. Dr Nevarez is agreeable for transfer of the patient to a tertiary institution for further care. I have confirmed this with Dr Nevarez. The patient is on the Hospitalist service and plans will be made to transfer the patient.
[2018-07-16 12:45] VITALS: BP 138/61
--- NOTE | 2018-07-16 13:54 | PDOC TRANSFER SUMMARY ---
General Admission Date/PCP: 07/13/18 17:16 PEEWEE CHAVEZ MD Resuscitation Status: Full Code - Transfer Diagnosis (1) GI bleed Is this a current diagnosis for this admission?: Yes (2) Septic arthritis of knee, right Is this a current diagnosis for this admission?: Yes Diagnosis Summary: Synovial fluid from 07/14/2018 grew beta strep pansensitive. Patient is to rolf nue 4 weeks of 2 g of IV Rocephin daily. Dissipated last day of antibiotic August 11. Patient will will need a PICC line before placement. (3) Anemia Is this a current diagnosis for this admission?: Yes (4) Bacteremia Is this a current diagnosis for this admission?: Yes Diagnosis Summary: 2/2 positive blood culture from 07/12/2018 group A beta strep pansensitive. Patient is to receive 4 weeks of total IV antibiotics. Rocephin 2 g daily. Anticipated last day of IV antibiotics. . (5) Urinary tract infection Is this a current diagnosis for this admission?: Yes (6) Diabetes mellitus type 2 in obese Is this a current diagnosis for this admission?: Yes (7) CKD (chronic kidney disease) stage 3, GFR 30-59 ml/min Is this a current diagnosis for this admission?: Yes (8) Sacral decubitus ulcer, stage II Is this a current diagnosis for this admission?: Yes (9) Hypocalcemia Is this a current diagnosis for this admission?: Yes - Transfer Medications Home Medications: Amlodipine Besylate [Norvasc 10 mg Tablet] 10 mg PO QAM 07/13/18 Atorvastatin Calcium [Lipitor 40 mg Tablet] 40 mg PO QHS 07/13/18 Buspirone HCl [Buspar 5 mg Tablet] 5 mg PO Q8 07/13/18 Carvedilol [Coreg 6.25 mg Tablet] 6.25 mg PO Q12 07/13/18 Docusate Sodium [Colace 100 mg Capsule] 100 mg PO BID 07/13/18 Hydralazine HCl [Apresoline 10 mg Tablet] 5 mg PO Q8 07/13/18 Hydralazine HCl [Apresoline 10 mg Tablet] 10 mg PO Q8HP PRN 07/13/18 Insulin Glargine,Hum.rec.anlog [Lantus Insulin 100 Unit/mL] 22 units SQ QHS 07/13/18 Insulin Glargine,Hum.rec.anlog [Lantus Insulin 100 Unit/mL] 28 units SQ QAM 07/13/18 Insulin Lispro [Humalog Insulin (Lispro) 100 unit/mL] 0 units SQ .SLIDING SCALE 07/13/18 Isosorbide Mononitrate [Imdur 30 mg Tablet.er] 30 mg PO QAM 07/13/18 Lisinopril [Prinivil 2.5 mg Tablet] 2.5 mg PO QAM 07/13/18 Memantine HCl [Namenda 10 mg Tablet] 10 mg PO BID 07/13/18 Trazodone HCl [Desyrel 50 mg Tablet] 50 mg PO QHS 07/13/18 Venlafaxine HCl [Venlafaxine HCl ER] 75 mg PO QA 07/13/18 Transfer Medications: Current Medications Acetaminophen (Tylenol 325 Mg Tablet) 650 mg PO Q4HP PRN PRN Reason: FOR PAIN OR TEMP Stop: 08/12/18 17:14 Last Admin: 07/16/18 04:01 Dose: 650 mg Documented by: Acetaminophen (Tylenol 650 Mg Supp) 650 mg OK Q4HP PRN PRN Reason: FOR PAIN OR TEMP Stop: 08/12/18 17:14 Amlodipine Besylate (Norvasc 10 Mg Tablet) 10 mg PO DAILY [facility] Stop: 08/13/18 09:59 Last Admin: 07/16/18 10:50 Dose: Not Given Documented by: Atorvastatin Calcium (Lipitor 40 Mg Tablet) 40 mg PO QHS [facility] Stop: 08/12/18 21:59 Last Admin: 07/15/18 22:17 Dose: 40 mg Documented by: Buspirone HCl (Buspar 10 Mg Tablet) 5 mg PO Q8 [facility] Stop: 08/12/18 21:59 Last Admin: 07/16/18 13:21 Dose: Not Given Documented by: Carvedilol (Coreg 6.25 Mg Tablet) 6.25 mg PO Q12 [facility] Stop: 08/12/18 21:59 Last Admin: 07/16/18 10:48 Dose: Not Given Documented by: Dextrose (Dextrose Inj 50% Syringe (25 Gm/50 Ml)) 12.5 gm IV PRN PRN; Protocol PRN Reason: FOR BG 50-69 IN ALERT PATIENT Stop: 08/12/18 17:46 Dextrose (Dextrose Inj 50% Syringe (25 Gm/50 Ml)) 25 gm IV PRN PRN; Protocol PRN Reason: PER PROTOCOL Stop: 08/12/18 17:46 Last Admin: 07/14/18 21:54 Dose: 25 gm Documented by: Docusate Sodium (Colace 100 Mg Capsule) 100 mg PO BID [facility] Stop: 08/12/18 17:59 Last Admin: 07/16/18 10:48 Dose: Not Given Documented by: Enoxaparin Sodium (Lovenox Inj 40 Mg/0.4 Ml Disp.Syrin) 40 mg SUBCUT DAILY [facility] Stop: 08/12/18 18:29 Last Admin: 07/16/18 10:49 Dose: Not Given Documented by: Ferrous Sulfate (Feosol 325 Mg Tablet) 325 mg PO BIDPCBS [facility] Stop: 08/12/18 17:59 Last Admin: 07/16/18 10:48 Dose: Not Given Documented by: Glucagon (Glucagen Inj 1 Mg Vial) 1 mg IM PRN PRN; Protocol PRN Reason: Evaluate for BG < 70 Stop: 08/12/18 17:46 Glucose (Glutose 40% Gel 15 Gm Tube) 15 gm PO PRN PRN; Protocol PRN Reason: FOR BG 50-69 IN ALERT PATIENT Stop: 08/12/18 17:46 Glucose (Glutose 40% Gel 15 Gm Tube) 30 gm PO PRN PRN; Protocol PRN Reason: FOR BG < 50 IN ALERT PATIENT Stop: 08/12/18 17:46 Hydralazine HCl (Apresoline 10 Mg Tablet) 10 mg PO Q4HP PRN PRN Reason: GIVE FOR SBP > 160 Stop: 08/12/18 17:39 Hydralazine HCl (Apresoline 10 Mg Tablet) 5 mg PO Q8 [facility] Stop: 08/12/18 21:59 Last Admin: 07/16/18 13:21 Dose: Not Given Documented by: Sodium Chloride (Nacl 0.9% 1000 Ml Iv Soln) 1,000 mls @ 150 mls/hr IV CONTINUOUS PRN PRN Reason: THIS MED IS NOT "PRN" Stop: 08/13/18 19:00 Last Infusion: 07/16/18 12:46 Dose: Infused Documented by: Ceftriaxone Sodium/Dextrose (Rocephin Rtu 2 Gm/D5w 50 Ml Premix Bag) 2 gm in 50 mls @ 100 mls/hr IV DAILY [facility] Stop: 07/28/18 09:59 Last Infusion: 07/16/18 12:45 Dose: Infused Documented by: Insulin Glargine (Lantus Insulin 100 Unit/1 Ml 10 Ml) 22 unit SUBCUT QHS [facility] Stop: 08/12/18 21:59 Last Admin: 07/14/18 22:30 Dose: Not Given Documented by: Insulin Glargine (Lantus Insulin 100 Unit/1 Ml 10 Ml) 28 unit SUBCUT DAILY [facility] Stop: 08/13/18 09:59 Last Admin: 07/16/18 11:00 Dose: Not Given Documented by: Insulin Human Lispro (Humalog Insulin 100 Unit/1 Ml 3 Ml Vial) 0 - 12 unit SUBCUT ACHSP PRN; Protocol PRN Reason: PER PROTOCOL Stop: 08/12/18 17:46 Isosorbide Mononitrate (Imdur 30 Mg Tablet.Er) 30 mg PO DAILY [facility] Stop: 08/13/18 09:59 Last Admin: 07/16/18 10:48 Dose: Not Given Documented by: Lisinopril (Prinivil 5 Mg Tablet) 2.5 mg PO DAILY [facility] Stop: 08/13/18 09:59 Last Admin: 07/16/18 10:50 Dose: Not Given Documented by: Memantine (Namenda 10 Mg Tablet) 10 mg PO BID [facility] Stop: 08/12/18 18:59 Last Admin: 07/16/18 10:50 Dose: Not Given Documented by: Sodium Chloride (Saline Flush 2.5 Ml Monoject Prefil Syrin) 2.5 ml IV Q8 [facility] Stop: 08/12/18 21:59 Last Admin: 07/16/18 13:21 Dose: Not Given Documented by: Trazodone HCl (Desyrel 50 Mg Tablet) 50 mg PO QHS [facility] Stop: 08/12/18 21:59 Last Admin: 07/15/18 22:16 Dose: 50 mg Documented by: Venlafaxine HCl (Effexor Xr 75 Mg Cap.Sr) 75 mg PO PCBRKFST [facility] Stop: 08/13/18 08:59 Last Admin: 07/16/18 10:48 Dose: Not Given Documented by: - Allergies Allergies/Adverse Reactions: morphine Allergy (Verified 07/13/18 11:07) Hospital Course Hospital Course: DALIA QUEVEDO is a 62 year old female Past medical history of past medical history of dementia, CHF, diabetes, hypertension, lipidemia, osteoarthritis presented on 07/12/2018 complaining of worsening right knee pain and swelling. Patient had a fall in May 2018 and has been having right knee swelling since then. On admission was noted that she had a right knee tenderness, swelling with limited range of motion. Septic arthitis was suspected and she was started empirically on vancomycin and Zosyn. She is status post she is day 3 status post right knee arthroscopic synovectomy. Blood culture and synovial fluid came back positive for group A strep pansensitive. Dr. Darden ID specialist was consulted about choice of antibiotic and recommendation was made to start patient on Rocephin 2 g daily for 4 weeks. Of note patient also has history of chronic iron deficiency anemia currently on iron supplement. On admission patient had a hemoglobin of 7.0. She received 2 PRBC on the day of admission, the following day hemoglobin was 8.4. It was no nidhi that patient was having worsening melanotic stool and dropping hemoglobin. Patient has had a total of 5 PRBC since admission however the last hemoglobin still 7.4 but hemoglobin remained between 8.4-6.4. Upper and lower GI endoscopy was planned today but unfortunately it could not be performed here today and it was decided to transfer patient to tertiary center where she can get an upper and lower GI endoscopy and possibly stop the source of bleeding. [facility] was contacted and the agreed to accept the patient for further management. Accepting physician Dr. Almendarez. Physical Exam Vital Signs: Temp Pulse Resp BP Pulse Ox 97.3 F 93 18 138/61 H 99 07/16/18 12:02 07/16/18 12:02 07/16/18 12:02 07/16/18 12:02 07/16/18 12:02 Intake & Output 07/15/18 07/16/18 07/17/18 06:59 06:59 06:59 Intake Total 7750 1330 1350 Output Total 5505 1050 Balance 2245 280 1350 Weight 87.5 kg 90 kg General appearance: PRESENT: mild distress Head exam: PRESENT: atraumatic, normocephalic Respiratory exam: PRESENT: clear to auscultation ita. ABSENT: rales, rhonchi, wheezes Cardiovascular exam: PRESENT: RRR. ABSENT: diastolic murmur, rubs, systolic murmur GI/Abdominal exam: PRESENT: normal bowel sounds, soft. ABSENT: distended, guarding, mass, organolmegaly, rebound, tenderness Extremities exam: PRESENT: joint swelling, tenderness, other Neurological exam: PRESENT: alert, awake, oriented to person, oriented to place, oriented to time, oriented to situation, CN II-XII grossly intact. ABSENT: m otor sensory deficit Psychiatric exam: PRESENT: anxious, depressed Skin exam: PRESENT: other - stage II decubitus ulcer, non infected. dressing in place Results Laboratory Results: 07/16/18 10:42 07/16/18 10:42 07/13/18 07/14/18 07/15/18 14:52 06:49 17:30 WBC Cancelled Cancelled RBC Cancelled Cancelled Hgb Cancelled Cancelled Hct Cancelled Cancelled MCV Cancelled Cancelled MCH Cancelled Cancelled MCHC Cancelled Cancelled RDW Cancelled Cancelled Plt Count Cancelled Cancelled Seg Neutrophils % Cancelled Cancelled Lymphocytes % Cancelled Cancelled Monocytes % Cancelled Cancelled Eosinophils % Cancelled Cancelled Basophils % Cancelled Cancelled Absolute Neutrophils Cancelled Cancelled Absolute Lymphocytes Cancelled Cancelled Absolute Monocytes Cancelled Cancelled Absolute Eosinophils Cancelled Cancelled Absolute Basophils Cancelled Cancelled Sodium Potassium Chloride Carbon Dioxide Anion Gap BUN Creatinine Est GFR ( Amer) Est GFR (Non-Af Amer) Glucose Calcium Magnesium Total Bilirubin AST ALT Alkaline Phosphatase Total Protein Albumin Blood Type O POSITIVE Antibody Screen NEGATIVE 07/15/18 07/16/18 07/16/18 18:35 10:42 10:42 WBC 7.9 10.3 RBC 2.29 L 2.49 L Hgb 6.4 L 7.4 L Hct 18.9 L 21.5 L MCV 83 86 MCH 27.8 29.6 MCHC 33.7 34.3 RDW 16.1 H 15.2 H Plt Count 229 284 Seg Neutrophils % 78.6 H 82.3 H Lymphocytes % 15.2 13.1 Monocytes % 5.6 3.9 Eosinophils % 0.1 0.0 Basophils % 0.5 0.7 Absolute Neutrophils 6.2 8.5 H Absolute Lymphocytes 1.2 1.3 Absolute Monocytes 0.4 0.4 Absolute Eosinophils 0.0 0.0 Absolute Basophils 0.0 0.1 Sodium 141.6 Potassium 4.4 Chloride 119 H Carbon Dioxide 18 L Anion Gap 5 BUN 48 H Creatinine 1.47 H Est GFR ( Amer) 43 L Est GFR (Non-Af Amer) 36 L Glucose 149 H Calcium 6.9 L* Magnesium 1.9 Total Bilirubin 0.3 AST 15 ALT 24 Alkaline Phosphatase 108 Total Protein 4.5 L Albumin 1.5 L Blood Type Antibody Screen 07/14/18 18:15 Knee - Right Gram Stain - Final 07/13/18 12:04 Blood Blood Culture - Final Group A Beta Streptococcus 07/13/18 13:11 Sacrum - Decubitis Ulcer Gram Stain - Final 07/13/18 13:11 Sacrum - Decubitis Ulcer Wound Culture - Final Morganella Morganii Klebsiella Oxytoca Enterococcus Faecalis(Group D)
[2018-07-16] MEDS ORDERED: CALCIUM GLUCONATE 1000 MG/10 ML INJ IV ONE (14:47)
[2018-07-16] MEDS ORDERED: CALCIUM GLUCONATE 2,000 MG in DEXTROSE 5%-WATER 100 ML IV ONE (16:00)
== END 2018-07-16 15:45 | disposition short-term general hospital (02) | DRG 488 ==
LOC: ER 10:58 → EH 15:52 → OBSVTOIN 17:16 → 5 21:02
PROVIDERS: ADMIT Internal Medicine; ATTEND Internal Medicine
PROC: 30233N1 Transfusion of Nonautologous Red Blood Cells into Peripheral Vein, Percutaneous Approach (ICD-10-PCS; 2018-07-13)
PROC: 30233N1 Transfusion of Nonautologous Red Blood Cells into Peripheral Vein, Percutaneous Approach (ICD-10-PCS; 2018-07-14)
PROC: 0SBC4ZZ Excision of Right Knee Joint, Percutaneous Endoscopic Approach (ICD-10-PCS; principal; 2018-07-14 17:00)
PROC: 30233N1 Transfusion of Nonautologous Red Blood Cells into Peripheral Vein, Percutaneous Approach (ICD-10-PCS; 2018-07-15)
PROC: 30233N1 Transfusion of Nonautologous Red Blood Cells into Peripheral Vein, Percutaneous Approach (ICD-10-PCS; 2018-07-16)
DX: M00.9 Pyogenic arthritis, unspecified (principal); R78.81 Bacteremia; N30.00 Acute cystitis without hematuria; I13.0 Hypertensive heart and chronic kidney disease with heart failure and stage 1 through stage 4 chronic kidney disease, or unspecified chronic kidney disease; L89.152 Pressure ulcer of sacral region, stage 2; E11.22 Type 2 diabetes mellitus with diabetic chronic kidney disease; N18.3 Chronic kidney disease, stage 3 (moderate); F03.90 Unspecified dementia, unspecified severity, without behavioral disturbance, psychotic disturbance, mood disturbance, and anxiety; E78.5 Hyperlipidemia, unspecified; D50.9 Iron deficiency anemia, unspecified; K21.9 Gastro-esophageal reflux disease without esophagitis; M19.90 Unspecified osteoarthritis, unspecified site; F32.9 Major depressive disorder, single episode, unspecified; G89.29 Other chronic pain; M25.461 Effusion, right knee; E66.9 Obesity, unspecified; I45.10 Unspecified right bundle-branch block; B96.89 Other specified bacterial agents as the cause of diseases classified elsewhere; B95.0 Streptococcus, group A, as the cause of diseases classified elsewhere; B96.4 Proteus (mirabilis) (morganii) as the cause of diseases classified elsewhere; B96.1 Klebsiella pneumoniae [K. pneumoniae] as the cause of diseases classified elsewhere; Z79.4 Long term (current) use of insulin; Z91.81 History of falling; Z83.3 Family history of diabetes mellitus
CPT/HCPCS: 01400; 36415; 36430; 51701; 51702; 70450; 80048; 80053; 81001; 82803; 82962; 83605; 83735; 85025; 85027; 85610; 85652; 86140; 86850; 86900; 86901; 86920; 86922; 87040; 87070; 87075; 87077; 87086; 87186; 87205; 89060; 93005; 93010; 93306; 93971; 96365; 96366; 96367; 96375; 99284; 99285; J0696; J1170; J1650; J1815; J2250; J2543; J2704; J3010; J3370; J3490; J7030; J7060; L1830; P9016